=== PATIENT | female | born 1940 | race Caucasian/White ===

== ENCOUNTER 2016-08-30 15:27 | Inpatient (IN) | payer OTHER, MEDICARE ==
[~2016-08-30] VITALS: Ht 167.6 cm; Wt 101.2 kg
[~2016-08-30 15:27] MED LIST: ASPIR 8181 MG PO; ATROVENT HFA12.9 GM INH; CARTIA XT180 MG PO; CARTIA XT240 MG PO; FISH OIL500 MG PO; HYDRALAZINE HCL25 M1 PO; HYDRODIURIL 2525 MG PO; IBUPROFEN200 M3 PO; LASIX40 MG PO; METFORMIN HCL500 M4 PO; METFORMIN HCL500 MG PO; MULTIVITAMIN1 TA1 PO; NOVOLOG100 U/ML SC; OMEGA 31000 MG PO; POTASSIUM CHLO10 ME4 PO; PREDNISONE10 M2 PO; PRILOSEC 20MG C20 MG PO; PROAIR HFA8.5 GM INH; QUINAPRIL HYDRO40 MG PO; ROCEPHIN1 GM IV; SERTRALINE HCL100 MG PO; SIMVASTATIN10 MG PO; SOLU-MEDROL40 MG IV; VESICARE10 MG PO; VITAMIN D50000 I1 PO
--- NOTE | 2016-08-30 15:50 | ED DYSPNEA/ASTHMA COMPLAINT ---
History of Present Illness General Chief Complaint: Dyspnea (COPD, CHF, Other) Stated Complaint: ?BRONCHITIS OR PNA, SOB Source: patient, family, old records Exam Limitations: no limitations Vital Signs & Intake/Output Vital Signs & Intake/Output Vital Signs Date Time Temp Pulse Resp B/P Pulse O2 O2 Flow FiO2 Ox Delivery Rate 09/01 0703 99.0 77 22 130/72 91 Nasal 3.0L Cannula 08/31 0100 148/88 08/31 0016 113 91 08/307 99.2 107 20 152/102 89 Nasal 3.5L Cannula 08/30 2315 103 91 08/30 2215 BIPAP 3.5L 08/30 2159 98.0 106 24 138/89 89 Nasal 3.5L Cannula 08/30 2102 98.3 105 24 142/81 91 Room Air 4.0L 08/30 1912 91 Nasal 4.0L Cannula 08/30 1905 99.4 103 22 139/80 90 Nasal 3.0L Cannula 08/30 1610 91 Nasal 2.0L Cannula 08/30 1605 88 Room Air Room Air 08/30 1538 98.7 96 20 128/65 88 Room Air ED Intake and Output 08/31 0000 08/30 1200 Intake Total 50 Output Total Balance 50 Intake, IV 50 Patient 232 lb Weight Allergies Coded Allergies: codeine (Mild, SENSITIVITY - HEADACHE AND NAUSEA AND MISERABLE 03/01/16) Antihistamines - Alkylamine (DIZZY, HEADACHES, FEELS SICK 03/01/16) Antihistamines - Ethanolamine (DIZZINESS, HEADACHE, FEELS SICK 03/01/16) Antihistamines - Ethylenediamine (DIZZINESS, HEADACHE, FEELS SICK 03/01/16) Antihistamines - Piperazine (DIZZINESS, HEADACHE, FEELS SICK 03/01/16) Antihistamines - Piperidine (DIZZINESS HEADACHE FEELS SICK 03/01/16) Opioids - Morphine Analogues (N/V HEADACHE FEELS MISERABLE 03/01/16) Opioids-Meperidine and Related (N/V HEADACHE, FEELS MISERABLE 03/01/16) Opioids-Methadone and Related (HEADACHE, N/V, FEELS MISERABLE 03/01/16) Reconcile Medications Albuterol Sulfate 0.63 MG/3 ML VIAL.NEB (Unknown Dose) INH Q4 HRS NEEDED PRN BREATHING (Reported) Albuterol Sulfate (Proair Hfa) 90 MCG HFA.AER.AD 2 PUF INH Q4-6 PRN PRN shortness of breath Aspirin (Ecotrin) 81 MG TABLET.DR 1 TAB PO DAILY heart (Reported) DILTIAZEM HCL (Cartia Xt) 180 MG CAP.ER.24H 1 TAB PO DAILY heart (Reported) Fish Oil ([place] 3) 1,000 MG SGL 1 SGL PO DAILY supplement (Reported) Furosemide (Lasix) 40 MG TAB 40 MG PO DAILY HEART HEALTH Hydralazine HCl 25 MG TABLET 25 MG PO TID HTN Ibuprofen 200 MG CAPSULE 4 CAP PO PRN PAIN (Reported) Ipratropium [place] (Atrovent Hfa) 17 MCG/ACTUATION HFA.AER.AD 2 PUF INH DAILY COPD Metformin HCl (Metformin HCl ER) 500 MG TAB.ER.24H 1 TAB PO D DIABETES ( Reported) Multivitamin2 (Multivitamin) 1 EACH TAB 1 TAB PO DAILY supplement (Reported) Potassium Chloride 10 MEQ TABLET.ER 1 TAB PO DAILY SUPPLEMENT (Reported) Quinapril HCl 40 MG TABLET 1 TAB PO DAILY HTN (Reported) Sertraline HCl 100 MG TABLET 0.5 TAB PO DAILY MENTAL HEALTH (Reported) Simvastatin (Zocor) 10 MG TABLET 1 TAB PO DAILY HLD (Reported) Triage Note: PT STATES SHE STARTED WITH A COLD FOR ABOUT 1 WEEK. PT STATES SHE IS NOT HAVING CHEST DISCOMFORT WITH WET COUGH BUT STATES SHE IS UNABLE TO BRING ANYTHING UP. PT FEELING SOB. PT WITH BILAT LOWER EXT. EDEMA WAS TOLD BY PCP TO COME TO ED. FOR EVAL. PT GOES TO WOUND CARE FOR BILAT LOWER EX.T Triage Nurses Notes Reviewed? yes HPI: Patient is a 76-year-old female presents complaining of cough and dyspnea. Patient began with postnasal drip one week ago, "loose cough" onset yesterday. Patient is not able to produce sputum. Patient checks her oxygen saturation twice a day at home, today patient reports that her oxygen saturation was 88%. Pain on the left lateral chest with deep breath and coughing. Positive subjective fevers at home. Chronic bilateral lower extremity edema, mild increased from her baseline. Positive orthopnea. Patient denies dyspnea with exertion. (NIKUNJ MCDERMOTT,KENDAL) Past History Travel History Traveled to [place] past 21 day No Medical History Any Pertinent Medical History? 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 No (KENDAL BROWN) Review of Systems Review of Systems Constitutional: Reports: fever, malaise. EENTM: Reports: nasal congestion (positive postnasal drip). Respiratory: Reports: see HPI. Cardiovascular: Reports: chest pain (left lateral with cough), peripheral edema. GI: Denies: abdominal pain, nausea, vomiting. Genitourinary: Reports: no symptoms. Musculoskeletal: Reports: no symptoms. Skin: Reports: lesions (wound right lower extremity). Neurological/Psychological: Reports: no symptoms. Hematologic/Endocrine: Reports: no symptoms. Immunologic/Allergic: Reports: no symptoms. (KENDAL BROWN) Physical Exam Physical Exam General Appearance: well developed/nourished, alert, awake, obese Head: atraumatic, normal appearance Eyes: Bilateral: normal appearance, PERRL, EOMI. Ears, Nose, Throat: hearing grossly normal Neck: normal inspection, supple, full range of motion Respiratory: chest non-tender, mild diffuse expiratory wheezing. Scattered rhonchi. No appreciable rales. Cardiovascular: irregular rhythm. Positive systolic murmur 4 out of 6. Gastrointestinal: soft, non-tender Extremities: 3+ bilateral lower extremity edema. Wound wraps to bilateral lower extremities. Neurologic/Psych: awake, alert, oriented x 3 Skin: warm/dry Lymphatic: no anterior cervical maira Core Measures ACS in differential dx? Yes ASA ordered for poss ACS? No-ACS ruled out Severe Sepsis Present: No Septic Shock Present: No (KENDAL BROWN) Progress Differential Diagnosis: asthma, AMI, bronchitis, CHF, COPD, pulmonary embolism, pneumonia, unstable angina Plan of Care: Orders Procedure Date/time Status Consistent Carbohydrate 08/31 D Active Consistent Carbohydrate 08/31 B Active Pathway - chart 08/31 0912 Active URINALYSIS 08/31 09 Active TROPONIN LEVEL 08/31 0906 Active CBC WITHOUT DIFFERENTIAL 08/31 905 Active BASIC ELECTROLYTES PLUS BUN&CR 08/31 09 Active Skin/Pressure Ulcer Assess (Sk 08/31 0626 Active LOWER RESPIRATORY CULTURE 08/31 0554 Active Weight 08/31 UNK Active PHYSICIAN CONSULT 08/31 UNK Active ECHOCARDIOGRAM 08/31 UNK Active Teach/Educate 08/30 233 Active Pain Treatment and Response 08/30 2334 Active Nutritional Intake, Monitor 08/30 2334 Active Isolation 08/30 2334 Active Patient Care Conference 08/30 2334 Active Activity/Ambulation 08/30 2334 Active BIPAP 08/30 2254 Complete TROPONIN LEVEL 08/30 223 Complete EKG 08/30 223 Active OXYGEN SETUP (GEN) 08/30 2199 Complete Code Status 08/30 2020 Active Saline Lock 08/30 1957 Active Misc Message 08/30 1957 Active ED Holding Orders 08/30 1957 Active Code Status 08/30 1957 Complete TRC EVALUATION (GEN) 08/31 1947 Active OXYGEN SETUP (GEN) 08/30 194 Active Pathway - chart 08/30 194 Active House Staff 08/30 194 Active Patient Data 08/30 194 Active Patient Data 08/30 1917 Active Admit to inpatient 08/30 1840 Active Telemetry/Financial Specialist 08/30 1622 Active BLOOD CULTURE 08/30 1559 Active TROPONIN LEVEL 08/30 1559 Complete COMPREHENSIVE METABOLIC PANEL 08/30 1559 Complete CBC WITHOUT DIFFERENTIAL 08/30 1559 Complete B-TYPE NATRIURETIC PEP (BNP) 08/30 1559 Complete EKG 08/30 1528 Active OXYGEN 08/30 UNK Complete OXYGEN TRANSPORT 08/30 UNK Complete OXYGEN DAILY CHARGE 08/30 UNK Complete BIPAP 08/30 UNK Complete ARTERIAL BLOOD GAS (GEN) 08/30 UNK Complete VTE Mechanical Prophylaxis 08/30 UNK Active Vital Signs 08/30 UNK Active MISTAKE 08/30 UNK Active Intake & Output 08/30 UNK Active FingerStick- Glucose 08/30 UNK Active Current Medications Sig/Kacie Start time Last Medication Dose Stop Time Status Admin Atorvastatin Calcium 5 MG 1700 08/31 1700 AC (Lipitor) Azithromycin 500 MG 1700 08/31 1700 AC (Zithromax) 04/14 1759 Sodium Chloride 250 ML (Normal Saline 0.9%) Diltiazem HCl 180 MG DAILY 08/31 1000 AC (Cardizem CD) Enoxaparin Sodium 40 MG DAILY 08/31 999 AC (Lovenox) Furosemide 40 MG DAILY 08/31 1000 AC (Lasix) Guaifenesin 600 MG Q12 08/31 1000 AC (Mucinex) Lisinopril 40 MG DAILY 08/31 999 AC (Prinivil) Potassium Chloride 10 MEQ DAILY 08/31 999 AC (K-Dur) Acetaminophen 325 MG Q6P PRN 08/31 914 AC (Tylenol) Acetaminophen 1,000 MG Q6P PRN 08/31 914 AC (Ofirmev) Ibuprofen 400 MG Q6P PRN 08/31 914 AC (Motrin) Laboratory Tests 08/30/16 2300: Troponin I 0.02 08/30/160: pH 7.38, pCO2 49 H, pO2 62 L, HCO3 28, ABG O2 Sat (Measured) 89.0 L, P-50 ( Temp Corrected) N, Carboxyhemoglobin 1.0 L, O2 Concentration % 3.5L, Temperature 98.3, O2 Delivery Method NC, Phlebotomy Draw Site LEFT RADIAL 08/30/16 1637: Anion Gap 12, Estimated GFR > 60, BUN/Creatinine Ratio 28.8 H, Glucose 85, Calcium 9.0, Total Bilirubin 0.7, AST 15, ALT 37, Alkaline Phosphatase 67, Troponin I 0.02, Nav-Q-Nbknleoqpyc Pept 2310 H, Total Protein 7.4, Albumin 4.0, Globulin 3.4, Albumin/Globulin Ratio 1.2, CBC w Diff NO MAN DIFF REQ, RBC 4.70, MCV 88.2, MCH 28.0, RDW 14.6 H, MPV 8.1, Gran % 87.9 H, Lymphocytes % 5.3 L, Monocytes % 6.4, Eosinophils % 0.3, Basophils % 0.1, Absolute Granulocytes 13.9 H, Absolute Lymphocytes 0.8 L, Absolute Monocytes 1.0 H, Absolute Eosinophils 0, Absolute Basophils 0, PUBS MCHC 31.8 L Microbiology 08/31 553 LOWER RESP: Respiratory Culture - ORD 08/31 553 LOWER RESP: Gram Stain - ORD 08/30 181 BLOOD: Blood Culture - RECD 08/30 1638 BLOOD: Blood Culture - RECD 08/30/2016 6:11:02 PM: Patient re-evaluated multiple times. Reports mild to moderate improvement after duoneb treatment. Continues with oxygen saturations in the mid 80's. Discussed results of chest x-ray and evaluation with patient. Discussed with Dr. Sadler. Plan for admission. (NIKUNJ MCDERMOTT,KENDAL) Diagnostic Imaging: Viewed by Me: Radiology Read. Discussed w/RAD: Radiology Read. CXR Impression: PATIENT: KATLYN LUGO PRESENT AGE: 76 PATIENT ACCOUNT NO: [id number] : 40 LOCATION: [facility] ORDERING PHYSICIAN: KENDAL MCDERMOTT SERVICE DATE: 08/30/16 EXAM TYPE: RAD - XRY- PORTABLE CHEST XRAY EXAMINATION: XR PORTABLE CHEST CLINICAL INFORMATION: Cough, dyspnea, lower extremity edema. COMPARISON: Multiple prior chest x-rays dating back to 10/26/2013. CT chest without contrast 12/23/2012. TECHNIQUE: Portable AP view of the chest was obtained. FINDINGS: Single AP view of the chest demonstrates pulmonary hypoinflation and bronchovascular crowding. Cardiomediastinal contours are stable and there is stable prominence of the cardiac silhouette. There are mildly prominent interstitial lung markings, which may reflect interstitial pulmonary edema. Redemonstrated is prominence within the right hilar and right suprahilar regions, grossly unchanged relative to multiple prior chest x-rays dating back to 2013. However, superimposed infection cannot be definitively excluded. IMPRESSION: Pulmonary hypoinflation. Persistent prominence within the bilateral hilar regions, right greater than left, grossly unchanged relative to prior chest x-rays dating back to 2013 and suggestive of underlying pulmonary arterial hypertension. If radiological findings do not correlate to the patient's clinical symptoms or physical exam, consider correlation with contrast-enhanced chest CT to evaluate for underlying mediastinal adenopathy or mass. DICTATED BY: PAPITO MUNGUIA MD DATE/TIME DICTATED:08/30/161633 CIVIL DEFENSE DIRECTOR:MISHA DATE/TIME TRANSCRIBED:1633 CONFIDENTIAL, DO NOT COPY WITHOUT APPROPRIATE AUTHORIZATION. < Electronically signed in Other Vendor System> SIGNED BY: PAPITO MUNGUIA MD 08/30/16 1640 Initial ED EKG: normal sinus rhythm with frequent PACs, normal axis, normal intervals, no acute ischemic EKG changes Prior EKG: unchanged (KENDAL BROWN) Departure Departure Disposition: STILL A PATIENT Condition: Stable Clinical Impression Primary Impression: COPD exacerbation Referrals: Justin SHIN MD (PCP/Family) Departure Forms: Customer Survey General Discharge Information Admission Note Spoke With: SHENA SHORT,RADHA Documentation of Exam: Documentation of any treatments & extenuating circumstances including Concerns Regarding Discharge (functional status, medication knowledge or non-compliance, living conditions, etc.) that warrant an admission rather than observation: Supplemental oxygen, total respiratory care, IV steroids, pulmonary consultation , consider cardiology consultation. (KENDAL BROWN) PA/COMMUNITY ORGANIZATION DIRECTOR Co-Sign Statement Statement: ED Attending supervision documentation- [x] I saw and evaluated the patient. I have also reviewed all the pertinent lab results and diagnostic results. I agree with the findings and the plan of care as documented in the PA's/COMMUNITY ORGANIZATION DIRECTOR's documentation. [x] I have reviewed the ED Record and agree with the PA's/COMMUNITY ORGANIZATION DIRECTOR's documentation. [] Additions or exceptions (if any) to the PAs/COMMUNITY ORGANIZATION DIRECTOR's note and plan are summarized below: [] (ROSMERY SHORT,HIEU) Critical Care Note Critical Care Note Critical Care Time: non-applicable (KENDAL BROWN)
--- NOTE | 2016-08-30 15:55 | NUR ---
PT TO [facility] RM 20 VIA W/C C/C NOTED IN TRIAGE NOTE AWAITING PROVIDER ASTRID
[2016-08-30] MEDS ORDERED: ALBUTEROL0.63 MG/1 INH (16:02)
--- NOTE | 2016-08-30 16:11 | NUR ---
PT EVALUATED BY BALDEMAR CALVIN R/Acosta SATMarielena IN 80'S, PLACED ON NASAL O2@ 2L WITH SATS IMPROVED TO 95% TORI FROM RESPIRATORY THERAPY AT BEDSIDE FOR NEB TREATMENT.
--- NOTE | 2016-08-30 16:40 | RADIOLOGY REPORT ---
EXAMINATION: XR PORTABLE CHEST CLINICAL INFORMATION: Cough, dyspnea, lower extremity edema. COMPARISON: Multiple prior chest x-rays dating back to 10/26/2013. CT chest without contrast 12/23/2012. TECHNIQUE: Portable AP view of the chest was obtained. FINDINGS: Single AP view of the chest demonstrates pulmonary hypoinflation and bronchovascular crowding. Cardiomediastinal contours are stable and there is stable prominence of the cardiac silhouette. There are mildly prominent interstitial lung markings, which may reflect interstitial pulmonary edema. Redemonstrated is prominence within the right hilar and right suprahilar regions, grossly unchanged relative to multiple prior chest x-rays dating back to 2013. However, superimposed infection cannot be definitively excluded. IMPRESSION: Pulmonary hypoinflation. Persistent prominence within the bilateral hilar regions, right greater than left, grossly unchanged relative to prior chest x-rays dating back to 2013 and suggestive of underlying pulmonary arterial hypertension. If radiological findings do not correlate to the patient's clinical symptoms or physical exam, consider correlation with contrast-enhanced chest CT to evaluate for underlying mediastinal adenopathy or mass.
[2016-08-30 16:53] LABS: ABSOLUTE BASOPHIL COUNT 0 /CUMM (0.0-0.2); ABSOLUTE EOSINOPHIL COUNT 0 /CUMM (0.0-0.7); ABSOLUTE GRANULOCYTE CT 13.9 /CUMM (1.4-6.5); ABSOLUTE LYMPH COUNT 0.8 /CUMM (1.2-3.4); BASOPHIL % 0.1 % (0.0-2.0); EOSINOPHIL % 0.3 % (0-5); GRANULOCYTE % 87.9 % (42.2-75.2); HEMATOCRIT 41.4 % (37-47); MEAN CORPUSCULAR HGB CONC 31.8 G/DL (33.0-37.0); MEAN CORPUSCULAR VOLUME 88.2 FL (81.0-99.0); MEAN PLATELET VOLUME 8.1 FL (7.4-10.4); PLATELET COUNT 254 /CUMM (130-400); RBC DISTRIBUTION WIDTH 14.6 % (11.5-14.5)
[2016-08-30 17:16] LABS: WHITE BLOOD CELL COUNT 15.8 /CUMM (4.8-10.8)
--- NOTE | 2016-08-30 18:15 | NUR ---
IV ACCESS ESTABLISHED, #22 RH 2ND SET BLOOD CULTURES DRAWN/SENT
--- NOTE | 2016-08-30 18:30 | NUR ---
PT MEDICATED WITH IV SOLUMEDROL PER ORDERS
--- NOTE | 2016-08-30 18:37 | NUR ---
DR BOTELLO AT BEDSIDE
--- NOTE | 2016-08-30 19:05 | NUR ---
PT MEDICATED WITH IV ZITHROMAX PER ORDERS
--- NOTE | 2016-08-30 19:15 | NUR ---
REPORT TO MARIBELL BANKS
--- NOTE | 2016-08-30 19:47 | History & Physical ---
LEONEL PALMER 08/30/161945: General Information and HPI MD Statement: I have seen and personally examined KATLYN LUGO and documented this H&P. The patient is a 76 year old F who presented with a patient stated chief complaint of cough, left-sided chest pain, worsening lower extremity edema. Source of Information: patient, old records Exam Limitations: no limitations History of Present Illness: This is 76-year-old female with history of morbidly obesity, COPD not on home oxygen, hypertension, heart failure with reduced ejection fraction, BRENNON not compliant with CPAP, chronic hypercapnic respiratory failure, obesity hypoventilation, hyperlipidemia, diabetes mellitus, history of MRSA infection, depression, osteoarthritis, back pain, chronic lower extremity edema with dyspnea on exertion presented to the hospital with cough, dyspnea on exertion, left-sided pleuritic chest pain, worsening lower extremity edema for 2 days. According to the patient, she reported having cold symptoms for one week associated with postnasal drip. She has sick contacts around her. Also reported subjective fevers and chills. However for past 2 days she has been having severe cough associated with left-sided chest pain. Chest pain on and off associated with the deep breaths, 5/10, increased with cough. Denies any nausea, vomiting, diaphoresis, chest pain radiating to neck or shoulder. Patient also reported her oxygen saturations went down to 88 this morning. Usually they vary in between 90-93%. She denies any sputum production. Denies any difficulty breathing at rest. Shortness of breath associated with persistent cough and exertion. She reported subjective fevers and chills. She has difficulty lying flat. She has orthopnea and paroxysmal nocturnal dyspnea. Also patient reported worsening lower extremity edema for 3 days. Increased swelling on left leg compared to right side. Not compeliant with her diet. She missed one of her Lasix 2 days ago. Denies any racing of heart, headache, weakness, sensory tests, notably markedly in sensation, nausea, vomiting, abdominal pain, change in bladder or bowel habits. Denies any travel history. Denies smoking, alcohol intake, illicit drugs. She has been following Dr. Nielsen at wound care center. She was at wound care center last week for right lower extremity blister. Last echo done in 2016 showed ejection fraction 55%, heart failure with reduced ejection fraction and stage II diastolic dysfunction. Allergies/Medications Allergies: Coded Allergies: codeine (Mild, SENSITIVITY - HEADACHE AND NAUSEA AND MISERABLE 03/01/16) Antihistamines - Alkylamine (DIZZY, HEADACHES, FEELS SICK 03/01/16) Antihistamines - Ethanolamine (DIZZINESS, HEADACHE, FEELS SICK 03/01/16) Antihistamines - Ethylenediamine (DIZZINESS, HEADACHE, FEELS SICK 03/01/16) Antihistamines - Piperazine (DIZZINESS, HEADACHE, FEELS SICK 03/01/16) Antihistamines - Piperidine (DIZZINESS HEADACHE FEELS SICK 03/01/16) Opioids - Morphine Analogues (N/V HEADACHE FEELS MISERABLE 03/01/16) Opioids-Meperidine and Related (N/V HEADACHE, FEELS MISERABLE 03/01/16) Opioids-Methadone and Related (HEADACHE, N/V, FEELS MISERABLE 03/01/16) Home Med list Albuterol Sulfate 0.63 MG/3 ML VIAL.NEB (Unknown Dose) INH Q4 HRS NEEDED PRN BREATHING (Reported) Albuterol Sulfate (Proair Hfa) 90 MCG HFA.AER.AD 2 PUF INH Q4-6 PRN PRN shortness of breath Aspirin (Ecotrin) 81 MG TABLET.DR 1 TAB PO DAILY heart (Reported) DILTIAZEM HCL (Cartia Xt) 180 MG CAP.ER.24H 1 TAB PO DAILY heart (Reported) Fish Oil ([place] 3) 1,000 MG SGL 1 SGL PO DAILY supplement (Reported) Furosemide (Lasix) 40 MG TAB 40 MG PO DAILY HEART HEALTH Hydralazine HCl 25 MG TABLET 25 MG PO TID HTN Ibuprofen 200 MG CAPSULE 4 CAP PO PRN PAIN (Reported) Ipratropium [place] (Atrovent Hfa) 17 MCG/ACTUATION HFA.AER.AD 2 PUF INH DAILY COPD Metformin HCl (Metformin HCl ER) 500 MG TAB.ER.24H 1 TAB PO D DIABETES ( Reported) Multivitamin2 (Multivitamin) 1 EACH TAB 1 TAB PO DAILY supplement (Reported) Potassium Chloride 10 MEQ TABLET.ER 1 TAB PO DAILY SUPPLEMENT (Reported) Quinapril HCl 40 MG TABLET 1 TAB PO DAILY HTN (Reported) Sertraline HCl 100 MG TABLET 0.5 TAB PO DAILY MENTAL HEALTH (Reported) Simvastatin (Zocor) 10 MG TABLET 1 TAB PO DAILY HLD (Reported) Compliance With Home Meds: GOOD Past History Travel History Traveled to [place] past 21 day No Medical History Neurological: NONE EENT: NONE Cardiovascular: hypertension Respiratory: bronchitis, COPD, pneumonia Gastrointestinal: NONE Hepatic: NONE Renal: NONE Musculoskeletal: NONE Psychiatric: NONE Endocrine: diabetes Blood Disorders: NONE Cancer(s): NONE SENIOR BUSINESS CONSULTANT/Reproductive: NONE History of MRSA: Yes History of VRE: No History of CDIFF: No Pneumonia Vaccine: 02/21/10 Influenza Vaccine: 02/21/11 Surgical History Surgical History: non-contributory Past Family/Social History Psychosocial History Who Do You Live With? spouse Services at Home: None Primary Language: Faroese Smoking Status: Never Smoked ETOH Use: occasional use Illicit Drug Use: denies illicit drug use Functional Ability ADLs Independent: dressing, eating, toileting, bathing. Ambulation: independent IADLs Independent: shopping, housework, finances, food prep, telephone, transportation , medication admin. Review of Systems Review of Systems Constitutional: Reports: chills, fever. Denies: diaphoresis, malaise, weakness, unexplained weight loss. EENTM: Denies: visual changes, hearing changes. Cardiovascular: Reports: chest pain, edema, orthopena, peripheral edema. Denies: palpitations, syncope. Respiratory: Reports: cough, orthopnea, short of breath, wheezing. Denies: hemoptysis, sputum production, stridor. GI: Denies: abdominal pain, bloating, constipation, diarrhea. Genitourinary: Denies: frequency, nocturia, urgency. Musculoskeletal: Reports: back pain, joint pain. Skin: Reports: erythema, lesions. Neurological/Psychological: Denies: anxiety, ataxia, depressed, dementia, emotional problems, headache, numbness, tingling, tremors. Exam & Diagnostic Data Last 24 Hrs of Vital Signs/I&O Vital Signs Date Time Temp Pulse Resp B/P Pulse O2 O2 Flow FiO2 Ox Delivery Rate 08/30 2102 98.3 105 24 142/81 91 Room Air 4.0L 08/30 1912 91 Nasal 4.0L Cannula 08/30 1905 99.4 103 22 139/80 90 Nasal 3.0L Cannula 08/30 1610 91 Nasal 2.0L Cannula 08/30 1605 88 Room Air Room Air 08/30 1538 98.7 96 20 128/65 88 Room Air Intake & Output 08/30 1600 08/30 0800 08/30 0000 Intake Total Output Total Balance Patient 105.233 kg Weight Physical Exam General Appearance Alert, Oriented X3, Cooperative, No Acute Distress Skin No Rashes, No Breakdown HEENT Atraumatic, PERRLA, EOMI, Mucous Membr. moist/pink Neck Supple, No JVD Lymphatic Axillary nl, Cervical nl Cardiovascular Regular Rate, Normal S1, Normal S2, No Murmurs Lungs expiratory wheezes and crackles Abdomen Normal Bowel Sounds, Soft, No Tenderness Neurological Strength at 5/5 X4 Ext, Normal Tone, Sensation Intact, Cranial Nerves 3-12 NL, Reflexes 2+ Extremities No Clubbing, No Cyanosis (+4 pitting edema b/l), +4 bilateral pitting edema and blister on RLE. Vascular Normal Pulses Last 24 Hrs of Labs/Bernard: Laboratory Tests 08/30/162049: pH 7.38, pCO2 49 H, pO2 62 L, HCO3 28, ABG O2 Sat (Measured) 89.0 L, P-50 ( Temp Corrected) N, Carboxyhemoglobin 1.0 L, O2 Concentration % 3.5L, Temperature 98.3, O2 Delivery Method NC, Phlebotomy Draw Site LEFT RADIAL 08/30/16 1637: Anion Gap 12, Estimated GFR > 60, BUN/Creatinine Ratio 28.8 H, Glucose 85, Calcium 9.0, Total Bilirubin 0.7, AST 15, ALT 37, Alkaline Phosphatase 67, Troponin I 0.02, Yyi-G-Pmkcepnrwac Pept 2310 H, Total Protein 7.4, Albumin 4.0, Globulin 3.4, Albumin/Globulin Ratio 1.2, CBC w Diff NO MAN DIFF REQ, RBC 4.70, MCV 88.2, MCH 28.0, RDW 14.6 H, MPV 8.1, Gran % 87.9 H, Lymphocytes % 5.3 L, Monocytes % 6.4, Eosinophils % 0.3, Basophils % 0.1, Absolute Granulocytes 13.9 H, Absolute Lymphocytes 0.8 L, Absolute Monocytes 1.0 H, Absolute Eosinophils 0, Absolute Basophils 0, PUBS MCHC 31.8 L Microbiology 08/30 181 BLOOD: Blood Culture - RECD 08/30 1638 BLOOD: Blood Culture - RECD Diagnostic Data EKG Results Sinus tachycardia, rate 102, multiple PACs, no ST-T wave abnormalities. QTC 485. CXR Results Chest x-ray on admission:Pulmonary hypoinflation. Persistent prominence within the bilateral hilar regions, right greater than left, grossly unchanged relative to prior chest x- rays dating back to 2013 and suggestive of underlying pulmonary arterial hypertension. If radiological findings do not correlate to the patient's clinical symptoms or physical exam, consider correlation with contrast-enhanced chest CT to evaluate for underlying mediastinal adenopathy or mass. Assessment/Plan Assessment: This is 76-year-old female with history of morbidly obesity, COPD not on home oxygen, hypertension, heart failure with reduced ejection fraction, BRENNON not compliant with CPAP, chronic hypercapnic respiratory failure, obesity hypoventilation, hyperlipidemia, diabetes mellitus, history of MRSA infection, depression, osteoarthritis, back pain, chronic lower extremity edema with dyspnea on exertion presented to the hospital with cough, dyspnea on exertion, left-sided pleuritic chest pain, worsening lower extremity edema for 2 days. Vital signs on admission: Temperature 99.4, pulse rate 103, respiratory rate 22, blood pressure 139/80, oxygen saturation 90% on 3 L nasal cannula oxygen. Pertinent lab data: Leukocytosis to 15.8, hemoglobin 13.2, hematocrit 41.4, platelet 254. Sodium 147, potassium 3.5, creatinine 0.8, glucose 85, calcium 9, proBNP 2310, troponin 0.02. Chest x-ray on admission:Pulmonary hypoinflation. Persistent prominence within the bilateral hilar regions, right greater than left, grossly unchanged relative to prior chest x-rays dating back to 2013 and suggestive of underlying pulmonary arterial hypertension. consider correlation with contrast-enhanced chest CT to evaluate for underlying mediastinal adenopathy or mass. EKG on admission: Sinus tachycardia, rate 102, multiple PACs, no ST-T wave abnormalities. QTC 485. Echocardiogram: February 2016, Technically difficult study. Left ventricular cavity size normal. Left ventricular wall thickness mildly increased. No obvious regional wall motion abnormalities. Left ventricular ejection fraction is estimated at > 55 %. Probable "pseudonormal" filling pattern of the left ventricle (stage 2 diastolic dysfunction). Normal right ventricular size and function. Mild right atrial dilatation. Mild to moderate left atrial dilatation. Ptcb-mi-mgcpksol tricuspid regurgitation. Right ventricular systolic pressure estimated to be elevated at > 60 mmHg. Problem list 1. Acute on chronic CHF 2. Acute COPD exacerbation 3. Acute hypoxic respiratory failure 4. Chronic hypercarbic respiratory failure 5. Depression 6. Osteoarthritis 7. Worsening lower extremity edema 8. Hypertension 9. Hyperlipidemia 10. Diabetes mellitus 11. BRENNON Acute on chronic CHF Patient presented with worsening bilateral lower extremity edema, increased weight, difficulty breathing on exertion. Positive for Left-sided pleuritic chest pain. Positive for orthopnea and paroxysmal nocturnal dyspnea. ProBNP elevated on admission * Admitted to telemetry floor for further management of acute CHF exacerbation * Monitor vitals closely * Monitor daily weights * Ins and outs * Patient takes Lasix 40 mg daily at home * IV Lasix for now * Echocardiogram * Cardiology consult * First set of troponin and EKG was negative * Serial troponins and EKGs acute COPD exacerbation Patient presented with cough not associated with sputum production. Reported subjective fevers and chills. Left-sided chest pain and difficulty placing on exertion. Patient has COPD at baseline not on home oxygen. However her oxygen saturations drop her down to 88 this morning. * Monitor vitals closely * Maintain oxygen saturation Over 90% * Total respiratory care * Albuterol * Ipratropium * IV methylprednisolone 40 mg every 8 hours * If symptoms not improved by tomorrow, consider CTA to rule out PE. Acute hypoxic respiratory failure Patient has chronic hypercarbic respiratory failure. No presented with respiratory rate 22, hypoxia requiring 2 L oxygen. * Patient was prescribed BiPAP and nocturnal oxygen after previous discharge in February 2016. * She is not compliant with BiPAP because her mask is not fitting well. * Will maintain the patient on oxygen supplement to maintain oxygen saturation above 92%. Diabetes: Stable, Accu-Cheks. Would hold oral diabetic medications. Will maintain the patient on insulin sliding scale. Hypertension Continue quinapril and hydralazine Hyperlipidemia Continue statins Obstructive sleep apnea Not using her CPAP. Depression Continue sertraline 50 mg daily Osteoarthritis She takes Ibuprofen as needed Chronic lower extremity edema Also patient reported worsening lower extremity edema for 3 days. Increased swelling on left leg compared to right side. Not compeliant with her diet. She missed one of her Lasix 2 days ago. * She has been following Dr. Nielsen at wound care center. * She was at wound care center last week for right lower extremity blister. * IV Lasix for now * Wound care consult Continue aspirin Continue Cardizem DVT prophylaxis subcutaneous heparin Patient is full code Heart healthy diet/sodium restriction Pain pathway As Ranked By This Provider Problem List: 1. Diabetes mellitus 2. Hypoxic respiratory failure 3. Obesity 4. DVT prophylaxis 5. Full code status 6. Diastolic CHF 7. Hypertension 8. Hyperlipidemia 9. CHF (congestive heart failure) 10. COPD (chronic obstructive pulmonary disease) 11. Osteoarthritis Core Measures/Miscellaneous Acute Coronary Syndrome ACS Diagnosis: No Cerebrovascular Accident CVA/TIA Diagnosis: No Congestive Heart Failure CHF Diagnosis: Yes Date of most recent Echo: 03/04/16 Last Known EF %: 55 JELANI/ARB for EF <40%: Yes No JELANI/ARB d/t: Medical Contraindication Venous Thromboembolism VTE Risk Factors: Age > 40, Obesity No [facility] VTE prophylaxis d/t: No contraindications No VTE Pharm Prophylaxis d/t: No contraindications VTE Diagnosis: No VTE Type: NONE VTE Confirmed by (Test): NONE Severe Sepsis Severe Sepsis Present: No Septic Shock Septic Shock Present: No Miscellaneous Documentation Attending Case Discussed With: LENNIE CHATTERJEE MDBernard Primary Care Physician: Justin SHIN MD Patient sees these Specialists Cardiology Pulmonology Wound care Level of Patient Care: Telemetry YARI CHUN 08/30/161958: Resident Review Statement Resident Statement: examined this patient, discussed with international freight forwarder, agreed with international freight forwarder, reviewed images Other Findings: This is a 76-year-old lady with past medical history significant for COPD, hypertension, HfpEF, BRENNON not compliant with nocturnal CPAP, chronic hypercapnic respiratory failure/obesity hypoventilation, diabetes, chronic lower extremity edema, who presents to the hospital with dyspnea, cough and left-sided chest wall pain for 1 day. She reports a history of sick contact (grandson). Please see above for more details. Vital signs on admission: Temperature 99.4, pulse rate 103, respiratory rate 22, blood pressure 139/80, oxygen saturation 90% on 3 L nasal cannula oxygen. Physical exam at the time of admission: AAO 3, obese, mild distress. HEENT: H NCAT, PERRLA, EOMI, normal pharynx, moist mucous membrane. Neck: JVD present, no lymphadenopathy, no carotid bruit. Cardiovascular: Tachycardic, no murmur. No chest wall tenderness upon palpation. Lungs: Expiratory wheezes with by basilar crackles noted. Abdomen: Normal bowel sounds, soft, NT, ND. Extremities: Bilateral lower extremity edema noted more prominent on the left side. There is a 4 cm x 11 cm ruptured blister present on Right lower extremity. Pulses symmetrical. Neurologic: Cranial nerve II-12 intact. Sensation intact. Normal reflexes. Pertinent lab data: Leukocytosis to 15.8, hemoglobin 13.2, hematocrit 41.4, platelet 254. Sodium 147, potassium 3.5, creatinine 0.8, glucose 85, calcium 9, proBNP 2310, troponin 0.02. Chest x-ray on admission:Pulmonary hypoinflation. Persistent prominence within the bilateral hilar regions, right greater than left, grossly unchanged relative to prior chest x- rays dating back to 2013 and suggestive of underlying pulmonary arterial hypertension. If radiological findings do not correlate to the patient's clinical symptoms or physical exam, consider correlation with contrast-enhanced chest CT to evaluate for underlying mediastinal adenopathy or mass. EKG on admission: Sinus tachycardia, rate 102, multiple PACs, no ST-T wave abnormalities. QTC 485. Echocardiogram: February 2016, Technically difficult study. Left ventricular cavity size normal. Left ventricular wall thickness mildly increased. No obvious regional wall motion abnormalities. Left ventricular ejection fraction is estimated at > 55 %. Probable "pseudonormal" filling pattern of the left ventricle (stage 2 diastolic dysfunction). Normal right ventricular size and function. Mild right atrial dilatation. Mild to moderate left atrial dilatation. Mild- to-moderate tricuspid regurgitation. Right ventricular systolic pressure estimated to be elevated at > 60 mmHg. Problem list/plan: #Worsening dyspnea: CHF exacerbation versus COPD exacerbation versus PE. Patient was prescribed BiPAP and nocturnal oxygen after previous discharge in February 2016. She is not compliant with BiPAP because her mask is not fitting well. Will maintain the patient on oxygen supplement to maintain oxygen saturation above 92%. Will maintain the patient on teletypesetter monitor. Furosemide 40 IV 1. Please reassess tomorrow and decide about the diuretic regimen based on patient's symptoms. Will rule out ACS with serial troponin and EKG. Will order an echocardiogram. We ordered an ABG. Mucinex for cough. TRC /nebs as needed. IV methylprednisolone 40 every 8. IV azithromycin for 5 days. If symptoms not improved by tomorrow, consider CTA to rule out PE. #Diabetes: Stable, Accu-Cheks. Would hold oral diabetic medications. Will maintain the patient on insulin sliding scale. #DVT prophylaxis: Subcutaneous Lovenox. #Patient is full code. SHENA SHORT, [facility] 08/30/16 2331: Attending MD Review Statement Attending Statement Attending MD Statement: examined this patient, discuss w/resident/PA/HAT BODY SORTER, agreed w/resident/PA/HAT BODY SORTER Attending Assessment/Plan: 76 yo morbidly obese F with h/o COPD, HTN, HFrEF, BRENNON non compliant with CPAP, chronic hypercapneic respiratory failure/obesity hypoventilation, T2DM, chronic LE edema, p/w 1-day h/o worsening DIOR, cough, left sided pleuritic chest pain, worsening LE edema with weight gain. O2 sats at home were in low 80's. Orthopnea +. She reports complaince to lasix, may have missed 1 or 2 doses. Patient has not used her nocturnal CPAP for over 2 weeks as her mask is broken. Sick contact +. Last admitted Feb 2016 for CHF/COPDE, sent raul bing 4L O2 that was tapered off by Dr. Roland. She did not undergo outpatient sleep study yet. In the ER, sats 88% RA --> 91% on 4L, tachycardic, afebrile, BP stable. Exam: patient in mild respiratory distress, JVD+, Chest bibasilar crackles+, expiratory wheeze+, B/l 3+ pitting edema, RLE large ruptured erythematous blister area. Labs: WBC 15.8, Na 147, BUN 23, bicarb 33, trop neg, proBNP 2310. AB.38/49/62/28. CXR: pulmonary hypoinflation, prominent interstitial markings likely interstitial pulmonary edema, pulmonary arterial hypertension. EKG: Sinus tachycardia, PAC's. Echo (2015): EF >55%, stage 2 diastolic dysfunction, pulmonary hypertension. 1. Acute on chronic hypercarbic and hypoxemic respiratory failure 2/2 acute on chronic HfrEF and COPDE due to bronchitis. No pneumonia. Tele admit for contionuous pulse ox monitoring and Bipap therapy, TRC nebs, sputum cultures, IV lasix 40 mg then resume home dose 40 daily. Strict I/O's, daily weights. Echo, Cardio consult. Rule out ACS. IV steroids, IV azithro for 5 days, mucinex for cough. Pulm consult (Dr. Roland). If symptoms do not improve, would consider CTA to rule out PE. 2. Wound consult - she was seen at the Wound Care center on Wednesday by Dr. Roland for right lower extremity blister draining serous liquid. 3. Social issues: please ensure she has a proper fitting face mask for the Bipap on discharge. DVT ppx Lovenox. Full code.
[2016-08-30] MEDS ORDERED: QUINAPRIL HCL40 M1 PO (20:16)
--- NOTE | 2016-08-30 20:20 | NUR ---
HOUSE STAFF AT BEDSIDE
--- NOTE | 2016-08-30 20:29 | NUR ---
PT HAS A BED 235-2
--- NOTE | 2016-08-30 20:50 | NUR ---
PT WAS CHANGE FROM GM TO TELE
--- NOTE | 2016-08-30 20:52 | NUR ---
PT O2 SAT 89% 4 L. AUDITORY CRACKLES THROUGH OUT LUNG FIELD. RESP AT BEDSIDE GETTING ABG. PT MEDICATED WITH LASIX PER ORDER.
--- NOTE | 2016-08-30 21:03 | NUR ---
PT HAS A BED 174-30
--- NOTE | 2016-08-30 21:24 | Admission Certification ---
Admission Certification Certification Statement - As attending physician, I certify that at the time of - admission, based on clinical presentation, severity of - symptoms, need for further diagnostic testing and - therapeutic interventions, and risk of adverse outcomes - without in-hospital treatment, in my clinical assessment, - this patient requires an acute hospital stay for a minimum - of two nights or longer. I have also considered psychsocial - factors such as support system, advanced age, financial - issues, cognitive issues, and failed out-patient treatments, - past re-admission history, safety of patient, and lack of - compliance as applicable. Specific rationale supporting this admission is: Acute hypoxemic respiratory failure, chronic hypercarbic respiratory failure, acute on chronic diastolic heart failure with COPD exacerbation.
--- NOTE | 2016-08-30 21:58 | NUR ---
PT A/O X4. RESP UNLABORED. NO APPARENT DISTRESS
[2016-08-30 23:17] VITALS: BP 152/102
[2016-08-31 01:00] VITALS: BP 148/88
--- NOTE | 2016-08-31 07:50 | PN- Housestaff ---
See Addendum JAYLEN SHORT,LUIS 08/31/16 0741: Subjective Follow-up For: Acute on chronic respiratory failure HFrEF COPD exacerbation Complaints: no complaints Subjective: Patient was seen and examined at bedside. She's sitting on a chair, breathing comfortably on 3.5L nasal oxygen. She feels much better with IV lasix and BiPAP use overnight. She was seen by [facility] at [facility], and her Rt. ant coreas bullae was ruptured last Wednesday. Her Lt. sided pleuritic chest pain is gone. No fever/chills. She has some cough with sputum. Review of Systems Constitutional: Denies: chills, fever, malaise. EENTM: Reports: no symptoms. Cardiovascular: Reports: orthopena, peripheral edema. Denies: chest pain, palpitations. Respiratory: Reports: cough, orthopnea, sputum production, wheezing. Denies: short of breath. Gastrointestinal: Denies: abdominal pain, nausea, vomiting. Genitourinary: Reports: no symptoms. Musculoskeletal: Reports: no symptoms. Skin: Reports: see HPI, change in skin color, lesions. Neurological/Psychological: Reports: no symptoms. Hematologic/Endocrine: Reports: no symptoms. Immunologic/Allergic: Reports: no symptoms. Objective Last 24 Hrs of Vital Signs/I&O Vital Signs Date Time Temp Pulse Resp B/P Pulse O2 O2 Flow FiO2 Ox Delivery Rate 08/31 0100 148/88 08/31 0016 113 91 08/30 2317 99.2 107 20 152/102 89 Nasal 3.5L Cannula 08/30 2315 103 91 08/30 2215 BIPAP 3.5L 08/30 2159 98.0 106 24 138/89 89 Nasal 3.5L Cannula 08/30 2102 98.3 105 24 142/81 91 Room Air 4.0L 08/30 1912 91 Nasal 4.0L Cannula 08/30 1905 99.4 103 22 139/80 90 Nasal 3.0L Cannula 08/30 1610 91 Nasal 2.0L Cannula 08/30 1605 88 Room Air Room Air 08/30 1538 98.7 96 20 128/65 88 Room Air Intake & Output 08/31 0800 08/31 0000 08/30 1600 Intake Total 300 50 Output Total 550 Balance -250 50 Intake, IV 0 50 Intake, Oral 300 Number 0 Bowel Movements Output, Urine 550 Patient 240 lb 232 lb 232 lb Weight Physical Exam General Appearance: Alert, Oriented X3, Cooperative, No Acute Distress Skin: bilateral LE edema on dressing, Rt. ant. coreas blister+ HEENT: Atraumatic, PERRLA, EOMI, Mucous Membr. moist/pink Neck: Supple, No LAD, JVD + Lymphatic: Cervical nl Cardiovascular: Regular Rate, Normal S1, Normal S2, No Murmurs Lungs: Mild wheezing on bibasilar area Abdomen: Normal Bowel Sounds, Soft, No Tenderness Neurological: Normal Speech, Strength at 5/5 X4 Ext, Sensation Intact Extremities: Bilateral LE edema 2+ up to knee Vascular: Normal Pulses, Pulses Symmetrical Current Medications: Current Medications Sig/Kacie Start time Last Medication Dose Route Stop Time Status Admin Albuterol Sulfate 3 ML ONCE ONE 08/30 1914 DC 08/30 INH 08/30 Albuterol Sulfate 3 ML ONCE ONE 08/30 1600 DC 08/30 INH 08/30 1601 1606 Aspirin 0 .STK-MED ONE 08/30 2112 DC PO Aspirin Buffered 81 MG DAILY 08/31 2051 AC 08/30 PO 211 Atorvastatin Calcium 5 MG 1700 08/31 1700 AC PO Azithromycin 500 MG 1700 08/31 1700 AC Sodium Chloride 250 ML IV 09/04 175 Azithromycin 500 MG ONCE ONE 08/30 1730 DC 08/30 Sodium Chloride 250 ML IV 08/30 1828 190 Diltiazem HCl 180 MG DAILY 08/31 1000 AC PO Enoxaparin Sodium 40 MG DAILY 08/31 1000 AC SC Furosemide 40 MG DAILY 08/31 1000 AC PO Furosemide 0 .STK-MED ONE 08/30 2053 DC IV Furosemide 40 MG ONCE ONE 08/30 2044 DC 08/30 IV 08/30 Guaifenesin 600 MG Q12 08/31 1000 AC PO Hydralazine HCl 25 MG TID 08/300 AC 08/30 PO 2120 Insulin Aspart 0 TIDAC 08/31 0800 AC SC Ipratropium [place] 2.5 ML ONCE ONE 08/30 1600 DC 08/30 INH 08/30 1601 1606 Lisinopril 40 MG DAILY 08/31 1000 AC PO Methylprednisolone 40 MG Q8 08/30 2199 AC 08/31 IV 0529 Methylprednisolone 0 .STK-MED ONE 08/30 1825 DC .ROUTE Methylprednisolone 125 MG ONCE ONE 08/30 1729 DC 08/30 IV 08/30 1730 1827 Patient Medication 1 UNIT ONE NR 08/30 2114 [facility] ED 08/30 2129 Patient Medication 1 UNIT ONE NR 08/30 2114 [facility] ED 08/30 2129 Patient Medication 1 UNIT ONE NR 08/30 2114 [facility] ED 08/30 2129 Patient Medication 1 UNIT ONE NR 08/30 2114 [facility] ED 08/30 2129 Potassium Chloride 10 MEQ DAILY 08/31 1000 AC PO Last 24 Hrs of Lab/Bernard Results Last 24 Hrs of Labs/Mics: Laboratory Tests 08/30/160: Troponin I 0.02 08/30/162049: pH 7.38, pCO2 49 H, pO2 62 L, HCO3 28, ABG O2 Sat (Measured) 89.0 L, P-50 ( Temp Corrected) N, Carboxyhemoglobin 1.0 L, O2 Concentration % 3.5L, Temperature 98.3, O2 Delivery Method NC, Phlebotomy Draw Site LEFT RADIAL 08/30/16 163: Anion Gap 12, Estimated GFR > 60, BUN/Creatinine Ratio 28.8 H, Glucose 85, Calcium 9.0, Total Bilirubin 0.7, AST 15, ALT 37, Alkaline Phosphatase 67, Troponin I 0.02, Ejf-E-Smxrlyucxja Pept 2310 H, Total Protein 7.4, Albumin 4.0, Globulin 3.4, Albumin/Globulin Ratio 1.2, CBC w Diff NO MAN DIFF REQ, RBC 4.70, MCV 88.2, MCH 28.0, RDW 14.6 H, MPV 8.1, Gran % 87.9 H, Lymphocytes % 5.3 L, Monocytes % 6.4, Eosinophils % 0.3, Basophils % 0.1, Absolute Granulocytes 13.9 H, Absolute Lymphocytes 0.8 L, Absolute Monocytes 1.0 H, Absolute Eosinophils 0, Absolute Basophils 0, PUBS MCHC 31.8 L Microbiology 08/31 05 LOWER RESP: Respiratory Culture - ORD 08/31 553 LOWER RESP: Gram Stain - ORD 08/30 181 BLOOD: Blood Culture - RECD 08/30 1638 BLOOD: Blood Culture - RECD Lines/Diet/Fluids Lines: peripheral lines Assessment/Plan Assessment: 76 yo female with obesity, COPD not on home oxygen, HTN, HFrEF (EF>55%), BRENNON non compliant with CPAP, chronic hypercapneic respiratory failure/obesity hypoventilation, T2DM, chronic LE edema, presentd with 1-day h/o worsening DIOR, cough, left sided pleuritic chest pain, worsening LE edema with weight gain. 1. Acute on chronic hypercarbic and hypoxemic respiratory failure: AB.38/49/ 62/28. Pt is not on home oxygen, only using 2L oxygen with nocturnal CPAP. She's breathing comfortably, Sat 91% on 3L of oxygen. Taper oxygen with Sat > 92%. continue nocturnal BiPAP. continue treatment for COPD exacerbation and CHF exacerbation. 2. Acute on chronic HfrEF: I/Os -200 in 24 hrs. IV lasix 40 mg was given once. Resume home dose 40 daily. Strict I/O's, daily weights. Last echo on 03/08 showed EF>60% stage 2 diastolic dysfunction. will get an Echocardiogram and follow Cardio consult. 2 sets of troponin negative. 3. COPDE due to bronchitis: She is doing much better. No pneumonia. continue TRC nebs, sputum cultures, IV solumedrol 40mg q8, IV azithro for 5 days, mucinex for cough. Will follow Pulm consult (Dr. Roland). 4. Wound consult: follow Wound Care consult/Dr. Roland for right lower extremity blister draining serous liquid. Cotninue dressing. 5. BRENNON non compliant to CPAP: Her home mask is broken. she needs a proper fitting face mask for the Bipap on discharge. Conitnue biPAP in the hospital. DVT ppx Lovenox. Full code. Problem List: 1. Hypoxic respiratory failure 2. Diastolic CHF 3. COPD exacerbation 4. Diabetes mellitus 5. Hypertension 6. Hyperlipidemia Pain Ratin Pain Location: Lt. pleuric chest pain Pain Goal: Pain 4 or less Pain Plan: po tyrenol, ibuprofen, IV tyrenol Tomorrow's Labs & Rationales: CBC -elevated WBC BEP - on lasix DVT/Prophylaxis: pharmacological Discharge Plan Stable for Discharge? No KIRILL VO MD 08/31/16 1341: Attending MD Review Statement Attending Statement Attending MD Statement: examined this patient, discuss w/resident/PA/GRADES 1 THROUGH 6 TEACHER, agreed w/resident/PA/GRADES 1 THROUGH 6 TEACHER, reviewed EMR data (avail) Attending Assessment/Plan: Breathing improved today. Will continue Solumedrol taper, give IV Lasix today and likely PO tomorrow, follow wound and cardiology recommendations, continue home medications.
[2016-08-31 08:03] VITALS: BP 130/72
--- NOTE | 2016-08-31 08:10 | Cons- Wound Care ---
General Information and HPI Consulting Request Date of Consult: 08/31/16 Requested By: SHENA SHORT,MILLIEALAKSHMI Reason for Consult: Right lower extremity venous stasis ulcer present on admission History of Present Illness: Vision 76-year-old woman with multiple medical problems inclusive of sleep apnea COPD heart failure edema was seen in the wound care center several weeks ago for increasing edema and a right lower extremity fluid-filled blister. This was evacuated and treated with nonadherent dressing and multilayer compression dressing. She was instructed to contact her primary care physician regarding increasing her Lasix dosage. She was encouraged to pursue bedrest leg elevation and adherence with nasal CPAP. She was admitted with URI symptoms cough and chest pain. She had leukocytosis and a low-grade fever. Allergies/Medications Allergies: Coded Allergies: codeine (Mild, SENSITIVITY - HEADACHE AND NAUSEA AND MISERABLE 03/01/16) Antihistamines - Alkylamine (DIZZY, HEADACHES, FEELS SICK 03/01/16) Antihistamines - Ethanolamine (DIZZINESS, HEADACHE, FEELS SICK 03/01/16) Antihistamines - Ethylenediamine (DIZZINESS, HEADACHE, FEELS SICK 03/01/16) Antihistamines - Piperazine (DIZZINESS, HEADACHE, FEELS SICK 03/01/16) Antihistamines - Piperidine (DIZZINESS HEADACHE FEELS SICK 03/01/16) Opioids - Morphine Analogues (N/V HEADACHE FEELS MISERABLE 03/01/16) Opioids-Meperidine and Related (N/V HEADACHE, FEELS MISERABLE 03/01/16) Opioids-Methadone and Related (HEADACHE, N/V, FEELS MISERABLE 03/01/16) Home Med List: Albuterol Sulfate 0.63 MG/3 ML VIAL.NEB (Unknown Dose) INH Q4 HRS NEEDED PRN BREATHING (Reported) Albuterol Sulfate (Proair Hfa) 90 MCG HFA.AER.AD 2 PUF INH Q4-6 PRN PRN shortness of breath Aspirin (Ecotrin) 81 MG TABLET.DR 1 TAB PO DAILY heart (Reported) DILTIAZEM HCL (Cartia Xt) 180 MG CAP.ER.24H 1 TAB PO DAILY heart (Reported) Fish Oil ([place] 3) 1,000 MG SGL 1 SGL PO DAILY supplement (Reported) Furosemide (Lasix) 40 MG TAB 40 MG PO DAILY HEART HEALTH Hydralazine HCl 25 MG TABLET 25 MG PO TID HTN Ibuprofen 200 MG CAPSULE 4 CAP PO PRN PAIN (Reported) Ipratropium [place] (Atrovent Hfa) 17 MCG/ACTUATION HFA.AER.AD 2 PUF INH DAILY COPD Metformin HCl (Metformin HCl ER) 500 MG TAB.ER.24H 1 TAB PO D DIABETES ( Reported) Multivitamin2 (Multivitamin) 1 EACH TAB 1 TAB PO DAILY supplement (Reported) Potassium Chloride 10 MEQ TABLET.ER 1 TAB PO DAILY SUPPLEMENT (Reported) Quinapril HCl 40 MG TABLET 1 TAB PO DAILY HTN (Reported) Sertraline HCl 100 MG TABLET 0.5 TAB PO DAILY MENTAL HEALTH (Reported) Simvastatin (Zocor) 10 MG TABLET 1 TAB PO DAILY HLD (Reported) Review of Systems Review of Systems: She denies fevers or chills at home Past History Travel History Traveled to [place] past 21 day No Medical History Blood Transfusion Hx: No Neurological: NONE EENT: NONE Cardiovascular: hypertension Respiratory: bronchitis, COPD, pneumonia Gastrointestinal: NONE Hepatic: NONE Renal: NONE Musculoskeletal: NONE Psychiatric: NONE Endocrine: diabetes Blood Disorders: NONE Cancer(s): NONE 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 Home Who Do You Live With? spouse Services at Home: None Primary Language: Mongolian Smoking Status: Never Smoked ETOH Use: occasional use Illicit Drug Use: denies illicit drug use Functional Ability ADLs Independent: dressing, eating, toileting, bathing. Ambulation: independent IADLs Independent: shopping, housework, finances, food prep, telephone, transportation , medication admin. Exam & Diagnostic Data Vital Signs and I&O Vital Signs Result Date Time Pulse Ox 91 08/31 802 B/P 130/72 08/31 802 O2 Delivery Nasal Cannula 08/31 802 O2 Flow Rate 3.0L 08/31 802 Temp 99.0 08/31 802 Pulse 77 08/31 802 Resp 22 08/31 802 Intake & Output 08/31 0000 08/30 1600 08/30 0800 Intake Total 50 Output Total Balance 50 Intake, IV 50 Patient 232 lb 232 lb Weight Exam her right lower extremity shows there approximately to be a 8 x 5 cm blister which is partially epithelialized. There is trace taylor-ulcer erythema but no significant warmth. There is no undermining sinus tracking there is yellow serous drainage. Assessment/Plan Impression/Plan: 76-year-old woman with multiple medical problems sleep apnea pulmonary hypertension congestive heart failure and venous insufficiency admitted with shortness of breath. Her right lower extremity ulcer appears to be partially epithelialized. Whether there is evidence of soft tissue skin infection accounting for her leukocytosis is difficult to ascertain. If no other source of her leukocytosis can be found would adjust antibiotics for soft tissue skin infection. Recommend bedrest and leg elevation. Continue nonadherent dressing wound cleansing and multilayer compression dressing will be replaced prior to discharge Consult Acknowledgment - Thank you for your consult request.
--- NOTE | 2016-08-31 12:43 | Cons- Cardiology ---
General Information and HPI Consulting Request Date of Consult: 08/31/16 Requested By: SHENA SHORT,RADHA Reason for Consult: chf/copd Source of Information: patient, old records History of Present Illness: This is a 76-year-old female with a past medical history of COPD, chronic diastolic congestive heart failure, sleep apnea, diabetes, hypertension, hyperlipidemia, venous insufficiency, pulmonary HTN, and urinary incontinence. She presented to [facility] with a chief complaint of non-productive cough without fevers, notes having a postnasl drip recently. After the cough developed she had some left sided sharp chest pain with inspiration, no radiation or diaphoresis and has since resolved. Has chronic LE edema and orthopnea grossly unchanged, seen in wound care center and previously followed in CHF clinic although not recently as she has VNS. Was last hospitalized in February 2016. She denies increasing dyspnea but did say that her home O2 sats wer running in the high 80s , usually she runs in the low 90s. Has declined increasing her Lasix in the past and she struggles with urinary incontinence which is a continued problem for her. Allergies/Medications Allergies: Coded Allergies: codeine (Mild, SENSITIVITY - HEADACHE AND NAUSEA AND MISERABLE 03/01/16) Antihistamines - Alkylamine (DIZZY, HEADACHES, FEELS SICK 03/01/16) Antihistamines - Ethanolamine (DIZZINESS, HEADACHE, FEELS SICK 03/01/16) Antihistamines - Ethylenediamine (DIZZINESS, HEADACHE, FEELS SICK 03/01/16) Antihistamines - Piperazine (DIZZINESS, HEADACHE, FEELS SICK 03/01/16) Antihistamines - Piperidine (DIZZINESS HEADACHE FEELS SICK 03/01/16) Opioids - Morphine Analogues (N/V HEADACHE FEELS MISERABLE 03/01/16) Opioids-Meperidine and Related (N/V HEADACHE, FEELS MISERABLE 03/01/16) Opioids-Methadone and Related (HEADACHE, N/V, FEELS MISERABLE 03/01/16) Home Med List: Albuterol Sulfate 0.63 MG/3 ML VIAL.NEB (Unknown Dose) INH Q4 HRS NEEDED PRN BREATHING (Reported) Albuterol Sulfate (Proair Hfa) 90 MCG HFA.AER.AD 2 PUF INH Q4-6 PRN PRN shortness of breath Aspirin (Ecotrin) 81 MG TABLET.DR 1 TAB PO DAILY heart (Reported) DILTIAZEM HCL (Cartia Xt) 180 MG CAP.ER.24H 1 TAB PO DAILY heart (Reported) Fish Oil ([place] 3) 1,000 MG SGL 1 SGL PO DAILY supplement (Reported) Furosemide (Lasix) 40 MG TAB 40 MG PO DAILY HEART HEALTH Hydralazine HCl 25 MG TABLET 25 MG PO TID HTN Ibuprofen 200 MG CAPSULE 4 CAP PO PRN PAIN (Reported) Ipratropium [place] (Atrovent Hfa) 17 MCG/ACTUATION HFA.AER.AD 2 PUF INH DAILY COPD Metformin HCl (Metformin HCl ER) 500 MG TAB.ER.24H 1 TAB PO D DIABETES ( Reported) Multivitamin2 (Multivitamin) 1 EACH TAB 1 TAB PO DAILY supplement (Reported) Potassium Chloride 10 MEQ TABLET.ER 1 TAB PO DAILY SUPPLEMENT (Reported) Quinapril HCl 40 MG TABLET 1 TAB PO DAILY HTN (Reported) Sertraline HCl 100 MG TABLET 0.5 TAB PO DAILY MENTAL HEALTH (Reported) Simvastatin (Zocor) 10 MG TABLET 1 TAB PO DAILY HLD (Reported) Current Medications: Current Medications Sig/Kacie Start time Last Medication Dose Route Stop Time Status Admin Acetaminophen 325 MG Q6P PRN 08/31 914 AC PO Acetaminophen 1,000 MG Q6P PRN 08/31 0815 AC IV Albuterol Sulfate 3 ML ONCE ONE 08/30 1914 DC 08/30 INH 08/30 191 1910 Albuterol Sulfate 3 ML ONCE ONE 08/30 1600 DC 08/30 INH 08/30 1601 1606 Aspirin 0 .STK-MED ONE 08/30 2112 DC PO Aspirin Buffered 81 MG DAILY 08/31 2051 AC 08/31 PO 1019 Atorvastatin Calcium 5 MG 08/31 1700 AC PO Azithromycin 500 MG 1700 08/31 1700 AC Sodium Chloride 250 ML IV 09/04 175 Azithromycin 500 MG ONCE ONE 08/30 1730 DC 08/30 Sodium Chloride 250 ML IV 08/30 1829 1905 Diltiazem HCl 180 MG DAILY 08/31 1000 AC 08/31 PO 1019 Enoxaparin Sodium 40 MG DAILY 08/31 1000 AC 08/31 SC 1021 Furosemide 40 MG DAILY 08/31 1000 AC 08/31 PO 1020 Furosemide 0 .STK-MED ONE 08/30 2053 DC IV Furosemide 40 MG ONCE ONE 08/30 2044 DC 08/30 IV 08/30 Guaifenesin 600 MG Q12 08/31 1000 AC 08/31 PO 1019 Hydralazine HCl 25 MG TID 08/30 2200 AC 08/31 PO 1020 Ibuprofen 400 MG Q6P PRN 08/31 0915 AC PO Insulin Aspart 0 TIDAC 08/31 0800 AC 08/31 SC 1202 Ipratropium [place] 2.5 ML ONCE ONE 08/30 1600 DC 08/30 INH 08/30 1601 1606 Lisinopril 40 MG DAILY 08/31 1000 AC 08/31 PO 1019 Methylprednisolone 40 MG Q8 08/30 2200 AC 08/31 IV 0529 Methylprednisolone 0 .STK-MED ONE 08/30 1826 DC .ROUTE Methylprednisolone 125 MG ONCE ONE 08/30 1730 DC 08/30 IV 08/30 1731 1827 Patient Medication 1 UNIT ONE NR 08/30 2114 [facility] ED 08/30 2129 Patient Medication 1 UNIT ONE NR 08/30 2114 [facility] ED 08/30 213 Patient Medication 1 UNIT ONE NR 08/30 2114 [facility] ED 08/30 213 Patient Medication 1 UNIT ONE NR 08/30 2114 [facility] ED 08/30 213 Potassium Chloride 10 MEQ DAILY 08/31 1000 AC 08/31 PO 1019 Review of Systems Review of Systems: Review of systems as per HPI. The remainder of a 10 point review of systems was reviewed and was otherwise negative. 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 Home Who Do You Live With? spouse Services at Home: None Primary Language: Azeri Smoking Status: Never Smoked ETOH Use: occasional use Illicit Drug Use: denies illicit drug use Functional Ability ADLs Independent: dressing, eating, toileting, bathing. Ambulation: independent IADLs Independent: shopping, housework, finances, food prep, telephone, transportation , medication admin. Exam & Diagnostic Data Vital Signs and I&O Vital Signs Date Time Temp Pulse Resp B/P Pulse O2 O2 Flow FiO2 Ox Delivery Rate 08/31 1020 99.0 77 22 130/60 08/31 1019 77 130/60 08/31 0803 99.0 77 22 130/72 91 Nasal 3.0L Cannula 08/31 0800 91 Nasal 3.5L Cannula 08/31 0100 148/88 08/31 0016 113 91 08/307 99.2 107 20 152/102 89 Nasal 3.5L Cannula 08/30 2315 103 91 08/30 2215 BIPAP 3.5L 08/30 2159 98.0 106 24 138/89 89 Nasal 3.5L Cannula 08/30 2102 98.3 105 24 142/81 91 Room Air 4.0L 08/30 1912 91 Nasal 4.0L Cannula 08/30 1905 99.4 103 22 139/80 90 Nasal 3.0L Cannula 08/30 1610 91 Nasal 2.0L Cannula 08/30 1605 88 Room Air Room Air 08/30 1538 98.7 96 20 128/65 88 Room Air Intake & Output 08/31 1600 08/31 0808/31 0000 08/30 1600 08/30 0808/30 0000 Intake Total 300 50 Output Total 550 Balance -250 50 Intake, IV 0 50 Intake, Oral 300 Number 0 Bowel Movements Output, Urine 550 Patient 240 lb 232 lb 232 lb Weight Physical Exam: General: no apparent distress. Alert. On nasal cannula oxygen. Eyes: No obvious scleral icterus. HEENT: No jugular venous distention or abnormal jugular venous pulsations. Cardiovascular: Normal intensity S1/S2. Regular. Respiratory: Decreased air entry without rales or rhonchi Abdomen: no guarding or rebound tenderness. Musculoskeletal: No clubbing or cyanosis noted, lower extremity wound noted with edema Skin: Warm Neurologic: No gross focal deficits noted. Labs/Bernard Results: Laboratory Tests 08/30 08/30 08/30 2300 2050 1637 Blood Gas pH (7.35 - 7.45 PH) 7.38 pCO2 (35 - 45 TORR) 49 H pO2 (80 - 100 TORR) 62 L HCO3 (21 - 28 MEQ/L) 28 ABG O2 Sat (Measured) (>96.0 %) 89.0 L P-50 (Temp Corrected) N Carboxyhemoglobin (1.5 - 5.0 %) 1.0 L O2 Concentration % 3.5L Temperature (97.0 - 100.0 FARH) 98.3 O2 Delivery Method NC Chemistry Sodium (137 - 145 mmol/L) 147 H Potassium (3.5 - 5.1 mmol/L) 3.5 Chloride (98 - 107 mmol/L) 101 Carbon Dioxide (22 - 30 mmol/L) 33 H Anion Gap (5 - 16) 12 BUN (7 - 17 mg/dL) 23 H Creatinine (0.5 - 1.0 mg/dL) 0.8 Estimated GFR (>60 ml/min) > 60 BUN/Creatinine Ratio (7 - 25 %) 28.8 H Glucose (65 - 99 mg/dL) 85 Calcium (8.4 - 10.2 mg/dL) 9.0 Total Bilirubin (0.2 - 1.3 mg/dL) 0.7 AST (14 - 36 U/L) 15 ALT (9 - 52 U/L) 37 Alkaline Phosphatase (<127 U/L) 67 Troponin I (< 0.11 ng/ml) 0.02 0.02 Dgo-W-Aqqdrelbrci Pept (<125 pg/mL) 2310 H Total Protein (6.3 - 8.2 g/dL) 7.4 Albumin (3.5 - 5.0 g/dL) 4.0 Globulin (1.9 - 4.2 gm/dL) 3.4 Albumin/Globulin Ratio (1.1 - 2.2 %) 1.2 Hematology CBC w Diff NO MAN DIFF REQ WBC (4.8 - 10.8 /CUMM) 15.8 H RBC (4.20 - 5.40 /CUMM) 4.70 Hgb (12.0 - 16.0 G/DL) 13.2 Hct (37 - 47 %) 41.4 MCV (81.0 - 99.0 FL) 88.2 MCH (27.0 - 31.0 PG) 28.0 RDW (11.5 - 14.5 %) 14.6 H Plt Count (130 - 400 /CUMM) 254 MPV (7.4 - 10.4 FL) 8.1 Gran % (42.2 - 75.2 %) 87.9 H Lymphocytes % (20.5 - 51.1 %) 5.3 L Monocytes % (1.7 - 9.3 %) 6.4 Eosinophils % (0 - 5 %) 0.3 Basophils % (0.0 - 2.0 %) 0.1 Absolute Granulocytes (1.4 - 6.5 /CUMM) 13.9 H Absolute Lymphocytes (1.2 - 3.4 /CUMM) 0.8 L Absolute Monocytes (0.10 - 0.60 /CUMM) 1.0 H Absolute Eosinophils (0.0 - 0.7 /CUMM) 0 Absolute Basophils (0.0 - 0.2 /CUMM) 0 PUBS MCHC (33.0 - 37.0 G/DL) 31.8 L Miscellaneous Phlebotomy Draw Site LEFT RADIAL Diagnostic Data EKG Results tracing personally reviewed, shows ST with PACS, no st elevations CXR Results IMPRESSION: Pulmonary hypoinflation. Persistent prominence within the bilateral hilar regions, right greater than left, grossly unchanged relative to prior chest x-rays dating back to 2013 and suggestive of underlying pulmonary arterial hypertension. If radiological findings do not correlate to the patient's clinical symptoms or physical exam, consider correlation with contrast-enhanced chest CT to evaluate for underlying mediastinal adenopathy or mass. Other Results Telemetry tracings personally reviewed, shows SR Echo 02/2016 Technically difficult study. Left ventricular cavity size normal. Left ventricular wall thickness mildly increased. No obvious regional wall motion abnormalities. Left ventricular ejection fraction is estimated at > 55 %. Probable "pseudonormal" filling pattern of the left ventricle (stage 2 diastolic dysfunction). Normal right ventricular size and function. Mild right atrial dilatation. Mild to moderate left atrial dilatation. Ealg-xc-zjcpgeye tricuspid regurgitation. Right ventricular systolic pressure estimated to be elevated at > 60 mmHg. Alessio Huffman M.D. (Electronically Signed) Final Date: 04 March 2016 20:59 Assessment/Plan Assessment/Plan 1. COPD with respiratory insufficiency/hypoxia and possible bronchitis 2. Chronic diastolic congestive heart failure 3. Sleep apnea, not recently using CPAP 4. Hypertension/hyperlipidemia/diabetes mellitus 5. Chronic venous insufficiency/edema 6. History of urinary incontinence 7. Pulmonary HTN by prior Echo with normal EF Patient's volume status appears close to baseline. Does not appear to need IV Lasix at this time, would resume her oral Lasix. I have discussed increasing her baseline oral Lasix but she has declined due to continued urinary incontinence. BP well controlled. No sustained events on telemetry. Echo is pending. Abx/ steroid regimen per Medical team/Pulmonary. Is in no respiratory distress. Kalen Huffman MD FACC Consult Acknowledgment - Thank you for your consult request.
[2016-08-31 14:01] LABS: ABSOLUTE BASOPHIL COUNT 0 /CUMM (0.0-0.2); ABSOLUTE EOSINOPHIL COUNT 0 /CUMM (0.0-0.7); ABSOLUTE LYMPH COUNT 0.4 /CUMM (1.2-3.4); ABSOLUTE MONOCYTE COUNT 0.2 /CUMM (0.10-0.60); BASOPHIL % 0 % (0.0-2.0); EOSINOPHIL % 0 % (0-5); MEAN CORPUSCULAR HGB 27.9 PG (27.0-31.0); MEAN CORPUSCULAR HGB CONC 31.8 G/DL (33.0-37.0); MEAN CORPUSCULAR VOLUME 87.9 FL (81.0-99.0); MEAN PLATELET VOLUME 8.4 FL (7.4-10.4); PLATELET COUNT 266 /CUMM (130-400); RBC DISTRIBUTION WIDTH 14.7 % (11.5-14.5); RED BLOOD CELL CT 4.54 /CUMM (4.20-5.40); WHITE BLOOD CELL COUNT 13.6 /CUMM (4.8-10.8)
[2016-08-31 14:14] LABS: GRANULOCYTE % 95.6 % (42.2-75.2)
[2016-08-31 16:10] VITALS: BP 128/70
[2016-09-01 00:41] VITALS: BP 124/76
--- NOTE | 2016-09-01 08:05 | PN- Wound Care ---
Subjective Subjective: Edema is improved. Right lower extremity venous stasis ulcer continues to epithelialize. She continues to require supplemental oxygen and has a nonproductive cough. Objective Vital Signs and I&Os Vital Signs Result Date Time Pulse Ox 91 09/01 801 O2 Delivery Nasal Cannula 09/01 801 O2 Flow Rate 3.0L 09/01 801 Pulse 69 09/01 0318 B/P 124/76 09/01 40 Temp 98.1 09/01 40 Resp 22 09/01 40 Intake & Output 09/01 0000 08/31 1600 08/31 0800 Intake Total 400 500 300 Output Total 550 Balance 400 500 -250 Intake, IV 0 Intake, Oral 400 500 300 Number 1 0 Bowel Movements Output, Urine 550 Patient 240 lb Weight Oxygen saturation 3 L 91 and 92% exam for chest shows fine expiratory wheezing exam of her lower extremities shows edema markedly improved there is no significant drainage erythema is diminished in the wound is epithelializing Impression/Plan Impression/Plan Impression/Plan: 76-year-old woman with multiple medical problems sleep apnea pulmonary hypertension congestive heart failure and venous insufficiency admitted with shortness of breath. Her right lower extremity ulcer appears to be partially epithelialized. Continue leg elevation daily cleansing and nonadherent dressing with Adaptic or Xeroform. Obtain sputum C&S. Convert IV steroids to by mouth prednisone. Consider adding Spiriva to her regimen
[2016-09-01 08:06] VITALS: BP 140/78
--- NOTE | 2016-09-01 08:39 | PN- Housestaff ---
JAYLEN SHORT,LUIS 09/01/16 0839: Subjective Follow-up For: Acute on chronic respiratory failure COPD exacerbation Chronic heart failure Complaints: Chest tightness Tele-Events Since Last Visit: NSR with 1st degree AV block 66-90 Subjective: Patient was seen and examined at bedside. She is sitting on a chair comfortably. She's feeling much better today. She used a BiPAP with 3L oxygen at night and now on 3.5L nasal oxygen. She c/o chest tightness, but Lt. sided pleuritic chest pain is gone. No wheezing overnight. Her legs are less swollen compared to yesterday. She feels that she's urinating a lot. She mentioned that her grandchildren had strep throat. She denies fever, but she has some scratchy throat feeling, intermittent nonproductive cough. Review of Systems Constitutional: Denies: chills, fever. EENTM: Reports: no symptoms. Cardiovascular: Reports: orthopena, peripheral edema. Denies: chest pain, palpitations. Respiratory: Reports: cough. Denies: short of breath, sputum production, wheezing. Gastrointestinal: Reports: no symptoms. Genitourinary: Reports: no symptoms. Musculoskeletal: Reports: back pain. Skin: Reports: see HPI, erythema, lesions. Neurological/Psychological: Reports: no symptoms. Hematologic/Endocrine: Reports: no symptoms. Immunologic/Allergic: Reports: no symptoms. Objective Last 24 Hrs of Vital Signs/I&O Vital Signs Date Time Temp Pulse Resp B/P Pulse O2 O2 Flow FiO2 Ox Delivery Rate 09/01 0828 94 Nasal 3.5L Cannula 09/01 0806 98.7 72 22 140/78 91 Nasal 4.0L Cannula 09/01 0802 91 Nasal 3.0L Cannula 09/01 0802 91 09/01 0318 69 92 09/01 0041 98.1 71 22 124/76 93 09/01 0032 67 86 09/01 0000 BIPAP 3.0L 08/31 2307 68 93 08/31 2238 134/70 08/31 1940 92 Nasal 3.5L Cannula 08/31 1615 90 128/70 08/31 1610 99.0 76 22 128/70 92 Nasal Cannula 08/31 1600 94 Nasal 3.0L Cannula 08/31 1410 Nasal 3.5L Cannula 08/31 1020 99.0 77 22 130/60 08/31 1019 77 130/60 Intake & Output 09/01 1600 09/01 0800 09/01 0000 Intake Total 400 Output Total 350 Balance -350 400 Intake, Oral 400 Number 1 Bowel Movements Output, Urine 350 Patient 240 lb Weight Physical Exam General Appearance: Alert, Oriented X3, Cooperative, No Acute Distress Skin: Rt. lower leg under dressing for ulcer HEENT: Atraumatic, PERRLA, EOMI, Mucous Membr. moist/pink, No injection/erythema Neck: Supple, No JVD, No LAD Lymphatic: Cervical nl Cardiovascular: Regular Rate, Normal S1, Normal S2, No Murmurs Lungs: bibasilar minimal wheezing Abdomen: Normal Bowel Sounds, Soft, No Tenderness Neurological: Normal Speech, Strength at 5/5 X4 Ext, Sensation Intact, Cranial Nerves 3-12 NL Extremities: Normal Pulses, bilateral LE edema Vascular: Normal Pulses, Pulses Symmetrical Current Medications: Current Medications Sig/Kacie Start time Last Medication Dose Route Stop Time Status Admin Acetaminophen 325 MG Q6P PRN 08/31 0815 AC PO Acetaminophen 1,000 MG Q6P PRN 08/31 0815 AC IV Albuterol Sulfate 3 ML Q4P PRN 08/31 1415 AC 08/31 INH 1940 Aspirin Buffered 81 MG DAILY 08/30 2052 AC 08/31 PO 1019 Atorvastatin Calcium 5 MG [address]008/31 1700 AC 08/31 PO 1615 Azithromycin 250 MG DAILY 09/01 1000 UNVr PO Azithromycin 500 MG 1700 08/31 1700 DC 08/31 Sodium Chloride 250 ML IV 09/04 1759 1615 Diltiazem HCl 180 MG DAILY 08/31 1000 AC 08/31 PO 1019 Enoxaparin Sodium 40 MG DAILY 08/31 1000 AC 08/31 SC 1021 Furosemide 40 MG 2200 08/31 2200 CAN IV PUSH 08/31 2201 Furosemide 40 MG DAILY 08/31 1000 AC 08/31 PO 1020 Guaifenesin 600 MG Q12 08/31 1000 AC 08/31 PO 2226 Hydralazine HCl 25 MG TID 08/30 2200 AC 08/31 PO 2238 Ibuprofen 400 MG Q6P PRN 08/31 0915 AC PO Insulin Aspart 0 TIDAC 08/31 0800 AC 08/31 SC 1620 Lisinopril 40 MG DAILY 08/31 1000 AC 08/31 PO 1019 Methylprednisolone 40 MG Q8 08/30 2200 DC 09/01 IV 0543 Potassium Chloride 20 MEQ DAILY 09/01 1000 UNVr PO Potassium Chloride 10 MEQ DAILY 08/31 1000 DC 08/31 PO 1019 Prednisone 60 MG DAILY 09/01 1000 UNVr PO Tiotropium [facility] 1 PUF DAILY 09/01 1000 UNVr INH Last 24 Hrs of Lab/Bernard Results Last 24 Hrs of Labs/Mics: Laboratory Tests 08/31/16 1305: Anion Gap 12, Estimated GFR > 60, BUN/Creatinine Ratio 36.3 H, Troponin I 0.02, CBC w Diff NO MAN DIFF REQ, RBC 4.54, MCV 87.9, MCH 27.9, RDW 14.7 H, MPV 8.4, Gran % 95.6 H, Lymphocytes % 2.7 L, Monocytes % 1.7, Eosinophils % 0, Basophils % 0 L, Absolute Granulocytes 13.0 H, Absolute Lymphocytes 0.4 L, Absolute Monocytes 0.2, Absolute Eosinophils 0, Absolute Basophils 0, PUBS MCHC 31.8 L Lines/Diet/Fluids Lines: peripheral lines Assessment/Plan Assessment: 76 yo female with obesity, COPD not on home oxygen, HTN, HFrEF (EF>55%), BRENNON non compliant with CPAP, chronic hypercapneic respiratory failure/obesity hypoventilation, T2DM, chronic LE edema, presentd with 1-day h/o worsening DIOR, cough, left sided pleuritic chest pain, worsening LE edema with weight gain. 1. Acute on chronic hypercarbic and hypoxemic respiratory failure: Likely related with COPD exacerbation and BRENNON not on CPAP. Pt got better with nocturnal BiPAP in the hospital. Oxygen requirement at rest 3.5L-4L to keep sat > 90%. Will ambulate pt and determine whether she needs home oxygen. She has oxygen supply at home. 2. chronic HFpEF: EF > 55% with stage 2 diastolic dysfunction. Cardiology consult is appreciated. Pt is not in acute exacerbation/fluid overloaded. I/Os + 300 in 24 hrs. IV lasix 40 mg was given only once, and she is on po lasix 40 daily. Continue strict I/O's, daily weights. c/w lisinopril 40mg daily. 3. COPDE due to bronchitis: IV solumedrol 40mg q8 will be changed to po prednisone 60mg daily . She got 1 dose of IV solumdrol 40mg today morning. Continue po azithro for total 5 days. Continue TRC nebs, mucinex. INH spiriva was added. Follow sputum cultures. 4. Wound consult: Wound Care consult is appreciated. Continue Right lower extremity non adherent dressing with xeroform. Continue leg elevation. 5. BRENNON non compliant to CPAP/obesity hypoventilation: Her home mask is broken. She needs a proper fitting face mask for the Bipap on discharge. Conitnue biPAP in the hospital. DVT ppx Lovenox. Full code. Problem List: 1. Hypoxic respiratory failure 2. COPD exacerbation 3. Diastolic CHF 4. Obesity Pain Ratin Pain Location: Back pain Pain Goal: Pain 4 or less Pain Plan: po tyrenol, motrin, IV tyrenol Tomorrow's Labs & Rationales: CBC: leukocytosis BEP: on lasix DVT/Prophylaxis: pharmacological Discharge Plan Discharge Disposition: home Stable for Discharge? Yes Anticipated Discharge (Day): tomorrow If Discharged Today/In 24 Hrs: enter antc discharge ord, CMR done KIRILL VO MD 09/01/16 1331: Attending MD Review Statement Attending Statement Attending MD Statement: examined this patient, discuss w/resident/PA[employer], agreed w/resident/PA/[employer], reviewed EMR data (avail) Attending Assessment/Plan: Breathing improved today. Will continue Solumedrol taper, give PO Lasix today and , follow wound and cardiology recommendations, continue home medications. Anticipated discharge tomorrow morning, please send CMR for review.
--- NOTE | 2016-09-01 11:26 | PN- Cardiology ---
Subjective Subjective: Patient feels better she still has wheezing Review of Systems: Eyes no blurred or double vision Ears no deafness or ringing Nose and throat no recurrent sinusitis Lungs per history of present illness Heart per history of present illness Abdomen no nausea vomiting Musculoskeletal occasional muscle and joint pains Psych no anxiety or depression Neuro without recurrent headache or seizures Endocrine no heat or cold intolerance Objective Vital Signs and I&Os Vital Signs Date Time Temp Pulse Resp B/P Pulse O2 O2 Flow FiO2 Ox Delivery Rate 09/01 0932 140/72 09/01 0932 140/72 09/01 0828 94 Nasal 3.5L Cannula 09/01 08 98.7 72 22 140/78 91 Nasal 4.0L Cannula 09/01 0802 91 Nasal 3.0L Cannula 09/01 0802 91 09/01 0318 69 92 09/01 0041 98.1 71 22 124/76 93 09/01 0032 67 86 09/01 0000 BIPAP 3.0L 08/31 2307 68 93 08/31 2238 134/70 08/31 1940 92 Nasal 3.5L Cannula 08/31 1615 90 128/70 08/31 1610 99.0 76 22 128/70 92 Nasal Cannula 08/31 1600 94 Nasal 3.0L Cannula 08/31 1410 Nasal 3.5L Cannula Intake & Output 09/01 1600 09/01 0800 09/01 0000 08/31 1600 08/31 0800 08/31 0000 Intake Total 400 500 300 50 Output Total 350 550 Balance -350 400 500 -250 50 Intake, IV 0 50 Intake, Oral 400 500 300 Number 1 0 Bowel Movements Output, Urine 350 550 Patient 240 lb 240 lb 232 lb Weight Physical Exam: Patient is a well-developed well-nourished female appearing in no acute distress HEENT is unremarkable Neck is supple there is no JVD Lungs Decreased breath sounds bilaterally with few inspiratory wheezes. Heart regular rhythm S1 and S2 are normal no murmurs gallops or rubs Abdomen bowel sounds positive Extremities without edema Current Medications: Current Medications Sig/Kacie Start time Last Medication Dose Route Stop Time Status Admin Acetaminophen 325 MG Q6P PRN 08/31 914 AC PO Acetaminophen 1,000 MG Q6P PRN 08/31 914 AC IV Albuterol Sulfate 3 ML Q4P PRN 08/31 1415 AC 08/31 INH 1940 Aspirin Buffered 81 MG DAILY 08/31 2051 AC 09/01 PO 0932 Atorvastatin Calcium 5 MG 1700 08/31 1700 AC 08/31 PO 1615 Azithromycin 250 MG DAILY 09/01 1000 AC 09/01 PO 1040 Azithromycin 500 MG 1700 08/31 1700 DC 08/31 Sodium Chloride 250 ML IV 09/04 1759 1615 Diltiazem HCl 180 MG DAILY 08/31 1000 AC 09/01 PO 0932 Enoxaparin Sodium 40 MG DAILY 08/31 1000 AC 09/01 SC 0931 Furosemide 40 MG 2200 08/31 2200 CAN IV PUSH 08/31 220 Furosemide 40 MG DAILY 08/31 1000 AC 09/01 PO 0932 Guaifenesin 600 MG Q12 08/31 1000 AC 09/01 PO 0933 Hydralazine HCl 25 MG TID 08/30 2200 AC 09/01 PO 0932 Ibuprofen 400 MG Q6P PRN 08/31 0915 AC PO Insulin Aspart 0 TIDAC 08/31 0800 AC 08/31 SC 1620 Lisinopril 40 MG DAILY 08/31 1000 AC 09/01 PO 0932 Methylprednisolone 40 MG Q8 08/30 2200 DC 09/01 IV 0543 Potassium Chloride 20 MEQ DAILY 09/01 1000 AC 09/01 PO 1040 Potassium Chloride 10 MEQ DAILY 08/31 1000 DC 08/31 PO 1019 Prednisone 60 MG DAILY 09/01 1000 AC 09/01 PO 1040 Tiotropium [place] 1 PUF DAILY 09/01 1000 AC 09/01 INH 1040 Results Last 48 Hrs of Labs/Mics: Laboratory Tests 09/01/16 0950: Urinalysis LIGHT H, Urine Color YEL, Urine Clarity CLEAR, Urine pH 6.0, Ur Specific Gordon 1.025, Urine Protein 30 H, Urine Ketones NEG, Urine Nitrite NEG, Urine Bilirubin NEG, Urine Urobilinogen 0.2, Ur Leukocyte Esterase NEG, Ur Microscopic SEDIMENT EXAMINED, Urine RBC 3-5, Urine WBC 5-10 H, Ur Epithelial Cells MOD H, Urine Bacteria MOD H, Urine Mucus FEW, Urine Hemoglobin NEG, Urine Glucose NEG 08/31/16 1305: Anion Gap 12, Estimated GFR > 60, BUN/Creatinine Ratio 36.3 H, Troponin I 0.02, CBC w Diff NO MAN DIFF REQ, RBC 4.54, MCV 87.9, MCH 27.9, RDW 14.7 H, MPV 8.4, Gran % 95.6 H, Lymphocytes % 2.7 L, Monocytes % 1.7, Eosinophils % 0, Basophils % 0 L, Absolute Granulocytes 13.0 H, Absolute Lymphocytes 0.4 L, Absolute Monocytes 0.2, Absolute Eosinophils 0, Absolute Basophils 0, PUBS MCHC 31.8 L 08/30/16 2300: Troponin I 0.02 08/30/160: pH 7.38, pCO2 49 H, pO2 62 L, HCO3 28, ABG O2 Sat (Measured) 89.0 L, P-50 ( Temp Corrected) N, Carboxyhemoglobin 1.0 L, O2 Concentration % 3.5L, Temperature 98.3, O2 Delivery Method NC, Phlebotomy Draw Site LEFT RADIAL 08/30/16 1637: Anion Gap 12, Estimated GFR > 60, BUN/Creatinine Ratio 28.8 H, Glucose 85, Calcium 9.0, Total Bilirubin 0.7, AST 15, ALT 37, Alkaline Phosphatase 67, Troponin I 0.02, [facility] Pept 2310 H, Total Protein 7.4, Albumin 4.0, Globulin 3.4, Albumin/Globulin Ratio 1.2, CBC w Diff NO MAN DIFF REQ, RBC 4.70, MCV 88.2, MCH 28.0, RDW 14.6 H, MPV 8.1, Gran % 87.9 H, Lymphocytes % 5.3 L, Monocytes % 6.4, Eosinophils % 0.3, Basophils % 0.1, Absolute Granulocytes 13.9 H, Absolute Lymphocytes 0.8 L, Absolute Monocytes 1.0 H, Absolute Eosinophils 0, Absolute Basophils 0, PUBS MCHC 31.8 L Assessment/Plan Assessment/Plan 1. COPD with respiratory insufficiency/hypoxia and possible bronchitis 2. Chronic diastolic congestive heart failure 3. Sleep apnea, not recently using CPAP 4. Hypertension/hyperlipidemia/diabetes mellitus 5. Chronic venous insufficiency/edema 6. History of urinary incontinence 7. Pulmonary HTN by prior Echo with normal EF Recommendations 1. Continue current medications. Patient refuses increase in lasix dose 2. Continue aggressive pulmonary management. 3. Echocardiogram is pending Continue telemetry? Yes
[2016-09-01] MEDS ORDERED: AZITHROMYCIN250 M1 PO (12:05)
[2016-09-01] MEDS ORDERED: PREDNISONE20 M1 PO (12:05)
[2016-09-01] MEDS ORDERED: SPIRIVA18 MCG INH (12:05)
[2016-09-01] MEDS ORDERED: GUAIFENESIN ER600 MG PO (12:05)
--- NOTE | 2016-09-01 14:14 | Patient Discharge Instructions ---
Discharge Instructions General Discharge Information You were seen/treated for: Acute on chronic respiratory failure COPD exacerbation Chronic diastolic heart failure Chronic venous stasis with Rt. leg ulcer Pulmonary HTN You had these procedures: Nocturnal BiPAP Special Instructions: Please follow up with a primary doctor within 1 week after discharge Please follow up with Dr. Garcia for COPD/BRENNON management and wound care Please follow up with Dr. Huffman for diastolic heart failure on 09/14 @ 1pm Diet Continue normal diet: Yes Recommended Diet: Heart Healthy Activity Full Activity/No Limits: Yes Activity Self Limited: No Additional ACTIVITY Info: Please elevate legs for chronic venous stasis Acute Coronary Syndrome Inclusion Criteria At DC or during hospital stay patient has or had the following: ACS DIAGNOSIS No Discharge Core Measures Meds if any: Prescribed or Continued at Discharge Meds if any: NOT Prescribed or Continued at Discharge Congestive Heart Failure Inclusion Criteria At DC or during hospital stay patient has or had the following: CHF DIAGNOSIS Yes Discharge Core Measures Meds if any: Prescribed or Continued at Discharge JELANI/ARB for EF <40% Yes Meds if any: NOT Prescribed or Continued at Discharge Cerebrovascular accident Inclusion Criteria At DC or during hospital stay patient has or had the following: CVA/TIA Diagnosis No Discharge Core Measures Meds if any: Prescribed or Continued at Discharge Meds if any: NOT Prescribed or Continued at Discharge Venous thromboembolism Inclusion Criteria VTE Diagnosis No VTE Type NONE VTE Confirmed by (Test) NONE Discharge Core Measures - Per Current guidelines, there needs to be overlap - treatment for the first 5 days of Warfarin therapy. - If discharged on Warfarin prior to 5 days of - overlap therapy, the patient will need to be - assessed for post discharge needs including - *Post discharge parental anticoagulation - *Warfarin and/or parental anticoagulation education - *Follow up date to check INR post discharge At least 5 days overlap therapy as Inpatient No Meds if any: Prescribed or Continued at Discharge Note: Overlap Therapy is Warfarin and Anticoagulant Meds if any: NOT Prescribed or Continued at Discharge
--- NOTE | 2016-09-01 15:17 | Discharge Summary ---
Visit Information Visit Dates Admission Date: 08/30/16 Hospital Course Allergies: Coded Allergies: codeine (Mild, SENSITIVITY - HEADACHE AND NAUSEA AND MISERABLE 03/01/16) Antihistamines - Alkylamine (DIZZY, HEADACHES, FEELS SICK 03/01/16) Antihistamines - Ethanolamine (DIZZINESS, HEADACHE, FEELS SICK 03/01/16) Antihistamines - Ethylenediamine (DIZZINESS, HEADACHE, FEELS SICK 03/01/16) Antihistamines - Piperazine (DIZZINESS, HEADACHE, FEELS SICK 03/01/16) Antihistamines - Piperidine (DIZZINESS HEADACHE FEELS SICK 03/01/16) Opioids - Morphine Analogues (N/V HEADACHE FEELS MISERABLE 03/01/16) Opioids-Meperidine and Related (N/V HEADACHE, FEELS MISERABLE 03/01/16) Opioids-Methadone and Related (HEADACHE, N/V, FEELS MISERABLE 03/01/16) Discharge Instructions Medications at Discharge Discharge Medications: Continue taking these medications: Aspirin (Ecotrin) 81 MG TABLET.DR 1 Tablet ORAL DAILY Comments: Last Taken 10/31/13 AT 1000 Simvastatin (Zocor) 10 MG TABLET 1 Tablet ORAL DAILY Comments: Last Taken 10/30/13 AT 1800 Multivitamin2 (Multivitamin) 1 EACH TAB 1 Tablet ORAL DAILY Comments: Last Taken 10/31/13 AT 1000 Fish Oil ([place] 3) 1,000 MG SGL 1 SGL ORAL DAILY Comments: Last Taken 10/31/13 AT 1000 DILTIAZEM HCL (Cartia Xt) 180 MG CAP.ER.24H 1 Tablet ORAL DAILY Comments: Last Taken 10/31/13 AT 1000 Furosemide (Lasix) 40 MG TAB 40 Milligram ORAL DAILY Qty = 30 Metformin HCl (Metformin HCl ER) 500 MG TAB.ER.24H 1 Tablet ORAL Every Day Qty = 180 Comments: INSULIN GIVEN IN HOSPITAL Potassium Chloride (Potassium Chloride) 10 MEQ TABLET.ER 1 Tablet ORAL DAILY Qty = 90 Comments: NOT GIVEN IN HOSPITAL Sertraline HCl (Sertraline HCl) 100 MG TABLET 0.5 Tablet ORAL DAILY Qty = 90 Comments: Last Taken: 03/10/16 Time: 9:30 AM Ibuprofen (Ibuprofen) 200 MG CAPSULE 4 Capsule ORAL as needed for PAIN Comments: NOT GIVEN IN HOSPITAL Hydralazine HCl (Hydralazine HCl) 25 MG TABLET 25 Milligram ORAL THREE TIMES DAILY Days = 28 Comments: Last Taken: 03/10/16 Time: 9 AM Ipratropium [place] (Atrovent Hfa) 17 MCG/ACTUATION HFA.AER.AD 2 Puff Inhale through mouth DAILY Days = 28 Albuterol Sulfate (Proair Hfa) 90 MCG HFA.AER.AD 2 Puff Inhale through mouth EVERY 4-6 HOURS NEEDED as needed for shortness of breath Qty = 1 Comments: Last Taken: 03/10/16 Time: 9 AM Albuterol Sulfate (Albuterol Sulfate) 0.63 MG/3 ML VIAL.NEB 1 PUFF Inhale through mouth EVERY 4 HOURS NEEDED as needed for BREATHING Quinapril HCl (Quinapril HCl) 40 MG TABLET 1 Tablet ORAL DAILY Qty = 90 Start taking the following new medications: Azithromycin (Azithromycin) 250 MG TABLET 250 Milligram ORAL DAILY Qty = 3 No Refills Tiotropium [place] (Spiriva) 18 MCG CAP.W.DEV 1 Puff Inhale through mouth DAILY Days = 30 No Refills Guaifenesin (Guaifenesin ER) 600 MG TAB.ER.12H 600 Milligram ORAL EVERY 12 HOURS as needed for COUGH Days = 7 No Refills Prednisone (Prednisone) 20 MG TABLET 2 Tablet ORAL DAILY Qty = 10 No Refills
[2016-09-01 16:42] VITALS: BP 137/70
[2016-09-01 22:29] VITALS: BP 148/78
[2016-09-02 07:00] VITALS: BP 140/68
--- NOTE | 2016-09-02 08:03 | PN- Housestaff ---
See Addendum Subjective Follow-up For: COPD exacerbation Complaints: throat pain without difficulty swallowing Tele-Events Since Last Visit: No tele Subjective: Patient seen and examined setting in the chair comfortable with no acute distresss, nasal cannula in place, she have been using BiPap at night, she still feels congested with dry cough, she couldn't brought up any phlegm. Leg swelling is improving. She feels pinch sensation in her throat, she denies difficulty swallowing, no fever or chills, she report that her grandson, was complaining of sore throat last week and he is positive for Strept. She denies chest pain, N/V, and there is no change in urinary or bowel habit. 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 Review of Systems Constitutional: Reports: no symptoms. EENTM: Reports: throat pain. Cardiovascular: Reports: no symptoms. Respiratory: Reports: cough, short of breath, wheezing. Gastrointestinal: Reports: no symptoms. Genitourinary: Reports: no symptoms. Musculoskeletal: Reports: no symptoms. Skin: Reports: no symptoms. Neurological/Psychological: Reports: no symptoms. Hematologic/Endocrine: Reports: no symptoms. Objective Last 24 Hrs of Vital Signs/I&O Vital Signs Date Time Temp Pulse Resp B/P Pulse O2 O2 Flow FiO2 Ox Delivery Rate 09/02 0816 71 140/68 09/02 0815 71 140/68 09/02 0800 Nasal 3.5L Cannula 09/02 0700 98.4 71 20 140/68 90 Nasal 3.5L Cannula 09/02 0622 90 Nasal 3.5L Cannula 09/02 0000 96 BIPAP 5.0L 09/01 2312 68 93 09/01 2229 98.9 74 20 148/78 92 Nasal 3.0L Cannula 09/01 2007 Nasal 3.0L Cannula 09/01 1723 137/70 09/01 1642 98.8 69 22 137/70 94 Nasal 3.0L Cannula 09/01 1626 97 Nasal 3.5L Cannula Intake & Output 09/02 1600 09/02 0800 09/02 0000 Intake Total 360 600 Output Total 450 525 Balance -90 75 Intake, Oral 360 600 Output, Urine 450 525 Patient 240 lb Weight Physical Exam General Appearance: Alert, Oriented X3, Cooperative, Mild Distress Skin: skin blister, covered with clean dressing HEENT: Atraumatic, PERRLA, EOMI, Mucous Membr. moist/pink Neck: Supple, No JVD Lymphatic: Axillary nl, Cervical nl Cardiovascular: Regular Rate, Normal S1, Normal S2, No Murmurs Lungs: bibazilar crackles, scattered wheezing Abdomen: Normal Bowel Sounds, Soft, No Tenderness Extremities: scattered edema Vascular: Normal Pulses, Pulses Symmetrical Current Medications: Current Medications Sig/Kacie Start time Last Medication Dose Route Stop Time Status Admin Acetaminophen 325 MG Q6P PRN 08/31 0915 AC PO Acetaminophen 1,000 MG Q6P PRN 08/31 0915 AC IV Albuterol Sulfate 3 ML Q4P PRN 08/31 1415 AC 09/02 INH 0609 Aspirin Buffered 81 MG DAILY 08/30 2052 AC 09/02 PO 0815 Atorvastatin Calcium 5 MG 1700 08/31 1700 AC 09/01 PO 1723 Azithromycin 250 MG DAILY 09/01 1000 AC 09/02 PO 0816 Diltiazem HCl 180 MG DAILY 08/31 1000 AC 09/02 PO 0815 Enoxaparin Sodium 40 MG DAILY 08/31 1000 AC 09/02 SC 0812 Furosemide 40 MG DAILY 08/31 1000 AC 09/02 PO 0815 Guaifenesin 600 MG Q12 08/31 1000 AC 09/02 PO 0815 Hydralazine HCl 25 MG TID 08/30 2200 AC 09/02 PO 0815 Ibuprofen 400 MG Q6P PRN 08/31 0915 AC PO Insulin Aspart 0 TIDAC 08/31 0800 AC 09/01 SC 1725 Lisinopril 40 MG DAILY 08/31 1000 AC 09/02 PO 0816 Potassium Chloride 20 MEQ DAILY 09/01 1000 AC 09/02 PO 0815 Prednisone 60 MG DAILY 09/01 1000 AC 09/02 PO 0815 Tiotropium [place] 1 PUF DAILY 09/01 1000 AC 09/02 INH 0816 Assessment/Plan Assessment: 76 yo female with obesity, COPD not on home oxygen, HTN, HFrEF (EF>55%), BRENNON non compliant with CPAP, chronic hypercapneic respiratory failure/obesity hypoventilation, T2DM, chronic LE edema, presentd with 1-day h/o worsening DIOR, cough, left sided pleuritic chest pain, worsening LE edema with weight gain. 1. Acute on chronic hypercarbic and hypoxemic respiratory failure: Likely related with COPD exacerbation and BRENNON not on CPAP. Pt got better with nocturnal BiPAP in the hospital. Oxygen requirement at rest 3.5L-4L to keep sat > 90%. Patient get desaturated on ambulation, she needs O2 on discharge. 2. chronic HFpEF: EF > 55% with stage 2 diastolic dysfunction. Cardiology consult is appreciated. Pt is not in acute exacerbation/fluid overloaded. I/Os + 300 in 24 hrs. IV lasix 40 mg was given only once, and she is on po lasix 40 daily. Continue strict I/O's, daily weights. c/w lisinopril 40mg daily. 3. COPDE due to bronchitis: On po prednisone 60mg daily . Continue po azithro for total 5 days. Continue TRC nebs, mucinex. INH spiriva was added. Follow sputum cultures. 4. Wound consult: Wound Care consult is appreciated. Continue Right lower extremity non adherent dressing with xeroform. Continue leg elevation. 5. BRENNON non compliant to CPAP/obesity hypoventilation: Her home mask is broken. She needs a proper fitting face mask for the Bipap on discharge. Conitnue biPAP in the hospital. 6.Throat pain: Will obtain throat swap to r/o strept DVT ppx Lovenox. Full code. Problem List: 1. COPD exacerbation Pain Ratin Pain Location: Throat Pain Goal: Remain pain free Pain Plan: - Tomorrow's Labs & Rationales: - DVT/Prophylaxis: pharmacological
--- NOTE | 2016-09-02 08:25 | PN- Wound Care ---
Subjective Subjective: Patient's respiratory status appears improved though she has a residual cough. Her extremity edema is improving and right lower extremity venous stasis ulcer is healing. Objective Vital Signs and I&Os Vital Signs Result Date Time B/P 140/68 09/03 815 Pulse 71 09/03 0716 Pulse Ox 90 09/02 699 O2 Delivery Nasal Cannula 09/02 699 O2 Flow Rate 3.5L 09/02 699 Temp 98.4 09/02 07 Resp 20 09/02 699 Intake & Output 09/02 0000 09/01 1600 09/01 08 Intake Total 600 400 Output Total 525 800 350 Balance 75 -400 -350 Intake, Oral 600 400 Output, Urine 525 800 350 Patient 240 lb Weight Patient continues to require low-flow oxygen exam for chest shows decreased expiratory wheezing cardiac exam shows a regular S1 and S2 without murmurs right lower extremity ulcer is predominantly clean with areas of epithelialization there is scant drainage Impression/Plan Impression/Plan Impression/Plan: 76-year-old woman with multiple medical problems sleep apnea pulmonary hypertension congestive heart failure and venous insufficiency admitted with shortness of breath. Her right lower extremity ulcer appears to be partially epithelialized. Continue leg elevation daily cleansing and nonadherent dressing with Adaptic or Xeroform. Obtain sputum C&S. Convert IV steroids to by mouth prednisone. Consider adding Spiriva to her regimen. Patient will be placed in multilayer compression dressing prior to discharge with follow-up in the wound care center. Continue prednisone taper. She will likely need oxygen at the time of discharge. Repeat chest x-ray with persistent oxygen requirements
--- NOTE | 2016-09-02 10:14 | NUR ---
PT IS REFUSING TO ELEVATE HER LOWER EXTREMITIES. SHE STATED "I CANNOT BREATH WITH MY LEGS UP." MD GONZALES IS AWARE. WILL CONTINUE TO MONITOR.
--- NOTE | 2016-09-02 10:23 | ECHOCARDIOGRAM REPORT ---
KATLYN LUGO Age: 76 : 1940 Gender: F Exam Date: 09/01/2016 18:47 Exam Location: [facility] Ht (in): 66 Wt (lb): 240 BSA: 2.30 BP: 140 / 72 Ordering Physician: ROMAN CHUN, Referring Physician: Alessio Huffman M.D. Technologist: Heather Fenton RDCS Room Number: 189 Indications: HEART FAILURE Rhythm: Technical Quality: Technically difficult study FINDINGS Left Ventricle Left ventricular cavity size normal. Left ventricular wall thickness mildly increased. No obvious regional wall motion abnormalities. Left ventricular ejection fraction is estimated at 55 %. Right Ventricle Mild right ventricular dilatation. Normal right ventricular global systolic function. Right Atrium Mild right atrial dilatation. Left Atrium Mild left atrial dilatation. Mitral Valve Moderate mitral annular calcification. No mitral stenosis. Mild mitral regurgitation. Aortic Valve Trileaflet aortic valve. Aortic sclerosis. Trace aortic regurgitation. Mild aortic stenosis. Tricuspid Valve Structurally normal tricuspid valve. Mild tricuspid regurgitation. Right ventricular systolic pressure estimated to be elevated at > 50 mmHg. Pulmonic Valve Pulmonic valve not well visualized, grossly normal. Pericardium No pericardial effusion. Great Vessels Normal size aortic root. CONCLUSIONS Technically difficult study. Left ventricular cavity size normal. Left ventricular wall thickness mildly increased. No obvious regional wall motion abnormalities. Left ventricular ejection fraction is estimated at 55 %. Mild right ventricular dilatation. Normal right ventricular global systolic function. Mild right atrial dilatation. Mild left atrial dilatation. Mild aortic stenosis. Right ventricular systolic pressure estimated to be elevated at > 50 mmHg. Alessio Huffman M.D. (Electronically Signed) Final Date: 02 September 2016 10:22 MEASUREMENTS (Male / Female) Normal Values 2D ECHO LV Diastolic Diameter PLAX 4.5 cm 4.2 - 5.9 / 3.9 - 5.3 cm LV Systolic Diameter PLAX 3.3 cm 2.1 - 4.0 cm LV Fractional Shortening PLAX 26.7 % 25 - 46 % LV Ejection Fraction 2D Teich 52.3 % IVS Diastolic Thickness 1.4 cm LVPW Diastolic Thickness 1.4 cm LV Relative Wall Thickness 0.6 RV Internal Dim ED PLAX 4.0 cm 1.9 - 3.8 cm LVOT Diameter 2.1 cm Aortic Root Diameter 3.1 cm LA Systolic Diameter LX 5.1 cm 3.0 - 4.0 / 2.7 - 3.8 cm LA Volume 75.0 cm 18 - 58 / 22 - 52 cm Ascending Aorta Diameter 3.6 cm DOPPLER AV Peak Velocity 262.0 cm/s AV Peak Gradient 27.5 mmHg AV Mean Velocity 178.0 cm/s AV Mean Gradient 15.0 mmHg AV Velocity Time Integral 57.6 cm LVOT Peak Velocity 124.0 cm/s LVOT Peak Gradient 6.2 mmHg LVOT Mean Velocity 92.0 cm/s LVOT Mean Gradient 4.0 mmHg LVOT Velocity Time Integral 27.5 cm LVOT Stroke Volume 95.2 cm AV Area Cont Eq vti 1.7 cm AV Area Cont Eq pk 1.6 cm MV Peak Velocity 136.0 cm/s MV Peak Gradient 7.4 mmHg MV Mean Velocity 84.1 cm/s MV Mean Gradient 3.0 mmHg Mitral E Point Velocity 116.0 cm/s Mitral A Point Velocity 123.0 cm/s Mitral E to A Ratio 0.9 MV PHT Velocity 145.0 cm/s MV Deceleration Love 730.0 cm/s MV Pressure Half Time 59.6 ms MV Area PHT 3.7 cm MV Deceleration Time 190.0 ms TR Peak Velocity 322.0 cm/s TR Peak Gradient 41.5 mmHg Right Atrial Pressure 10.0 mmHg Pulmonary Artery Systolic Pressu 51.5 mmHg Right Ventricular Systolic Press 51.5 mmHg PV Peak Velocity 136.0 cm/s PV Peak Gradient 7.4 mmHg PV Mean Velocity 87.8 cm/s PV Mean Gradient 4.0 mmHg PV Velocity Time Integral 23.0 cm LV E' Lateral Velocity 9.7 cm/s Mitral E to LV E' Lateral Ratio 12.0 LV E' Septal Velocity 7.7 cm/s Mitral E to LV E' Septal Ratio 15.1
--- NOTE | 2016-09-02 12:40 | PN- Cardiology ---
Subjective Subjective: Denies significant dyspnea but did have trouble sleeping due to persistent cough. Objective Vital Signs and I&Os Vital Signs Date Time Temp Pulse Resp B/P Pulse O2 O2 Flow FiO2 Ox Delivery Rate 09/02 0816 71 140/68 09/02 0815 71 140/68 09/02 0800 Nasal 3.5L Cannula 09/02 0700 98.4 71 20 140/68 90 Nasal 3.5L Cannula 09/02 0622 90 Nasal 3.5L Cannula 09/02 0000 96 BIPAP 5.0L 09/01 2312 68 93 09/01 2229 98.9 74 20 148/78 92 Nasal 3.0L Cannula 09/01 2006 Nasal 3.0L Cannula 09/01 1723 137/70 09/01 1642 98.8 69 22 137/70 94 Nasal 3.0L Cannula 09/01 1626 97 Nasal 3.5L Cannula Intake & Output 09/02 1600 09/02 0800 09/02 0000 09/01 1600 09/01 0800 09/01 0000 Intake Total 360 600 400 400 Output Total 450 525 800 350 Balance -90 75 -400 -350 400 Intake, Oral 360 600 400 400 Number 1 Bowel Movements Output, Urine 450 525 800 350 Patient 240 lb 240 lb Weight Physical Exam: General: no apparent distress. Alert. Eyes: No obvious scleral icterus. HEENT: No jugular venous distention or abnormal jugular venous pulsations. Cardiovascular: Normal intensity S1/S2. Regular. Respiratory: Decreased air entry without rales or rhonchi Abdomen: no guarding or rebound tenderness. Musculoskeletal: No clubbing or cyanosis noted, lower extremity wound noted with edema Skin: Warm Neurologic: No gross focal deficits noted. Current Medications: Current Medications Sig/Kacie Start time Last Medication Dose Route Stop Time Status Admin Acetaminophen 325 MG Q6P PRN 08/31 914 AC PO Acetaminophen 1,000 MG Q6P PRN 08/31 914 AC IV Albuterol Sulfate 3 ML Q4P PRN 08/31 1415 AC 09/02 INH 0609 Aspirin Buffered 81 MG DAILY 08/30 2052 AC 09/02 PO 0815 Atorvastatin Calcium 5 MG 1700 08/31 1700 AC 09/01 PO 1723 Azithromycin 250 MG DAILY 09/01 1000 AC 09/02 PO 0816 Diltiazem HCl 180 MG DAILY 08/31 1000 AC 09/02 PO 0815 Enoxaparin Sodium 40 MG DAILY 08/31 1000 AC 09/02 SC 0812 Furosemide 40 MG DAILY 08/31 1000 AC 09/02 PO 0815 Guaifenesin 600 MG Q12 08/31 1000 AC 09/02 PO 0815 Hydralazine HCl 25 MG TID 08/30 2200 AC 09/02 PO 0815 Ibuprofen 400 MG Q6P PRN 08/31 0915 AC PO Insulin Aspart 0 TIDAC 08/31 0800 AC 09/02 SC 1225 Lisinopril 40 MG DAILY 08/31 1000 AC 09/02 PO 0816 Potassium Chloride 20 MEQ DAILY 09/01 1000 AC 09/02 PO 0815 Prednisone 60 MG DAILY 09/01 1000 AC 09/02 PO 0815 Tiotropium [place] 1 PUF DAILY 09/01 1000 AC 09/02 INH 0816 Results Last 48 Hrs of Labs/Mics: Laboratory Tests 09/01/16 0950: Urinalysis LIGHT H, Urine Color YEL, Urine Clarity CLEAR, Urine pH 6.0, Ur Specific [place] 1.025, Urine Protein 30 H, Urine Ketones NEG, Urine Nitrite NEG, Urine Bilirubin NEG, Urine Urobilinogen 0.2, Ur Leukocyte Esterase NEG, Ur Microscopic SEDIMENT EXAMINED, Urine RBC 3-5, Urine WBC 5-10 H, Ur Epithelial Cells MOD H, Urine Bacteria MOD H, Urine Mucus FEW, Urine Hemoglobin NEG, Urine Glucose NEG 08/31/16 1305: Anion Gap 12, Estimated GFR > 60, BUN/Creatinine Ratio 36.3 H, Troponin I 0.02, CBC w Diff NO MAN DIFF REQ, RBC 4.54, MCV 87.9, MCH 27.9, RDW 14.7 H, MPV 8.4, Gran % 95.6 H, Lymphocytes % 2.7 L, Monocytes % 1.7, Eosinophils % 0, Basophils % 0 L, Absolute Granulocytes 13.0 H, Absolute Lymphocytes 0.4 L, Absolute Monocytes 0.2, Absolute Eosinophils 0, Absolute Basophils 0, PUBS MCHC 31.8 L Recent Imaging Studies: Echocardiogram Technically difficult study. Left ventricular cavity size normal. Left ventricular wall thickness mildly increased. No obvious regional wall motion abnormalities. Left ventricular ejection fraction is estimated at 55 %. Mild right ventricular dilatation. Normal right ventricular global systolic function. Mild right atrial dilatation. Mild left atrial dilatation. Mild aortic stenosis. Right ventricular systolic pressure estimated to be elevated at > 50 mmHg. Alessio Huffman M.D. (Electronically Signed) Final Date: 02 September 2016 10:22 Assessment/Plan Assessment/Plan 1. COPD with respiratory insufficiency/hypoxia and possible bronchitis 2. Chronic diastolic congestive heart failure 3. Sleep apnea, not recently using CPAP 4. Hypertension/hyperlipidemia/diabetes mellitus 5. Chronic venous insufficiency/edema 6. History of urinary incontinence 7. Pulmonary HTN by Echo with normal EF 8. Mild aortic stenosis Still with cough but otherwise feeling well. Declines increasing her baseline Lasix dose due to continued difficulties with chronic urinary incontinence. Echocardiogram showed no decrease in ejection fraction. Now on oral antibiotics and prednisone. Kalen Huffman MD [facility] Continue telemetry? Not applicable
--- NOTE | 2016-09-02 16:27 | RADIOLOGY REPORT ---
EXAMINATION: XR PORTABLE CHEST CLINICAL INFORMATION: Cough. Shortness of breath. Chest x-ray to assess resolution. COMPARISON: Several prior chest x-rays, most recent of which is dated 08/30/2016. TECHNIQUE: Portable AP semierect view of the chest was obtained. FINDINGS: The cardiomediastinal silhouette is enlarged, unchanged. Extensive lobulated masslike appearance of the pulmonary klarissa bilaterally and abnormal prominence of the right paratracheal stripe is again seen, unchanged from several prior exams. Findings are thought to be due to vascular ectasia and pulmonary arterial hypertension as seen on CT scan from 12/23/2012. Given differences in modality and portable nature of the current examination, comparison for size stability is difficult and superimposed hilar adenopathy cannot be excluded. There is patchy opacity seen overlying the left mid lung, evolving when compared to the prior studies, suggestive of a focal pneumonia. Remainder of the lungs show mild diffuse reticular prominence without focal consolidation, effusion or pneumothorax. Bony structures grossly unremarkable. IMPRESSION: 1. Increasing density over the left midlung, raising the suspicion of evolving pneumonia. Less likely, findings may be related to overlap of soft tissues. Close clinical correlation and follow-up chest x-ray is recommended for reevaluation. 2. Markedly enlarged masslike appearance of the pulmonary klarissa and right paratracheal stripe, not significantly changed from recent prior chest x-rays. Findings may be related to pulmonary arterial hypertension as demonstrated on the CT scan from 2012, though superimposed/associated adenopathy would be difficult to exclude. Close clinical correlation is requested with consideration of further assessment with CT scan of the chest. 3. Diffuse increased reticular opacities in the lungs, likely representing pulmonary venous hypertension. 3. Enlarged cardiac silhouette, unchanged.
[2016-09-02 17:05] VITALS: BP 134/70
[2016-09-02 23:26] VITALS: BP 148/80
--- NOTE | 2016-09-03 07:36 | PN- Housestaff ---
[facility] 09[facility] 0736: Subjective Follow-up For: COPD exacerbation Complaints: SOB, tiredness Subjective: Patient seen and examined, she is sitting in the chair with face mask treatment, she is in moderate distress, reporting worsening of her symptoms. She feels and looks tired, she have productive cough of green phlegm with no blood, she denies fever, chills, no chest pain, palpitation, N/V and no change in urinary or bowel habits. her vitals are stable except for BP:160/78 Review of Systems Constitutional: Reports: no symptoms. Cardiovascular: Reports: no symptoms. Respiratory: Reports: cough, short of breath, sputum production. Gastrointestinal: Reports: no symptoms. Genitourinary: Reports: no symptoms. Musculoskeletal: Reports: no symptoms. Objective Last 24 Hrs of Vital Signs/I&O Vital Signs Date Time Temp Pulse Resp B/P Pulse O2 O2 Flow FiO2 Ox Delivery Rate 09/03 0806 98.2 96 28 160/78 90 Nasal Cannula 09/03 0751 90 Nasal 3.5L Cannula 09/03 0056 76 90 09/03 0000 Nasal 3.5L Cannula 09/02 2326 97.9 79 20 148/80 91 Nasal Cannula 09/02 2304 74 92 09/02 2137 72 136/70 09/02 2015 90 Nasal 3.0L Cannula 09/02 1705 97.7 77 20 134/70 90 Nasal 3.0L Cannula 09/02 1644 71 140/68 09/02 1600 94 Nasal 3.5L Cannula 09/02 1428 90 Nasal 3.5L Cannula Intake & Output 09/03 1600 09/03 0800 09/03 0000 Intake Total 240 600 Output Total Balance 240 600 Intake, Oral 240 600 Patient 234 lb Weight Physical Exam General Appearance: Alert, Oriented X3, Moderate Distress Skin: lower extrimity skin changes, blister in the rt. LE, covered with clean gauze. HEENT: PERRLA, Mucous Membr. moist/pink Neck: No JVD Cardiovascular: Normal S1, Normal S2 Lungs: decrease air entry B/L, wheezing B/L Abdomen: Normal Bowel Sounds, Soft, No Tenderness Extremities: Normal Pulses Current Medications: Current Medications Sig/Kacie Start time Last Medication Dose Route Stop Time Status Admin Acetaminophen 325 MG Q6P PRN 08/31 914 AC PO Acetaminophen 1,000 MG Q6P PRN 08/31 0915 AC IV Albuterol Sulfate 3 ML Q4P PRN 08/31 1415 AC 09/03 INH 0745 Aspirin Buffered 81 MG DAILY 08/30 2052 AC 09/02 PO 0815 Atorvastatin Calcium 5 MG 1700 08/31 1700 AC 09/02 PO 1644 Azithromycin 250 MG DAILY 09/01 1000 AC 09/02 PO 0816 Diltiazem HCl 180 MG DAILY 08/31 1000 AC 09/02 PO 0815 Enoxaparin Sodium 40 MG DAILY 08/31 1000 AC 09/02 SC 0812 Furosemide 40 MG DAILY 08/31 1000 AC 09/02 PO 0815 Guaifenesin 600 MG Q12 08/31 1000 AC 09/02 PO 2131 Hydralazine HCl 25 MG TID 08/30 2200 AC 09/02 PO 2137 Ibuprofen 400 MG Q6P PRN 08/31 0915 AC PO Insulin Aspart 0 TIDAC 08/31 0800 AC 09/02 SC 1643 Lisinopril 40 MG DAILY 08/31 1000 AC 09/02 PO 0816 Potassium Chloride 20 MEQ DAILY 09/01 1000 AC 09/02 PO 0815 Prednisone 60 MG DAILY 09/01 1000 AC 09/02 PO 0815 Tiotropium [place] 1 PUF DAILY 09/01 1000 AC 09/02 INH 0816 Assessment/Plan Assessment: 76 yo female with obesity, COPD not on home oxygen, HTN, HFrEF (EF>55%), BRENNON non compliant with CPAP, chronic hypercapneic respiratory failure/obesity hypoventilation, T2DM, chronic LE edema, presentd with 1-day h/o worsening DIOR, cough, left sided pleuritic chest pain, worsening LE edema with weight gain. #. Acute on chronic hypercarbic and hypoxemic respiratory failure: Likely related with COPD exacerbation and BRENNON not complaint with CPAP. Today patient is morelethargic, she has worsening respiratory status with productive cough of green sputum, She back on Bipap for hypercarbic, hypoxemic respiratory failure, [place] shows [place] chest infiltrate, Will start her on Ceftazedim and vancomycin, will monitor her respiratory status closely, if no improvement there is a potential to transfer to ICU. 2. chronic HFpEF: EF > 55% with stage 2 diastolic dysfunction. she is on po lasix 40 daily. Continue strict I/O's, daily weights. c/w lisinopril 40mg daily. 3. COPDE due to bronchitis: Today switched back to IV solu-medrol . Continue TRC nebs, mucinex. INH spiriva was added. Follow sputum cultures and blood cx. 4. Wound consult: Wound Care consult is appreciated. Continue Right lower extremity non adherent dressing with xeroform. Continue leg elevation. 5. BRENNON non compliant to CPAP/obesity hypoventilation: Her home mask is broken. She needs a proper fitting face mask for the Bipap on discharge. Conitnue biPAP in the hospital. 6.Throat pain: Will obtain throat swap to r/o strept DVT ppx Lovenox. Full code. Problem List: 1. COPD exacerbation Pain Ratin Pain Location: - Pain Goal: Remain pain free Pain Plan: - Tomorrow's Labs & Rationales: - DVT/Prophylaxis: pharmacological KIRILL VO MD 09/03/16 1055: Attending MD Review Statement Attending Statement Attending MD Statement: examined this patient, discuss w/resident/PA/HUMAN [employer]OURCES HR REPRESENTATIVE, agreed w/resident/PA/HUM[employer]OURCES HR REPRESENTATIVE, reviewed EMR data (avail) Attending Assessment/Plan: Patient still dyspneic and requiring increased oxygen. She appears ill and is still wheezing. Required BiPAP this morning. Patient is more somnolent. CXR yesterday shows worsening LLL opacity. Plan - Continue Solumedrol 40mg q8h - Start vancomycin and ceftazidime - Follow sputum and blood cultures - BiPAP PRN - Titrate down oxygen as tolerated - Follow pulmonary consult - Continue home medications - Continue nebulizer treatments - If continues to worsen will transfer to ICU for further management - DVT PPx - DVT PPx
[2016-09-03 08:06] VITALS: BP 160/78
--- NOTE | 2016-09-03 08:41 | PN- Wound Care ---
Subjective Subjective: Patient appears more lethargic this morning. Chest x-ray suggests possibility of a new left mid lung field infiltrate. Objective Vital Signs and I&Os Vital Signs Result Date Time Pulse Ox 90 09/03 805 B/P 160/78 09/03 805 O2 Delivery Nasal Cannula 09/03 805 Temp 98.2 09/03 805 Pulse 96 09/03 08 Resp 28 09/03 08 O2 Flow Rate 3.5L 09/03 0751 Intake & Output 09/03 0000 09/02 1600 09/02 0800 Intake Total 600 490 360 Output Total 450 Balance 600 490 -90 Intake, IV 10 Intake, Oral 600 480 360 Output, Urine 450 Patient 240 lb Weight Patient continues to require 3.5 L exam for chest shows diminished breath sounds there are occasional wheezes cardiac exam shows regular S1 and S2 her edema has resolved. Right lower extremity venous stasis ulcer continues to improve Impression/Plan Impression/Plan Impression/Plan: 76-year-old woman with multiple medical problems sleep apnea pulmonary hypertension congestive heart failure and venous insufficiency admitted with shortness of breath. Increased lethargy is worrisome for acute on chronic hypercapnic history failure and arterial blood gas should be obtained. Repeat CBCs and if white count is further elevated will likely need to treat for possible hospital-acquired pneumonia. Ideally if possible PA and lateral chest x-ray might better demonstrate whether this is in fact pneumonia versus soft tissue density
[2016-09-03 10:08] LABS: ABSOLUTE BASOPHIL COUNT 0 /CUMM (0.0-0.2); ABSOLUTE EOSINOPHIL COUNT 0 /CUMM (0.0-0.7); ABSOLUTE GRANULOCYTE CT 15.7 /CUMM (1.4-6.5); ABSOLUTE LYMPH COUNT 0.4 /CUMM (1.2-3.4); ABSOLUTE MONOCYTE COUNT 0.9 /CUMM (0.10-0.60); BASOPHIL % 0 % (0.0-2.0); EOSINOPHIL % 0.1 % (0-5); GRANULOCYTE % 92.1 % (42.2-75.2); HEMATOCRIT 41.3 % (37-47); MEAN CORPUSCULAR HGB 28.2 PG (27.0-31.0); MEAN CORPUSCULAR HGB CONC 31.8 G/DL (33.0-37.0); MEAN CORPUSCULAR VOLUME 88.6 FL (81.0-99.0); MEAN PLATELET VOLUME 7.9 FL (7.4-10.4); PLATELET COUNT 265 /CUMM (130-400); RBC DISTRIBUTION WIDTH 13.9 % (11.5-14.5); RED BLOOD CELL CT 4.66 /CUMM (4.20-5.40); WHITE BLOOD CELL COUNT 17.1 /CUMM (4.8-10.8)
--- NOTE | 2016-09-03 13:33 | Event Note ---
Event Note Event Note: Rapid response was called at 1:15 because she was having shallow breathing, unresposive, and her face was red. On arrival her vitals was: BP:150/76, HR:80, RR:24, O2: 95% on 45% Bipap. She was able to answer question but she is in distress. On Exam: CVS: S1, S2, no murmur Lung: B/L diffuse crackle and expiratory wheezing Her ABG was obtained at 8:30 am showed hypercarpic, hypoxemic respiratory failure, she was started on Bipap. ABG was reapeated 2 hours after Bipap, which showed improvement but still Paco2: 65% CXR: obtained yesterday showed increasing density over the left midlung, raising the suspicion of evolving pneumonia. Diffuse increased reticular opacities in the lungs, likely representing pulmonary venous hypertension. We started the patient on IV Ceftazidime, IV vancomycin, and switched her back to IV Solumedrol. Patient signed out to ICU team, needs to F/U: -Sputum Cx. -Blood Cx -BEP, Mg, Po4 -D-dimer -EKG, Troponin -Lactic acid -? Consider CT-chest to better assess lungs Family (Her daughter) was updated about the patient situation and transfer to ICU.
--- NOTE | 2016-09-03 13:54 | NUR ---
AT 1340: patient transfered from [facility] to [facility] 104. patient 02 sats via nasal cannula 88%, difficulty breathing at rest. respiratory at bedside. patient placed on bipap. call thurston within reach.
--- NOTE | 2016-09-03 14:18 | RADIOLOGY REPORT ---
EXAMINATION: XR PORTABLE CHEST CLINICAL INFORMATION: Shortness of breath and desaturation. COMPARISON: Multiple prior chest x-rays dating back to 10/26/2013. CT chest without contrast 12/23/2012. The most recent chest x-ray was performed on 09/02/2016. TECHNIQUE: Portable AP view of the chest was obtained. FINDINGS: Allowing for differences in technique, patient positioning and aeration of the lungs, single AP view of the chest demonstrates no significant interval changes in the appearance of the chest. The lungs are again noted to be hypoinflated. Redemonstrated are patchy airspace opacities within the left mid lung and prominence of the right paratracheal region. The cardiac silhouette is again noted to be prominent. There are no visible large pleural effusions or pneumothoraces. Soft tissues appear unremarkable. No acute osseous abnormality is identified. IMPRESSION: 1. Persistent density within the left midlung which may reflect infection or atelectasis given pulmonary hypoinflation. 2. Persistent masslike prominence of the right hilar region, grossly unchanged relative to multiple prior chest x-rays dating back to 2012 and corresponding to previously noted prominence of the pulmonary arterial vasculature in the setting of pulmonary arterial hypertension. However, please note that superimposed adenopathy versus a hilar mass cannot be entirely excluded. Contrast-enhanced chest CT would be helpful in further evaluation. 3. Stable cardiomegaly.
--- NOTE | 2016-09-03 15:02 | Cons- CRCU ---
General Information and HPI Consulting Request Date of Consult: 09/03/16 Requested By: Dr Strong Exam Limitations: clinical condition History of Present Illness: Ms Riggs is a 76-year-old female with history of morbidly obesity, COPD not on home oxygen, hypertension, heart failure with reduced ejection fraction, BRENNON not compliant with CPAP, chronic hypercapnic respiratory failure, obesity hypoventilation syndorme, hyperlipidemia, diabetes mellitus, history of MRSA infection, depression, osteoarthritis, back pain, chronic lower extremity edema with dyspnea on exertion who presented to the emergency department at [facility] on 08/30/2016 complaining of dyspnea, cough, dyspnea on exertion and worsening LE edema. Prior to admission the patient stated that although she may have been exposed to her ill grandkids and has since been feeling lethargic and a decreased sense of energy over the last 7 days prior to admission. Review of systems was negative for nausea, vomiting, fevers, chills. The patient did endorse chest pain. Chest pain was rated a 5 out of 10 severity worse with deep inspiration. Chest pain was described as sharp. The patient was subsequently admitted to the telemetry floor for further workup and management. She was continued on the Solu-Medrol taper and administered IV Lasix, This afternoon and 09/02/2016 at approximately 1315 a rapid response was called after the patient had a decreased level of responsiveness. Vitals . BP:150/76, HR:80, RR:24, O2: 95% on 45% Bipap. She was subsequently transferred to the ICU for further closer management. Allergies/Medications Allergies: Coded Allergies: codeine (Mild, SENSITIVITY - HEADACHE AND NAUSEA AND MISERABLE 03/01/16) Antihistamines - Alkylamine (DIZZY, HEADACHES, FEELS SICK 03/01/16) Antihistamines - Ethanolamine (DIZZINESS, HEADACHE, FEELS SICK 03/01/16) Antihistamines - Ethylenediamine (DIZZINESS, HEADACHE, FEELS SICK 03/01/16) Antihistamines - Piperazine (DIZZINESS, HEADACHE, FEELS SICK 03/01/16) Antihistamines - Piperidine (DIZZINESS HEADACHE FEELS SICK 03/01/16) Opioids - Morphine Analogues (N/V HEADACHE FEELS MISERABLE 03/01/16) Opioids-Meperidine and Related (N/V HEADACHE, FEELS MISERABLE 03/01/16) Opioids-Methadone and Related (HEADACHE, N/V, FEELS MISERABLE 03/01/16) Home Med List: Albuterol Sulfate 0.63 MG/3 ML VIAL.NEB 1 PUFF INH Q4 HRS NEEDED PRN BREATHING (Reported) Albuterol Sulfate (Proair Hfa) 90 MCG HFA.AER.AD 2 PUF INH Q4-6 PRN PRN shortness of breath Aspirin (Ecotrin) 81 MG TABLET.DR 1 TAB PO DAILY heart (Reported) Azithromycin 250 MG TABLET 250 MG PO DAILY COPD EXACERBATION DILTIAZEM HCL (Cartia Xt) 180 MG CAP.ER.24H 1 TAB PO DAILY heart (Reported) Fish Oil ([place] 3) 1,000 MG SGL 1 SGL PO DAILY supplement (Reported) Furosemide (Lasix) 40 MG TAB 40 MG PO DAILY HEART HEALTH Guaifenesin (Guaifenesin ER) 600 MG TAB.ER.12H 600 MG PO Q12 PRN COUGH Hydralazine HCl 25 MG TABLET 25 MG PO TID HTN Ibuprofen 200 MG CAPSULE 4 CAP PO PRN PAIN (Reported) Ipratropium [place] (Atrovent Hfa) 17 MCG/ACTUATION HFA.AER.AD 2 PUF INH DAILY COPD Metformin HCl (Metformin HCl ER) 500 MG TAB.ER.24H 1 TAB PO D DIABETES ( Reported) Multivitamin2 (Multivitamin) 1 EACH TAB 1 TAB PO DAILY supplement (Reported) Potassium Chloride 10 MEQ TABLET.ER 1 TAB PO DAILY SUPPLEMENT (Reported) Prednisone 20 MG TABLET 2 TAB PO DAILY COPD EXACERBATION Quinapril HCl 40 MG TABLET 1 TAB PO DAILY HTN (Reported) Sertraline HCl 100 MG TABLET 0.5 TAB PO DAILY MENTAL HEALTH (Reported) Simvastatin (Zocor) 10 MG TABLET 1 TAB PO DAILY HLD (Reported) Tiotropium [place] (Spiriva) 18 MCG CAP.W.DEV 1 PUF INH DAILY COPD Review of Systems Review of Systems Constitutional: Reports: see HPI. Denies: chills, diaphoresis, fever, malaise. Cardiovascular: Denies: chest pain, edema, orthopena, palpitations, peripheral edema. Respiratory: Reports: short of breath. Denies: cough, hemoptysis, orthopnea, sputum production. GI: Denies: abdominal pain, bloating, constipation, diarrhea, distention. Genitourinary: Denies: discharge, dysuria, frequency, hematuria. Musculoskeletal: Denies: back pain, gout, joint pain, joint swelling. Past History Travel History Traveled to [place] past 21 day No Medical History Blood Transfusion Hx: No Neurological: NONE EENT: NONE Cardiovascular: hypertension Respiratory: bronchitis, COPD, pneumonia Gastrointestinal: NONE Hepatic: NONE Renal: NONE Musculoskeletal: NONE Psychiatric: NONE Endocrine: diabetes Blood Disorders: NONE Cancer(s): NONE CYTOPATHOLOGY TECHNOLOGIST/Reproductive: NONE Surgical History Surgical History: non-contributory Psychosocial History Where Do You Live? Home Who Do You Live With? spouse Services at Home: None Primary Language: Syriac Smoking Status: Never Smoked ETOH Use: occasional use Illicit Drug Use: denies illicit drug use Functional Ability ADLs Independent: dressing, eating, toileting, bathing. Ambulation: independent IADLs Independent: shopping, housework, finances, food prep, telephone, transportation , medication admin. Exam & Diagnostic Data Last 24 Hrs of Vital Signs/I&O Vital Signs Date Time Temp Pulse Resp B/P Pulse O2 O2 Flow FiO2 Ox Delivery Rate 09/03 1900 74 90 09/03 1604 78 166/77 09/03 1603 78 166/77 09/03 1600 90 BIPAP 45% 09/03 1600 98.4 70 30 168/80 90 BIPAP 45% 09/03 1600 90 BIPAP 45% 09/03 1600 75 90 09/03 1400 BIPAP 09/03 1347 86 92 09/03 1330 150/76 09/03 0917 91 09/03 0806 98.2 96 28 160/78 90 Nasal Cannula 09/03 0800 Nasal 3.5L Cannula 09/03 0751 90 Nasal 3.5L Cannula 09/03 0056 76 90 09/03 0000 Nasal 3.5L Cannula 09/02 2326 97.9 79 20 148/80 91 Nasal Cannula 09/02 2304 74 92 09/02 2137 72 136/70 Intake & Output 09/03 1600 09/03 0800 09/03 0000 Intake Total 340 240 600 Output Total 0 Balance 340 240 600 Intake, IV 280 Intake, Oral 60 240 600 Number 0 Bowel Movements Output, Stool 0 Patient 106.141 kg Weight Physical Exam General Appearance: alert, anxious, sedated, lethargic, mild distress Head: atraumatic, Bilaterral Eye Crusting Eyes: Left: lid inflammation. Respiratory: chest non-tender, crackles, rhonchi Cardiovascular: regular rate/rhythm, systolic murmur Gastrointestinal: normal bowel sounds, soft, non-tender, no organomegaly Back: normal inspection, normal range of motion Extremities: normal inspection, pedal edema (1+), swelling Neurologic/Psych: no motor/sensory deficits Last 48 Hrs of Labs/Bernard: Laboratory Tests 09/03/16 1810: pH 7.37, pCO2 58 H, pO2 65 L, HCO3 33 H, ABG O2 Sat (Measured) 91.0 L, P-50 (Temp Corrected) N, Carboxyhemoglobin 1.0 L, O2 Concentration % 50%, Temperature 99.0, Respiration Rate 28, O2 Delivery Method FFM, Vent Mode ST, Expiratory Pressure 6, Inspiratory Pressure 22, Phlebotomy Draw Site LEFT RADIAL 09/03/16 1700: Urine Color YEL, Urine Clarity CLEAR, Urine pH 6.0, Ur Specific [place] 1.015, Urine Protein TRACE H, Urine Ketones NEG, Urine Nitrite NEG, Urine Bilirubin NEG, Urine Urobilinogen 0.2, Ur Leukocyte Esterase NEG, Ur Microscopic SEDIMENT EXAMINED, Urine RBC 1-3, Ur Epithelial Cells FEW, Urine Hemoglobin NEG, Urine Glucose NEG 09/03/16 1630: Lactic Acid 0.8, Phosphorus 2.6, Magnesium 1.9 09/03/16 1425: Anion Gap 7, Estimated GFR > 60, BUN/Creatinine Ratio 40.0 H, Troponin I < 0.01 , D-Dimer 766 H 09/03/16 1055: pH 7.36, pCO2 65 *H, pO2 72 L, HCO3 35 H, ABG O2 Sat (Measured) 93.0 L, Carboxyhemoglobin 0.9 L, O2 Concentration % 45%, Respiration Rate 28, O2 Delivery Method BIPAP, Vent Mode ST, Expiratory Pressure 6, Inspiratory Pressure 18, Phlebotomy Draw Site RIGHT RADIAL 09/03/16 0950: CBC w Diff MAN DIFF ORDERED, RBC 4.66, MCV 88.6, MCH 28.2, RDW 13.9, MPV 7.9, Gran % 92.1 H, Lymphocytes % 2.3 L, Monocytes % 5.5, Eosinophils % 0.1, Basophils % 0 L, Absolute Granulocytes 15.7 H, Segmented Neutrophils 76 H, Band Neutrophils 7 H, Absolute Lymphocytes 0.4 L, Lymphocytes 4 L, Monocytes 11 H, Absolute Monocytes 0.9 H, Absolute Eosinophils 0, Absolute Basophils 0, Metamyelocytes 2 H, Platelet Estimate ADEQUATE, Normocytic RBCs VERIFIED, Normochromic RBCs VERIFIED, PUBS MCHC 31.8 L 09/03/16 0855: pH 7.35, pCO2 64 *H, pO2 45 *L, HCO3 34 H, ABG O2 Sat (Measured) 79.0 L, P-50 (Temp Corrected) NO, Carboxyhemoglobin 0.9 L, O2 Concentration % 3.5L, Temperature 98.2, O2 Delivery Method NC, Phlebotomy Draw Site LEFT RADIAL Diagnostic Data CXR Results SERVICE DATE: 09/03/16 EXAM TYPE: RAD - XRY-PORTABLE CHEST XRAY IMPRESSION: 1. Persistent density within the left midlung which may reflect infection or atelectasis given pulmonary hypoinflation. 2. Persistent masslike prominence of the right hilar region, grossly unchanged relative to multiple prior chest x-rays dating back to 2012 and corresponding to previously noted prominence of the pulmonary arterial vasculature in the setting of pulmonary arterial hypertension. However, please note that superimposed adenopathy versus a hilar mass cannot be entirely excluded. Contrast-enhanced chest CT would be helpful in further evaluation. 3. Stable cardiomegaly. DICTATED BY: PAPITO MUNGUIA MD Assessment/Plan Impression/Plan: Ms Riggs is a 76-year-old female with history of morbidly obesity, COPD not on home oxygen, hypertension, heart failure with reduced ejection fraction, BRENNON not compliant with CPAP, chronic hypercapnic respiratory failure, obesity hypoventilation syndorme, hyperlipidemia, diabetes mellitus, history of MRSA infection, depression, osteoarthritis, back pain, chronic lower extremity edema with dyspnea on exertion who presented to the emergency department at [facility] on 08/30/2016 complaining of dyspnea, cough, dyspnea on exertion and worsening LE edema. Problem List: COPD exacerbation with possible HCAP CHF Diabetes History of hypertension History of hyperlipidemia Sleep apnea Respiratory Continue monitoring in intensive care unit. ABG at the time of rapid response showed: PH of 7.36, PCO2 of 65, PO2 of 65 and bicarbonate 35. Repeat ABG: PH of 7.37, PCO2 of 58, PO2 of 65, bicarbonate of 33. Please note should the patient's clinical condition deteriorated over the next 12 hours consider intubation. Owing to an elevation in the d-dimer at 7700 a bilateral lower extremity DVT has been ordered. Patient who does have sleep apnea has been noncompliant as CPAP consider polysomnography test for outpatient. ID Patient's white cell count was elevated She has been started on IV ceftazidime in and vancomycin. Cardiovascular Initial set of troponins this afternoon were within normal limits. EKG revealed no changes or ST elevations. Cardiology is currently on board. Patient was scheduled to receive IV Lasix however was not administered this medication prior to transfer to the ICU. Echocardiogram done on 09/02/2016: Left ventricular cavity size normal. Left ventricular wall thickness mildly increased. No obvious regional wall motion abnormalities. Left ventricular ejection fraction is estimated at 55 %. Continue IV Lasix 40 mg by mouth. Continue JELANI inhibitor 40 mg by mouth Continue daily statin. Heme Patient did have an elevated white count morning of 09/03/2016. She has been started on broad-spectrum antibiotics. Repeat CBC on 09/04/2016. White cell count did have Bandemia. Metabolic Lactic acid ordered at 1630 to rule out any hypoperfusion and was within normal limits 0.8. Phosphorus and magnesium 2.6 and 1.9 respectively. D-dimer ordered for this afternoon was elevated at 766. Bilateral DVT Dopplers were ordered to rule out any DVT or source of PE. We'll continue to monitor and was the patient is more stable can consider CT head Alimentary Patient has a history of diabetes mellitus. Blood sugars have been trending as follows 120, 122, 185. We'll maintain her on a consistent carbohydrate diet from the a.m. Neurology Avoid sedating medications. Other Continue to monitor right lower extremity ulcer. Wound care on board. Diet: Although the patient does have a diet given her mentation she is probably unable to tolerate by mouth intake. Continue to monitor. Assess in a.m. for adequate response to tolerate diet. DVT ppx ALPS + Enoxaparin Code Full Problem List: 1. COPD exacerbation 2. COPD (chronic obstructive pulmonary disease) 3. Hypoxic respiratory failure 4. Obesity 5. Pneumonia 6. Altered mental status Consult Acknowledgment - Thank you for your consult request.
--- NOTE | 2016-09-03 15:29 | Cons- CRCU ---
General Information and HPI Consulting Request Date of Consult: 09/03/16 Requested By: Dr. Strong Reason for Consult: Respiratory failure Source of Information: old records Exam Limitations: unable to give history, clinical condition History of Present Illness: The patient is awake and alert. She reports feeling improved overall. She offers no specific complaints. Allergies/Medications Allergies: Coded Allergies: codeine (Mild, SENSITIVITY - HEADACHE AND NAUSEA AND MISERABLE 03/01/16) Antihistamines - Alkylamine (DIZZY, HEADACHES, FEELS SICK 03/01/16) Antihistamines - Ethanolamine (DIZZINESS, HEADACHE, FEELS SICK 03/01/16) Antihistamines - Ethylenediamine (DIZZINESS, HEADACHE, FEELS SICK 03/01/16) Antihistamines - Piperazine (DIZZINESS, HEADACHE, FEELS SICK 03/01/16) Antihistamines - Piperidine (DIZZINESS HEADACHE FEELS SICK 03/01/16) Opioids - Morphine Analogues (N/V HEADACHE FEELS MISERABLE 03/01/16) Opioids-Meperidine and Related (N/V HEADACHE, FEELS MISERABLE 03/01/16) Opioids-Methadone and Related (HEADACHE, N/V, FEELS MISERABLE 03/01/16) Home Med List: Albuterol Sulfate 0.63 MG/3 ML VIAL.NEB 1 PUFF INH Q4 HRS NEEDED PRN BREATHING (Reported) Albuterol Sulfate (Proair Hfa) 90 MCG HFA.AER.AD 2 PUF INH Q4-6 PRN PRN shortness of breath Aspirin (Ecotrin) 81 MG TABLET.DR 1 TAB PO DAILY heart (Reported) DILTIAZEM HCL (Cartia Xt) 180 MG CAP.ER.24H 1 TAB PO DAILY heart (Reported) Fish Oil ([place] 3) 1,000 MG SGL 1 SGL PO DAILY supplement (Reported) Furosemide (Lasix) 40 MG TAB 40 MG PO DAILY HEART HEALTH Guaifenesin (Guaifenesin ER) 600 MG TAB.ER.12H 600 MG PO Q12 PRN COUGH Hydralazine HCl 25 MG TABLET 25 MG PO TID HTN Ibuprofen 200 MG CAPSULE 4 CAP PO PRN PAIN (Reported) Ipratropium [place] (Atrovent Hfa) 17 MCG/ACTUATION HFA.AER.AD 2 PUF INH DAILY COPD Metformin HCl (Metformin HCl ER) 500 MG TAB.ER.24H 1 TAB PO D DIABETES ( Reported) Multivitamin2 (Multivitamin) 1 EACH TAB 1 TAB PO DAILY supplement (Reported) Potassium Chloride 10 MEQ TABLET.ER 1 TAB PO DAILY SUPPLEMENT (Reported) Prednisone 10 MG TABLET 1 TAB PO SEE ADMIN CRITERIA COPD Take 2 TABS FOR 2 DAYS THEN TAKE 1 TAB FOR 2 DAY AND THEN STOP Quinapril HCl 40 MG TABLET 1 TAB PO DAILY HTN (Reported) Sertraline HCl 100 MG TABLET 0.5 TAB PO DAILY MENTAL HEALTH (Reported) Simvastatin (Zocor) 10 MG TABLET 1 TAB PO DAILY HLD (Reported) Tiotropium [place] (Spiriva) 18 MCG CAP.W.DEV 1 PUF INH DAILY COPD Valacyclovir Hydrochloride (Valtrex) 500 MG TABLET 1,000 MG PO TID Shingles Current Medications: Current Medications Sig/Kacie Start time Last Medication Dose Route Stop Time Status Admin Acetaminophen 325 MG Q6P PRN 08/31 0915 AC PO Acetaminophen 1,000 MG Q6P PRN 08/31 0915 AC IV Albuterol Sulfate 3 ML EVERY 4 HRS/AWAKE 09/03 1600 AC INH Albuterol Sulfate 3 ML Q4P PRN 08/31 1415 DC 09/03 INH 0745 Aspirin Buffered 81 MG DAILY 08/30 2052 AC 09/02 PO 0815 Atorvastatin Calcium 5 MG 1700 08/31 1700 AC 09/02 PO 1644 Azithromycin 250 MG DAILY 09/01 1000 DC 09/02 PO 0816 Ceftazidime 2,000 MG IQ8 09/03 1600 CAN Dextrose/Water 50 ML IV Ceftazidime 1,000 MG Q12H 09/03 1100 AC 09/03 IV 1330 Diltiazem HCl 180 MG DAILY 08/31 1000 AC 09/02 PO 0815 Enoxaparin Sodium 40 MG DAILY 08/31 1000 AC 09/03 SC 1208 Furosemide 40 MG DAILY 08/31 1000 AC 09/02 PO 0815 Guaifenesin 600 MG Q12 08/31 1000 AC 09/02 PO 2131 Hydralazine HCl 25 MG TID 08/30 2200 AC 09/02 PO 2137 Ibuprofen 400 MG Q6P PRN 08/31 0915 AC PO Insulin Aspart 0 TIDAC 08/31 0800 AC 09/02 SC 1643 Ipratropium [place] 2.5 ML EVERY 4 HRS/AWAKE 09/03 1600 AC INH Lisinopril 40 MG DAILY 08/31 1000 AC 09/02 PO 0816 Methylprednisolone 40 MG Q8 09/03 1400 AC 09/03 IV 1330 Potassium Chloride 20 MEQ DAILY 09/01 1000 AC 09/02 PO 0815 Prednisone 60 MG DAILY 09/01 1000 DC 09/02 PO 0815 Tiotropium [place] 1 PUF DAILY 09/01 1000 AC 09/02 INH 0816 Vancomycin HCl 1,500 MG Q24H 09/03 1100 AC 09/03 Sodium Chloride 250 ML IV 1207 Vancomycin HCl 1,000 MG DAILY 09/03 1000 CAN Sodium Chloride 250 ML IV Past History Travel History Traveled to [place] past 21 day No Medical History Blood Transfusion Hx: No Neurological: NONE EENT: NONE Cardiovascular: hypertension Respiratory: bronchitis, COPD, pneumonia Gastrointestinal: NONE Hepatic: NONE Renal: NONE Musculoskeletal: NONE Psychiatric: NONE Endocrine: diabetes Blood Disorders: NONE Cancer(s): NONE LEAD TELLER/Reproductive: NONE Surgical History Surgical History: non-contributory Psychosocial History Where Do You Live? Home Who Do You Live With? spouse Services at Home: None Primary Language: [place] Smoking Status: Never Smoked ETOH Use: occasional use Illicit Drug Use: denies illicit drug use Functional Ability ADLs Independent: dressing, eating, toileting, bathing. Ambulation: independent IADLs Independent: shopping, housework, finances, food prep, telephone, transportation , medication admin. Exam & Diagnostic Data Last 24 Hrs of Vital Signs/I&O Vital signs reviewed. Last 48 Hrs of Labs/Bernard: Vitals reviewed. Assessment/Plan Impression/Plan: 1. Acute on chronic hypoxemic respiratory failure, with new patchy airspace opacities in the left lung thought to represent developing pneumonia. Rule out hospital-acquired pneumonia. 2. Acute change in mental status, increased lethargy. The patient has not received any sedation. Her PCO2 is elevated but is well compensated. 3. Obesity hypoventilation syndrome/BRENNON, with intolerance to nasal CPAP. 4. Chronic diastolic congestive heart failure with chronic venous stasis. 5. Diabetes mellitus. 6. Chronic venous stasis. Recommendations: * Continue BiPAP overnight. * Continue Nebs/TRC. * Continue Spiriva. * Avoid any sedation. * Continue vancomycin and ceftazidime. * Follow up blood and sputum cultures. * Monitor strict I's and O's, negative fluid balance. * Continue Solumedrol. * Monitor Accu-Cheks and cover with sliding scale insulin. * Continue close monitoring in the critical care unit. * If the patient's respiratory status continues to deteriorate, the patient is full code and will require intubation and mechanical ventilation. Anesthesia should be called stat if she deteriorates. * Will continue all supportive care. Other Findings/Comments: I have personally seen and examined the patient. I have reviewed the resident's detailed report, and agree with the assessment and plan as above. The patient is a 76-year-old female with history of morbidly obesity, COPD not on home oxygen, hypertension, heart failure with reduced ejection fraction, BRENNON intolerant of nasal CPAP, chronic hypercapnic respiratory failure, obesity hypoventilation, hyperlipidemia, diabetes mellitus, history of MRSA infection, depression, osteoarthritis, back pain, chronic lower extremity edema and chronic dyspnea on exertion. The patient was admitted with increased cough, increased shortness of breath, left-sided pleuritic pain, and worsening lower extremity edema. The patient has been undergoing treatment for a COPD exacerbation, possible bronchitis, and chronic diastolic CHF. Today, a rapid response was called as the patient was experiencing shallow breathing and was minimally responsive. Her vital signs were stable noting she was 95% on 45% BiPAP. Her blood pressure was 150/76 at the time. She had a chest x-ray one day prior that showed possible evolving pneumonia. An ABG was obtained that showed chronic hypercarbic hypoxemic respiratory failure. The patient's white blood cell count was elevated at 17,000 with 7 bands this morning. The patient was transferred to the critical care unit for closer monitoring. She is currently on BiPAP and arousable but lethargic. She has been started on IV ceftazidime, IV vancomycin and switched back to IV Solu-Medrol. She was given additional Lasix. She currently denies any discomfort and when asked why she still lethargic she denies feeling this way. Chest x-ray showed persistent density within the left mid lung thought to reflect atelectasis. There is also a masslike prominence in the right hilar region unchanged since 2013 although adenopathy or mass could not be excluded. Impression: 1. Acute on chronic hypoxemic respiratory failure, with new patchy airspace opacities in the left lung thought to represent developing pneumonia. Rule out hospital-acquired pneumonia. 2. Acute change in mental status, increased lethargy. The patient has not received any sedation. Her PCO2 is elevated but is well compensated. 3. Obesity hypoventilation syndrome/BRENNON, with intolerance to nasal CPAP. 4. Chronic diastolic congestive heart failure with chronic venous stasis. 5. Diabetes mellitus. 6. Chronic venous stasis. Plan: * Check a repeat ABG at 6 PM. * Continue BiPAP overnight. * Continue Nebs/TRC. * Continue Spiriva. * Avoid any sedation. * Continue vancomycin and ceftazidime. * Follow up blood and sputum cultures. * Check a urinalysis and urine culture. * Monitor strict I's and O's, negative fluid balance. * Follow-up labs which were ordered including a chemistry panel, troponin and lactic acid. * We will do a CT scan of the chest when the patient is more stable. * Monitor Accu-Cheks and cover with sliding scale insulin. * Continue close monitoring in the critical care unit. * If the patient's respiratory status continues to deteriorate, the patient is full code and will require intubation and mechanical ventilation. Anesthesia should be called stat if she deteriorates. Consult Acknowledgment - Thank you for your consult request.
[2016-09-03 16:00] VITALS: BP 168/80
--- NOTE | 2016-09-03 16:30 | NUR ---
LATE ENTRY - PATIENT WAS VERY LETHARGIC THIS AM AFTER POORLY SLEEPING AT NIGHT. O2 SAT ON 3.5LO2NC WAS LESS THAN 90% WHEN TAKEN @ 0800 & PATIENT SOB AT REST. RT WAS PRESENT GIVING PATIENT A NEB TX. PT BECAME COMFORTABLE AFTER THE TX AND O2 SAT RECOVERED. DR. COLLINS ASSESSED PT @ 0845/0900 & REQUESTED FOR ABG'S TO BE DONE & RESIDENT TO BE CALLED TO ASSESS PATIENT. PCO2 WAS 64, PO2 WAS 45, & ARTERIAL O2 SAT WAS 79%. RT PLACED PT BACK ON BIPAP & PO2 SAT INCREASED TO 72%, & PT BECAME COMFORTABLE & FELL ASLEEP. DR. VO ASSESSED PATIENT @ 1300 & REQUESTED ANOTHER RN TO CALL A RAPID RESPONSE WHILE THIS RN WAS IN ANOTHER ROOM. THIS RN ARRIVED TO PATIENT'S ROOM & RAPID RESPONSE STAFF WAS PRESENT. DR. VO WANTED HER TRANSFERRED TO ICU BECAUSE HE STATED HER CONDITION WAS MUCH WORSE THAN 2 DAYS PRIOR. BP WAS 150/76. PATIENT WAS TRANSFERRED IN JAZZY CHAIR TO RM 104.
--- NOTE | 2016-09-03 20:15 | ULTRASOUND REPORT ---
EXAMINATION: US TRIPLEX LOWER EXTREMITY, BILATERAL CLINICAL INFORMATION: Edema. Skin changes. COMPARISON: Duplex Doppler bilateral lower extremities 03/24/2012 dictated report. Images not available for review. TECHNIQUE: Color-flow triplex imaging with spectral analysis and compression Doppler were performed on the bilateral lower extremities. FINDINGS: Exam limited by body habitus. Respiratory variation, normal compression and augmented flow are noted throughout the bilateral lower extremities. The visualized common femoral vein, superficial femoral vein, profunda femoral vein, popliteal vein and midcalf peroneal and posterior tibial venous segments show no evidence of deep venous thrombosis. There is no De La Rosa's cyst. IMPRESSION: Normal triplex scan without evidence of deep venous thrombosis involving the bilateral lower extremities.
--- NOTE | 2016-09-03 20:23 | NUR ---
RECEIVED PATIENT AT 1600 [facility] (DR. ARCHER AND DR. OWENS) AND RT, GABBY DELGADO TO PLACE PATIENT ON 6 L NASAL CANNULA TO GIVEN MEDS/ WATER. PATIENT DESATTING TO 88-89% ON THE 6 LITERS BUT DENIED SHORTNESS OF BREATH. TOLERATED TAKING PILLS WELL IN APPLESAUCE WITH SIPS OF WATER. PATIENT INCONTINENT OF URINE. HOYERED BACK TO BED W/ MAX ASSIST. PLACED BACK ON BIPAP. SHE DENIES COMPLAINTS/DENIES PAIN. SLEEPY AT TIMES BUT ORIENTED X3 WHEN AROUSED. EYES NOTED TO BE 'CRUSTY', REDDENED, W/ YELLOW DISCHARGE. REPORTED TO DR. ARCHER. STRAIGHT CATHED FOR 250 ML OF CLEAR, YELLOW, FOUL SMELLING URINE. PLACED IN CHAIR POSITIONING FOR BED, TOLERATED WELL. LARGE OPEN BLISTER AREA TO RIGHT OUTER SERNA. RE-DRESSED @ 1700 W/ XEROFORM/ABD PAD AND PAPER TAPE. +3 PVD-LIKE EDEMA TO LOWER EXT.
[2016-09-04] VITALS: BP 136/60
--- NOTE | 2016-09-04 00:30 | NUR ---
PT MORE AWAKE AND RESPONSIVE ABLE TO ASSIST WITH TURN FOR CARE. MEDS GIVEN WHOLE. PT STATES SHE IS COMFORTABLE AT THIS TIME.
--- NOTE | 2016-09-04 06:00 | NUR ---
PT C/O HEAD ACHE TO LEFT EYE AREA. MOTRIN GIVEN TO PATIENT PER HER REQUEST. WILL CONTINUE TO MONITOR. MD NOTIFIED OF PT C/O TONGUE PAIN
--- NOTE | 2016-09-04 06:47 | PN- Resident CRCU ---
Subjective HPI/CRCU Issues: Ms. Riggs was seen and examined this morning. She is resting comfortably in bed. She reports no issues overnight. She is alert and oriented 3 says she feels much better compared to our last interaction 24 hours ago. She did endorse a headache rated at a 7 out of 10 in severity. More prominent on the left. She attributes this to irritation from BIPAP and a mild tongue discomfort. Patient denies any shortness of breath. She denies any chest pain and/or chest discomfort. She denies any pain over lower extremity right foot. She would like to eat. She denies any fever, chills, nausea, vomiting. Objective Vital Signs & I&O Last 8 Hrs of Vitals and I&O: BP:147/77 MA 79 T:98.9 RR: 26 93 % on 50% NC Exam General Appearance: well developed/nourished, no apparent distress, alert, awake , comfortable Respiratory: no respiratory distress, crackles Cardiovascular: regular rate/rhythm Gastrointestinal: normal bowel sounds, soft, non-tender, distention Extremities: normal inspection, no edema (Generalized ) Cranial Nerves: normal hearing, normal speech Skin: intact, Right Lower Extremity Ulcer covered in Bandage. Current Medications: Current Medications Sig/Kacie Start time Last Medication Dose Route Stop Time Status Admin Acetaminophen 325 MG Q6P PRN 08/31 0915 AC PO Acetaminophen 1,000 MG Q6P PRN 08/31 0915 AC IV Albuterol Sulfate 3 ML EVERY 4 HRS/AWAKE 09/03 1600 AC 09/03 INH 2031 Albuterol Sulfate 3 ML Q4P PRN 08/31 1415 DC 09/03 INH 0745 Aspirin Buffered 81 MG DAILY 08/30 2052 AC 09/03 PO 1603 Atorvastatin Calcium 5 MG 1700 08/31 1700 AC 09/03 PO 1604 Azithromycin 250 MG DAILY 09/01 1000 DC 09/02 PO 0816 Ceftazidime 2,000 MG IQ8 09/03 1600 CAN Dextrose/Water 50 ML IV Ceftazidime 1,000 MG Q12H 09/03 1100 AC 09/04 IV 0010 Diltiazem HCl 180 MG DAILY 08/31 1000 AC 09/03 PO 1603 Enoxaparin Sodium 40 MG DAILY 08/31 1000 AC 09/03 SC 1208 Furosemide 40 MG DAILY 08/31 1000 AC 09/03 PO 1604 Guaifenesin 600 MG Q12 08/31 1000 AC 09/04 PO 0023 Hydralazine HCl 25 MG TID 08/30 2200 AC 09/04 PO 0023 Ibuprofen 400 MG Q6P PRN 08/31 0915 AC 09/04 PO 0658 Insulin Aspart 0 TIDAC 08/31 0800 AC 09/02 SC 1643 Ipratropium [place] 2.5 ML EVERY 4 HRS/AWAKE 09/03 1600 AC 09/03 INH 2031 Lisinopril 40 MG DAILY 08/31 1000 AC 09/03 PO 1604 Methylprednisolone 40 MG Q8 09/03 1400 AC 09/04 IV 0658 Potassium Chloride 20 MEQ ONCE ONE 09/04 0745 AC PO 09/04 0746 Potassium Chloride 20 MEQ DAILY 09/01 1000 AC 09/03 PO 1603 Prednisone 60 MG DAILY 09/01 1000 DC 09/02 PO 0815 Tiotropium [place] 1 PUF DAILY 09/01 1000 AC 09/02 INH 0816 Vancomycin HCl 1,500 MG Q24H 09/03 1100 AC 09/03 Sodium Chloride 250 ML IV 1207 Vancomycin HCl 1,000 MG DAILY 09/03 1000 CAN Sodium Chloride 250 ML IV Impression/Plan Impression/Problem List Impression: Ms Riggs is a 76-year-old female with history of morbidly obesity, COPD not on home oxygen, hypertension, heart failure with reduced ejection fraction, BRENNON not compliant with CPAP, chronic hypercapnic respiratory failure, obesity hypoventilation syndorme, hyperlipidemia, diabetes mellitus, history of MRSA infection, depression, osteoarthritis, back pain, chronic lower extremity edema with dyspnea on exertion who presented to the emergency department at [facility] on 08/30/2016 complaining of dyspnea, cough, dyspnea on exertion and worsening LE edema. Problem List: COPD exacerbation with possible HCAP CHF Diabetes History of hypertension History of hyperlipidemia Sleep apnea Headache Respiratory Continue monitoring in intensive care unit. ABG at the time of rapid response showed: PH of 7.36, PCO2 of 65, PO2 of 65 and bicarbonate 35. Repeat ABG: PH of 7.37, PCO2 of 58, PO2 of 65, bicarbonate of 33. Please note should the patient's clinical condition deteriorated over the next 12 hours consider intubation. Owing to an elevation in the d-dimer at 7700 a bilateral lower extremity DVT has been ordered. Patient who does have sleep apnea has been noncompliant on CPAP. ?Broken Machine. Continue IV Solumederol ID Patient's white cell count was elevated Continue IV ceftazidime in and vancomycin. WBC: 17.1-->15.1 Cardiovascular Initial set of troponins this afternoon were within normal limits. EKG revealed no changes or ST elevations. Cardiology is currently on board. Patient was scheduled to receive IV Lasix however was not administered this medication prior to transfer to the ICU. Echocardiogram done on 09/02/2016: Left ventricular cavity size normal. Left ventricular wall thickness mildly increased. No obvious regional wall motion abnormalities. Left ventricular ejection fraction is estimated at 55 %. Continue Lasix 40 mg by mouth. Continue JELANI inhibitor 40 mg by mouth Continue daily statin. Heme Patient did have an elevated white count morning of 09/03/2016. She has been started on broad-spectrum antibiotics. Repeat CBC on 09/04/2016. White cell count did have Bandemia. H/H Stable Metabolic Lactic acid ordered at 1630 to rule out any hypoperfusion and was within normal limits 0.8. Phosphorus and magnesium 2.6 and 1.9 respectively. D-dimer ordered for this afternoon was elevated at 766. Bilateral DVT Dopplers were negative for DVT. Alimentary Patient has a history of diabetes mellitus. Blood sugars have been trending as follows 157-->160-->202 We'll maintain her on a consistent carbohydrate diet from the a.m. Continue Novolog with SS ordered. If sugars continue to rise, consider Levemir 2 units BID. Neurology Headche, #resolved. Artificial Tears Administered for Symptomatic relief. Other Continue to monitor right lower extremity ulcer. Wound care on board. Diet: Although the patient does have a diet given her mentation she is probably unable to tolerate by mouth intake. Continue to Consistent Carb 2 Diet. DVT ppx ALPS + Enoxaparin Code Full Problem List: 1. CHF (congestive heart failure) 2. Pneumonia 3. Hypertension 4. Diastolic CHF 5. Hypoxic respiratory failure 6. Diabetes mellitus Pain Ratin Tomorrow's Labs & Rationales: CBC ICU Bundle Plan DVT/Prophylaxis: pharmacological
[2016-09-04 07:57] LABS: ABSOLUTE BASOPHIL COUNT 0 /CUMM (0.0-0.2); ABSOLUTE EOSINOPHIL COUNT 0 /CUMM (0.0-0.7); ABSOLUTE GRANULOCYTE CT 14.4 /CUMM (1.4-6.5); ABSOLUTE LYMPH COUNT 0.3 /CUMM (1.2-3.4); ABSOLUTE MONOCYTE COUNT 0.3 /CUMM (0.10-0.60); BASOPHIL % 0 % (0.0-2.0); EOSINOPHIL % 0 % (0-5); GRANULOCYTE % 95.4 % (42.2-75.2); MEAN CORPUSCULAR HGB 28.4 PG (27.0-31.0); MEAN CORPUSCULAR HGB CONC 32.5 G/DL (33.0-37.0); MEAN CORPUSCULAR VOLUME 87.4 FL (81.0-99.0); MEAN PLATELET VOLUME 8.5 FL (7.4-10.4); PLATELET COUNT 271 /CUMM (130-400); RBC DISTRIBUTION WIDTH 13.8 % (11.5-14.5); RED BLOOD CELL CT 4.34 /CUMM (4.20-5.40)
[2016-09-04 08:00] VITALS: BP 144/78
[2016-09-04 08:47] LABS: WHITE BLOOD CELL COUNT 15.1 /CUMM (4.8-10.8)
--- NOTE | 2016-09-04 09:55 | PN- CRCU ---
Subjective HPI/Critical Care Issues: The patient is awake and alert. She reports feeling improved. Objective Current Medications: Current Medications Sig/Kacie Start time Last Medication Dose Route Stop Time Status Admin Acetaminophen 325 MG Q6P PRN 08/31 0915 AC PO Acetaminophen 1,000 MG Q6P PRN 08/31 0915 AC IV Albuterol Sulfate 3 ML EVERY 4 HRS/AWAKE 09/03 1600 AC 09/04 INH 0826 Albuterol Sulfate 3 ML Q4P PRN 08/31 1415 DC 09/03 INH 0745 Artificial Tears 2 GTT 4 TIMES/DAY PRN 09/04 0800 AC OPH Aspirin Buffered 81 MG DAILY 08/30 2052 AC 09/03 PO 1603 Atorvastatin Calcium 5 MG 1700 08/31 1700 AC 09/03 PO 1604 Ceftazidime 1,000 MG Q12H 09/03 1100 AC 09/04 IV 0010 Diltiazem HCl 180 MG DAILY 08/31 1000 AC 09/03 PO 1603 Enoxaparin Sodium 40 MG DAILY 08/31 1000 AC 09/03 SC 1208 Furosemide 40 MG DAILY 08/31 1000 AC 09/03 PO 1604 Guaifenesin 600 MG Q12 08/31 1000 AC 09/04 PO 0023 Hydralazine HCl 25 MG TID 08/30 2200 AC 09/04 PO 0023 Ibuprofen 400 MG Q6P PRN 08/31 0915 AC 09/04 PO 0658 Insulin Aspart 0 TIDAC 08/31 0800 AC 09/02 SC [address] [place] 2.5 ML EVERY 4 HRS/AWAKE 09/03 1600 AC 09/04 INH 0826 Lisinopril 40 MG DAILY 08/31 1000 AC 09/03 PO 1604 Methylprednisolone 40 MG Q8 09/03 1400 AC 09/04 IV 0658 Potassium Chloride 20 MEQ ONCE ONE 09/04 0745 DC PO 09/04 0746 Potassium Chloride 20 MEQ DAILY 09/01 1000 AC 09/03 PO 1603 Prednisone 60 MG DAILY 09/01 1000 DC 09/02 PO [address] [place] 1 PUF DAILY 09/01 1000 AC 09/02 INH 0816 Vancomycin HCl 1,500 MG Q24H 09/03 1100 AC 09/03 Sodium Chloride 250 ML IV 1207 Vancomycin HCl 1,000 MG DAILY 09/03 1000 CAN Sodium Chloride 250 ML IV Vital Signs & I&O Last 24 Hrs of Vitals and I&O: Vital Signs Date Time Temp Pulse Resp B/P Pulse O2 O2 Flow FiO2 Ox Delivery Rate 09/04 0856 93 Nasal 60% Cannula 09/04 0856 84 93 09/04 08 94 BIPAP 50% 09/04 08 98.9 64 26 144/78 93 BIPAP 50% 09/04 0547 71 92 09/04 0400 92 BIPAP 50% 09/04 0311 63 92 09/04 0023 66 140/71 09/04 0018 73 93 09/04 0000 93 BIPAP 50% 09/04 0000 98.4 88 32 136/60 93 BIPAP 50% 09/03 2230 84 91 09/03 2000 92 BIPAP 50% 09/03 1900 74 90 09/03 1604 78 166/77 09/03 1603 78 166/77 09/03 1600 90 BIPAP 45% 09/03 1600 98.4 70 30 168/80 90 BIPAP 45% 09/03 1600 90 BIPAP 45% 09/03 1600 75 90 09/03 1400 BIPAP 09/03 1347 86 92 09/03 1330 150/76 Intake & Output 09/04 1600 09/04 0800 09/04 0000 Intake Total 720 320 Output Total 250 Balance 720 70 Intake, Oral 720 320 Output, Urine 250 Physical Exam General Appearance: alert, anxious, sedated, lethargic, mild distress Head: atraumatic, Bilaterral Eye Crusting Eyes: Left: lid inflammation. Respiratory: chest non-tender, crackles, rhonchi Cardiovascular: regular rate/rhythm, systolic murmur Gastrointestinal: normal bowel sounds, soft, non-tender, no organomegaly Back: normal inspection, normal range of motion Extremities: normal inspection, pedal edema (1+), swelling Impression/Plan Impression/Plan Impression/Plan: 1. Acute on chronic hypoxemic respiratory failure, with new patchy airspace opacities in the left lung thought to represent developing pneumonia. Rule out hospital-acquired pneumonia. 2. Acute change in mental status, increased lethargy. The patient has not received any sedation. Her PCO2 is elevated but is well compensated. 3. Obesity hypoventilation syndrome/BRENNON, with intolerance to nasal CPAP. 4. Chronic diastolic congestive heart failure with chronic venous stasis. 5. Diabetes mellitus. 6. Chronic venous stasis. Recommendations: * Continue BiPAP overnight. * Continue Nebs/TRC. * Continue Spiriva. * Avoid any sedation. * Continue vancomycin and ceftazidime. * Follow up blood and sputum cultures. * Monitor strict I's and O's, negative fluid balance. * Continue Solumedrol. * Monitor Accu-Cheks and cover with sliding scale insulin. * Continue close monitoring in the critical care unit. * If the patient's respiratory status continues to deteriorate, the patient is full code and will require intubation and mechanical ventilation. Anesthesia should be called stat if she deteriorates. * Will continue all supportive care.
--- NOTE | 2016-09-04 11:39 | PN- Cardiology ---
Subjective Subjective: Doing better this morning. Currently on high flow oxygen. Denies dyspnea at this time. No chest pain or palpitations. Objective Vital Signs and I&Os Vital Signs Date Time Temp Pulse Resp B/P Pulse O2 O2 Flow FiO2 Ox Delivery Rate 09/04 1037 92 Nasal 50% Cannula 09/04 0939 92 147/77 09/04 0856 93 Nasal 60% Cannula 09/04 0856 84 93 09/04 0800 94 BIPAP 50% 09/04 0800 98.9 64 26 144/78 93 BIPAP 50% 09/04 0547 71 92 09/04 0400 92 BIPAP 50% 09/04 0311 63 92 09/04 0023 66 140/71 09/04 0018 73 93 09/04 0000 93 BIPAP 50% 09/04 0000 98.4 88 32 136/60 93 BIPAP 50% 09/03 2230 84 91 09/03 2000 92 BIPAP 50% 09/03 1900 74 90 09/03 1604 78 166/77 09/03 1603 78 166/77 09/03 1600 90 BIPAP 45% 09/03 1600 98.4 70 30 168/80 90 BIPAP 45% 09/03 1600 90 BIPAP 45% 09/03 1600 75 90 09/03 1400 BIPAP 09/03 1347 86 92 09/03 1330 150/76 Intake & Output 09/04 1600 09/04 0800 09/04 0000 09/03 1600 09/03 0800 09/03 0000 Intake Total 720 320 340 240 600 Output Total 250 0 Balance 720 70 340 240 600 Intake, IV 280 Intake, Oral 720 320 60 240 600 Number 0 Bowel Movements Output, Stool 0 Output, Urine 250 Patient 234 lb Weight Physical Exam: General: no apparent distress. Alert. On high flow oxygen. Eyes: No obvious scleral icterus. HEENT: No jugular venous distention or abnormal jugular venous pulsations. Cardiovascular: Normal intensity S1/S2. Regular. Respiratory: Decreased air entry without rales or rhonchi Abdomen: no guarding or rebound tenderness. Musculoskeletal: No clubbing or cyanosis noted, 1+ bilateral lower extremity edema Skin: Warm Neurologic: No gross focal deficits noted. Current Medications: Current Medications Sig/Kacie Start time Last Medication Dose Route Stop Time Status Admin Acetaminophen 325 MG Q6P PRN 08/31 914 AC PO Acetaminophen 1,000 MG Q6P PRN 04/10 0915 AC IV Albuterol Sulfate 3 ML EVERY 4 HRS/AWAKE 09/03 1600 AC 09/04 INH 0826 Albuterol Sulfate 3 ML Q4P PRN 08/31 1415 DC 09/03 INH 0745 Artificial Tears 2 GTT 4 TIMES/DAY PRN 09/04 0800 AC 09/04 OPH 0955 Aspirin Buffered 81 MG DAILY 08/30 2052 AC 09/04 PO 1031 Atorvastatin Calcium 5 MG 1700 08/31 1700 AC 09/03 PO 1604 Ceftazidime 1,000 MG Q12H 09/03 1100 AC 09/04 IV 0010 Diltiazem HCl 180 MG DAILY 08/31 1000 AC 09/04 PO 1032 Enoxaparin Sodium 40 MG DAILY 08/31 1000 AC 09/04 SC 0938 Furosemide 40 MG DAILY 08/31 1000 AC 09/04 PO 1032 Guaifenesin 600 MG Q12 08/31 1000 AC 09/04 PO 0939 Hydralazine HCl 25 MG TID 08/30 2200 AC 09/04 PO 0939 Ibuprofen 400 MG Q6P PRN 08/31 0915 AC 09/04 PO 0658 Insulin Aspart 0 TIDAC 08/31 0800 AC 09/04 SC 0938 Ipratropium [place] 2.5 ML EVERY 4 HRS/AWAKE 09/03 1600 AC 09/04 INH 0826 Lisinopril 40 MG DAILY 08/31 1000 AC 09/04 PO 1032 Methylprednisolone 40 MG Q8 09/03 1400 AC 09/04 IV 0658 Potassium Chloride 20 MEQ ONCE ONE 09/04 0745 DC PO 09/04 0746 Potassium Chloride 20 MEQ DAILY 09/01 1000 AC 09/04 PO 1031 Prednisone 60 MG DAILY 09/01 1000 DC 09/02 PO 0815 Tiotropium [place] 1 PUF DAILY 09/01 1000 AC 09/02 INH 0816 Vancomycin HCl 1,500 MG Q24H 09/03 1100 AC 09/03 Sodium Chloride 250 ML IV 1207 Results Last 48 Hrs of Labs/Mics: Laboratory Tests 09/04/16 0600: Anion Gap 9, Estimated GFR > 60, Glucose 142 H, Calcium 9.4, Phosphorus 3.1, Magnesium 2.0, Total Bilirubin 0.6, AST 16, ALT 49, Albumin 3.1 L, CBC w Diff NO MAN DIFF REQ, RBC 4.34, MCV 87.4, MCH 28.4, RDW 13.8, MPV 8.5, Gran % 95.4 H , Lymphocytes % 2.3 L, Monocytes % 2.3, Eosinophils % 0, Basophils % 0 L, Absolute Granulocytes 14.4 H, Absolute Lymphocytes 0.3 L, Absolute Monocytes 0.3, Absolute Eosinophils 0, Absolute Basophils 0, PUBS MCHC 32.5 L 09/03/16 1810: pH 7.37, pCO2 58 H, pO2 65 L, HCO3 33 H, ABG O2 Sat (Measured) 91.0 L, P-50 (Temp Corrected) N, Carboxyhemoglobin 1.0 L, O2 Concentration % 50%, Temperature 99.0, Respiration Rate 28, O2 Delivery Method FFM, Vent Mode ST, Expiratory Pressure 6, Inspiratory Pressure 22, Phlebotomy Draw Site LEFT RADIAL 09/03/16 1700: Urine Color YEL, Urine Clarity CLEAR, Urine pH 6.0, Ur Specific [place] 1.015, Urine Protein TRACE H, Urine Ketones NEG, Urine Nitrite NEG, Urine Bilirubin NEG, Urine Urobilinogen 0.2, Ur Leukocyte Esterase NEG, Ur Microscopic SEDIMENT EXAMINED, Urine RBC 1-3, Ur Epithelial Cells FEW, Urine Hemoglobin NEG, Urine Glucose NEG 09/03/16 1630: Lactic Acid 0.8, Phosphorus 2.6, Magnesium 1.9 09/03/16 1425: Anion Gap 7, Estimated GFR > 60, BUN/Creatinine Ratio 40.0 H, Troponin I < 0.01 , D-Dimer 766 H 09/03/16 1055: pH 7.36, pCO2 65 *H, pO2 72 L, HCO3 35 H, ABG O2 Sat (Measured) 93.0 L, Carboxyhemoglobin 0.9 L, O2 Concentration % 45%, Respiration Rate 28, O2 Delivery Method BIPAP, Vent Mode ST, Expiratory Pressure 6, Inspiratory Pressure 18, Phlebotomy Draw Site RIGHT RADIAL 09/03/16 0950: CBC w Diff MAN DIFF ORDERED, RBC 4.66, MCV 88.6, MCH 28.2, RDW 13.9, MPV 7.9, Gran % 92.1 H, Lymphocytes % 2.3 L, Monocytes % 5.5, Eosinophils % 0.1, Basophils % 0 L, Absolute Granulocytes 15.7 H, Segmented Neutrophils 76 H, Band Neutrophils 7 H, Absolute Lymphocytes 0.4 L, Lymphocytes 4 L, Monocytes 11 H, Absolute Monocytes 0.9 H, Absolute Eosinophils 0, Absolute Basophils 0, Metamyelocytes 2 H, Platelet Estimate ADEQUATE, Normocytic RBCs VERIFIED, Normochromic RBCs VERIFIED, PUBS MCHC 31.8 L 09/03/16 0855: pH 7.35, pCO2 64 *H, pO2 45 *L, HCO3 34 H, ABG O2 Sat (Measured) 79.0 L, P-50 (Temp Corrected) NO, Carboxyhemoglobin 0.9 L, O2 Concentration % 3.5L, Temperature 98.2, O2 Delivery Method NC, Phlebotomy Draw Site LEFT RADIAL Recent Imaging Studies: Telemetry tracings were personally reviewed and shows sinus rhythm CXR yesterday: 1. Persistent density within the left midlung which may reflect infection or atelectasis given pulmonary hypoinflation. 2. Persistent masslike prominence of the right hilar region, grossly unchanged relative to multiple prior chest x-rays dating back to 2012 and corresponding to previously noted prominence of the pulmonary arterial vasculature in the setting of pulmonary arterial hypertension. However, please note that superimposed adenopathy versus a hilar mass cannot be entirely excluded. Contrast-enhanced chest CT would be helpful in further evaluation. 3. Stable cardiomegaly. Venous Dopplers IMPRESSION: Normal triplex scan without evidence of deep venous thrombosis involving the bilateral lower extremities. Assessment/Plan Assessment/Plan 1. COPD with respiratory insufficiency/hypoxia and possible pneumonia 2. Chronic diastolic congestive heart failure 3. Sleep apnea, not recently using CPAP 4. Hypertension/hyperlipidemia/diabetes mellitus 5. Chronic venous insufficiency/edema 6. History of urinary incontinence, declines increasing her Lasix. 7. Pulmonary HTN by Echo with normal EF 8. Mild aortic stenosis Doing better this morning. Currently on high flow oxygen. Denies any active dyspnea. Currently on IV antibiotics and intravenous steroids. She is currently hemodynamically stable. Continue current Lasix dosing. Currently no evidence of respiratory distress. Kalen Huffman MD [facility] Continue telemetry? No
[2016-09-04 16:00] VITALS: BP 152/72
--- NOTE | 2016-09-04 19:12 | NUR ---
DOCUMENTING ON TEACHING FOR 1600 UNABLE TO DOCUMENT R/T ERROR MESSAGE STATING THIS RN IS SIGNED INTO COMPUTER THAT PATIENT VERBALLY EDUCATED REGARDING MEDS, PROCEDURES, AND TREATMENTS WITH NO LIMITATIONS. PATIENT VERBALLY UNDERSTAND, QUESTIONS, REINFORCED. 100% KNOWLEDGE/CAPABLE OF UNDERSTANDING
[2016-09-05] VITALS: BP 182/82
[2016-09-05 04:49] LABS: ABSOLUTE BASOPHIL COUNT 0 /CUMM (0.0-0.2); ABSOLUTE EOSINOPHIL COUNT 0 /CUMM (0.0-0.7); ABSOLUTE GRANULOCYTE CT 15.7 /CUMM (1.4-6.5); ABSOLUTE LYMPH COUNT 0.4 /CUMM (1.2-3.4); ABSOLUTE MONOCYTE COUNT 0.5 /CUMM (0.10-0.60); BASOPHIL % 0 % (0.0-2.0); EOSINOPHIL % 0 % (0-5); GRANULOCYTE % 94.2 % (42.2-75.2); HEMATOCRIT 39.3 % (37-47); MEAN CORPUSCULAR HGB 28.2 PG (27.0-31.0); MEAN CORPUSCULAR HGB CONC 32.5 G/DL (33.0-37.0); MEAN CORPUSCULAR VOLUME 86.9 FL (81.0-99.0); MEAN PLATELET VOLUME 7.9 FL (7.4-10.4); PLATELET COUNT 327 /CUMM (130-400); RBC DISTRIBUTION WIDTH 13.9 % (11.5-14.5); RED BLOOD CELL CT 4.53 /CUMM (4.20-5.40); WHITE BLOOD CELL COUNT 16.6 /CUMM (4.8-10.8)
--- NOTE | 2016-09-05 07:12 | PN- Resident CRCU ---
Subjective HPI/CRCU Issues: Ms Riggs was seen and examined this morning. She is resting in bed. Patient states that she feels better, denies any dyspnea, shortness breath, chest pain or chest discomfort. Patient does mention some left-sided facial pain. Rated as mild to moderate. Does not request any intervention and is currently comfortable watching this. She does report lower extremity edema however has not received her Lasix yet. She is alert and oriented 3. Objective Vital Signs & I&O Last 8 Hrs of Vitals and I&O: T: 98.1 VA: 72 Pulse Ox: 92% NC, 50% BP 168/89 Exam General Appearance: well developed/nourished, no apparent distress, alert, awake Respiratory: Decreased Breath Sounds Cardiovascular: regular rate/rhythm Gastrointestinal: normal bowel sounds, soft Extremities: normal inspection, normal capillary refill, Venous Stasis and edema Cranial Nerves: normal hearing, normal speech Skin: intact, normal color Current Medications: Current Medications Sig/Kacie Start time Last Medication Dose Route Stop Time Status Admin Acetaminophen 325 MG Q6P PRN 08/31 914 AC PO Acetaminophen 1,000 MG Q6P PRN 08/31 914 AC IV Albuterol Sulfate 3 ML EVERY 4 HRS/AWAKE 09/03 1600 AC 09/05 INH 0842 Artificial Tears 2 GTT 4 TIMES/DAY PRN 09/04 0800 AC 09/04 OPH 2241 Aspirin Buffered 81 MG DAILY 08/30 2052 AC 09/05 PO 0934 Atorvastatin Calcium 5 MG 1700 08/31 1700 AC 09/04 PO 1604 Ceftazidime 1,000 MG Q12H 09/03 1100 AC 09/05 IV 0934 Diltiazem HCl 180 MG DAILY 08/31 1000 AC 09/05 PO 0934 Enoxaparin Sodium 40 MG DAILY 08/31 1000 AC 09/05 SC 0934 Furosemide 40 MG DAILY 08/31 1000 AC 09/05 PO 0934 Guaifenesin 600 MG Q12 08/31 1000 AC 09/05 PO 0934 Hydralazine HCl 25 MG TID 08/30 2200 AC 09/05 PO 0934 Ibuprofen 400 MG Q6P PRN 08/31 0815 AC 09/05 PO 0952 Insulin Aspart 0 TIDAC 08/31 0800 AC 09/05 SC 0746 Ipratropium [place] 2.5 ML EVERY 4 HRS/AWAKE 04/13 1600 AC 09/05 INH 0842 Lisinopril 40 MG DAILY 08/31 1000 AC 09/05 PO 0934 Methylprednisolone 40 MG Q12 09/05 2200 UNVr IV Methylprednisolone 40 MG Q8 09/03 1400 DC 09/05 IV 0642 Potassium Chloride 20 MEQ DAILY 09/01 1000 AC 09/05 PO 0934 Tiotropium [place] 1 PUF DAILY 09/01 1000 AC 09/05 INH 0934 Vancomycin HCl 1,500 MG Q24H 09/03 1100 AC 09/05 Sodium Chloride 250 ML IV 1047 Impression/Plan Impression/Problem List Impression: Ms Riggs is a 76-year-old female with history of morbidly obesity, COPD not on home oxygen, hypertension, heart failure with reduced ejection fraction, BRENNON not compliant with CPAP, chronic hypercapnic respiratory failure, obesity hypoventilation syndorme, hyperlipidemia, diabetes mellitus, history of MRSA infection, depression, osteoarthritis, back pain, chronic lower extremity edema with dyspnea on exertion who presented to the emergency department at [facility] on 08/30/2016 complaining of dyspnea, cough, dyspnea on exertion and worsening LE edema. Problem List: COPD exacerbation with possible HCAP CHF Diabetes History of hypertension History of hyperlipidemia Sleep apnea Headache Respiratory Continue monitoring in intensive care unit. ABG at the time of rapid response showed: PH of 7.36, PCO2 of 65, PO2 of 65 and bicarbonate 35. Repeat ABG: PH of 7.37, PCO2 of 58, PO2 of 65, bicarbonate of 33. Please note should the patient's clinical condition deteriorated over the next 12 hours consider intubation. Owing to an elevation in the d-dimer at 7700 a bilateral lower extremity DVT has been ordered. Patient who does have sleep apnea has been noncompliant on CPAP. ?Broken Machine. Continue IV Solumederol, IV Solumederol: 40 mg Q12 Repeat C-Xray ordered. ID Patient's white cell count was elevated Continue IV ceftazidime. IV vancomycin. WBC: 17.1-->15.1-->16.1 Cardiovascular Initial set of troponins this afternoon were within normal limits. EKG revealed no changes or ST elevations. Cardiology is currently on board. Patient was scheduled to receive IV Lasix however was not administered this medication prior to transfer to the ICU. Echocardiogram done on 09/02/2016: Left ventricular cavity size normal. Left ventricular wall thickness mildly increased. No obvious regional wall motion abnormalities. Left ventricular ejection fraction is estimated at 55 %. Continue Lasix 40 mg by mouth. Continue JELANI inhibitor 40 mg by mouth Continue daily statin. Heme Patient did have an elevated white count morning of 09/03/2016. She has been started on broad-spectrum antibiotics. Repeat CBC on 09/04/2016. White cell count did have Bandemia. WBC: 16.6 H/H Stable Metabolic Lactic acid ordered at 1630 to rule out any hypoperfusion and was within normal limits 0.8. Phosphorus and magnesium 2.6 and 1.9 respectively. D-dimer ordered was elevated at 766. Bilateral DVT Dopplers were negative for DVT. Alimentary Patient has a history of diabetes mellitus. Blood sugars have been trending as follows 181-->214-->185 We'll maintain her on a consistent carbohydrate diet from the a.m. Continue Novolog with SS ordered. If sugars continue to rise, consider Levemir 2 units BID. Neurology Headche, #resolved. Artificial Tears Administered for Symptomatic relief. Other Continue to monitor right lower extremity ulcer. Wound care on board. Diet: Although the patient does have a diet given her mentation she is probably unable to tolerate by mouth intake. Continue to Consistent Carb 2 Diet. DVT ppx ALPS + Enoxaparin Code Full Problem List: 1. COPD exacerbation 2. COPD (chronic obstructive pulmonary disease) 3. Pneumonia 4. CHF (congestive heart failure) 5. Diastolic CHF 6. Diabetes mellitus 7. Hypoxic respiratory failure Pain Ratin Tomorrow's Labs & Rationales: CBC ICU Bundle Plan DVT/Prophylaxis: pharmacological
[2016-09-05 08:00] VITALS: BP 168/89
--- NOTE | 2016-09-05 10:10 | PN- Pulmonary ---
Subjective HPI/Critical Care Issues: She shortness of breath feels markedly improved oxygenation is improved. Much more awake alert Objective Current Medications: Current Medications Sig/Kacie Start time Last Medication Dose Route Stop Time Status Admin Acetaminophen 325 MG Q6P PRN 08/31 914 AC PO Acetaminophen 1,000 MG Q6P PRN 08/31 0815 AC IV Albuterol Sulfate 3 ML EVERY 4 HRS/AWAKE 09/03 1600 AC 09/05 INH 0842 Artificial Tears 2 GTT 4 TIMES/DAY PRN 09/04 0800 AC 09/04 OPH 2241 Aspirin 81 MG .STK-MED ONE 09/04 1024 DC PO 09/04 1025 Aspirin Buffered 81 MG DAILY 08/30 2052 AC 09/05 PO 0934 Atorvastatin Calcium 5 MG 1700 08/31 1700 AC 09/04 PO 1604 Ceftazidime 1,000 MG Q12H 09/03 1100 AC 09/05 IV 0934 Diltiazem HCl 180 MG DAILY 08/31 1000 AC 09/05 PO 0934 Enoxaparin Sodium 40 MG DAILY 08/31 1000 AC 09/05 SC 0934 Furosemide 40 MG DAILY 08/31 1000 AC 09/05 PO 0934 Guaifenesin 600 MG Q12 08/31 1000 AC 09/05 PO 0934 Hydralazine HCl 25 MG TID 08/30 2200 AC 09/05 PO 0934 Ibuprofen 400 MG Q6P PRN 08/31 0915 AC 09/05 PO 0952 Insulin Aspart 0 TIDAC 08/31 0800 AC 09/05 SC 0746 Ipratropium [place] 2.5 ML EVERY 4 HRS/AWAKE 09/03 1600 AC 09/05 INH 0842 Lisinopril 40 MG DAILY 08/31 1000 AC 09/05 PO 0934 Methylprednisolone 40 MG Q8 09/03 1400 AC 09/05 IV 0642 Potassium Chloride 20 MEQ DAILY 09/01 1000 AC 09/05 PO 0934 Tiotropium [place] 1 PUF DAILY 09/01 1000 AC 09/05 INH 0934 Vancomycin HCl 1,500 MG Q24H 09/03 1100 AC 09/04 Sodium Chloride 250 ML IV 1348 Vital Signs & I&O Last 24 Hrs of Vitals and I&O: Vital Signs Date Time Temp Pulse Resp B/P Pulse O2 O2 Flow FiO2 Ox Delivery Rate 09/05 0842 92 Nasal 50% Cannula 09/05 0832 72 95 09/05 0800 93 Nasal 50% Cannula 09/05 0800 98.1 62 18 168/89 93 Nasal 50% Cannula 09/05 0605 61 95 09/05 0430 95 BIPAP 50% 09/05 0330 65 92 09/05 0023 64 95 09/05 0000 95 BIPAP 50% 09/05 0000 99.2 64 20 182/82 95 BIPAP 50% 09/04 2300 78 94 09/04 2240 72 169/73 09/04 2030 92 Nasal 50% Cannula 09/04 1658 92 Nasal 50% Cannula 09/04 1604 79 184/87 09/04 1600 91 Nasal 50% Cannula 09/04 1600 99.1 74 34 152/72 91 Nasal 50% Cannula 09/04 1413 93 Nasal 50% Cannula 09/04 1200 94 Nasal 50% Cannula 09/04 1037 92 Nasal 50% Cannula Intake & Output 09/05 1600 09/05 0800 09/05 0000 Intake Total 400 1080 Output Total Balance 400 1080 Intake, IV 280 Intake, Oral 400 800 Oxygen saturation 50% 96% exam for chest shows diminished breath sounds at the bases there are no wheezes heard cardiac exam shows regular S1 and S2 without murmurs edema is diminished lower extremity wound continues to heal Impression/Plan Impression/Plan Impression/Plan: 76-year-old woman with COPD sleep apnea has improved hypercapnic respiratory failure now on high flow oxygen. X-ray and leukocytosis raise concern for possible healthcare associated pneumonia. Recommendations: Repeat chest x-ray. Obtain sputum C&S. Solu-Medrol can be tapered to every 12 hours Taper FiO2 his saturations allow.
--- NOTE | 2016-09-05 13:54 | RADIOLOGY REPORT ---
EXAMINATION: XR PORTABLE CHEST CLINICAL INFORMATION: Shortness of breath. Elevated WBC. COMPARISON: Several priors including most recent of 09/03/16. CT scan of 12/23/12. TECHNIQUE: Portable AP erect view of the chest was obtained. FINDINGS: There is increasing bibasilar opacity more marked on the right. Without a lateral view, this could represent overlying soft tissues. Developing pneumonia and/or atelectasis are possible. Enlargement of the right hilum is unchanged. Unfolding of the thoracic aorta is stable. Heart size is unremarkable. IMPRESSION: Increasing bibasilar opacity more marked on the right.
--- NOTE | 2016-09-05 14:26 | PN- Cardiology ---
Subjective Subjective: The patient is doing about the same. Her respiratory status is stable. She remains on high flow supplemental oxygen. She denies any new cardiac symptoms. Objective Vital Signs and I&Os Vital Signs Date Time Temp Pulse Resp B/P Pulse O2 O2 Flow FiO2 Ox Delivery Rate 09/05 0842 92 Nasal 50% Cannula 09/05 0832 72 95 09/05 0800 93 Nasal 50% Cannula 09/05 0800 98.1 62 18 168/89 93 Nasal 50% Cannula 09/05 0605 61 95 09/05 0430 95 BIPAP 50% 09/05 0330 65 92 09/05 0023 64 95 09/05 0000 95 BIPAP 50% 09/05 0000 99.2 64 20 182/82 95 BIPAP 50% 09/04 2300 78 94 09/04 2240 72 169/73 09/04 2030 92 Nasal 50% Cannula 09/04 1658 92 Nasal 50% Cannula 09/04 1604 79 184/87 09/04 1600 91 Nasal 50% Cannula 09/04 1600 99.1 74 34 152/72 91 Nasal 50% Cannula Intake & Output 09/05 1600 09/05 0800 09/05 0000 09/04 1600 09/04 0800 09/04 0000 Intake Total 783 987 8746 650 720 320 Output Total 250 Balance 736 095 5278 650 720 70 Intake, IV 250 280 Intake, Oral 500 400 800 650 720 320 Output, Urine 250 Patient 234 lb Weight Physical Exam: General Appearance: well developed/nourished, no apparent distress, alert, awake , overweight Respiratory: Decreased Breath Sounds bilaterally Cardiovascular: regular rate/rhythm, no audible murmurs Gastrointestinal: normal bowel sounds, soft Extremities: No cyanosis or clubbing; bilateral 1+ edema Cranial Nerves: Nonfocal Skin: intact, normal color Current Medications: Current Medications Sig/Kacie Start time Last Medication Dose Route Stop Time Status Admin Acetaminophen 325 MG Q6P PRN 08/31 914 AC PO Acetaminophen 1,000 MG Q6P PRN 08/31 914 AC IV Albuterol Sulfate 3 ML EVERY 4 HRS/AWAKE 09/03 1600 AC 09/05 INH 1221 Artificial Tears 2 GTT 4 TIMES/DAY PRN 09/04 0800 AC 09/04 OPH 2241 Aspirin Buffered 81 MG DAILY 08/31 2051 AC 09/05 PO 0934 Atorvastatin Calcium 5 MG 1700 08/31 1700 AC 09/04 PO 1604 Ceftazidime 1,000 MG Q12H 09/03 1100 AC 09/05 IV 0934 Diltiazem HCl 180 MG DAILY 08/31 1000 AC 09/05 PO 0934 Enoxaparin Sodium 40 MG DAILY 08/31 1000 AC 09/05 SC 0934 Furosemide 40 MG DAILY 08/31 1000 AC 09/05 PO 0934 Guaifenesin 600 MG Q12 08/31 1000 AC 09/05 PO 0934 Hydralazine HCl 25 MG TID 08/30 2200 AC 09/05 PO 0934 Ibuprofen 400 MG Q6P PRN 08/31 0915 AC 09/05 PO 0952 Insulin Aspart 0 TIDAC 08/31 0800 AC 09/05 SC 1251 Ipratropium [place] 2.5 ML EVERY 4 HRS/AWAKE 09/03 1600 AC 09/05 INH 1221 Lisinopril 40 MG DAILY 08/31 1000 AC 09/05 PO 0934 Methylprednisolone 40 MG Q12 09/05 2200 AC IV Methylprednisolone 40 MG Q8 09/03 1400 DC 09/05 IV 0642 Potassium Chloride 20 MEQ DAILY 09/01 1000 AC 09/05 PO 0934 Tiotropium [place] 1 PUF DAILY 09/01 1000 AC 09/05 INH 0934 Vancomycin HCl 1,500 MG Q24H 09/03 1100 AC 09/05 Sodium Chloride 250 ML IV 1047 Results Last 48 Hrs of Labs/Mics: Laboratory Tests 09/05/16 0420: Anion Gap 9, Estimated GFR > 60, Glucose 168 H, Calcium 9.2, Phosphorus 3.1, Magnesium 1.9, Total Bilirubin 0.5, AST 17, ALT 46, Albumin 3.0 L, CBC w Diff MAN DIFF ORDERED, RBC 4.53, MCV 86.9, MCH 28.2, RDW 13.9, MPV 7.9, Gran % 94.2 H, Lymphocytes % 2.5 L, Monocytes % 3.3, Eosinophils % 0, Basophils % 0 L, Absolute Granulocytes 15.7 H, Segmented Neutrophils 90 H, Absolute Lymphocytes 0.4 L, Lymphocytes 9 L, Monocytes 1 L, Absolute Monocytes 0.5, Absolute Eosinophils 0, Absolute Basophils 0, Platelet Estimate ADEQUATE, Polychromasia 1 +, Hypochromic-Microcytic 1+, Poikilocytosis 1+, Ovalocytes 1+, PUBS MCHC 32.5 L, Fld Total RBCs Counted 100 09/04/16 0600: Anion Gap 9, Estimated GFR > 60, Glucose 142 H, Calcium 9.4, Phosphorus 3.1, Magnesium 2.0, Total Bilirubin 0.6, AST 16, ALT 49, Albumin 3.1 L, CBC w Diff NO MAN DIFF REQ, RBC 4.34, MCV 87.4, MCH 28.4, RDW 13.8, MPV 8.5, Gran % 95.4 H , Lymphocytes % 2.3 L, Monocytes % 2.3, Eosinophils % 0, Basophils % 0 L, Absolute Granulocytes 14.4 H, Absolute Lymphocytes 0.3 L, Absolute Monocytes 0.3, Absolute Eosinophils 0, Absolute Basophils 0, PUBS MCHC 32.5 L 09/03/16 1810: pH 7.37, pCO2 58 H, pO2 65 L, HCO3 33 H, ABG O2 Sat (Measured) 91.0 L, P-50 (Temp Corrected) N, Carboxyhemoglobin 1.0 L, O2 Concentration % 50%, Temperature 99.0, Respiration Rate 28, O2 Delivery Method FFM, Vent Mode ST, Expiratory Pressure 6, Inspiratory Pressure 22, Phlebotomy Draw Site LEFT RADIAL 09/03/16 1700: Urine Color YEL, Urine Clarity CLEAR, Urine pH 6.0, Ur Specific [place] 1.015, Urine Protein TRACE H, Urine Ketones NEG, Urine Nitrite NEG, Urine Bilirubin NEG, Urine Urobilinogen 0.2, Ur Leukocyte Esterase NEG, Ur Microscopic SEDIMENT EXAMINED, Urine RBC 1-3, Ur Epithelial Cells FEW, Urine Hemoglobin NEG, Urine Glucose NEG 09/03/16 1630: Lactic Acid 0.8, Phosphorus 2.6, Magnesium 1.9 Microbiology 09/03 170 URINE ROUT: Urine Culture - COMP Assessment/Plan Assessment/Plan Assessment: 1. COPD with respiratory insufficiency/hypoxia and possible pneumonia 2. Chronic diastolic congestive heart failure 3. Sleep apnea, not recently using CPAP 4. Hypertension/hyperlipidemia/diabetes mellitus 5. Chronic venous insufficiency/edema 6. History of urinary incontinence, declines increasing her Lasix. 7. Pulmonary HTN by Echo with normal EF 8. Mild aortic stenosis Recommendations: -The patient's respiratory status appears stable. -Continue as per the ICU/pulmonary team with IV antibiotics and steroids -Supplemental oxygen as outlined -Reassess in 24 hours Continue telemetry? Yes
[2016-09-05 16:00] VITALS: BP 152/74
[2016-09-05 17:44] VITALS: BP 170/100
[2016-09-05 18:29] VITALS: BP 162/80
[2016-09-06 00:51] VITALS: BP 144/60
[2016-09-06 08:02] LABS: ABSOLUTE BASOPHIL COUNT 0 /CUMM (0.0-0.2); ABSOLUTE EOSINOPHIL COUNT 0 /CUMM (0.0-0.7); ABSOLUTE LYMPH COUNT 0.4 /CUMM (1.2-3.4); ABSOLUTE MONOCYTE COUNT 0.6 /CUMM (0.10-0.60); BASOPHIL % 0 % (0.0-2.0); EOSINOPHIL % 0 % (0-5); MEAN CORPUSCULAR HGB 28.4 PG (27.0-31.0); MEAN CORPUSCULAR HGB CONC 32.7 G/DL (33.0-37.0); MEAN PLATELET VOLUME 7.9 FL (7.4-10.4); PLATELET COUNT 351 /CUMM (130-400); RBC DISTRIBUTION WIDTH 13.8 % (11.5-14.5); RED BLOOD CELL CT 4.72 /CUMM (4.20-5.40)
[2016-09-06 08:14] VITALS: BP 162/98
[2016-09-06 08:50] LABS: GRANULOCYTE % 94.4 % (42.2-75.2)
--- NOTE | 2016-09-06 09:28 | PN- Housestaff ---
Subjective Follow-up For: COPD exacerbation Complaints: oral cavity and chin area has eruptions Tele-Events Since Last Visit: Normal sinus rhythm, heart rate 70-82, occasional junctional beats, PACs and PVCs present. Subjective: I followed up and examined the patient today. She is comfortable, not in distress, her only complaint being multiple lesions inside her mouth which extends externally to her chin region as well. She has not had fever, chills, cough, chest pain, worsening of shortness of breath overnight. Vital signs stable, other than the telemetry events noted above. Review of Systems Constitutional: Reports: see HPI. Skin: Reports: see HPI. Objective Last 24 Hrs of Vital Signs/I&O Vital Signs Date Time Temp Pulse Resp B/P Pulse O2 O2 Flow FiO2 Ox Delivery Rate 09/06 1600 943 Nasal 45% Cannula 09/06 1600 99.1 74 22 160/84 94 Nasal 45% Cannula 09/06 1552 92 Nasal 45% Cannula 09/06 0959 93 Nasal 45% Cannula 09/06 0934 72 162/82 09/06 0814 99.3 78 24 162/98 98 CPAP 09/06 0800 BIPAP 09/06 0541 67 90 09/06 0348 71 91 09/06 0107 75 90 09/06 0051 99.7 74 24 144/60 94 CPAP 09/06 0000 96 BIPAP 50% 09/05 2252 74 92 09/05 2112 90 160/80 Intake & Output 09/06 1600 16 0800 16 0000 Intake Total 860 200 200 Output Total Balance 860 200 200 Intake, IV 300 Intake, Oral 560 200 200 Patient 106.05 kg Weight Physical Exam General Appearance: Alert, Oriented X3, Cooperative, No Acute Distress Other Physical Findings: Skin: lower extrimity skin changes (OLD), blister in the rt. LE, covered with clean gauze. HEENT: PERRLA, Mucous Membr. moist/pink-- multiple small yellowish [place] lesions over tongue and buccal mucosa, extending externally up to the skin of chin area Neck: No JVD Cardiovascular: Normal S1, Normal S2 Lungs: decrease air entry B/L, no wheezing noted by me at the time of examination Abdomen: Normal Bowel Sounds, Soft, No Tenderness Extremities: Normal Pulses Current Medications: Current Medications Sig/Kacie Start time Last Medication Dose Route Stop Time Status Admin Acetaminophen 325 MG Q6P PRN 04/10 0915 AC PO Acetaminophen 1,000 MG Q6P PRN 08/31 0915 AC IV Albuterol Sulfate 3 ML EVERY 4 HRS/AWAKE 09/03 1600 AC 09/06 INH 1954 Artificial Tears 2 GTT 4 TIMES/DAY PRN 09/04 0800 AC 09/04 OPH 2241 Aspirin Buffered 81 MG DAILY 08/30 2052 AC 09/06 PO 0934 Atorvastatin Calcium 5 MG 1700 08/31 1700 AC 09/06 PO 1606 Ceftazidime 1,000 MG Q12H 09/03 1100 AC 09/06 IV 1009 Diltiazem HCl 180 MG DAILY 08/31 1000 AC 09/06 PO 0934 Docusate Sodium 100 MG DAILY NEEDED PRN 09/06 1245 AC PO Enoxaparin Sodium 40 MG DAILY 08/31 1000 AC 09/06 SC 1009 Furosemide 40 MG DAILY 08/31 1000 AC 09/06 PO 0934 Guaifenesin 600 MG Q12 08/31 1000 AC 09/06 PO 0934 Hydralazine HCl 25 MG TID 08/30 2200 AC 09/06 PO 1605 Ibuprofen 400 MG .STK-MED ONE 09/06 0934 DC PO 09/06 0935 Ibuprofen 400 MG Q6P PRN 08/31 0915 AC 09/06 PO 1606 Insulin Aspart 0 TIDAC 08/31 0800 AC 09/06 SC 1746 Ipratropium [place] 2.5 ML EVERY 4 HRS/AWAKE 09/03 1600 AC 09/06 INH 1954 Lisinopril 40 MG DAILY 08/31 1000 AC 09/06 PO 0934 Methylprednisolone 40 MG Q12 09/05 2200 DC 09/06 IV 1009 Nystatin 5 ML 4 TIMES/DAY 09/06 1400 AC 09/06 PO 1606 Polyethylene Glycol 17 GM DAILY 09/06 1244 AC 09/06 PO 1338 Potassium Chloride 20 MEQ DAILY 09/01 1000 AC 09/06 PO 0934 Prednisone 40 MG DAILY 09/07 1000 AC PO Senna/Docusate Sodium 1 TAB BID PRN 09/06 1245 AC 09/06 PO 1338 Tiotropium [place] 1 PUF DAILY 09/01 1000 AC 09/06 INH 0935 Vancomycin HCl 1,500 MG Q24H 09/03 1100 AC 09/06 Sodium Chloride 250 ML IV 1015 Last 24 Hrs of Lab/Bernard Results Last 24 Hrs of Labs/Mics: Laboratory Tests 09/06/16 0710: Anion Gap 9, Estimated GFR > 60, Glucose 152 H, Calcium 9.2, Phosphorus 3.6, Magnesium 1.9, Total Bilirubin 0.4, AST 16, ALT 44, Albumin 2.9 L, CBC w Diff NO MAN DIFF REQ, RBC 4.72, MCV 87.0, MCH 28.4, RDW 13.8, MPV 7.9, Gran % 94.4 H , Lymphocytes % 2.1 L, Monocytes % 3.5, Eosinophils % 0, Basophils % 0 L, Absolute Granulocytes 17.0 H, Absolute Lymphocytes 0.4 L, Absolute Monocytes 0.6, Absolute Eosinophils 0, Absolute Basophils 0, PUBS MCHC 32.7 L Microbiology 09/06 1540 LOWER RESP: Respiratory Culture - COLB 09/06 1540 LOWER RESP: Gram Stain - COLB Assessment/Plan Assessment: 76 yo female with obesity, COPD not on home oxygen, HTN, HFrEF (EF>55%), BRENNON non compliant with CPAP, chronic hypercapneic respiratory failure/obesity hypoventilation, T2DM, chronic LE edema, presentd with 1-day h/o worsening DIOR, cough, left sided pleuritic chest pain, worsening LE edema with weight gain. #. Acute on chronic hypercarbic and hypoxemic respiratory failure: Likely related with COPD exacerbation and BRENNON not complaint with CPAP. Today patient is admitted today in terms of respiratory status. Will continue Ceftazedim and vancomycin, will monitor her respiratory status closely. #. COPD exacerbation due to bronchitis: IV solu-medrol discontinued and oral prednisone taper started. Continue TRC nebs, mucinex. Continue INH spiriva. Follow sputum cultures and blood cx. #.Throat pain: Patient has multiple lesions over her tongue, buccal mucosa and her skin externally as well, but likely differential diagnosis being fungal infection, among others. Nystatin susp swish and swallow has been ordered. Will check tomorrow. #. chronic HFpEF: EF > 55% with stage 2 diastolic dysfunction. she is on po lasix 40 daily. Continue strict I/O's, daily weights. c/w lisinopril 40mg daily. #. Wound consult: Wound Care consult is appreciated. Continue Right lower extremity non adherent dressing with xeroform. Continue leg elevation. #. BRENNON non compliant to CPAP/obesity hypoventilation: Her home mask is broken. She needs a proper fitting face mask for the Bipap on discharge. Conitnue biPAP in the hospital. DVT ppx Lovenox. Full code. Problem List: 1. CHF (congestive heart failure) 2. COPD exacerbation 3. Hypoxic respiratory failure 4. Fungal infection Pain Ratin Pain Location: oral cavity Alt Method for Pain Treatment: Backrub Pain Goal: Pain 4 or less Pain Plan: prn Tomorrow's Labs & Rationales: CBC, BEP
--- NOTE | 2016-09-06 09:44 | PN- Pulmonary ---
Subjective HPI/Critical Care Issues: Patient is comfortable on high flow nasal oxygen shortness breath is resolved she's developed an urticarial rash over her face Objective Current Medications: Current Medications Sig/Kacie Start time Last Medication Dose Route Stop Time Status Admin Acetaminophen 325 MG Q6P PRN 08/31 0915 AC PO Acetaminophen 1,000 MG Q6P PRN 08/31 0915 AC IV Albuterol Sulfate 3 ML EVERY 4 HRS/AWAKE 09/03 1600 AC 09/05 INH 2031 Artificial Tears 2 GTT 4 TIMES/DAY PRN 09/04 0800 AC 09/04 OPH 2241 Aspirin Buffered 81 MG DAILY 08/30 2052 AC 09/05 PO 0934 Atorvastatin Calcium 5 MG 1700 08/31 1700 AC 09/05 PO 1639 Ceftazidime 1,000 MG Q12H 09/03 1100 AC 09/05 IV 2333 Diltiazem HCl 180 MG DAILY 08/31 1000 AC 09/05 PO 0934 Enoxaparin Sodium 40 MG DAILY 08/31 1000 AC 09/05 SC 0934 Furosemide 40 MG DAILY 08/31 1000 AC 09/05 PO 0934 Guaifenesin 600 MG Q12 08/31 1000 AC 09/05 PO 2112 Hydralazine HCl 25 MG TID 08/30 2200 AC 09/05 PO 2112 Ibuprofen 400 MG Q6P PRN 08/31 0915 AC 09/05 PO 1552 Insulin Aspart 0 TIDAC 08/31 0800 AC 09/06 SC 0823 Ipratropium [place] 2.5 ML EVERY 4 HRS/AWAKE 09/03 1600 AC 09/05 INH 2031 Lisinopril 40 MG DAILY 08/31 1000 AC 09/05 PO 0934 Methylprednisolone 40 MG Q12 09/05 2200 AC 09/05 IV 2112 Methylprednisolone 40 MG Q8 09/03 1400 DC 09/05 IV 0642 Potassium Chloride 20 MEQ DAILY 09/01 1000 AC 09/05 PO 0934 Tiotropium [place] 1 PUF DAILY 09/01 1000 AC 09/05 INH 0934 Vancomycin HCl 1,500 MG Q24H 09/03 1100 AC 09/05 Sodium Chloride 250 ML IV 1047 Vital Signs & I&O Last 24 Hrs of Vitals and I&O: Vital Signs Date Time Temp Pulse Resp B/P Pulse O2 O2 Flow FiO2 Ox Delivery Rate 09/06 813 99.3 78 24 162/98 98 CPAP 09/06 0541 67 90 09/06 0348 71 91 09/06 0107 75 90 09/06 0051 99.7 74 24 144/60 94 CPAP 09/06 0000 96 BIPAP 50% 09/05 2252 74 92 09/05 2112 90 160/80 09/05 1829 162/80 09/05 1744 99.0 71 20 170/100 95 09/05 1600 95 Nasal 50% Cannula 09/05 1600 97.1 70 18 152/74 95 Nasal 50% Cannula 09/05 1600 94 Nasal 50% Cannula Intake & Output 09/06 1600 09/06 0800 09/06 0000 Intake Total 200 200 Output Total Balance 200 200 Intake, Oral 200 200 Patient 234 lb Weight FiO2 0.590% exam for chest shows absent wheezes or diminished breath sounds cardiac exam shows regular S1 and S2 without murmurs abdomen is soft lower extremity right leg ulcer is 90% healed Impression/Plan Impression/Plan Impression/Plan: 76-year-old woman with COPD sleep apnea has improved hypercapnic respiratory failure now on high flow oxygen. X-ray and leukocytosis raise concern for possible healthcare associated pneumonia. respiratory status is markedly improved Recommendations: . Obtain sputum C&S. DC Solu-Medrol begin oral prednisone taper FiO2 his saturations allow out of bed with physical therapy
[2016-09-06 16:00] VITALS: BP 160/84
--- NOTE | 2016-09-06 19:36 | PN- Cardiology ---
Subjective Subjective: Stable with slow clinical improvement. No new cardiovascular symptoms Objective Vital Signs and I&Os Vital Signs Date Time Temp Pulse Resp B/P Pulse O2 O2 Flow FiO2 Ox Delivery Rate 09/06 1600 943 Nasal 45% Cannula 09/06 1600 99.1 74 22 160/84 94 Nasal 45% Cannula 09/06 1552 92 Nasal 45% Cannula 09/06 0959 93 Nasal 45% Cannula 09/06 0934 72 162/82 09/06 0814 99.3 78 24 162/98 98 CPAP 09/06 0800 BIPAP 09/06 0541 67 90 09/06 0348 71 91 09/06 0107 75 90 09/06 0051 99.7 74 24 144/60 94 CPAP 09/06 0000 96 BIPAP 50% 09/05 2252 74 92 09/05 2112 90 160/80 Intake & Output 09/06 1600 09/06 0800 09/06 0000 09/05 1600 09/05 0800 09/05 0000 Intake Total 860 200 200 857 209 4734 Output Total Balance 860 200 200 602 971 5383 Intake, IV 300 250 280 Intake, Oral 560 200 200 500 400 800 Patient 234 lb Weight Current Medications: Current Medications Sig/Kacie Start time Last Medication Dose Route Stop Time Status Admin Acetaminophen 325 MG Q6P PRN 08/31 0915 AC PO Acetaminophen 1,000 MG Q6P PRN 08/31 0915 AC IV Albuterol Sulfate 3 ML EVERY 4 HRS/AWAKE 09/03 1600 AC 09/06 INH 1548 Artificial Tears 2 GTT 4 TIMES/DAY PRN 09/04 0800 AC 09/04 OPH 2241 Aspirin Buffered 81 MG DAILY 08/30 2052 AC 09/06 PO 0934 Atorvastatin Calcium 5 MG 1700 08/31 1700 AC 09/06 PO 1606 Ceftazidime 1,000 MG Q12H 09/03 1100 AC 09/06 IV 1009 Diltiazem HCl 180 MG DAILY 08/31 1000 AC 09/06 PO 0934 Docusate Sodium 100 MG DAILY NEEDED PRN 09/06 1245 AC PO Enoxaparin Sodium 40 MG DAILY 08/31 1000 AC 09/06 SC 1009 Furosemide 40 MG DAILY 08/31 1000 AC 09/06 PO 0934 Guaifenesin 600 MG Q12 08/31 1000 AC 09/06 PO 0934 Hydralazine HCl 25 MG TID 08/30 2200 AC 09/06 PO 1605 Ibuprofen 400 MG .STK-MED ONE 09/06 0934 DC PO 09/06 0935 Ibuprofen 400 MG Q6P PRN 08/31 0915 AC 09/06 PO 1606 Insulin Aspart 0 TIDAC 08/31 0800 AC 09/06 SC 1746 Ipratropium [place] 2.5 ML EVERY 4 HRS/AWAKE 09/03 1600 AC 09/06 INH 1548 Lisinopril 40 MG DAILY 08/31 1000 AC 09/06 PO 0934 Methylprednisolone 40 MG Q12 09/05 2200 DC 09/06 IV 1009 Nystatin 5 ML 4 TIMES/DAY 09/06 1400 AC 09/06 PO 1606 Polyethylene Glycol 17 GM DAILY 09/06 1244 AC 09/06 PO 1338 Potassium Chloride 20 MEQ DAILY 09/01 1000 AC 09/06 PO 0934 Prednisone 40 MG DAILY 09/07 1000 AC PO Senna/Docusate Sodium 1 TAB BID PRN 09/06 1245 AC 09/06 PO 1338 Tiotropium [place] 1 PUF DAILY 09/01 1000 AC 09/06 INH 0935 Vancomycin HCl 1,500 MG Q24H 09/03 1100 AC 09/06 Sodium Chloride 250 ML IV 1015 Results Last 48 Hrs of Labs/Mics: Laboratory Tests 09/06/16 0710: Anion Gap 9, Estimated GFR > 60, Glucose 152 H, Calcium 9.2, Phosphorus 3.6, Magnesium 1.9, Total Bilirubin 0.4, AST 16, ALT 44, Albumin 2.9 L, CBC w Diff NO MAN DIFF REQ, RBC 4.72, MCV 87.0, MCH 28.4, RDW 13.8, MPV 7.9, Gran % 94.4 H , Lymphocytes % 2.1 L, Monocytes % 3.5, Eosinophils % 0, Basophils % 0 L, Absolute Granulocytes 17.0 H, Absolute Lymphocytes 0.4 L, Absolute Monocytes 0.6, Absolute Eosinophils 0, Absolute Basophils 0, PUBS MCHC 32.7 L 09/05/16 0420: Anion Gap 9, Estimated GFR > 60, Glucose 168 H, Calcium 9.2, Phosphorus 3.1, Magnesium 1.9, Total Bilirubin 0.5, AST 17, ALT 46, Albumin 3.0 L, CBC w Diff MAN DIFF ORDERED, RBC 4.53, MCV 86.9, MCH 28.2, RDW 13.9, MPV 7.9, Gran % 94.2 H, Lymphocytes % 2.5 L, Monocytes % 3.3, Eosinophils % 0, Basophils % 0 L, Absolute Granulocytes 15.7 H, Segmented Neutrophils 90 H, Absolute Lymphocytes 0.4 L, Lymphocytes 9 L, Monocytes 1 L, Absolute Monocytes 0.5, Absolute Eosinophils 0, Absolute Basophils 0, Platelet Estimate ADEQUATE, Polychromasia 1 +, Hypochromic-Microcytic 1+, Poikilocytosis 1+, Ovalocytes 1+, PUBS MCHC 32.5 L, Fld Total RBCs Counted 100 Microbiology 09/05 1425 NASOPHARYN: Influenza Virus A & B Rapid Smear - COMP Assessment/Plan Assessment/Plan Assessment: 1. COPD with respiratory insufficiency/hypoxia and possible pneumonia 2. Chronic diastolic congestive heart failure 3. Sleep apnea, not recently using CPAP 4. Hypertension/hyperlipidemia/diabetes mellitus 5. Chronic venous insufficiency/edema 6. History of urinary incontinence, declines increasing her Lasix. 7. Pulmonary HTN by Echo with normal EF 8. Mild aortic stenosis Recommendations: -The patient's respiratory status appears stable. -Continue as per the pulmonary team with IV antibiotics and steroids -Supplemental oxygen as outlined -Reassess in 24 hours - OOB as tolerated Continue telemetry? Yes
--- NOTE | 2016-09-06 20:22 | NUR ---
REDNESS & SWELLING TO CHIN, LIPS,TONGUE & FACE. PT STATED IT STARTED UPON ARRIVAL. ADVISED [employer] STEWARD WHO CAME AND ASSESSED PT.
[2016-09-06 21:31] VITALS: BP 164/84
[2016-09-07 00:15] VITALS: BP 188/100
[2016-09-07 02:36] VITALS: BP 175/85
--- NOTE | 2016-09-07 07:53 | PN- Pulmonary ---
Subjective HPI/Critical Care Issues: Patient feels well without shortness of breath she continues on FiO2 45% oxygen saturation saturations are improved Objective Current Medications: Current Medications Sig/Kacie Start time Last Medication Dose Route Stop Time Status Admin Acetaminophen 325 MG Q6P PRN 08/31 0915 AC PO Acetaminophen 1,000 MG Q6P PRN 08/31 0915 AC IV Albuterol Sulfate 3 ML EVERY 4 HRS/AWAKE 09/03 1600 AC 09/06 INH 1954 Artificial Tears 2 GTT 4 TIMES/DAY PRN 09/04 0800 AC 09/04 OPH 2241 Aspirin Buffered 81 MG DAILY 08/30 2052 AC 09/06 PO 0934 Atorvastatin Calcium 5 MG 1700 08/31 1700 AC 09/06 PO 1606 Ceftazidime 1,000 MG Q12H 09/03 1100 AC 09/06 IV 2221 Diltiazem HCl 180 MG DAILY 08/31 1000 AC 09/06 PO 0934 Docusate Sodium 100 MG DAILY NEEDED PRN 09/06 1245 AC PO Enoxaparin Sodium 40 MG DAILY 08/31 1000 AC 09/06 SC 1009 Furosemide 40 MG DAILY 08/31 1000 AC 09/06 PO 0934 Guaifenesin 600 MG Q12 08/31 1000 AC 09/06 PO 2115 Hydralazine HCl 25 MG TID 08/30 2200 AC 09/06 PO 2115 Ibuprofen 400 MG .STK-MED ONE 09/06 2220 DC PO 09/06 2221 Ibuprofen 400 MG .STK-MED ONE 09/06 0934 DC PO 09/06 0935 Ibuprofen 400 MG Q6P PRN 08/31 0915 AC 09/07 PO 0636 Insulin Aspart 0 TIDAC 08/31 0800 AC 09/06 SC 1746 Ipratropium [place] 2.5 ML EVERY 4 HRS/AWAKE 09/03 1600 AC 09/06 INH 1954 Lisinopril 40 MG DAILY 08/31 1000 AC 09/06 PO 0934 Methylprednisolone 40 MG Q12 09/05 2200 DC 09/06 IV 1009 Nystatin 5 ML 4 TIMES/DAY 09/06 1400 AC 09/06 PO 2115 Polyethylene Glycol 17 GM DAILY 09/06 1244 AC 09/06 PO 1338 Potassium Chloride 20 MEQ DAILY 09/01 1000 AC 09/06 PO 0934 Prednisone 40 MG DAILY 09/07 1000 AC PO Senna/Docusate Sodium 1 TAB BID PRN 09/06 1245 AC 09/06 PO 1338 Tiotropium [place] 1 PUF DAILY 09/01 1000 AC 09/06 INH 0935 Vancomycin HCl 1,500 MG Q24H 09/03 1100 AC 09/06 Sodium Chloride 250 ML IV 1015 Vital Signs & I&O Last 24 Hrs of Vitals and I&O: Vital Signs Date Time Temp Pulse Resp B/P Pulse O2 O2 Flow FiO2 Ox Delivery Rate 09/07 0607 65 95 09/07 0236 76 175/85 09/07 0115 67 96 09/07 0015 99.0 70 24 188/100 97 BIPAP 09/07 0000 BIPAP 09/06 2235 70 94 09/06 2131 80 164/84 09/06 2115 80 164/84 09/06 1600 943 Nasal 45% Cannula 09/06 1600 99.1 74 22 160/84 94 Nasal 45% Cannula 09/06 1552 92 Nasal 45% Cannula 09/06 0959 93 Nasal 45% Cannula 09/06 0934 72 162/82 09/06 0814 99.3 78 24 162/98 98 CPAP 09/06 0800 BIPAP Intake & Output 09/07 0800 09/07 0000 09/06 1600 Intake Total 50 400 860 Output Total Balance 50 400 860 Intake, IV 300 Intake, Oral 50 400 560 Patient 231 lb Weight Oxygen saturation 45% 9394% exam for chest shows decreased breath sounds cardiac exam shows normal S1 and S2 without murmurs edema is improved right lower extremity venous ulcer is almost healed Impression/Plan Impression/Plan Impression/Plan: 76-year-old woman with COPD sleep apnea has improved hypercapnic respiratory failure now on high flow oxygen. X-ray and leukocytosis raise concern for possible healthcare associated pneumonia. respiratory status is markedly improved. Continued oxygen requirements are of concern would obtain noncontrast CT chest to better evaluate basilar densities Recommendations: . Obtain sputum C&S. DC Solu-Medrol begin oral prednisone taper FiO2 his saturations allow out of bed with physical therapy. Obtain noncontrast CT chest to better understand continued oxygen requirements
[2016-09-07 08:28] LABS: ABSOLUTE BASOPHIL COUNT 0 /CUMM (0.0-0.2); ABSOLUTE EOSINOPHIL COUNT 0 /CUMM (0.0-0.7); ABSOLUTE GRANULOCYTE CT 13.5 /CUMM (1.4-6.5); ABSOLUTE LYMPH COUNT 0.8 /CUMM (1.2-3.4); ABSOLUTE MONOCYTE COUNT 1.2 /CUMM (0.10-0.60); BASOPHIL % 0.1 % (0.0-2.0); EOSINOPHIL % 0.1 % (0-5); GRANULOCYTE % 87.3 % (42.2-75.2); HEMATOCRIT 41.7 % (37-47); MEAN CORPUSCULAR HGB 28.6 PG (27.0-31.0); MEAN CORPUSCULAR HGB CONC 33.2 G/DL (33.0-37.0); MEAN PLATELET VOLUME 8.3 FL (7.4-10.4); PLATELET COUNT 299 /CUMM (130-400); RBC DISTRIBUTION WIDTH 13.9 % (11.5-14.5); RED BLOOD CELL CT 4.84 /CUMM (4.20-5.40); WHITE BLOOD CELL COUNT 15.5 /CUMM (4.8-10.8)
[2016-09-07 08:38] VITALS: BP 172/90
--- NOTE | 2016-09-07 08:41 | PN- Housestaff ---
See Addendum Subjective Follow-up For: HCAP Acute on chronic hypoxemic respiratory failure COPD exacerbation Complaints: She complained of rash on the mouth, lips and around the chin Subjective: Patient seen and examined, laying on the bed with no acute distress, high flow NC on place, she denies any cp, cough, palpitation, fever, chills, no change in urinary habit. No bowel movemwnt in the past 3 days. She complained of pain over the skin eruption around lips, chin and inside the mouth, no itching. Vitals stable. Review of Systems Constitutional: Reports: no symptoms. Cardiovascular: Reports: no symptoms. Respiratory: Reports: see HPI, short of breath. Gastrointestinal: Reports: constipation. Genitourinary: Reports: frequency. Musculoskeletal: Reports: no symptoms. Skin: Reports: rash (in the face). Objective Last 24 Hrs of Vital Signs/I&O Vital Signs Date Time Temp Pulse Resp B/P Pulse O2 O2 Flow FiO2 Ox Delivery Rate 09/07 0838 98.7 64 24 172/90 92 Nasal Cannula 09/07 0802 94 Nasal 50% Cannula 09/07 0607 65 95 09/07 0236 76 175/85 09/07 0115 67 96 09/07 0015 99.0 70 24 188/100 97 BIPAP 09/07 0000 BIPAP 09/06 2235 70 94 09/06 2131 80 164/84 09/06 2115 80 164/84 09/06 1600 943 Nasal 45% Cannula 09/06 1600 99.1 74 22 160/84 94 Nasal 45% Cannula 09/06 1552 92 Nasal 45% Cannula 09/06 0959 93 Nasal 45% Cannula 09/06 0934 72 162/82 Intake & Output 09/07 1600 09/07 0800 09/07 0000 Intake Total 50 400 Output Total Balance 50 400 Intake, Oral 50 400 Patient 231 lb Weight Physical Exam General Appearance: Alert, Oriented X3, Cooperative, No Acute Distress Skin: skin blister on face with yellow crust HEENT: Atraumatic Cardiovascular: Normal S1, Normal S2 Lungs: Clear to Auscultation, Decrease air movement B/L with basal crackles Abdomen: Normal Bowel Sounds, Soft, No Tenderness Extremities: No Edema, Normal Pulses, Right LE wound covered with clean gauze Vascular: Normal Pulses, Pulses Symmetrical Current Medications: Current Medications Sig/Kacie Start time Last Medication Dose Route Stop Time Status Admin Acetaminophen 325 MG Q6P PRN 08/31 0915 AC PO Acetaminophen 1,000 MG Q6P PRN 08/31 0915 AC IV Albuterol Sulfate 3 ML EVERY 4 HRS/AWAKE 09/03 1600 AC 09/07 INH 0757 Artificial Tears 2 GTT 4 TIMES/DAY PRN 09/04 0800 AC 09/04 OPH 2241 Aspirin Buffered 81 MG DAILY 08/30 2052 AC 09/06 PO 0934 Atorvastatin Calcium 5 MG 1700 08/31 1700 AC 09/06 PO 1606 Ceftazidime 1,000 MG Q12H 09/03 1100 AC 09/06 IV 2221 Diltiazem HCl 180 MG DAILY 08/31 1000 AC 09/06 PO 0934 Docusate Sodium 100 MG DAILY NEEDED PRN 09/06 1245 AC PO Enoxaparin Sodium 40 MG DAILY 08/31 1000 AC 09/06 SC 1009 Furosemide 40 MG DAILY 08/31 1000 AC 09/06 PO 0934 Guaifenesin 600 MG Q12 08/31 1000 AC 09/06 PO 2115 Hydralazine HCl 25 MG TID 08/30 2200 AC 09/06 PO 2115 Ibuprofen 400 MG .STK-MED ONE 09/06 2220 DC PO 09/06 2221 Ibuprofen 400 MG .STK-MED ONE 09/06 0934 DC PO 09/06 0935 Ibuprofen 400 MG Q6P PRN 08/31 0915 AC 09/07 PO 0636 Insulin Aspart 0 TIDAC 08/31 0800 AC 09/06 SC 1746 Ipratropium [place] 2.5 ML EVERY 4 HRS/AWAKE 09/03 1600 AC 09/07 INH 0757 Lisinopril 40 MG DAILY 08/31 1000 AC 09/06 PO 0934 Methylprednisolone 40 MG Q12 09/05 2200 DC 09/06 IV 1009 Mupirocin 1 WANDER TID 09/07 1000 AC TOP Nystatin 5 ML 4 TIMES/DAY 09/06 1400 AC 09/06 PO 2115 Polyethylene Glycol 17 GM DAILY 09/06 1244 AC 09/06 PO 1338 Potassium Chloride 20 MEQ DAILY 09/01 1000 AC 09/06 PO 0934 Prednisone 40 MG DAILY 09/07 1000 AC PO Senna/Docusate Sodium 1 TAB BID PRN 09/06 1245 AC 09/06 PO 1338 Tiotropium [place] 1 PUF DAILY 09/01 1000 AC 09/06 INH 0935 Vancomycin HCl 1,500 MG Q24H 09/03 1100 AC 09/06 Sodium Chloride 250 ML IV 1015 Last 24 Hrs of Lab/Bernard Results Last 24 Hrs of Labs/Mics: Laboratory Tests 09/07/16 0620: Anion Gap 9, Estimated GFR > 60, BUN/Creatinine Ratio 51.3 H, CBC w Diff MAN DIFF ORDERED, RBC 4.84, MCV 86.0, MCH 28.6, RDW 13.9, MPV 8.3, Gran % 87.3 H, Lymphocytes % 5.0 L, Monocytes % 7.5, Eosinophils % 0.1, Basophils % 0.1, Absolute Granulocytes 13.5 H, Segmented Neutrophils 71, Band Neutrophils 6 H, Absolute Lymphocytes 0.8 L, Lymphocytes 15 L, Monocytes 5, Absolute Monocytes 1.2 H, Absolute Eosinophils 0, Absolute Basophils 0, Metamyelocytes 3 H, Platelet Estimate ADEQUATE, Poikilocytosis 1+, PUBS MCHC 33.2 Microbiology 09/06 1540 LOWER RESP: Respiratory Culture - COLB 09/06 154 LOWER RESP: Gram Stain - COLB Assessment/Plan Assessment: 76 yo female with obesity, COPD not on home oxygen, HTN, HFrEF (EF>55%), BRENNON non compliant with CPAP, chronic hypercapneic respiratory failure/obesity hypoventilation, T2DM, chronic LE edema, presentd with 1-day h/o worsening DIOR, cough, left sided pleuritic chest pain, worsening LE edema with weight gain. #. Acute on chronic hypercarbic and hypoxemic respiratory failure: Likely related with COPD exacerbation and BRENNON not complaint with CPAP. Today patient is admitted today in terms of respiratory status. Will continue Ceftazedim and vancomycin, will monitor her respiratory status closely. #. COPD exacerbation due to bronchitis:On oral prednisone taper . Continue TRC nebs, mucinex. Continue INH spiriva. Follow sputum cultures and blood cx. #.Throat pain: Patient has skin blister over her tongue, buccal mucosa and her skin externally as well, but likely differential diagnosis being fungal infection, among others. Nystatin susp swish and swallow has been ordered. Will order topical mupirocin and assess tomorrow if no improvement will obtain dermatology consult #. chronic HFpEF: EF > 55% with stage 2 diastolic dysfunction. she is on po lasix 40 daily. Continue strict I/O's, daily weights. c/w lisinopril 40mg daily. #. Wound consult: Wound Care consult is appreciated. Continue Right lower extremity non adherent dressing with xeroform. Continue leg elevation. #. BRENNON non compliant to CPAP/obesity hypoventilation: Her home mask is broken. She needs a proper fitting face mask for the Bipap on discharge. Conitnue biPAP in the hospital. DVT ppx Lovenox. Full code. Problem List: 1. COPD exacerbation 2. Healthcare-associated pneumonia Pain Ratin Pain Location: - Pain Goal: Remain pain free (-) Pain Plan: - Tomorrow's Labs & Rationales: cbc, bep DVT/Prophylaxis: pharmacological
--- NOTE | 2016-09-07 15:13 | PN- Cardiology ---
Subjective Subjective: Remains on high-flow O2 but is denying any active dyspnea. Complaining of some discomfort from the left-sided facial lesions. Objective Vital Signs and I&Os Vital Signs Date Time Temp Pulse Resp B/P Pulse O2 O2 Flow FiO2 Ox Delivery Rate 09/07 1008 64 172/90 09/07 1008 64 172/90 09/07 0838 98.7 64 24 172/90 92 Nasal Cannula 09/07 0802 94 Nasal 50% Cannula 09/07 0607 65 95 09/07 0236 76 175/85 09/07 0115 67 96 09/07 0015 99.0 70 24 188/100 97 BIPAP 09/07 0000 BIPAP 09/06 2235 70 94 09/06 2131 80 164/84 09/06 2115 80 164/84 09/06 1600 943 Nasal 45% Cannula 09/06 1600 99.1 74 22 160/84 94 Nasal 45% Cannula 09/06 1552 92 Nasal 45% Cannula Intake & Output 09/07 1600 09/07 0800 09/07 0000 09/06 1600 09/06 0800 09/06 0000 Intake Total 50 400 860 200 200 Output Total Balance 50 400 860 200 200 Intake, IV 300 Intake, Oral 50 400 560 200 200 Patient 231 lb 234 lb Weight Physical Exam: General: no apparent distress. Alert. On high flow oxygen. Eyes: No obvious scleral icterus. HEENT: No jugular venous distention or abnormal jugular venous pulsations. Cardiovascular: Normal intensity S1/S2. Regular. Respiratory: Decreased air entry without rales or rhonchi Abdomen: no guarding or rebound tenderness. Musculoskeletal: No clubbing or cyanosis noted, 1+ bilateral lower extremity edema Skin: Warm, facial lesions on the left Neurologic: No gross focal deficits noted. Current Medications: Current Medications Sig/Kacie Start time Last Medication Dose Route Stop Time Status Admin Acetaminophen 325 MG Q6P PRN 08/31 914 AC PO Acetaminophen 1,000 MG Q6P PRN 08/31 914 AC IV Albuterol Sulfate 3 ML EVERY 4 HRS/AWAKE 09/03 1600 AC 09/07 INH 1213 Artificial Tears 2 GTT 4 TIMES/DAY PRN 09/04 0800 AC 09/04 OPH 2241 Aspirin Buffered 81 MG DAILY 08/31 2051 AC 09/07 PO 1007 Atorvastatin Calcium 5 MG 1700 08/31 1700 AC 09/06 PO 1606 Ceftazidime 1,000 MG Q12H 09/03 1100 DC 09/07 IV 1006 Diltiazem HCl 180 MG DAILY 08/31 1000 AC 09/07 PO 1007 Docusate Sodium 100 MG DAILY NEEDED PRN 09/06 1245 AC 09/07 PO 1039 Enoxaparin Sodium 40 MG DAILY 08/31 1000 AC 09/07 SC 1010 Furosemide 40 MG DAILY 08/31 1000 AC 09/07 PO 1008 Guaifenesin 600 MG Q12 08/31 1000 AC 09/07 PO 1008 Hydralazine HCl 25 MG TID 08/30 2200 AC 09/07 PO 1008 Ibuprofen 400 MG .STK-MED ONE 09/06 2220 DC PO 09/06 2221 Ibuprofen 400 MG Q6P PRN 08/31 0915 AC 09/07 PO 0636 Insulin Aspart 0 TIDAC 08/31 0800 AC 09/06 SC 1746 Ipratropium [place] 2.5 ML EVERY 4 HRS/AWAKE 09/03 1600 AC 09/07 INH 1213 Lisinopril 40 MG DAILY 08/31 1000 AC 09/07 PO 1008 Methylprednisolone 40 MG Q12 09/05 2200 DC 09/06 IV 1009 Mupirocin 1 WANDER TID 09/07 1000 DC 09/07 TOP 1039 Neomycin/Polymyxin/ 1 WANDER BID 09/07 2200 AC Bacitracin EXT Nystatin 5 ML 4 TIMES/DAY 09/06 1400 AC 09/07 PO 1006 Polyethylene Glycol 17 GM DAILY 09/06 1244 AC 09/07 PO 1009 Potassium Chloride 20 MEQ DAILY 09/01 1000 AC 09/07 PO 1007 Prednisone 40 MG DAILY 09/07 1000 AC 09/07 PO 1007 Senna/Docusate Sodium 1 TAB BID PRN 09/06 1245 AC 09/07 PO 1039 Tiotropium [place] 1 PUF DAILY 09/01 1000 AC 09/07 INH 1007 Vancomycin HCl 1,500 MG Q24H 09/03 1100 DC 09/07 Sodium Chloride 250 ML IV 1006 Results Last 48 Hrs of Labs/Mics: Laboratory Tests 09/07/16 0620: Anion Gap 9, Estimated GFR > 60, BUN/Creatinine Ratio 51.3 H, CBC w Diff MAN DIFF ORDERED, RBC 4.84, MCV 86.0, MCH 28.6, RDW 13.9, MPV 8.3, Gran % 87.3 H, Lymphocytes % 5.0 L, Monocytes % 7.5, Eosinophils % 0.1, Basophils % 0.1, Absolute Granulocytes 13.5 H, Segmented Neutrophils 71, Band Neutrophils 6 H, Absolute Lymphocytes 0.8 L, Lymphocytes 15 L, Monocytes 5, Absolute Monocytes 1.2 H, Absolute Eosinophils 0, Absolute Basophils 0, Metamyelocytes 3 H, Platelet Estimate ADEQUATE, Poikilocytosis 1+, PUBS MCHC 33.2 09/06/16 0710: Anion Gap 9, Estimated GFR > 60, Glucose 152 H, Calcium 9.2, Phosphorus 3.6, Magnesium 1.9, Total Bilirubin 0.4, AST 16, ALT 44, Albumin 2.9 L, CBC w Diff NO MAN DIFF REQ, RBC 4.72, MCV 87.0, MCH 28.4, RDW 13.8, MPV 7.9, Gran % 94.4 H , Lymphocytes % 2.1 L, Monocytes % 3.5, Eosinophils % 0, Basophils % 0 L, Absolute Granulocytes 17.0 H, Absolute Lymphocytes 0.4 L, Absolute Monocytes 0.6, Absolute Eosinophils 0, Absolute Basophils 0, PUBS MCHC 32.7 L Recent Imaging Studies: Telemetry tracings were personally reviewed and shows sinus rhythm Assessment/Plan Assessment/Plan 1. COPD with respiratory insufficiency/hypoxia and possible pneumonia 2. Chronic diastolic congestive heart failure 3. Sleep apnea, not recently using CPAP 4. Hypertension/hyperlipidemia/diabetes mellitus 5. Chronic venous insufficiency/edema 6. History of urinary incontinence, declines increasing her Lasix. 7. Pulmonary HTN by Echo with normal EF 8. Mild aortic stenosis Remains on high-flow O2 but denies active dyspnea. Noncontrast CT is planned. She does have lesions on the left side of her face which are somewhat uncomfortable, management per the medical team. Blood pressure is running above goal, would increase the hydralazine to 50 milligrams p.o. t.i.d. as she may benefit from some increased afterload reduction. Kalen Huffman MD [facility] Continue telemetry? No
--- NOTE | 2016-09-07 15:15 | CT SCAN REPORT ---
EXAMINATION: CT CHEST WITHOUT CONTRAST CLINICAL INFORMATION: Respiratory failure. Evaluate underlying lung pathology. COMPARISON: Chest x-ray dated 09/05/2016 and multiple prior chest x-rays. CT scan of the chest dated 12/23/2012. TECHNIQUE: Multidetector volumetric CT imaging of the chest was obtained noncontrast. Sagittal and coronal reformations were obtained. DLP: 650.08 mGy-cm. FINDINGS: LUNGS: There is prominent volume loss in both lower lobes with dense areas of consolidation seen in the posterior and lateral basal segments with associated air bronchograms. Subjacent small pleural effusions are noted. There are multifocal areas of linear reticular opacities seen in the lung apices bilaterally as well as in the right middle lobe and lingula, likely related to areas of atelectasis. Patchy groundglass opacities are seen throughout the lungs. Findings raise the suspicion of subtle diffuse pneumonitis. There is a 0.6 cm solid noncalcified nodule seen inferiorly in the right middle lobe (series 4, image 292), not seen on prior CT scan from 2012. No other discrete pulmonary nodule or mass is seen. The central airways are patent and mildly thickened. LYMPHOVASCULAR STRUCTURES: Aortic size normal. There is enlargement of the left atrium and left ventricle. No pericardial effusion. There is significant enlargement of the central pulmonary arteries with the right main pulmonary artery measuring 4.0 cm and the left main pulmonary artery 3.7 cm, similar to the previous study, consistent with pulmonary arterial hypertension. No mediastinal, hilar or axillary adenopathy or free fluid collection. THYROID GLAND: Mildly enlarged and nodular with the largest nodule seen in the left lobe, measuring up to 1.3 cm in diameter. Similar findings were seen on the previous CT scan. UPPER ABDOMEN: Nodular hypertrophy of the left more than right adrenal gland is again seen, unchanged. Included portions of the solid organs in the upper abdomen otherwise unremarkable. Slight fullness is seen at the GE junction, possibly due to small hiatal hernia. BONES: Diffuse osteopenia is seen with multilevel moderate vertebral endplate spurring seen throughout the visualized lower cervical and the thoracic spine. No suspicious bone findings. IMPRESSION: 1. Bilateral volume loss and consolidation in the lower lobes is seen with subjacent small pleural effusions. Findings may be related to atelectasis or pneumonia. 2. Patchy subtle groundglass opacities seen throughout the lungs bilaterally, raising the suspicion of pneumonitis. 3. Scattered areas of atelectasis in the lungs bilaterally. 4. Pulmonary arterial hypertension. Enlarged left heart. 5. Stable multinodular thyroid gland. 6. Stable nodular hypertrophy of the adrenal glands.
[2016-09-07 17:37] VITALS: BP 158/88
[2016-09-08 00:55] VITALS: BP 148/76
--- NOTE | 2016-09-08 07:39 | PN- Pulmonary ---
Subjective HPI/Critical Care Issues: Patient is comfortable on BiPAP oxygen saturations are improved however. CT scan reviewed and shows areas of consolidation or atelectasis with small effusions. New concern of patchy groundglass opacities is uncertain and may be areas of residual edema. Objective Current Medications: Current Medications Sig/Kacie Start time Last Medication Dose Route Stop Time Status Admin Acetaminophen 325 MG Q6P PRN 08/31 0915 AC PO Acetaminophen 1,000 MG Q6P PRN 08/31 0915 AC IV Albuterol Sulfate 3 ML EVERY 4 HRS/AWAKE 09/03 1600 AC 09/07 INH 2155 Artificial Tears 2 GTT 4 TIMES/DAY PRN 09/04 0800 AC 09/04 OPH 2241 Aspirin Buffered 81 MG DAILY 08/30 2052 AC 09/07 PO 1007 Atorvastatin Calcium 5 MG 1700 08/31 1700 AC 09/07 PO 1730 Ceftazidime 1,000 MG Q12H 09/03 1100 DC 09/07 IV 1006 Diltiazem HCl 180 MG DAILY 08/31 1000 AC 09/07 PO 1007 Docusate Sodium 100 MG .STK-MED ONE 09/07 1030 DC PO 09/07 1031 Docusate Sodium 100 MG DAILY NEEDED PRN 09/06 1245 AC 09/07 PO 1039 Enoxaparin Sodium 40 MG DAILY 08/31 1000 AC 09/07 SC 1010 Furosemide 40 MG DAILY 08/31 1000 AC 09/07 PO 1008 Guaifenesin 600 MG Q12 08/31 1000 AC 09/07 PO 2124 Hydralazine HCl 50 MG TID 09/07 1600 AC 09/07 PO 2124 Hydralazine HCl 25 MG TID 08/30 2200 DC 09/07 PO 1008 Ibuprofen 400 MG .STK-MED ONE 09/07 1821 DC PO 09/07 1822 Ibuprofen 400 MG Q6P PRN 08/31 0915 AC 09/08 PO 0719 Insulin Aspart 0 TIDAC 08/31 0800 AC 09/07 SC 1820 Ipratropium [place] 2.5 ML EVERY 4 HRS/AWAKE 09/03 1600 AC 09/07 INH 2155 Lisinopril 40 MG DAILY 08/31 1000 AC 09/07 PO 1008 Mupirocin 1 WANDER TID 09/07 1000 DC 09/07 TOP 1039 Neomycin/Polymyxin/ 1 WANDER BID 09/07 2200 AC 09/07 Bacitracin EXT 2125 Nystatin 5 ML 4 TIMES/DAY 09/06 1400 AC 09/07 PO 2124 Polyethylene Glycol 17 GM DAILY 09/06 1244 AC 09/07 PO 1009 Potassium Chloride 20 MEQ DAILY 09/01 1000 AC 09/07 PO 1007 Prednisone 40 MG DAILY 09/07 1000 AC 09/07 PO 1007 Senna/Docusate Sodium 1 TAB BID PRN 09/06 1245 AC 09/07 PO 1039 Tiotropium [place] 1 PUF DAILY 09/01 1000 AC 09/07 INH 1007 Vancomycin HCl 1,500 MG Q24H 09/03 1100 DC 09/07 Sodium Chloride 250 ML IV 1006 Vital Signs & I&O Last 24 Hrs of Vitals and I&O: Vital Signs Date Time Temp Pulse Resp B/P Pulse O2 O2 Flow FiO2 Ox Delivery Rate 09/08 0055 96.9 97 20 148/76 97 Trach Mask 09/08 0032 68 92 09/08 0000 94 BIPAP 45% 09/07 2316 77 97 09/07 2124 73 170/80 09/07 1925 96 Nasal 45% Cannula 09/07 1737 97.1 74 20 158/88 95 Nasal Cannula 09/07 1730 80 160/90 09/07 1725 94 Nasal 45% Cannula 09/07 1600 45% 09/07 1008 64 172/90 09/07 1008 64 172/90 09/07 0838 98.7 64 24 172/90 92 Nasal Cannula 09/07 0802 94 Nasal 50% Cannula 09/07 0800 92 45% Intake & Output 09/08 0800 09/08 0000 09/07 1600 Intake Total 200 500 680 Output Total 300 Balance -100 500 680 Intake, IV 280 Intake, Oral 200 500 400 Number 1 0 Bowel Movements Output, Urine 300 Patient 227 lb Weight Oxygen saturation 45% 97% exam for chest shows basilar crackles are no wheezes cardiac exam shows regular S1 and S2 right lower extremity wound continues to heal Impression/Plan Impression/Plan Impression/Plan: 76-year-old woman with COPD sleep apnea has improved hypercapnic respiratory failure. Blood pressure is being adjusted by cardiology. Recommendations: . Continue prednisone taper Taper FiO2. Complete course of antibiotics. Would evaluate for pulmonary rehabilitation at [place]. Bicarbonate is increasing with continue diuresis can give 1 dose of Diamox 250 mg IV. Maintain potassium within normal limits
--- NOTE | 2016-09-08 07:47 | PN- Housestaff ---
See Addendum Subjective Follow-up For: HCAP Acute on chronic hypoxemic respiratory failure COPD exacerbation Complaints: no complaints Subjective: Patient seen and examined, sitting in the chair with Bipap on , not in acute distress, breathing cornell better today, she still have some cough with no phlegm. She denies any fever. Skin lesion improved. Vitals stable. Review of Systems Constitutional: Reports: no symptoms. Cardiovascular: Reports: no symptoms. Respiratory: Reports: short of breath. Gastrointestinal: Reports: no symptoms. Genitourinary: Reports: no symptoms. Musculoskeletal: Reports: no symptoms. Objective Last 24 Hrs of Vital Signs/I&O Vital Signs Date Time Temp Pulse Resp B/P Pulse O2 O2 Flow FiO2 Ox Delivery Rate 09/08 0055 96.9 97 20 148/76 97 Trach Mask 09/08 0032 68 92 09/08 0000 94 BIPAP 45% 09/07 2316 77 97 09/07 2124 73 170/80 09/07 1925 96 Nasal 45% Cannula 09/07 1737 97.1 74 20 158/88 95 Nasal Cannula 09/07 1730 80 160/90 09/07 1725 94 Nasal 45% Cannula 09/07 1600 45% 09/07 1008 64 172/90 09/07 1008 64 172/90 09/07 0838 98.7 64 24 172/90 92 Nasal Cannula Intake & Output 09/08 1600 09/08 0800 09/08 0000 Intake Total 200 500 Output Total 300 Balance -100 500 Intake, Oral 200 500 Number 1 Bowel Movements Output, Urine 300 Patient 227 lb Weight Physical Exam General Appearance: Alert, Oriented X3, Cooperative, No Acute Distress Skin: skin eruption on the chin improved Cardiovascular: Normal S1, Normal S2 Lungs: Normal Air Movement, scattered wheezing Abdomen: Soft, No Tenderness Extremities: No Edema Vascular: Normal Pulses, Pulses Symmetrical Current Medications: Current Medications Sig/Kacie Start time Last Medication Dose Route Stop Time Status Admin Acetaminophen 325 MG Q6P PRN 08/31 914 AC PO Acetaminophen 1,000 MG Q6P PRN 08/31 0815 AC IV Acetazolamide 250 MG ONCE ONE 09/08 0745 AC Sodium Chloride 50 ML IV 09/08 0814 Albuterol Sulfate 3 ML EVERY 4 HRS/AWAKE 09/03 1600 AC 09/07 INH 2155 Artificial Tears 2 GTT 4 TIMES/DAY PRN 04/14 0800 AC 09/04 OPH 2241 Aspirin Buffered 81 MG DAILY 08/30 2052 AC 09/07 PO 1007 Atorvastatin Calcium 5 MG 1700 08/31 1700 AC 09/07 PO 1730 Ceftazidime 1,000 MG Q12H 09/03 1100 DC 09/07 IV 1006 Diltiazem HCl 180 MG DAILY 08/31 1000 AC 09/07 PO 1007 Docusate Sodium 100 MG .STK-MED ONE 09/07 1030 DC PO 09/07 1031 Docusate Sodium 100 MG DAILY NEEDED PRN 09/06 1245 AC 09/07 PO 1039 Enoxaparin Sodium 40 MG DAILY 08/31 1000 AC 09/07 SC 1010 Furosemide 40 MG DAILY 08/31 1000 AC 09/07 PO 1008 Guaifenesin 600 MG Q12 08/31 1000 AC 09/07 PO 2124 Hydralazine HCl 50 MG TID 09/07 1600 AC 09/07 PO 2124 Hydralazine HCl 25 MG TID 08/30 2200 DC 09/07 PO 1008 Ibuprofen 400 MG .STK-MED ONE 09/07 1821 DC PO 09/07 1822 Ibuprofen 400 MG Q6P PRN 08/31 0915 AC 09/08 PO 0719 Insulin Aspart 0 TIDAC 08/31 0800 AC 09/07 SC 1820 Ipratropium [place] 2.5 ML EVERY 4 HRS/AWAKE 09/03 1600 AC 09/07 INH 2155 Lisinopril 40 MG DAILY 08/31 1000 AC 09/07 PO 1008 Mupirocin 1 WANDER TID 09/07 1000 DC 09/07 TOP 1039 Neomycin/Polymyxin/ 1 WANDER BID 09/07 2200 AC 09/07 Bacitracin EXT 2125 Nystatin 5 ML 4 TIMES/DAY 09/06 1400 AC 09/07 PO 2124 Polyethylene Glycol 17 GM DAILY 09/06 1244 AC 09/07 PO 1009 Potassium Chloride 20 MEQ DAILY 09/01 1000 AC 09/07 PO 1007 Prednisone 40 MG DAILY 09/07 1000 AC 09/07 PO 1007 Senna/Docusate Sodium 1 TAB BID PRN 09/06 1245 AC 09/07 PO 1039 Tiotropium [place] 1 PUF DAILY 09/01 1000 AC 09/07 INH 1007 Vancomycin HCl 1,500 MG Q24H 09/03 1100 DC 09/07 Sodium Chloride 250 ML IV 1006 Last 24 Hrs of Lab/Bernard Results Last 24 Hrs of Labs/Mics: Laboratory Tests 09/08/16 0626: Sodium Pending, Potassium Pending, Chloride Pending, Carbon Dioxide Pending, Anion Gap Pending, BUN Pending, Creatinine Pending, BUN/Creatinine Ratio Pending , CBC w Diff Pending, WBC Pending, RBC Pending, Hgb Pending, Hct Pending, MCV Pending, MCH Pending, RDW Pending, Plt Count Pending, MPV Pending, PUBS MCHC Pending Assessment/Plan Assessment: 76 yo female with obesity, COPD not on home oxygen, HTN, HFrEF (EF>55%), BRENNON non compliant with CPAP, chronic hypercapneic respiratory failure/obesity hypoventilation, T2DM, chronic LE edema, presentd with 1-day h/o worsening DIOR, cough, left sided pleuritic chest pain, worsening LE edema with weight gain. #. Acute on chronic hypercarbic and hypoxemic respiratory failure:2/2 HCAP, COPD exacerbation and BRENNON not complaint with CPAP. Will continue Ceftazedim and vancomycin, will monitor her respiratory status closely. Currently she is on Bipap over night. #. COPD exacerbation due to bronchitis:On oral prednisone taper . Continue TRC nebs, mucinex. Continue INH spiriva. Sputum culture cancelled, blood culture shows no growth. #Blister on the face/skin eruption: extended to buccal mucosa and her skin externally as well, most likely Impetigo or possible fungal infection. Nystatin susp swish and swallow has been ordered. Neosporin ointment ordered yesterday, today looks better, will continue to monitor. #. chronic HFpEF: EF > 55% with stage 2 diastolic dysfunction. she is on po lasix 40 daily. Continue strict I/O's, daily weights. c/w lisinopril 40mg daily. #. Wound consult: Wound Care consult is appreciated. Continue Right lower extremity non adherent dressing with xeroform. Continue leg elevation. #. BRENNON non compliant to CPAP/obesity hypoventilation: Her home mask is broken. She needs a proper fitting face mask for the Bipap on discharge. Conitnue biPAP in the hospital. DVT ppx Lovenox. Full code. Problem List: 1. Healthcare-associated pneumonia 2. COPD exacerbation Pain Ratin Pain Location: - Pain Goal: Remain pain free Pain Plan: - Tomorrow's Labs & Rationales: cbc, bep DVT/Prophylaxis: pharmacological
[2016-09-08 07:52] LABS: ABSOLUTE BASOPHIL COUNT 0 /CUMM (0.0-0.2); ABSOLUTE EOSINOPHIL COUNT 0.1 /CUMM (0.0-0.7); ABSOLUTE GRANULOCYTE CT 14.7 /CUMM (1.4-6.5); ABSOLUTE LYMPH COUNT 0.9 /CUMM (1.2-3.4); ABSOLUTE MONOCYTE COUNT 0.9 /CUMM (0.10-0.60); BASOPHIL % 0.1 % (0.0-2.0); EOSINOPHIL % 0.4 % (0-5); HEMATOCRIT 45.4 % (37-47); MEAN CORPUSCULAR HGB 27.9 PG (27.0-31.0); MEAN CORPUSCULAR VOLUME 87.2 FL (81.0-99.0); MEAN PLATELET VOLUME 8.2 FL (7.4-10.4); PLATELET COUNT 267 /CUMM (130-400); RBC DISTRIBUTION WIDTH 14.2 % (11.5-14.5); RED BLOOD CELL CT 5.21 /CUMM (4.20-5.40); WHITE BLOOD CELL COUNT 16.7 /CUMM (4.8-10.8)
[2016-09-08 09:03] VITALS: BP 132/79
[2016-09-08 10:03] LABS: GRANULOCYTE % 88.3 % (42.2-75.2)
--- NOTE | 2016-09-08 10:28 | PN- Cardiology ---
Subjective Subjective: Patient complains of fatigue. She is now only on nasal cannula. She still has mild shortness of breath. She denies chest pain. Review of Systems: Eyes no blurred or double vision Ears no deafness or ringing Nose and throat no recurrent sinusitis Lungs per history of present illness Heart per history of present illness Abdomen no nausea vomiting Musculoskeletal occasional muscle and joint pains Psych no anxiety or depression Neuro without recurrent headache or seizures Endocrine no heat or cold intolerance Objective Vital Signs and I&Os Vital Signs Date Time Temp Pulse Resp B/P Pulse O2 O2 Flow FiO2 Ox Delivery Rate 09/08 0914 80 132/80 09/08 0913 80 132/80 09/08 0903 98.7 78 24 132/79 98 Nasal 45% Cannula 09/08 0850 93 Nasal 4.0L Cannula 09/08 0813 76 99 09/08 0800 94 Nasal 40% Cannula 09/08 0055 96.9 97 20 148/76 97 Trach Mask 09/08 0032 68 92 09/08 0000 94 BIPAP 45% 09/07 2316 77 97 09/07 2124 73 170/80 09/07 1925 96 Nasal 45% Cannula 09/07 1737 97.1 74 20 158/88 95 Nasal Cannula 09/07 1730 80 160/90 09/07 1725 94 Nasal 45% Cannula 09/07 1600 45% Intake & Output 09/08 1600 09/08 0800 09/08 0000 09/07 1600 09/07 0800 09/07 0000 Intake Total 200 500 680 50 400 Output Total 300 Balance -100 500 680 50 400 Intake, IV 280 Intake, Oral 200 500 400 50 400 Number 1 0 Bowel Movements Output, Urine 300 Patient 227 lb 231 lb Weight Physical Exam: Patient is a well-developed obese female appearing in no acute distress HEENT is unremarkable Neck is supple there is no JVD Lungs decreased air entry bilaterally Heart regular rhythm S1 and S2 are normal no murmurs gallops or rubs Abdomen bowel sounds positive Extremities 1-2+ edema Current Medications: Current Medications Sig/Kacie Start time Last Medication Dose Route Stop Time Status Admin Acetaminophen 325 MG Q6P PRN 08/31 914 AC PO Acetaminophen 1,000 MG Q6P PRN 08/31 914 AC IV Acetazolamide 250 MG ONCE ONE 09/08 0745 DC 09/08 Sodium Chloride 50 ML IV 09/08 813 0912 Albuterol Sulfate 3 ML EVERY 4 HRS/AWAKE 09/03 1600 AC 09/08 INH 0846 Artificial Tears 2 GTT 4 TIMES/DAY PRN 09/04 0800 AC 09/04 OPH 2241 Aspirin Buffered 81 MG DAILY 08/30 2052 AC 09/08 PO 0914 Atorvastatin Calcium 5 MG 1700 08/31 1700 AC 09/07 PO 1730 Ceftazidime 1,000 MG Q12H 09/03 1100 DC 09/07 IV 1006 Diltiazem HCl 180 MG DAILY 08/31 1000 AC 09/08 PO 0913 Docusate Sodium 100 MG .STK-MED ONE 09/07 1030 DC PO 09/07 1031 Docusate Sodium 100 MG DAILY NEEDED PRN 09/06 1245 AC 09/07 PO 1039 Enoxaparin Sodium 40 MG DAILY 08/31 1000 AC 09/08 SC 0911 Furosemide 40 MG DAILY 08/31 1000 AC 09/08 PO 0914 Guaifenesin 600 MG Q12 08/31 1000 AC 09/08 PO 0914 Hydralazine HCl 50 MG TID 09/07 1600 AC 09/08 PO 0913 Hydralazine HCl 25 MG TID 08/30 2200 DC 09/07 PO 1008 Ibuprofen 400 MG .STK-MED ONE 09/07 1821 DC PO 09/07 1822 Ibuprofen 400 MG Q6P PRN 08/31 0915 AC 09/08 PO 0719 Insulin Aspart 0 TIDAC 08/31 0800 AC 09/07 SC 1820 Ipratropium [place] 2.5 ML EVERY 4 HRS/AWAKE 09/03 1600 AC 09/08 INH 0845 Lisinopril 40 MG DAILY 08/31 1000 AC 09/08 PO 0914 Mupirocin 1 WANDER TID 09/07 1000 DC 09/07 TOP 1039 Neomycin/Polymyxin/ 1 WANDER BID 09/07 2200 AC 09/08 Bacitracin EXT 0915 Nystatin 5 ML 4 TIMES/DAY 09/06 1400 AC 09/08 PO 0912 Polyethylene Glycol 17 GM DAILY 09/06 1244 AC 09/08 PO 0911 Potassium Chloride 20 MEQ DAILY 09/01 1000 AC 09/08 PO 0914 Prednisone 40 MG DAILY 09/07 1000 AC 09/08 PO 0914 Senna/Docusate Sodium 1 TAB BID PRN 09/06 1245 AC 09/07 PO 1039 Tiotropium [place] 1 PUF DAILY 09/01 1000 AC 09/08 INH 0912 Vancomycin HCl 1,500 MG Q24H 09/03 1100 DC 09/07 Sodium Chloride 250 ML IV 1006 Results Last 48 Hrs of Labs/Mics: Laboratory Tests 09/08/16 0626: Anion Gap 6, Estimated GFR > 60, BUN/Creatinine Ratio 58.6 H, CBC w Diff NO MAN DIFF REQ, RBC 5.21, MCV 87.2, MCH 27.9, RDW 14.2, MPV 8.2, Gran % 88.3 H, Lymphocytes % 5.6 L, Monocytes % 5.6, Eosinophils % 0.4, Basophils % 0.1, Absolute Granulocytes 14.7 H, Absolute Lymphocytes 0.9 L, Absolute Monocytes 0.9 H, Absolute Eosinophils 0.1, Absolute Basophils 0, PUBS MCHC 32.0 L 09/07/16 0620: Anion Gap 9, Estimated GFR > 60, BUN/Creatinine Ratio 51.3 H, CBC w Diff MAN DIFF ORDERED, RBC 4.84, MCV 86.0, MCH 28.6, RDW 13.9, MPV 8.3, Gran % 87.3 H, Lymphocytes % 5.0 L, Monocytes % 7.5, Eosinophils % 0.1, Basophils % 0.1, Absolute Granulocytes 13.5 H, Segmented Neutrophils 71, Band Neutrophils 6 H, Absolute Lymphocytes 0.8 L, Lymphocytes 15 L, Monocytes 5, Absolute Monocytes 1.2 H, Absolute Eosinophils 0, Absolute Basophils 0, Metamyelocytes 3 H, Platelet Estimate ADEQUATE, Poikilocytosis 1+, PUBS MCHC 33.2 Telemetry personally reviewed sinus rhythm Recent Imaging Studies: CT of the chest IMPRESSION: 1. Bilateral volume loss and consolidation in the lower lobes is seen with subjacent small pleural effusions. Findings may be related to atelectasis or pneumonia. 2. Patchy subtle groundglass opacities seen throughout the lungs bilaterally, raising the suspicion of pneumonitis. 3. Scattered areas of atelectasis in the lungs bilaterally. 4. Pulmonary arterial hypertension. Enlarged left heart. 5. Stable multinodular thyroid gland. 6. Stable nodular hypertrophy of the adrenal glands. DICTATED BY: LEXA SHORT,BROCK [place] Assessment/Plan Assessment/Plan 1. COPD with respiratory insufficiency/hypoxia and possible pneumonia 2. Chronic diastolic congestive heart failure 3. Sleep apnea, not recently using CPAP 4. Hypertension/hyperlipidemia/diabetes mellitus 5. Chronic venous insufficiency/edema 6. History of urinary incontinence, declines increasing her Lasix. 7. Pulmonary HTN by Echo with normal EF 8. Mild aortic stenosis Recommendations 1. Continue current dose of hydralazine since blood pressure is improved 2. Patient to receive Diamox today per Dr. Garcia and will be considered for rehabilitation at [place] Continue telemetry? Yes
[2016-09-08 16:17] VITALS: BP 105/59
--- NOTE | 2016-09-08 16:17 | Cons- Infect Disease ---
General Information and HPI Consulting Request Date of Consult: 09/08/16 Requested By: KIRILL VO MD Reason for Consult: Perioral blisters and then Source of Information: patient, old records History of Present Illness: This is a 76-year-old woman with a history of COPD, not maintained on oxygen, obstructive sleep apnea, noncompliant with CPAP, HFpEF and diabetes, admitted on August 30 with a one-week history of URI symptoms, with subjective fevers and chills, and more acute onset of a nonproductive cough, left chest discomfort and hypoxia. On admission she was afebrile, with an O2 sat in the 80s. Laboratory data revealed a white blood cell count of 16,000, BUN/creatinine 23 and 0.8, with normal liver enzymes, BNP 2310, ABG 7.38/49/62 on 3 L/m. Chest x-ray revealed prominent interstitial markings with prominence within the bilateral hilar regions, right greater than left. She was begun on Azithromycin, Solumedrol and IV Lasix, which was changed to oral Lasix on the next day. On September 03 she became less responsive with shallow respirations and was moved into the ICU. She was changed to Vancomycin and Ceftazidime based on a chest x-ray from the previous day revealing an increased density in the left midlung, which was continued until September 07. On September 05 she was noted to have an intraoral and perioral blistering rash which was uncomfortable, treated with Nystatin and, subsequently, Mupirocin. Her discomfort has improved though the eruption has persisted. She has remained afebrile with a persistent leukocytosis in the 16, 000 range on steroids. She notes overall improvement in her respiratory status with no further left-sided chest pain, minimal cough and with no shortness of breath. Allergies/Medications Allergies: Coded Allergies: codeine (Mild, SENSITIVITY - HEADACHE AND NAUSEA AND MISERABLE 03/01/16) Antihistamines - Alkylamine (DIZZY, HEADACHES, FEELS SICK 03/01/16) Antihistamines - Ethanolamine (DIZZINESS, HEADACHE, FEELS SICK 03/01/16) Antihistamines - Ethylenediamine (DIZZINESS, HEADACHE, FEELS SICK 03/01/16) Antihistamines - Piperazine (DIZZINESS, HEADACHE, FEELS SICK 03/01/16) Antihistamines - Piperidine (DIZZINESS HEADACHE FEELS SICK 03/01/16) Opioids - Morphine Analogues (N/V HEADACHE FEELS MISERABLE 03/01/16) Opioids-Meperidine and Related (N/V HEADACHE, FEELS MISERABLE 03/01/16) Opioids-Methadone and Related (HEADACHE, N/V, FEELS MISERABLE 03/01/16) Home Med List: Albuterol Sulfate 0.63 MG/3 ML VIAL.NEB 1 PUFF INH Q4 HRS NEEDED PRN BREATHING (Reported) Albuterol Sulfate (Proair Hfa) 90 MCG HFA.AER.AD 2 PUF INH Q4-6 PRN PRN shortness of breath Aspirin (Ecotrin) 81 MG TABLET.DR 1 TAB PO DAILY heart (Reported) Azithromycin 250 MG TABLET 250 MG PO DAILY COPD EXACERBATION DILTIAZEM HCL (Cartia Xt) 180 MG CAP.ER.24H 1 TAB PO DAILY heart (Reported) Fish Oil ([place] 3) 1,000 MG SGL 1 SGL PO DAILY supplement (Reported) Furosemide (Lasix) 40 MG TAB 40 MG PO DAILY HEART HEALTH Guaifenesin (Guaifenesin ER) 600 MG TAB.ER.12H 600 MG PO Q12 PRN COUGH Hydralazine HCl 25 MG TABLET 25 MG PO TID HTN Ibuprofen 200 MG CAPSULE 4 CAP PO PRN PAIN (Reported) Ipratropium [place] (Atrovent Hfa) 17 MCG/ACTUATION HFA.AER.AD 2 PUF INH DAILY COPD Metformin HCl (Metformin HCl ER) 500 MG TAB.ER.24H 1 TAB PO D DIABETES ( Reported) Multivitamin2 (Multivitamin) 1 EACH TAB 1 TAB PO DAILY supplement (Reported) Potassium Chloride 10 MEQ TABLET.ER 1 TAB PO DAILY SUPPLEMENT (Reported) Prednisone 20 MG TABLET 2 TAB PO DAILY COPD EXACERBATION Quinapril HCl 40 MG TABLET 1 TAB PO DAILY HTN (Reported) Sertraline HCl 100 MG TABLET 0.5 TAB PO DAILY MENTAL HEALTH (Reported) Simvastatin (Zocor) 10 MG TABLET 1 TAB PO DAILY HLD (Reported) Tiotropium [place] (Spiriva) 18 MCG CAP.W.DEV 1 PUF INH DAILY COPD Past History Travel History Traveled to [place] past 21 day No Medical History Blood Transfusion Hx: No Neurological: NONE EENT: NONE Cardiovascular: hypertension, hyperlipidemia Respiratory: bronchitis, COPD, obstructive sleep apnea, pulmonary hypertension Gastrointestinal: lower GI bleed Hepatic: NONE Renal: NONE Musculoskeletal: NONE Psychiatric: NONE Endocrine: diabetes Blood Disorders: NONE Cancer(s): NONE BONDING MOLDER/Reproductive: NONE History of MRSA: Yes History of VRE: No History of CDIFF: No Isolation History: Contact Pneumonia Vaccine: 02/21/10 Influenza Vaccine: 02/21/11 Surgical History Surgical History: cholecystectomy, hysterectomy, knee replacement (bilateral), status post polypectomy Psychosocial History Where Do You Live? Home Who Do You Live With? spouse Services at Home: None Primary Language: [place] Smoking Status: Never Smoked ETOH Use: occasional use Illicit Drug Use: denies illicit drug use Functional Ability ADLs Independent: dressing, eating, toileting, bathing. Ambulation: independent IADLs Independent: shopping, housework, finances, food prep, telephone, transportation , medication admin. Review of Systems Review of Systems All Other Systems: Reviewed and Negative Exam & Diagnostic Data Last 24 Hrs of Vital Signs/I&O Vital Signs Date Time Temp Pulse Resp B/P Pulse O2 O2 Flow FiO2 Ox Delivery Rate 09/08 1606 Nasal 45% Cannula 09/08 1600 97 Nasal 4.0L Cannula 09/08 0914 80 132/80 09/08 0913 80 132/80 09/08 0903 98.7 78 24 132/79 98 Nasal 45% Cannula 09/08 0850 93 Nasal 4.0L Cannula 09/08 0813 76 99 09/08 0800 94 Nasal 40% Cannula 09/08 0055 96.9 97 20 148/76 97 Trach Mask 09/08 0032 68 92 09/08 0000 94 BIPAP 45% 09/07 2316 77 97 09/07 2124 73 170/80 09/07 1925 96 Nasal 45% Cannula 09/07 1737 97.1 74 20 158/88 95 Nasal Cannula 09/07 1730 80 160/90 09/07 1725 94 Nasal 45% Cannula Intake & Output 09/08 1600 09/08 0800 09/08 0000 Intake Total 640 200 500 Output Total 300 Balance 640 -100 500 Intake, Oral 640 200 500 Number 1 Bowel Movements Output, Urine 300 Patient 227 lb Weight Physical Exam Other Physical Findings: She is awake and alert in no acute distress. She is afebrile on steroids. Skin left perioral crusting lesions, extending to and involving the left ear and up towards the left forehead. HEENT exam left-sided tongue lesions, with no evidence of thrush. Neck is supple with no adenopathy. Lungs crackles at the left base with decreased breath sounds bilaterally. Heart regular rhythm with no murmur. Abdomen is obese, soft, nontender with positive bowel sounds. Back no CVA tenderness. Extremities chronic venous stasis changes both lower extremities, with 1+ edema; ulcer on the anterior tibial aspect of the right leg with no surrounding erythema. Neuro is without focality. Last 24 Hours of Lab Results: Laboratory Tests 09/08 0626 Chemistry Sodium (137 - 145 mmol/L) 140 Potassium (3.5 - 5.1 mmol/L) 4.3 Chloride (98 - 107 mmol/L) 90 L Carbon Dioxide (22 - 30 mmol/L) 44 H Anion Gap (5 - 16) 6 BUN (7 - 17 mg/dL) 41 H Creatinine (0.5 - 1.0 mg/dL) 0.7 Estimated GFR (>60 ml/min) > 60 BUN/Creatinine Ratio (7 - 25 %) 58.6 H Hematology CBC w Diff NO MAN DIFF REQ WBC (4.8 - 10.8 /CUMM) 16.7 H RBC (4.20 - 5.40 /CUMM) 5.21 Hgb (12.0 - 16.0 G/DL) 14.5 Hct (37 - 47 %) 45.4 MCV (81.0 - 99.0 FL) 87.2 MCH (27.0 - 31.0 PG) 27.9 RDW (11.5 - 14.5 %) 14.2 Plt Count (130 - 400 /CUMM) 267 MPV (7.4 - 10.4 FL) 8.2 Gran % (42.2 - 75.2 %) 88.3 H Lymphocytes % (20.5 - 51.1 %) 5.6 L Monocytes % (1.7 - 9.3 %) 5.6 Eosinophils % (0 - 5 %) 0.4 Basophils % (0.0 - 2.0 %) 0.1 Absolute Granulocytes (1.4 - 6.5 /CUMM) 14.7 H Absolute Lymphocytes (1.2 - 3.4 /CUMM) 0.9 L Absolute Monocytes (0.10 - 0.60 /CUMM) 0.9 H Absolute Eosinophils (0.0 - 0.7 /CUMM) 0.1 Absolute Basophils (0.0 - 0.2 /CUMM) 0 PUBS MCHC (33.0 - 37.0 G/DL) 32.0 L Last 24 Hours of Bernard Results: Blood cultures August 30 negative Blood cultures September 03 negative Quick strep negative and throat culture mixed zenaida Urine culture September 03 negative Rapid flu swab September 05 negative Diagnostic Data Recent Imaging Findings: CT of the chest September 07 bilateral volume loss and consolidation in the lower lobes with small pleural effusions; patchy subtle ground glass opacities throughout both lungs with scattered areas of atelectasis bilaterally Dopplers of both lower extremities September 03 negative Assessment/Plan Assessment/Plan Impression: This is a 76-year-old woman with a history of COPD, obstructive sleep apnea, HFpEF and diabetes admitted on August 30 with a cough, left chest pain and hypoxia , treated initially as an exacerbation of COPD with the development of worsening hypoxia 4 days after admission, at which point she was treated for a healthcare associated pneumonia, with the chest x-ray suggesting a left lower lobe pneumonia, and with the development of blistering intraoral and perioral lesions , extending to the left ear and forehead. The lesions are most suggestive of Herpes zoster, with the distribution corresponding to the mandibular division of the trigeminal nerve. These lesions were first noted approximately 3 days ago; therefore antiviral therapy can be administered, though it may not be effective at this point and she appears to be already improving. With regard to antibiotics for her presumed pneumonia she was treated with 4 days of Vancomycin and Ceftazidime, which may not be an adequate course for pneumonia, but, as she is stable, she can be followed off antibiotics at this time. Her densities seen on CT scan may represent fluid and/or atelectasis and/or pneumonia. She does have a persistent leukocytosis, though this could be secondary to steroids, which are likely also masking any potential fevers. Suggestion: 1. Standard precautions for presumed Herpes zoster 2. Would aspirate one of the lesions and submit for Tzanck prep and HSV PCR 3. Steroid taper per Pulmonary 4. Continue to monitor temperatures and white blood cell count closely 5. Begin Valacyclovir 1 gram po every 8 hours Consult Acknowledgment - Thank you for your consult request.
[2016-09-08 16:25] VITALS: BP 114/62
[2016-09-08 23:12] VITALS: BP 118/62
[2016-09-09 07:55] VITALS: BP 104/60
--- NOTE | 2016-09-09 09:03 | PN- Housestaff ---
See Addendum Subjective Follow-up For: HCAP Acute on chronic hypoxemic respiratory failure COPD exacerbation Complaints: no complaints Subjective: Patient seen and examined, sitting in the chair comfortable with no acute distress. She is now on NC, overnight on Bipap. Respiratory status improved, no cough, no phlegm. She denies fever, chills and there is no change in urinary or bowel habits. She report that the rasch on face is better, more dry today, no itching, no discomfort except the one located on the tongue still slightly irritable. No itching. Vitals stable. Review of Systems Constitutional: Reports: no symptoms. EENTM: Reports: no symptoms. Cardiovascular: Reports: no symptoms. Respiratory: Reports: no symptoms. Gastrointestinal: Reports: no symptoms. Genitourinary: Reports: no symptoms. Musculoskeletal: Reports: no symptoms. Skin: Reports: see HPI. Objective Last 24 Hrs of Vital Signs/I&O Vital Signs Date Time Temp Pulse Resp B/P B/P Pulse O2 O2 Flow FiO2 Mean Ox Delivery Rate 09/09 0923 Nasal 45% Cannula 09/09 0800 Nasal 3.5L Cannula 09/09 0755 97.1 84 22 104/60 96 BIPAP 09/09 0732 83 94 09/09 0613 81 93 09/09 0309 84 09/09 0107 80 96 09/09 0000 BIPAP 09/08 2312 98.0 85 22 118/62 94 Nasal Cannula 09/08 2311 95 95 09/08 2133 103 106/56 09/08 1649 82 114/62 09/08 1635 96 Nasal 4.0L Cannula 09/08 1625 98.3 79 22 114/62 93 Nasal 4.0L Cannula 09/08 1606 Nasal 45% Cannula 09/08 1600 97 Nasal 4.0L Cannula Intake & Output 09/09 1600 09/09 0800 09/09 0000 Intake Total 520 Output Total 200 Balance 320 Intake, Oral 520 Number 1 Bowel Movements Output, Urine 200 Patient 227 lb Weight Weight Chair scale Measurement Method Physical Exam General Appearance: Alert, Oriented X3, Cooperative, No Acute Distress Skin: red erythematous/crusting rash over the mandibular nerve dermatome HEENT: Atraumatic, PERRLA Neck: Supple, No JVD Lymphatic: Axillary nl, Cervical nl Cardiovascular: Normal S1, Normal S2 Lungs: Clear to Auscultation, Normal Air Movement Abdomen: Normal Bowel Sounds, Soft, No Tenderness Extremities: Normal Pulses Vascular: Normal Pulses, Pulses Symmetrical Current Medications: Current Medications Sig/Kacie Start time Last Medication Dose Route Stop Time Status Admin Acetaminophen 325 MG Q6P PRN 08/31 914 AC PO Acetaminophen 1,000 MG Q6P PRN 08/31 914 AC IV Acetazolamide 250 MG ONCE ONE 09/09 1000 AC Sodium Chloride 50 ML IV 09/09 1029 Albuterol Sulfate 3 ML EVERY 4 HRS/AWAKE 09/03 1600 AC 09/08 INH 2019 Artificial Tears 2 GTT 4 TIMES/DAY PRN 09/04 0800 AC 09/04 OPH 2241 Aspirin Buffered 81 MG DAILY 08/30 2052 AC 09/08 PO 0914 Atorvastatin Calcium 5 MG 1700 08/31 1700 AC 09/08 PO 1649 Diltiazem HCl 180 MG DAILY 08/31 1000 AC 09/08 PO 0913 Docusate Sodium 100 MG DAILY NEEDED PRN 09/06 1245 AC 09/07 PO 1039 Enoxaparin Sodium 40 MG DAILY 08/31 1000 AC 09/08 SC 0911 Furosemide 40 MG DAILY 08/31 1000 AC 09/08 PO 0914 Guaifenesin 600 MG Q12 08/31 1000 AC 09/08 PO 2133 Hydralazine HCl 50 MG TID 09/07 1600 AC 09/08 PO 2133 Ibuprofen 400 MG Q6P PRN 08/31 0915 AC 09/08 PO 0719 Insulin Aspart 0 TIDAC 08/31 0800 AC 09/08 SC 1758 Ipratropium [place] 2.5 ML EVERY 4 HRS/AWAKE 09/03 1600 AC 09/08 INH 2020 Lisinopril 40 MG DAILY 08/31 1000 AC 09/08 PO 0914 Neomycin/Polymyxin/ 1 WANDER BID 09/07 2200 DC 09/08 Bacitracin EXT 0915 Nystatin 5 ML 4 TIMES/DAY 09/06 1400 AC 09/08 PO 2133 Patient Medication 1 ED .STK-MED ONE 09/08 1437 NV Teaching ED 09/08 1438 Polyethylene Glycol 17 GM DAILY 09/06 1244 AC 09/08 PO 0911 Potassium Chloride 20 MEQ DAILY 09/01 1000 AC 09/08 PO 0914 Prednisone 30 MG DAILY 09/09 1000 AC PO Prednisone 40 MG DAILY 09/07 1000 DC 09/08 PO 0914 Senna/Docusate Sodium 1 TAB BID PRN 09/06 1245 AC 09/07 PO 1039 Tiotropium [place] 1 PUF DAILY 09/01 1000 AC 09/08 INH 0912 Valacyclovir HCl 1,000 MG TID 09/08 1750 AC 09/08 PO 1901 Assessment/Plan Assessment: 76 yo female with obesity, COPD not on home oxygen, HTN, HFrEF (EF>55%), BRENNON non compliant with CPAP, chronic hypercapneic respiratory failure/obesity hypoventilation, T2DM, chronic LE edema, presentd with 1-day h/o worsening DIOR, cough, left sided pleuritic chest pain, worsening LE edema with weight gain. #. Acute on chronic hypercarbic and hypoxemic respiratory failure:2/2 HCAP, COPD exacerbation and BRENNON not complaint with CPAP. Will continue Ceftazedim and vancomycin, will monitor her respiratory status closely. Currently she is on Bipap over night. #. COPD exacerbation due to bronchitis:On oral prednisone taper . Continue TRC nebs, mucinex. Continue INH spiriva. Sputum culture cancelled, blood culture shows no growth. #Shingles on mandibular nerve dermatomes: Yesterday patient was evaluated by ID service , she started on Valacyclovir, we sent Tzanck test and HSV pcr, will f/u #. chronic HFpEF: EF > 55% with stage 2 diastolic dysfunction. she is on po lasix 40 daily. Continue strict I/O's, daily weights. c/w lisinopril 40mg daily. #. Wound consult: Wound Care consult is appreciated. Continue Right lower extremity non adherent dressing with xeroform. Continue leg elevation. #. BRENNON non compliant to CPAP/obesity hypoventilation: Her home mask is broken. She needs a proper fitting face mask for the Bipap on discharge. Conitnue biPAP in the hospital. DVT ppx Lovenox. Full code. Problem List: 1. CHF (congestive heart failure) 2. COPD exacerbation 3. Shingles Pain Ratin Pain Location: - Pain Goal: Remain pain free Pain Plan: - Tomorrow's Labs & Rationales: - DVT/Prophylaxis: pharmacological
--- NOTE | 2016-09-09 09:16 | PN- Pulmonary ---
Subjective HPI/Critical Care Issues: Patient feels well is awake and alert on nasal oxygen therapy for herpes zoster has been started Objective Current Medications: Current Medications Sig/Akcie Start time Last Medication Dose Route Stop Time Status Admin Acetaminophen 325 MG Q6P PRN 08/31 0815 AC PO Acetaminophen 1,000 MG Q6P PRN 08/31 0815 AC IV Albuterol Sulfate 3 ML EVERY 4 HRS/AWAKE 09/03 1600 AC 09/08 INH 2020 Artificial Tears 2 GTT 4 TIMES/DAY PRN 09/04 0800 AC 09/04 OPH 2241 Aspirin Buffered 81 MG DAILY 08/30 2052 AC 09/08 PO 0914 Atorvastatin Calcium 5 MG 1700 08/31 1700 AC 09/08 PO 1649 Diltiazem HCl 180 MG DAILY 08/31 1000 AC 09/08 PO 0913 Docusate Sodium 100 MG DAILY NEEDED PRN 09/06 1245 AC 09/07 PO 1039 Enoxaparin Sodium 40 MG DAILY 08/31 1000 AC 09/08 SC 0911 Furosemide 40 MG DAILY 08/31 1000 AC 09/08 PO 0914 Guaifenesin 600 MG Q12 08/31 1000 AC 09/08 PO 2133 Hydralazine HCl 50 MG TID 09/07 1600 AC 09/08 PO 2133 Ibuprofen 400 MG Q6P PRN 08/31 0915 AC 09/08 PO 0719 Insulin Aspart 0 TIDAC 08/31 0800 AC 09/08 SC 1758 Ipratropium [place] 2.5 ML EVERY 4 HRS/AWAKE 09/03 1600 AC 09/08 INH 2020 Lisinopril 40 MG DAILY 08/31 1000 AC 09/08 PO 0914 Neomycin/Polymyxin/ 1 WANDER BID 09/07 2200 DC 09/08 Bacitracin EXT 0915 Nystatin 5 ML 4 TIMES/DAY 09/06 1400 AC 09/08 PO 2133 Patient Medication 1 ED .STK-MED ONE 09/08 1437 DC Teaching ED 09/08 1438 Polyethylene Glycol 17 GM DAILY 09/06 1244 AC 09/08 PO 0911 Potassium Chloride 20 MEQ DAILY 09/01 1000 AC 09/08 PO 0914 Prednisone 30 MG DAILY 09/09 1000 AC PO Prednisone 40 MG DAILY 09/07 1000 DC 09/08 PO 0914 Senna/Docusate Sodium 1 TAB BID PRN 09/06 1245 AC 09/07 PO 1039 Tiotropium [place] 1 PUF DAILY 09/01 1000 AC 09/08 INH 0912 Valacyclovir HCl 1,000 MG TID 09/08 1750 AC 09/08 PO 1901 Vital Signs & I&O Last 24 Hrs of Vitals and I&O: Vital Signs Date Time Temp Pulse Resp B/P B/P Pulse O2 O2 Flow FiO2 Mean Ox Delivery Rate 09/09 0800 Nasal 3.5L Cannula 09/09 0755 97.1 84 22 104/60 96 BIPAP 09/09 0732 83 94 09/09 0613 81 93 09/09 0309 84 09/09 0107 80 96 09/09 0000 BIPAP 09/08 2312 98.0 85 22 118/62 94 Nasal Cannula 09/08 2311 95 95 09/08 2133 103 106/56 09/08 1649 82 114/62 09/08 1635 96 Nasal 4.0L Cannula 09/08 1625 98.3 79 22 114/62 93 Nasal 4.0L Cannula 09/08 1606 Nasal 45% Cannula 09/08 1600 97 Nasal 4.0L Cannula Intake & Output 09/09 1600 09/09 0800 09/09 0000 Intake Total 520 Output Total 200 Balance 320 Intake, Oral 520 Number 1 Bowel Movements Output, Urine 200 Patient 227 lb Weight Weight Chair scale Measurement Method Since saturation 3.5 L 96% exam for chest shows decreased breath sounds are no wheezes cardiac exam shows regular S1 and S2. Impression/Plan Impression/Plan Impression/Plan: 76-year-old woman with COPD sleep apnea has improved hypercapnic respiratory failure. Blood pressure is being adjusted by cardiology. Recommendations: . Continue prednisone taper Taper FiO2. Complete course of antibiotics. Would evaluate for pulmonary rehabilitation at [place]. Bicarbonate is increasing with continue diuresis can give 1 dose of Diamox 250 mg IV. Maintain potassium within normal limitscarbonate is increasing with continue diuresis can give 1 dose of Diamox 250 mg IV. Maintain potassium within normal limits. No new pulmonary suggestions
--- NOTE | 2016-09-09 11:05 | Discharge Summary ---
Visit Information Visit Dates Admission Date: 08/30/16 Discharge Date: 09/10/2016 Hospital Course Course Attending Physician: KIRILL VO MD Primary Care Physician: Justin SHIN MD Consulting Request: 1 Consulting Specialty: Cardiology Consulting Physician: Consulting Request: 2 Consulting Specialty: Infectious Disease Consulting Physician: [place] [facility] Course: is a 76 yo women with PMHx. of morbidly obesity, COPD not on home oxygen, hypertension, heart failure with reduced ejection fraction, BRENNON not compliant with CPAP, chronic hypercapnic respiratory failure, obesity hypoventilation, hyperlipidemia, diabetes mellitus, history of MRSA infection, depression, osteoarthritis, back pain, chronic lower extremity edema with dyspnea on exertion presented to the hospital with cough, dyspnea on exertion, left-sided pleuritic chest pain, worsening lower extremity edema for 2 days. Vital signs on admission: Temperature 99.4, pulse rate 103, respiratory rate 22, blood pressure 139/80, oxygen saturation 90% on 3 L nasal cannula oxygen. Pertinent lab data: Leukocytosis to 15.8, hemoglobin 13.2, hematocrit 41.4, platelet 254. Sodium 147, potassium 3.5, creatinine 0.8, glucose 85, calcium 9, proBNP 2310, troponin 0.02. Chest x-ray on admission:Pulmonary hypoinflation. Persistent prominence within the bilateral hilar regions, right greater than left, grossly unchanged relative to prior chest x-rays dating back to 2013 and suggestive of underlying pulmonary arterial hypertension. consider correlation with contrast-enhanced chest CT to evaluate for underlying mediastinal adenopathy or mass. EKG on admission: Sinus tachycardia, rate 102, multiple PACs, no ST-T wave abnormalities. QTC 485. Echocardiogram: February 2016, Technically difficult study. Left ventricular cavity size normal. Left ventricular wall thickness mildly increased. No obvious regional wall motion abnormalities. Left ventricular ejection fraction is estimated at > 55 %. Probable "pseudonormal" filling pattern of the left ventricle (stage 2 diastolic dysfunction). Normal right ventricular size and function. Mild right atrial dilatation. Mild to moderate left atrial dilatation. Eild-[id number] tricuspid regurgitation. Right ventricular systolic pressure estimated to be elevated at > 60 mmHg. The patient was admitted to telemetry floor with increased cough, increased shortness of breath, left-sided pleuritic pain, and worsening lower extremity edema. The patient has been undergoing treatment for a COPD exacerbation, possible bronchitis, and chronic diastolic CHF. Cardiology and pulmonology consult was obtained. On 4th day of hospitalization a rapid response was called as the patient was experiencing shallow breathing and was minimally responsive. Her vital signs were stable noting she was 95% on 45% BiPAP. Her blood pressure was 150/76 at the time. She had a chest x-ray one day prior that showed possible evolving pneumonia. An ABG was obtained that showed chronic hypercarbic hypoxemic respiratory failure. The patient's white blood cell count was elevated at 17,000 with 7 bands theat am. The patient was transferred to the critical care unit for closer monitoring. She is remains on BiPAP. She has been started on IV ceftazidime, IV vancomycin and switched back to IV Solu-Medrol. She was given additional Lasix. Chest x-ray showed persistent density within the left mid lung thought to reflect atelectasis. There is also a masslike prominence in the right hilar region unchanged since 2012 although adenopathy or mass could not be excluded. Marianna eid treated her for HCAP, she remains in ICU for 3 days, she transfered back to telemetry floor after she was completely stable, she remains on Bipap over night, she was switch to oral prednisone taper. Her hospitalization also complicated with Shingles over mandibular division of trigeminal nerve. She initially thought to have Impetigo treated with Mupirocin initially, ID service () saw the patient and the diagnosis of shingle was made she switched to Valacyclovir to continue 7 days total course. On discharge day she was stable, she remained on 3.5 NC, fascial rash was dry and crusted. She needs to continue prednisone taper, spirometry and Bipap overnight and f/u with her centerless grinding machine adjuster and ore miner blasting in 1 week after discharge. Complications: Non Allergies: Coded Allergies: codeine (Mild, SENSITIVITY - HEADACHE AND NAUSEA AND MISERABLE 03/01/16) Antihistamines - Alkylamine (DIZZY, HEADACHES, FEELS SICK 03/01/16) Antihistamines - Ethanolamine (DIZZINESS, HEADACHE, FEELS SICK 03/01/16) Antihistamines - Ethylenediamine (DIZZINESS, HEADACHE, FEELS SICK 03/01/16) Antihistamines - Piperazine (DIZZINESS, HEADACHE, FEELS SICK 03/01/16) Antihistamines - Piperidine (DIZZINESS HEADACHE FEELS SICK 03/01/16) Opioids - Morphine Analogues (N/V HEADACHE FEELS MISERABLE 03/01/16) Opioids-Meperidine and Related (N/V HEADACHE, FEELS MISERABLE 03/01/16) Opioids-Methadone and Related (HEADACHE, N/V, FEELS MISERABLE 03/01/16) Disposition Summary Disposition Principal Diagnosis: 1. COPD with respiratory insufficiency/hypoxia and possible pneumonia 2. Chronic diastolic congestive heart failure 3. Sleep apnea, not recently using CPAP 4. Hypertension/hyperlipidemia/diabetes mellitus 5. Chronic venous insufficiency/edema 6. History of urinary incontinence, declines increasing her Lasix. 7. Pulmonary HTN by Echo with normal EF 8. Mild aortic stenosis Additional Diagnosis: As above Discharge Disposition: SNF Discharge Instructions General Discharge Information Code Status: Full Code Patient's Diet: Heart healthy diet Patient's Activity: As tolerated Follow-Up Instructions/Appts: -F/U with your primary care physician -Follow up with your centerless grinding machine adjuster in 1 week after discharge -Follow up with your ore miner blasting in 1 week after discharge -Continue prednisone taper. -Continue valacyclovir for a total of 7 days. Medications at Discharge Discharge Medications: Continue taking these medications: Aspirin (Ecotrin) 81 MG TABLET. 1 Tablet ORAL DAILY Comments: Last Taken 10/31/13 AT 1000 Simvastatin (Zocor) 10 MG TABLET 1 Tablet ORAL DAILY Comments: Last Taken 10/30/13 AT 1800 Multivitamin2 (Multivitamin) 1 EACH TAB 1 Tablet ORAL DAILY Comments: Last Taken 10/31/13 AT 1000 Fish Oil (Virgie 3) 1,000 MG SGL 1 SGL ORAL DAILY Comments: Last Taken 10/31/13 AT 1000 DILTIAZEM HCL (Cartia Xt) 180 MG CAP.ER.24H 1 Tablet ORAL DAILY Comments: Last Taken 10/31/13 AT 1000 Furosemide (Lasix) 40 MG TAB 40 Milligram ORAL DAILY Qty = 30 Metformin HCl (Metformin HCl ER) 500 MG TAB.ER.24H 1 Tablet ORAL Every Day Qty = 180 Comments: INSULIN GIVEN IN HOSPITAL Potassium Chloride (Potassium Chloride) 10 MEQ TABLET.ER 1 Tablet ORAL DAILY Qty = 90 Comments: NOT GIVEN IN HOSPITAL Sertraline HCl (Sertraline HCl) 100 MG TABLET 0.5 Tablet ORAL DAILY Qty = 90 Comments: Last Taken: 03/10/16 Time: 9:30 AM Ibuprofen (Ibuprofen) 200 MG CAPSULE 4 Capsule ORAL as needed for PAIN Comments: NOT GIVEN IN HOSPITAL Hydralazine HCl (Hydralazine HCl) 25 MG TABLET 25 Milligram ORAL THREE TIMES DAILY Days = 28 Comments: Last Taken: 03/10/16 Time: 9 AM Ipratropium [place] (Atrovent Hfa) 17 MCG/ACTUATION HFA.AER.AD 2 Puff Inhale through mouth DAILY Days = 28 Albuterol Sulfate (Proair Hfa) 90 MCG HFA.AER.AD 2 Puff Inhale through mouth EVERY 4-6 HOURS NEEDED as needed for shortness of breath Qty = 1 Comments: NOT GIVEN Albuterol Sulfate (Albuterol Sulfate) 0.63 MG/3 ML VIAL.NEB 1 PUFF Inhale through mouth EVERY 4 HOURS NEEDED as needed for BREATHING Comments: Last Taken: 09/08/16 Time: 820 PM Quinapril HCl (Quinapril HCl) 40 MG TABLET 1 Tablet ORAL DAILY Qty = 90 Start taking the following new medications: Valacyclovir Hydrochloride (Valtrex) 500 MG TABLET 1,000 Milligram ORAL THREE TIMES DAILY Qty = 15 No Refills Prednisone (Prednisone) 10 MG TABLET 1 Tablet ORAL SEE INSTRUCTIONS Qty = 6 No Refills Instructions: Take 2 TABS FOR 2 DAYS THEN TAKE 1 TAB FOR 2 DAY AND THEN STOP Tiotropium [place] (Spiriva) 18 MCG CAP.W.DEV 1 Puff Inhale through mouth DAILY Days = 30 No Refills Guaifenesin (Guaifenesin ER) 600 MG TAB.ER.12H 600 Milligram ORAL EVERY 12 HOURS as needed for COUGH Days = 7 No Refills Copies To: TAVO SHORT,KIRILL; KARINA SHORT,BOO Perez; MICHELLE SHORT,KARLA
--- NOTE | 2016-09-09 12:16 | PN- Cardiology ---
Subjective Subjective: Feels well. Denies shortness of breath. Less discomfort from the zoster rash. Objective Vital Signs and I&Os Vital Signs Date Time Temp Pulse Resp B/P B/P Pulse O2 O2 Flow FiO2 Mean Ox Delivery Rate 09/09 1206 93 Nasal 3.5L Cannula 09/09 0923 Nasal 45% Cannula 09/09 0800 Nasal 3.5L Cannula 09/09 0755 97.1 84 22 104/60 96 BIPAP 09/09 0732 83 94 09/09 0613 81 93 09/09 0309 84 09/09 0107 80 96 09/09 0000 BIPAP 09/08 2312 98.0 85 22 118/62 94 Nasal Cannula 09/08 2311 95 95 09/08 2133 103 106/56 09/08 1649 82 114/62 09/08 1635 96 Nasal 4.0L Cannula 09/08 1625 98.3 79 22 114/62 93 Nasal 4.0L Cannula 09/08 1606 Nasal 45% Cannula 09/08 1600 97 Nasal 4.0L Cannula Intake & Output 09/09 1600 09/09 0800 09/09 0000 09/08 1600 09/08 0800 09/08 0000 Intake Total 520 640 200 500 Output Total 200 300 Balance 320 640 -100 500 Intake, Oral 520 640 200 500 Number 1 1 Bowel Movements Output, Urine 200 300 Patient 227 lb 227 lb Weight Weight Chair scale Measurement Method Physical Exam: General: no apparent distress. Alert. On nasal cannula oxygen. Eyes: No obvious scleral icterus. HEENT: No jugular venous distention or abnormal jugular venous pulsations. Cardiovascular: Normal intensity S1/S2. Regular. Respiratory: Decreased air entry without rales or rhonchi Abdomen: no guarding or rebound tenderness. Musculoskeletal: No clubbing or cyanosis noted, 1+ bilateral lower extremity edema Skin: Warm, facial lesions on the left Neurologic: No gross focal deficits noted. Current Medications: Current Medications Sig/Kacie Start time Last Medication Dose Route Stop Time Status Admin Acetaminophen 325 MG Q6P PRN 08/31 914 AC PO Acetaminophen 1,000 MG Q6P PRN 08/31 914 AC IV Acetazolamide 250 MG ONCE ONE 09/09 1000 DC 09/09 Sodium Chloride 50 ML IV 09/09 1029 1031 Albuterol Sulfate 3 ML EVERY 4 HRS/AWAKE 09/03 1600 AC 09/09 INH 1201 Artificial Tears 2 GTT 4 TIMES/DAY PRN 09/04 0800 AC 09/04 OPH 2241 Aspirin Buffered 81 MG DAILY 08/30 2052 AC 09/09 PO 1028 Atorvastatin Calcium 5 MG 1700 08/31 1700 AC 09/08 PO 1649 Diltiazem HCl 180 MG DAILY 08/31 1000 AC 09/09 PO 1121 Docusate Sodium 100 MG DAILY NEEDED PRN 09/06 1245 AC 09/07 PO 1039 Enoxaparin Sodium 40 MG DAILY 08/31 1000 AC 09/09 SC 1031 Furosemide 40 MG DAILY 08/31 1000 AC 09/08 PO 0914 Guaifenesin 600 MG Q12 08/31 1000 AC 09/09 PO 1029 Hydralazine HCl 50 MG TID 09/07 1600 AC 09/08 PO 2133 Ibuprofen 400 MG Q6P PRN 08/31 0915 AC 09/08 PO 0719 Insulin Aspart 0 TIDAC 08/31 0800 AC 09/09 SC 1156 Ipratropium [place] 2.5 ML EVERY 4 HRS/AWAKE 09/03 1600 AC 09/09 INH 1159 Lisinopril 40 MG DAILY 08/31 1000 AC 09/08 PO 0914 Neomycin/Polymyxin/ 1 WANDER BID 09/07 2200 DC 09/08 Bacitracin EXT 0915 Nystatin 5 ML 4 TIMES/DAY 09/06 1400 AC 09/09 PO 1030 Patient Medication 1 ED .STK-MED ONE 09/08 1437 [place] Teaching ED 09/08 1438 Polyethylene Glycol 17 GM DAILY 09/06 1244 AC 09/08 PO 0911 Potassium Chloride 20 MEQ DAILY 09/01 1000 AC 09/09 PO 1028 Prednisone 30 MG DAILY 09/09 1000 AC 09/09 PO 1121 Prednisone 40 MG DAILY 09/07 1000 DC 09/08 PO 0914 Senna/Docusate Sodium 1 TAB BID PRN 09/06 1245 AC 09/07 PO 1039 Tiotropium [place] 1 PUF DAILY 09/01 1000 AC 09/09 INH 1030 Valacyclovir HCl 1,000 MG TID 09/08 1750 AC 09/09 PO 1030 Results Last 48 Hrs of Labs/Mics: Laboratory Tests 09/08/16 0626: Anion Gap 6, Estimated GFR > 60, BUN/Creatinine Ratio 58.6 H, CBC w Diff NO MAN DIFF REQ, RBC 5.21, MCV 87.2, MCH 27.9, RDW 14.2, MPV 8.2, Gran % 88.3 H, Lymphocytes % 5.6 L, Monocytes % 5.6, Eosinophils % 0.4, Basophils % 0.1, Absolute Granulocytes 14.7 H, Absolute Lymphocytes 0.9 L, Absolute Monocytes 0.9 H, Absolute Eosinophils 0.1, Absolute Basophils 0, PUBS MCHC 32.0 L Recent Imaging Studies: Telemetry tracings were personally reviewed and shows sinus rhythm with a short SVT burst Chest CT: 1. Bilateral volume loss and consolidation in the lower lobes is seen with subjacent small pleural effusions. Findings may be related to atelectasis or pneumonia. 2. Patchy subtle groundglass opacities seen throughout the lungs bilaterally, raising the suspicion of pneumonitis. 3. Scattered areas of atelectasis in the lungs bilaterally. 4. Pulmonary arterial hypertension. Enlarged left heart. 5. Stable multinodular thyroid gland. 6. Stable nodular hypertrophy of the adrenal glands. Assessment/Plan Assessment/Plan 1. COPD with respiratory insufficiency/hypoxia and possible pneumonia 2. Chronic diastolic congestive heart failure 3. Sleep apnea, not recently using CPAP 4. Hypertension/hyperlipidemia/diabetes mellitus 5. Chronic venous insufficiency/edema 6. History of urinary incontinence, declines increasing her Lasix. 7. Pulmonary HTN by Echo with normal EF 8. Mild aortic stenosis Doing well. Currently denies any dyspnea. No longer on high flow O2. Blood pressure improved on the increased hydralazine. Continue oral Lasix. She should follow-up in my office within one week of discharge. Kalen Huffman MD [facility] Continue telemetry? No
--- NOTE | 2016-09-09 14:00 | PN- Infect Dx ---
Subjective Subjective: Afebrile. She notes decreased discomfort in the tongue and facial lesions, though she does note dryness. She reports no shortness of breath. Objective Last 24 Hrs of Vital Signs/I&O Vital Signs Date Time Temp Pulse Resp B/P B/P Pulse O2 O2 Flow FiO2 Mean Ox Delivery Rate 09/09 1206 93 Nasal 3.5L Cannula 09/09 1030 88 90/50 09/09 0923 Nasal 45% Cannula 09/09 0800 Nasal 3.5L Cannula 09/09 0755 97.1 84 22 104/60 96 BIPAP 09/09 0732 83 94 09/09 0613 81 93 09/09 0309 84 09/09 0107 80 96 09/09 0000 BIPAP 09/08 2312 98.0 85 22 118/62 94 Nasal Cannula 09/08 2311 95 95 09/08 2133 103 106/56 09/08 1649 82 114/62 09/08 1635 96 Nasal 4.0L Cannula 09/08 1625 98.3 79 22 114/62 93 Nasal 4.0L Cannula 09/08 1606 Nasal 45% Cannula 09/08 1600 97 Nasal 4.0L Cannula Intake & Output 09/09 1600 09/09 0800 09/09 0000 Intake Total 520 Output Total 200 Balance 320 Intake, Oral 520 Number 1 Bowel Movements Output, Urine 200 Patient 227 lb Weight Weight Chair scale Measurement Method Physical Exam Other Physical Findings: She appears comfortable in no acute distress Skin crusting of the left perioral lesions with decreased erythema of the left face HEENT resolving tongue lesions Lungs crackles at the right base Heart regular rhythm with no murmur Extremities chronic venous stasis changes with 1+ edema both lower extremities Results Last 24 Hours of Lab Results: No labs from today Last 24 Hours of [place] Results: No recent cultures Assessment/Plan Impression: Probable herpes zoster involving the mandibular division of the left trigeminal nerve, with improvement in her tongue and facial lesions on Valacyclovir now Day 1. Her respiratory status has improved with temperatures remaining normal on steroids, which are being tapered. Her white blood cell count yesterday was still elevated, likely secondary to the steroids. Suggestion: 1. Continue to taper steroids per Pulmonary 2. Continue Valacyclovir to complete a 7 day course of treatment
[2016-09-09] MEDS ORDERED: VALTREX500 M1 PO (14:47)
[2016-09-09] MEDS ORDERED: PREDNISONE10 M2 PO (14:49)
[2016-09-09 15:57] VITALS: BP 110/60
[2016-09-10 02:14] VITALS: BP 98/78
--- NOTE | 2016-09-10 06:41 | NUR ---
PT'S IV NOTED TO HAVE FALLEN OUT. THERE IS AN ORDER IN FOR ANTICIPATED DISCHARGE, AND PT IS NOT ON ANY IV MEDICATION. PER DR JESSICA WILKS, NO NEED TO PUT IN NEW IV AT THIS TIME PATIENT MAY DISCHARGE TODAY.
--- NOTE | 2016-09-10 07:52 | PN- Pulmonary ---
Subjective HPI/Critical Care Issues: Patient is awake alert and feels well. Discharged to short-term rehabilitation is pending Objective Current Medications: Current Medications Sig/Kacie Start time Last Medication Dose Route Stop Time Status Admin Acetaminophen 325 MG Q6P PRN 08/31 914 AC PO Acetaminophen 1,000 MG Q6P PRN 08/31 914 AC IV Acetazolamide 250 MG ONCE ONE 09/09 1000 DC 09/09 Sodium Chloride 50 ML IV 09/09 1029 1031 Albuterol Sulfate 3 ML EVERY 4 HRS/AWAKE 09/03 1600 AC 09/09 INH 2034 Artificial Tears 2 GTT 4 TIMES/DAY PRN 09/04 0800 AC 09/04 OPH 2241 Aspirin Buffered 81 MG DAILY 08/30 2052 AC 09/09 PO 1028 Atorvastatin Calcium 5 MG 1700 08/31 1700 AC 09/09 PO 1746 Diltiazem HCl 180 MG DAILY 08/31 1000 AC 09/09 PO 1121 Docusate Sodium 100 MG DAILY NEEDED PRN 09/06 1245 AC 09/07 PO 1039 Enoxaparin Sodium 40 MG DAILY 08/31 1000 AC 09/09 SC 1031 Furosemide 40 MG DAILY 08/31 1000 AC 09/09 PO 1406 Guaifenesin 600 MG Q12 08/31 1000 AC 09/09 PO 2146 Hydralazine HCl 50 MG TID 09/07 1600 AC 09/08 PO 2133 Ibuprofen 400 MG Q6P PRN 08/31 0915 AC 09/08 PO 0719 Insulin Aspart 0 TIDAC 08/31 0800 AC 09/09 SC 1656 Ipratropium [place] 2.5 ML EVERY 4 HRS/AWAKE 09/03 1600 AC 09/09 INH 2034 Lisinopril 40 MG DAILY 08/31 1000 AC 09/08 PO 0914 Nystatin 5 ML 4 TIMES/DAY 09/06 1400 AC 09/09 PO 2146 Polyethylene Glycol 17 GM DAILY 09/06 1244 AC 09/08 PO 0911 Potassium Chloride 20 MEQ DAILY 09/01 1000 AC 09/09 PO 1028 Prednisone 30 MG DAILY 09/09 1000 AC 09/09 PO 1121 Prednisone 40 MG DAILY 09/07 1000 DC 09/08 PO 0914 Senna/Docusate Sodium 1 TAB BID PRN 09/06 1245 AC 09/07 PO 1039 Tiotropium [place] 1 PUF DAILY 09/01 1000 AC 09/09 INH 1030 Valacyclovir HCl 1,000 MG TID 09/08 1750 AC 09/09 PO 2146 Vital Signs & I&O Last 24 Hrs of Vitals and I&O: Vital Signs Date Time Temp Pulse Resp B/P B/P Pulse O2 O2 Flow FiO2 Mean Ox Delivery Rate 09/10 0542 82 98 09/10 0214 99.1 94 20 98/78 95 Room Air 09/10 0037 81 97 09/10 0000 Nasal 3.0L Cannula 09/09 2310 95 09/09 2145 95 98/62 09/09 1700 84 100/48 09/09 1658 95 Nasal 3.5L Cannula 09/09 1600 94 Nasal 4.0L Cannula 09/09 1557 99.6 84 20 110/60 93 09/09 1406 84 106/60 09/09 1206 93 Nasal 3.5L Cannula 09/09 1030 88 90/50 09/09 0923 Nasal 45% Cannula 09/09 0800 Nasal 3.5L Cannula 09/09 0755 97.1 84 22 104/60 96 BIPAP Intake & Output 09/10 0800 09/10 0000 09/09 1600 Intake Total 240 600 635 Output Total 200 400 800 Balance 40 200 -165 Intake, IV 75 Intake, Oral 240 600 560 Number 1 Bowel Movements Output, Urine 200 400 800 Patient 223 lb 227 lb Weight Weight Chair scale Chair scale Measurement Method Oxygen saturation 3 L 98% exam for chest shows diminished breath sounds cardiac exam shows regular S1 and S2 without murmurs lower extremity ulcer is most part healed Impression/Plan Impression/Plan Impression/Plan: 76-year-old woman with COPD sleep apnea has improved hypercapnic respiratory failure. Blood pressure is being adjusted by cardiology. Bicarbonate has again increased to greater than 40 Recommendations: . Continue prednisone taper Taper FiO2. Complete course of antibiotics. Would evaluate for pulmonary rehabilitation at [place]. Bicarbonate is increasing with continue diuresis can give 1 dose of Diamox 250 mg IV. Maintain potassium within normal limitscarbonate is increasing with continue diuresis can give 1 dose of Diamox 250 mg IV. Maintain potassium within normal limits. Repeat Diamox 250 mg IV 1 dose.
[2016-09-10 08:17] VITALS: BP 110/62
--- NOTE | 2016-09-10 08:55 | PN- Housestaff ---
See Addendum Subjective Follow-up For: COPD exacerbation HCAP Shingles Complaints: no complaints Subjective: Patient seen and examind, sitting in the chiar comfortable with no distress, breathing improved, no cough. Fascial rash dry and crusted. Vitals stable Review of Systems Constitutional: Reports: no symptoms. EENTM: Reports: no symptoms. Cardiovascular: Reports: no symptoms. Respiratory: Reports: no symptoms. Gastrointestinal: Reports: no symptoms. Genitourinary: Reports: no symptoms. Musculoskeletal: Reports: no symptoms. Skin: Reports: no symptoms. Objective Last 24 Hrs of Vital Signs/I&O Vital Signs Date Time Temp Pulse Resp B/P B/P Pulse O2 O2 Flow FiO2 Mean Ox Delivery Rate 09/10 0817 98.2 73 20 110/62 97 Nasal 3.5L Cannula 09/10 0542 82 98 09/10 0214 99.1 94 20 98/78 95 Room Air 09/10 0037 81 97 09/10 0000 Nasal 3.0L Cannula 09/09 2310 95 09/09 2145 95 98/62 09/09 1700 84 100/48 09/09 1658 95 Nasal 3.5L Cannula 09/09 1600 94 Nasal 4.0L Cannula 09/09 1557 99.6 84 20 110/60 93 09/09 1406 84 106/60 09/09 1206 93 Nasal 3.5L Cannula 09/09 1030 88 90/50 09/09 0923 Nasal 45% Cannula Intake & Output 09/10 1600 09/10 0800 09/10 0000 Intake Total 240 600 Output Total 200 400 Balance 40 200 Intake, Oral 240 600 Output, Urine 200 400 Patient 223 lb Weight Weight Chair scale Measurement Method Physical Exam General Appearance: Alert, Cooperative, No Acute Distress Skin: Fascial rash dry and crusted HEENT: Atraumatic, PERRLA, EOMI, Mucous Membr. moist/pink Lymphatic: Axillary nl, Cervical nl Cardiovascular: Regular Rate, Normal S1, Normal S2 Lungs: Clear to Auscultation, Normal Air Movement Abdomen: Soft, No Tenderness Extremities: No Edema, Normal Pulses Vascular: Normal Pulses, Pulses Symmetrical Current Medications: Current Medications Sig/Kacie Start time Last Medication Dose Route Stop Time Status Admin Acetaminophen 325 MG Q6P PRN 08/31 914 AC PO Acetaminophen 1,000 MG Q6P PRN 04/10 0915 DC IV Acetazolamide 250 MG ONCE ONE 09/09 1000 DC 09/09 Sodium Chloride 50 ML IV 09/09 1029 1031 Albuterol Sulfate 3 ML EVERY 4 HRS/AWAKE 09/03 1600 AC 09/10 INH 0833 Artificial Tears 2 GTT 4 TIMES/DAY PRN 09/04 0800 AC 09/04 OPH 2241 Aspirin Buffered 81 MG DAILY 08/30 2052 AC 09/09 PO 1028 Atorvastatin Calcium 5 MG 1700 08/31 1700 AC 09/09 PO 1746 Diltiazem HCl 180 MG DAILY 08/31 1000 AC 09/09 PO 1121 Docusate Sodium 100 MG DAILY NEEDED PRN 09/06 1245 AC 09/07 PO 1039 Enoxaparin Sodium 40 MG DAILY 08/31 1000 AC 09/09 SC 1031 Furosemide 40 MG DAILY 08/31 1000 AC 09/09 PO 1406 Guaifenesin 600 MG Q12 08/31 1000 AC 09/09 PO 2146 Hydralazine HCl 50 MG TID 09/07 1600 AC 09/08 PO 2133 Ibuprofen 400 MG Q6P PRN 08/31 0915 AC 09/08 PO 0719 Insulin Aspart 0 TIDAC 08/31 0800 AC 09/09 SC 1656 Ipratropium [place] 2.5 ML EVERY 4 HRS/AWAKE 09/03 1600 AC 09/10 INH 0833 Lisinopril 40 MG DAILY 08/31 1000 AC 09/08 PO 0914 Nystatin 5 ML 4 TIMES/DAY 09/06 1400 AC 09/09 PO 2146 Polyethylene Glycol 17 GM DAILY 09/06 1244 AC 09/08 PO 0911 Potassium Chloride 20 MEQ DAILY 09/01 1000 AC 09/09 PO 1028 Prednisone 30 MG DAILY 09/09 1000 AC 09/09 PO 1121 Prednisone 40 MG DAILY 09/07 1000 DC 09/08 PO 0914 Senna/Docusate Sodium 1 TAB BID PRN 09/06 1245 AC 09/07 PO 1039 Tiotropium [place] 1 PUF DAILY 09/01 1000 AC 09/09 INH 1030 Valacyclovir HCl 1,000 MG TID 09/08 1750 AC 09/09 PO 2146 Assessment/Plan Assessment: 76 yo female with obesity, COPD not on home oxygen, HTN, HFrEF (EF>55%), BRENNON non compliant with CPAP, chronic hypercapneic respiratory failure/obesity hypoventilation, T2DM, chronic LE edema, presentd with 1-day h/o worsening DIOR, cough, left sided pleuritic chest pain, worsening LE edema with weight gain. #. Acute on chronic hypercarbic and hypoxemic respiratory failure:2/2 HCAP, COPD exacerbation and BRENNON not complaint with CPAP. Off antibiotic, Respiratory status improved, vitals stable #. COPD exacerbation due to bronchitis:On oral prednisone taper . Continue TRC nebs, mucinex. Continue INH spiriva. Sputum culture cancelled, blood culture shows no growth. #Shingles on mandibular nerve dermatomes: Will continue Valacyclovir for a totoal of 7 days, we sent Tzanck test and HSV pcr, will f/u #. chronic HFpEF: EF > 55% with stage 2 diastolic dysfunction. she is on po lasix 40 daily. Continue strict I/O's, daily weights. c/w lisinopril 40mg daily. #. Wound consult: Wound Care consult is appreciated. Continue Right lower extremity non adherent dressing with xeroform. Continue leg elevation. #. BRENNON non compliant to CPAP/obesity hypoventilation: Her home mask is broken. She needs a proper fitting face mask for the Bipap on discharge. Conitnue biPAP in the hospital. DVT ppx Lovenox. Full code. Problem List: 1. COPD exacerbation 2. Shingles Pain Ratin Pain Location: - Pain Goal: Remain pain free Pain Plan: - Tomorrow's Labs & Rationales: - DVT/Prophylaxis: pharmacological
[2016-09-10 09:51] VITALS: BP 94/50
== END 2016-09-10 15:51 | DRG 190 ==
LOC: CANRESERV → ENRESERVTM → ENRESERVDT → ERH 15:27 → 1NO 18:40 → CRI 18:40 → ERHI 18:40 → EDBEDREQ 20:44 → 1NO 22:07 → CRI 09-03 13:49 → 1NO 09-05 17:41 → ENPENDDIS 09-10 14:22 → 1NO 09-10 15:51
PROVIDERS: Internal Medicine; Physician Assistant; Student in an Organized Health Care Education/Training Program; ADMIT Student in an Organized Health Care Education/Training Program
PROC: 5A09357 Assistance with Respiratory Ventilation, Less than 24 Consecutive Hours, Continuous Positive Airway Pressure (ICD-10-PCS; principal; 2016-08-30)
DX: J44.1 Chronic obstructive pulmonary disease with (acute) exacerbation (principal); J96.21 Acute and chronic respiratory failure with hypoxia; I11.0 Hypertensive heart disease with heart failure; J18.9 Pneumonia, unspecified organism; I27.2 Other secondary pulmonary hypertension; L97.919 Non-pressure chronic ulcer of unspecified part of right lower leg with unspecified severity; B02.8 Zoster with other complications; I50.32 Chronic diastolic (congestive) heart failure; E66.2 Morbid (severe) obesity with alveolar hypoventilation; J96.22 Acute and chronic respiratory failure with hypercapnia; I35.0 Nonrheumatic aortic (valve) stenosis; E11.9 Type 2 diabetes mellitus without complications; J44.0 Chronic obstructive pulmonary disease with (acute) lower respiratory infection; J20.9 Acute bronchitis, unspecified; I87.2 Venous insufficiency (chronic) (peripheral); Z68.37 Body mass index [BMI] 37.0-37.9, adult; Z79.84 Long term (current) use of oral hypoglycemic drugs; E78.5 Hyperlipidemia, unspecified; F32.9 Major depressive disorder, single episode, unspecified
CPT/HCPCS: 1NP; 1NSP; CCU; 36415; 81001; 82436; 87040; 87070; 87086; 87804; 87804-59; 93005; 93010; 93306; 93970; 96374; 96375; 97110-GO; 97116-GO; 97161-GP; 97530-GO; J0131; J0456; J0713; J1120; J1650; J1940; J2920; J2930; J3370; J3490; J7040; J7512

== ENCOUNTER 2016-10-26 23:00 | Inpatient (IN) | payer OTHER, MEDICARE ==
[~2016-10-26] VITALS: Ht 167.6 cm; Wt 107.0 kg
[~2016-10-26 23:00] MED LIST changes: +ALBUTEROL0.63 MG/1 INH; +AZITHROMYCIN250 M1 PO; +GUAIFENESIN ER600 MG PO; +PREDNISONE20 M1 PO; +QUINAPRIL HCL40 M1 PO; +SPIRIVA18 MCG INH; +VALTREX500 M1 PO
--- NOTE | 2016-10-26 23:55 | NUR ---
PER EMS BACK SPASMS X 2 WEEKS ALSO COPD PMD AWARE PT ON BASELINE O2 AT 2LITERS NC. PT CO OF DIFF BREATHING WITH SPASMS.
--- NOTE | 2016-10-27 00:07 | NUR ---
TO ROOM 6, PT REPORTS HERE BECAUSE O2 IS LOW, PT TO BE ON 2 LITERS BUT SAT WAS 88-89% PT ALSO CO OF BACK SPASMS INCREASED EDEMA AND REPORTS THAT DR GONZALES IS SETTING HER UP TO GO TO THE [facility]F [facility]
--- NOTE | 2016-10-27 00:10 | ED DYSPNEA/ASTHMA COMPLAINT ---
History of Present Illness General Chief Complaint: Dyspnea (COPD, CHF, Other) Stated Complaint: BACK SPASAMS, SOB Source: patient, family, old records Exam Limitations: no limitations Vital Signs & Intake/Output Vital Signs & Intake/Output Vital Signs Date Time Temp Pulse Resp B/P B/P Pulse O2 O2 Flow FiO2 Mean Ox Delivery Rate 10/27 0409 65 18 140/82 96 Nasal 4.0L Cannula 10/27 0400 94 Nasal 4.0L Cannula 10/27 0332 97.8 74 22 140/70 96 Nasal 4.0L Cannula 10/27 0122 96.9 71 20 136/65 96 Nasal 4.0L Cannula 10/27 0018 97.7 88 22 148/65 94 Nasal 4.0L Cannula Allergies Coded Allergies: codeine (Mild, SENSITIVITY - HEADACHE AND NAUSEA AND MISERABLE 03/01/16) Antihistamines - Alkylamine (DIZZY, HEADACHES, FEELS SICK 03/01/16) Antihistamines - Ethanolamine (DIZZINESS, HEADACHE, FEELS SICK 03/01/16) Antihistamines - Ethylenediamine (DIZZINESS, HEADACHE, FEELS SICK 03/01/16) Antihistamines - Piperazine (DIZZINESS, HEADACHE, FEELS SICK 03/01/16) Antihistamines - Piperidine (DIZZINESS HEADACHE FEELS SICK 03/01/16) Opioids - Morphine Analogues (N/V HEADACHE FEELS MISERABLE 03/01/16) Opioids-Meperidine and Related (N/V HEADACHE, FEELS MISERABLE 03/01/16) Opioids-Methadone and Related (HEADACHE, N/V, FEELS MISERABLE 03/01/16) Reconcile Medications Albuterol Sulfate 0.63 MG/3 ML VIAL.NEB 1 PUFF INH Q4 HRS NEEDED PRN BREATHING (Reported) Albuterol Sulfate (Proair Hfa) 90 MCG HFA.AER.AD 2 PUF INH Q4-6 PRN PRN shortness of breath Aspirin (Ecotrin*) 81 MG TABLET.DR 1 TAB PO DAILY CAD (Reported) Diltiazem HCl (Diltiazem 24HR ER) 180 MG CAP.ER.24H 1 CAP PO DAILY IRREGULAR HEART RATE (Reported) Furosemide 40 MG TABLET 1 TAB PO DAILY CHF (Reported) Guaifenesin (Guaifenesin ER) 600 MG TAB.ER.12H 600 MG PO Q12 PRN COUGH Hydralazine HCl 25 MG TABLET 25 MG PO TID HTN Ibuprofen 200 MG CAPSULE 4 CAP PO PRN PAIN (Reported) Ipratropium [place] (Atrovent Hfa) 17 MCG/ACTUATION HFA.AER.AD 2 PUF INH DAILY COPD Metformin HCl (Metformin HCl ER) 500 MG TAB.ER.24H 1 TAB PO D DIABETES ( Reported) Multivitamin (Daily Multiple Vitamin) 1 EACH TABLET 1 TAB PO DAILY SUPPLEMENT (Reported) [place]-3/Dha/Epa/Fish Oil (Fish Oil 1,000 MG Softgel) 1,000 MG (120 MG-180 MG) CAPSULE 1 TAB PO DAILY CAD (Reported) Potassium Chloride 10 MEQ TABLET.ER 1 TAB PO DAILY SUPPLEMENT (Reported) Quinapril HCl 40 MG TABLET 1 TAB PO DAILY HTN (Reported) Sertraline HCl 100 MG TABLET 0.5 TAB PO DAILY MENTAL HEALTH (Reported) Simvastatin (Simvastatin*) 10 MG TABLET 1 TAB PO QPM CHOLESTEROL (Reported) Tiotropium [place] (Spiriva) 18 MCG CAP.W.DEV 1 PUF INH DAILY COPD Triage Note: PER EMS BACK SPASMS X 2 WEEKS ALSO COPD PMD AWARE PT ON BASELINE O2 AT 2LITERS NC. PT CO OF DIFF BREATHING WITH SPASMS. Triage Nurses Notes Reviewed? yes HPI: Patient presents with 2 complaints. First complaint is his back spasms that have been occurring over the past 2 weeks. The pain is episodic. The patient goes across her mid back. There is no radiation outside of her mid back. There are no aggravating or mitigating factors. The symptoms last a few minutes and go away. There is no weakness. No loss of sensation. There is no incontinence of bowel or bladder. Patient doesn't complaint is increasing dyspnea on exertion. Patient usually is only on nocturnal oxygen however her oxygen level was 85% on room air earlier so she's had to go on oxygen. Patient has had increasing shortness of breath and dyspnea on exertion. This evening she was laying down and then felt that she could not breathe. This prompted her to come in for evaluation. Patient denies any chest pain or palpitations. Past History Travel History Traveled to [place] past 21 day No Medical History Any Pertinent Medical History? see below for history Neurological: NONE EENT: NONE Cardiovascular: hypertension Respiratory: bronchitis, COPD, pneumonia Gastrointestinal: NONE Hepatic: NONE Renal: NONE Musculoskeletal: NONE Psychiatric: NONE Endocrine: diabetes Blood Disorders: NONE Cancer(s): NONE [employer]/Reproductive: NONE History of MRSA: Yes History of VRE: No History of CDIFF: No Influenza Vaccine: 02/21/11 Surgical History Surgical History: cholecystectomy, hysterectomy, knee replacement (bilateral), status post polypectomy Psychosocial History Who do you live with Spouse Services at Home None What is your primary language [place] Tobacco Use: Quit >30 days ago ETOH Use: denies use Illicit Drug Use: denies illicit drug use Family History Hx Contributory? No Review of Systems Review of Systems Constitutional: Reports: no symptoms. EENTM: Reports: no symptoms. Respiratory: Reports: see HPI, orthopnea, short of breath. Cardiovascular: Reports: no symptoms. GI: Reports: no symptoms. Genitourinary: Reports: no symptoms. Musculoskeletal: Reports: see HPI, back pain. Skin: Reports: no symptoms. Neurological/Psychological: Reports: no symptoms. Hematologic/Endocrine: Reports: no symptoms. Immunologic/Allergic: Reports: no symptoms. All Other Systems: Reviewed and Negative Physical Exam Physical Exam General Appearance: well developed/nourished, alert, awake, anxious, mild distress Head: atraumatic, normal appearance Eyes: Bilateral: PERRL, EOMI. Ears, Nose, Throat: normal pharynx, normal ENT inspection Neck: normal inspection, supple, full range of motion Respiratory: chest non-tender, no respiratory distress, rales Cardiovascular: regular rate/rhythm, normal peripheral pulses Gastrointestinal: normal bowel sounds, soft, non-tender Extremities: normal inspection, normal capillary refill, normal range of motion, pedal edema Neurologic/Psych: no motor/sensory deficits, awake, alert, oriented x 3, normal mood/affect Skin: intact, normal color, warm/dry Lymphatic: no anterior cervical maira Core Measures ACS in differential dx? Yes Severe Sepsis Present: No Septic Shock Present: No Progress Differential Diagnosis: AMI, bronchitis, CHF, COPD, pulmonary embolism, pneumonia, pneumothorax Plan of Care: Orders Procedure Date/time Status EKG 10/28 UNK Active Consistent Carbohydrate 3 10/27 B Active TROPONIN LEVEL 10/27 599 Active CBC WITHOUT DIFFERENTIAL 10/27 599 Active BASIC ELECTROLYTES PLUS BUN&CR 10/27 599 Active EKG 10/27 599 Active Wound Care/Dressing 10/27 424 Active Turn and Reposition 10/27 422 Active Skin Integrity Protocol 10/27 422 Active Skin/Pressure Ulcer Assess (Sk 10/27 042 Active NUTRITIONAL CONSULT 10/27 422 Active Teach/Educate 10/28 411 Active Pain Treatment and Response 10/28 411 Active Nutritional Intake, Monitor 10/28 411 Active Isolation 10/28 411 Active Patient Care Conference 10/28 411 Active Activity/Ambulation 10/27 041 Active Pathway - chart 10/27 025 Active Pathway - chart 10/27 023 Active House Staff 10/27 023 Active Code Status 10/27 0233 Active EKG 10/27 0211 Active Patient Data 10/27 0210 Active Intake & Output 10/27 0149 Active Admit to inpatient 10/27 0139 Active Telemetry/Medical Oncologist 10/27 000 Active TROPONIN LEVEL 10/27 000 Complete COMPREHENSIVE METABOLIC PANEL 10/27 000 Complete CBC WITHOUT DIFFERENTIAL 10/27 8 Complete B-TYPE NATRIURETIC PEP (BNP) 10/27 000 Complete TRC EVALUATION (GEN) 10/27 UNK Active CHF Core Measures 10/27 UNK Active Weight 10/27 UNK Active Vital Signs 10/27 UNK Active Precautions 10/27 UNK Active Intake & Output 10/27 UNK Complete Heat/Cold Therapy 10/27 UNK Active FingerStick- Glucose 10/27 UNK Active CASE MANAGEMENT CONSULT 10/27 UNK Active EKG 10/26 2301 Active Current Medications Sig/Kacie Start time Last Medication Dose Stop Time Status Admin Atorvastatin Calcium 10 MG AT BEDTIME 10/27 2200 AC (Lipitor) Aspirin Buffered 81 MG DAILY 10/27 1000 AC (Ecotrin) Diltiazem HCl 180 MG DAILY 10/27 1000 AC (Cardizem CD) Fish Oil 1,050 MG DAILY 10/27 1000 AC ([place]-3) Furosemide 40 MG DAILY 10/27 1000 AC (Lasix) Lidocaine 1 PAT DAILY 10/27 1000 AC (Lidoderm) Multivitamins 1 TAB DAILY 10/27 1000 AC Therapeutic (Theragran-M Vitamins Tabs) Potassium Chloride 10 MEQ DAILY 10/27 1000 AC (K-Dur) Sertraline HCl 50 MG DAILY 10/27 1000 AC (Zoloft) Tiotropium [place] 1 PUF DAILY 10/27 1000 AC (Spiriva) Heparin Sodium 5,000 UNIT Q8 10/27 0600 AC (Porcine) Acetaminophen 1,000 MG Q6P PRN 10/27 0300 AC (Ofirmev) Guaifenesin 600 MG Q12P PRN 10/27 0300 AC (Mucinex) Ibuprofen 600 MG Q6P PRN 10/27 0300 AC 10/27 (Motrin) 0400 Insulin Aspart 0 TIDAC 10/27 030 AC (NovoLOG) Senna 374 MG AT BEDTIME NEED.. 10/27 0230 AC (Senokot) Laboratory Tests 10/27/16 0020: Anion Gap 7, Estimated GFR > 60, BUN/Creatinine Ratio 35.6 H, Glucose 114 H, Calcium 9.0, Total Bilirubin 0.3, AST 13 L, ALT 32, Alkaline Phosphatase 74, Troponin I < 0.01, Kht-P-Urzwievptpl Pept 587 H, Total Protein 6.0 L, Albumin 3.2 L, Globulin 2.8, Albumin/Globulin Ratio 1.1, CBC w Diff NO MAN DIFF REQ, RBC 3.72 L, MCV 87.7, MCH 28.7, RDW 18.2 H, MPV 7.7, Gran % 79.6 H, Lymphocytes % 9.4 L, Monocytes % 6.5, Eosinophils % 4.2, Basophils % 0.3, Absolute Granulocytes 9.0 H, Absolute Lymphocytes 1.1 L, Absolute Monocytes 0.7 H, Absolute Eosinophils 0.5, Absolute Basophils 0, PUBS MCHC 32.8 L Diagnostic Imaging: Viewed by Me: Radiology Read. Discussed w/RAD: Radiology Read. CXR Impression: PATIENT: KATLYN LUGO PRESENT AGE: 76 PATIENT ACCOUNT NO: [id number] : 40 LOCATION: [facility] ORDERING PHYSICIAN: SADA HIGGINS MD SERVICE DATE: 10/27/16 EXAM TYPE: RAD - XRY- PORTABLE CHEST XRAY EXAMINATION: XR PORTABLE CHEST CLINICAL INFORMATION: Shortness of breath. Orthopnea. COMPARISON: 09/05/2016 TECHNIQUE: Portable frontal view of the chest was obtained. FINDINGS: The lungs are well expanded. Prominent interstitial markings are seen bilaterally. Central vascular prominence remains. No pleural effusion. No pneumothorax. No dense consolidation. The cardiomediastinal silhouette remains prominent with a calcified aorta. IMPRESSION: Central vascular prominence with mild interstitial prominence suggestive of mild fluid overload. DICTATED BY: ARGENIS SHORT,DANIELA DATE/TIME DICTATED:10/27/1652 POLICE DETENTION ATTENDANT:MISHA DATE/TIME TRANSCRIBED:10/27/1652 CONFIDENTIAL, DO NOT COPY WITHOUT APPROPRIATE AUTHORIZATION. <Electronically signed in Other Vendor System> SIGNED BY: ARGENIS SHORT,DANIELA 10/27/1656 Initial ED EKG: NSR, nonspecific ST T wave chg Prior EKG: unchanged Departure Departure Disposition: STILL A PATIENT Condition: Stable Clinical Impression Primary Impression: Pulmonary edema Qualifiers: Chronicity: acute Qualified Code: J81.0 - Acute pulmonary edema Referrals: Justin SHIN MD (PCP/Family) Departure Forms: Customer Survey General Discharge Information Admission Note Spoke With: RADHA CHATTERJEE MD Documentation of Exam: Documentation of any treatments & extenuating circumstances including Concerns Regarding Discharge (functional status, medication knowledge or non-compliance, living conditions, etc.) that warrant an admission rather than observation: [IV DIURESIS, TELE MONITORING, CARDIOLOGY CONSULTATION, O2] Critical Care Note Critical Care Note Critical Care Time: mins: (45 MIN)
--- NOTE | 2016-10-27 00:40 | NUR ---
LABS DRAWN AND SENT, PT TALKATIVE WITH NO SOB NOTED,
[2016-10-27 00:48] LABS: ABSOLUTE BASOPHIL COUNT 0 /CUMM (0.0-0.2); ABSOLUTE EOSINOPHIL COUNT 0.5 /CUMM (0.0-0.7); ABSOLUTE LYMPH COUNT 1.1 /CUMM (1.2-3.4); ABSOLUTE MONOCYTE COUNT 0.7 /CUMM (0.10-0.60); BASOPHIL % 0.3 % (0.0-2.0); EOSINOPHIL % 4.2 % (0-5); GRANULOCYTE % 79.6 % (42.2-75.2); HEMATOCRIT 32.6 % (37-47); MEAN CORPUSCULAR HGB 28.7 PG (27.0-31.0); MEAN CORPUSCULAR HGB CONC 32.8 G/DL (33.0-37.0); MEAN CORPUSCULAR VOLUME 87.7 FL (81.0-99.0); MEAN PLATELET VOLUME 7.7 FL (7.4-10.4); PLATELET COUNT 313 /CUMM (130-400); RBC DISTRIBUTION WIDTH 18.2 % (11.5-14.5); RED BLOOD CELL CT 3.72 /CUMM (4.20-5.40); WHITE BLOOD CELL COUNT 11.3 /CUMM (4.8-10.8)
--- NOTE | 2016-10-27 00:57 | RADIOLOGY REPORT ---
EXAMINATION: XR PORTABLE CHEST CLINICAL INFORMATION: Shortness of breath. Orthopnea. COMPARISON: 09/05/2016 TECHNIQUE: Portable frontal view of the chest was obtained. FINDINGS: The lungs are well expanded. Prominent interstitial markings are seen bilaterally. Central vascular prominence remains. No pleural effusion. No pneumothorax. No dense consolidation. The cardiomediastinal silhouette remains prominent with a calcified aorta. IMPRESSION: Central vascular prominence with mild interstitial prominence suggestive of mild fluid overload.
--- NOTE | 2016-10-27 01:49 | NUR ---
HOUSESTAFF AT BEDSIDE. WELL RESIDENTS.
--- NOTE | 2016-10-27 02:42 | NUR ---
[facility] ASSIGNMENT [phone]
[2016-10-27] MEDS ORDERED: FUROSEMIDE40 M1 PO (02:44)
[2016-10-27] MEDS ORDERED: ASPIRIN EC81 M1 PO (02:44)
[2016-10-27] MEDS ORDERED: DILTIAZEM 24HR180 MG PO (02:45)
[2016-10-27] MEDS ORDERED: FISH OIL 1,001000 MG PO (02:46)
[2016-10-27] MEDS ORDERED: SIMVASTATIN10 M1 PO (02:47)
[2016-10-27] MEDS ORDERED: DAILY MULTIPLE1 EACH PO (02:48)
--- NOTE | 2016-10-27 03:14 | History & Physical ---
SHRUTHI SHORT,AMINA 10/27/16 0307: General Information and HPI MD Statement: I have seen and personally examined KATLYN LUGO and documented this H&P. The patient is a 76 year old F who presented with a patient stated chief complaint of [sob]. Source of Information: patient, old records Exam Limitations: no limitations History of Present Illness: This is a 76-year-old female with past medical history significant for hypertension, morbid obesity COPD, diabetes, diastolic heart failure, BRENNON non- compliant with CPAP, hyperlipidemia, depression, osteoarthritis, back pain, chronic lower extremity edema who comes in for chief complaint of worsening dyspnea and shortness of breath. Patient states that normally she is off oxygen, but today her VNA suggested, based on saturations, to go back on the O2. Earlier this morning she was satting around 90 RA, subsequently as the day progressed, on 2 L nasal cannula she started saturating around 88%. In addition, patient states that she's gained about 9 pounds over the past week. She also endorses worsening lower extremity edema and swelling. She had appt with Dr. Garcia today who wrapped her legs and suggested she follow-up with a CHF clinic. She has been taking 40mg Lasix daily but states that her urine output has decreased recently. Denies any headache, nausea, vomiting, diarrhea, chest pain. No recent illness, sick contacts, recent travel, worsening cough or sputum. She does endorse weight gain, SOB, DIOR, post-herpetic neuralgia in her l.side of face and back pain. Back pain started 2-3 weeks ago. She describes the pain as a squeezing spasm in the middle of her back, it hampers her breathing. She states pain feels musculoskeletal in etiology. She does have a history of herniated disc with "ablations" but this pain feels different from prior. She states pain is better with ibuprofen and cold packs. The pain started about a week after she suffered a slip. Patient states she did not fall but rather she slid down to the floor. Was not able to get back up. Subsequently, she spent the night sleeping on the floor and was able to get up the next day with assistance. Immediately after that episode, patient had no pain. But a week later she states the spasms started. Note the patient had admission in [facility], and was treated for COPD/ CHF. During that admission she required ICU level care, put on BiPAP, and was treated for shingles. She was discharged to [facility] [place] for rehabilitation. Patient states that she was while she was [place] some kind of sleep test was performed, and that she no longer needed CPAP. Allergies/Medications Allergies: Coded Allergies: codeine (Mild, SENSITIVITY - HEADACHE AND NAUSEA AND MISERABLE 03/01/16) Antihistamines - Alkylamine (DIZZY, HEADACHES, FEELS SICK 03/01/16) Antihistamines - Ethanolamine (DIZZINESS, HEADACHE, FEELS SICK 03/01/16) Antihistamines - Ethylenediamine (DIZZINESS, HEADACHE, FEELS SICK 03/01/16) Antihistamines - Piperazine (DIZZINESS, HEADACHE, FEELS SICK 03/01/16) Antihistamines - Piperidine (DIZZINESS HEADACHE FEELS SICK 03/01/16) Opioids - Morphine Analogues (N/V HEADACHE FEELS MISERABLE 03/01/16) Opioids-Meperidine and Related (N/V HEADACHE, FEELS MISERABLE 03/01/16) Opioids-Methadone and Related (HEADACHE, N/V, FEELS MISERABLE 03/01/16) Home Med list Albuterol Sulfate 0.63 MG/3 ML VIAL.NEB 1 PUFF INH Q4 HRS NEEDED PRN BREATHING (Reported) Albuterol Sulfate (Proair Hfa) 90 MCG HFA.AER.AD 2 PUF INH Q4-6 PRN PRN shortness of breath Aspirin (Ecotrin*) 81 MG TABLET.DR 1 TAB PO DAILY CAD (Reported) Cyclobenzaprine HCl 5 MG TABLET 1 TAB PO BID PRN muscle spasm . Diltiazem HCl (Diltiazem 24HR ER) 180 MG CAP.ER.24H 1 CAP PO DAILY IRREGULAR HEART RATE (Reported) Furosemide (Lasix) 20 MG TABLET 3 TAB PO DAILY CHF . Gabapentin 300 MG CAPSULE 1 CAP PO TID Neuropathy (Reported) Guaifenesin (Guaifenesin ER) 600 MG TAB.ER.12H 600 MG PO Q12 PRN COUGH Ibuprofen 200 MG CAPSULE 4 CAP PO PRN PAIN (Reported) Ipratropium [place] (Atrovent Hfa) 17 MCG/ACTUATION HFA.AER.AD 2 PUF INH DAILY COPD Lisinopril 20 MG TABLET 1 TAB PO DAILY BLOOD PRESSURE . Multivitamin (Daily Multiple Vitamin) 1 EACH TABLET 1 TAB PO DAILY SUPPLEMENT (Reported) [place]-3/Dha/Epa/Fish Oil (Fish Oil 1,000 MG Softgel) 1,000 MG (120 MG-180 MG) CAPSULE 1 TAB PO DAILY CAD (Reported) Potassium Chloride 10 MEQ TABLET.ER 1 TAB PO DAILY SUPPLEMENT (Reported) Sertraline HCl 100 MG TABLET 0.5 TAB PO DAILY MENTAL HEALTH (Reported) Simvastatin (Simvastatin*) 10 MG TABLET 1 TAB PO QPM CHOLESTEROL (Reported) Tiotropium [place] (Spiriva) 18 MCG CAP.W.DEV 1 PUF INH DAILY COPD Past History Travel History Traveled to [place] past 21 day No Medical History Neurological: NONE EENT: NONE Cardiovascular: hypertension Respiratory: bronchitis, COPD, pneumonia, CHF, COPD Gastrointestinal: NONE Hepatic: NONE Renal: NONE Musculoskeletal: NONE Psychiatric: NONE Endocrine: diabetes Blood Disorders: NONE Cancer(s): NONE NUTRITION INSTRUCTOR/Reproductive: NONE History of MRSA: Yes History of VRE: No History of CDIFF: No Influenza Vaccine: 02/21/11 Surgical History Surgical History: cholecystectomy, hysterectomy, knee replacement (bilateral), status post polypectomy Past Family/Social History Psychosocial History Who Do You Live With? spouse Services at Home: None Primary Language: Polish Functional Ability ADLs Independent: dressing, eating, toileting, bathing. Ambulation: independent IADLs Independent: shopping, housework, finances, food prep, telephone, transportation , medication admin. Review of Systems Review of Systems Constitutional: Reports: see HPI. Exam & Diagnostic Data Last 24 Hrs of Vital Signs/I&O Vital Signs Date Time Temp Pulse Resp B/P B/P Pulse O2 O2 Flow FiO2 Mean Ox Delivery Rate 10/27 0122 96.9 71 20 136/65 96 Nasal 4.0L Cannula 10/27 0018 97.7 88 22 148/65 94 Nasal 4.0L Cannula Intake & Output 10/27 0800 06/06 0000 10/26 1600 Intake Total Output Total 1650 Balance -1650 Output, Urine 1650 Patient 111.584 kg Weight Physical Exam General Appearance Alert, Oriented X3, Cooperative, No Acute Distress Skin No Significant Lesion HEENT Atraumatic, PERRLA, EOMI, Mucous Membr. moist/pink Neck Supple, hypersensitivity reaction to her jewelry apparent on neck Cardiovascular irregularly irregular Lungs crackels present bilat. Some mild wheeze. Abdomen Soft, No Tenderness Neurological Normal Speech, Cranial Nerves 3-12 NL Extremities 3+bilat LE edema. Both legs wrapped in zach bandage up to knees Last 24 Hrs of Labs/Bernard: Laboratory Tests 10/27/16 0020: Anion Gap 7, Estimated GFR > 60, BUN/Creatinine Ratio 35.6 H, Glucose 114 H, Calcium 9.0, Total Bilirubin 0.3, AST 13 L, ALT 32, Alkaline Phosphatase 74, Troponin I < 0.01, Qht-N-Eelxhdgxfzw Pept 587 H, Total Protein 6.0 L, Albumin 3.2 L, Globulin 2.8, Albumin/Globulin Ratio 1.1, CBC w Diff NO MAN DIFF REQ, RBC 3.72 L, MCV 87.7, MCH 28.7, RDW 18.2 H, MPV 7.7, Gran % 79.6 H, Lymphocytes % 9.4 L, Monocytes % 6.5, Eosinophils % 4.2, Basophils % 0.3, Absolute Granulocytes 9.0 H, Absolute Lymphocytes 1.1 L, Absolute Monocytes 0.7 H, Absolute Eosinophils 0.5, Absolute Basophils 0, PUBS MCHC 32.8 L Assessment/Plan Assessment: This is a 76 yo female with PMH of hypertension, morbid obesity COPD, diabetes, diastolic heart failure, BRENNON non-compliant with CPAP, hyperlipidemia, depression , osteoarthritis, back pain, chronic lower extremity edema who comes in for chief complaint of worsening dyspnea and shortness of breath. Given worsening LE edema, cxr with evidence of fluid overload and worsening SOB, we will admit pt to telemetry for management of heart failure. In ED pt was iven 40 mg IV Lasix Work up in ED shows: Vitals: 97.7, 88, 22, 140/65, 94 CBC: White count 11.3, hemoglobin 10.7, hematocrit 32.6, platelet 313 BEP: BUN 32, creatinine 0.9. CXR IMPRESSION: Central vascular prominence with mild interstitial prominence suggestive of mild fluid overload. 08/2016 Echocardiogram: EF estimated at 55% with no obvious regional wall motion abnormality, mild right ventricular dilatation, mild right atrial dilatation, right ventricular systolic pressure elevated greater than 50 mmHg PFT in December 2010: Probable mild obstructive lung disease with a reversible component and exercise induced desaturation EKG: Rate 74, QTc 457, normal sinus PLAN Heart failure: Pt has hx HF with EF 50. She has had decreasing urine output, increasing LE edema, SOB and cxr with vascular congestion. Likely this is CHF exacerbation. * Potassium chloride 10 mEq by mouth daily * Lasix 40 mg by mouth ON HOLD will start IV Lasix 40mg daily in hospital and titrate down * CHF diet * Reconcile meds shows Lisinopril 20 mg but pt is unsure if she is taking med...call pharmacy to verify COPD: Chronic and stable * Albuterol * Spiriva * NEBS in hospital CAD: Chronic and stable * Simvastatin 10 mg daily * Baby aspirin * Fish oil * Cardizem 180 mg by mouth daily-Unsure why pt is on this medication. She states for irregualr heart rate. Denies hx of a.fib. ?? Depression: Chronic and stable * Sertraline 50 mg by mouth daily HTN: Chronic and stable * Hydralazine 25 mg by mouth 3 times a day Diabetes: Chronic and stable * HOLD Metformin 500 mg by mouth daily * RISS * FS FULL CODE CHEMICAL DVT PPX CHF DIET As Ranked By This Provider Problem List: 1. Pulmonary edema Qualifiers Chronicity: acute Qualified Code: J81.0 - Acute pulmonary edema 2. Depression 3. CHF (congestive heart failure) Core Measures/Miscellaneous Acute Coronary Syndrome ACS Diagnosis: No Cerebrovascular Accident CVA/TIA Diagnosis: No Congestive Heart Failure CHF Diagnosis: Yes Date of most recent Echo: 08/25/16 Last Known EF %: 50 Venous Thromboembolism VTE Risk Factors: Acute medical illness, Age > 40 [facility] prophylaxis d/t: No contraindications No VTE Pharm Prophylaxis d/t: No contraindications VTE Diagnosis: No VTE Type: NONE VTE Confirmed by (Test): NONE Severe Sepsis Severe Sepsis Present: No Septic Shock Septic Shock Present: No Miscellaneous Documentation Attending Case Discussed With: RADHA CHATTERJEE MD Primary Care Physician: Justin SHIN MD Patient sees these Specialists Dr. Huffman Level of Patient Care: Telemetry BETH SHORT,[facility] 10/27/16 0541: Resident Review Statement Resident Statement: examined this patient, discussed with internet sales director, agreed with internet sales director, reviewed EMR data (avail) Other Findings: 76-year-old female with past medical h/o of COPD with recurrent bronchitis, pneumonia, chronic diastolic congestive heart failure,, pulmonary HTN, hypertension, type 2 diabetes, BRENNON not compliant with CPAP as patient stated that she recently had a sleep study and was told she does not have BRENNON, chronic hypercapnic respiratory failure,history of MRSA infection, depression,obesity and osteoarthritis. Vitals in emergency department patient afebrile, no tachypnea, no tachycardia, systolic blood pressure 148/65 and oxygen saturation of 94% on 4 L of nasal cannula On examination patient, alert and oriented to time person place and mild distress lying on the bed. Irregular rhythm, S1 and S2 audible without any murmurs, bilateral crackles at the lung bases, benign abdominal examination, grossly intact neurological examination. To 3+ bilateral lower extremity edema both legs By bandage. Current labs include leukocytosis white count of 11.3, hemoglobin and hematocrit 10.7 and 32.6, normal MCV, platelet count of 313, no significant electrolyte abnormality other than carbon dioxide 35 which is chronic, proBNP 587 and troponin less than 0.01 Chest x-ray showed, Central vascular prominence with mild interstitial prominence suggestive of mild fluid overload. Recent echocardiogram on 2016 showed ejection fraction of 55%. Right ventricular systolic pressure estimated to be elevated at > 50 mmHg. pulmonary function tests in 2010 showed Probable mild obstructive lung disease with a reversible component and exercise induced desaturation. Patient received IV Lasix 40 mg in emergency department Patient is admitted on telemetry floor for the management of following problems Acute on chronic congestive heart failure -Most likely acute CHF exacerbation vs rule out WI vs non compliance with medications - Patient was started on Quinapril 40 mg on discharge during her last admission in August 2016 but patient is unsure whether she is taking that medication or not and she recently filled a prescription of lisinopril 20 mg but that was also not included in her patient medication list. -No acute EKG ST changes and negative troponin. - Hemodynamically stable, 2-3+ve B/L Lowr extremity edema - CXR shows signs of fluid overload. - Admit to telemetry - Vitals q Shift - Monitor I/O - Daily weight - Cardio consult - Last Echo was done in 2016 and showed ejection fraction of 55% with right ventricle systolic pressure estimated to be greater than 50 - Consider restarting Lisinopril 20mg - Give Furosemide 40mg IV BID - Continue Cardizem 180 PO Daily - Lipid panel was checked recently - Continue ASA 81 mg Po daily. History of diabetes mellitus on metformin Continue Accu-Cheks Hold metformin Patient is on low-dose insulin sliding scale Patient is full code Patient is on pain management Patient is on heparin for DVT prophylaxis Patient is on diabetic diet SHENA SHORT, [facility] 10/27/16 0618: Attending MD Review Statement Attending Statement Attending MD Statement: examined this patient, discuss w/resident/PA/GROUNDSKEEPING MAINTENANCE, agreed w/resident/PA/GROUNDSKEEPING MAINTENANCE Attending Assessment/Plan: 76 yo morbidly obese F with h/o COPD (on PRN oxygen), HTN, chronic HFpEF, BRENNON non compliant with CPAP, chronic hypercapneic respiratory failure/obesity hypoventilation, T2DM, MRSA, chronic LE edema, was recently admitted to [place] (August 2016) for COPDE/ pneumonia requiring Bipap use course c/b 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 She noted 9 lb weight gain over past 1 week with worsening LE edema. She saw Dr. Roland and was advised to follow up with the CHF/wellness clinic for IV lasix. C/o dyspnea and chronic orthopnea. Compliant with lasix but reports reduced urinary output. Her visiting nurse noted she was hypoxic to low 90's and placed her on O2 supplementation. Of note, she reports low back spams that is ongoing for 2 weeks after she sustained a fall (slid down to the floor). She has been treating it with cold packs and Ibuprofen with some relief. Vitals stable except for sats 94% on 4L. Exam: JVD+, Chest bibasilar crackles+, few nohemi wheeze+, B/l 3+ pitting edema, wrapped. Labs: WBC 11.3, bicarb 35, BUN 32, trop neg, proBNP 587. CXR: Central vascular prominence with mild interstitial prominence suggestive of mild fluid overload. EKG: SR, no acute changes. Echo (August 2016): EF 55%, pulmonary hypertension. 1. Acute on chronic hypoxic respiratory failure 2/2 acute on chronic HfpEF. No pneumonia or COPDE. Tele admit, TRC nebs, daily weights, strict I/Os, IV lasix 40 mg daily. Rule out ACS, Cardio consult. Pulm consult (Dr. Roland). Case management consult for referral to CHF Wellness clinic. She does not use CPAP machine as she reports having a sleep study while at [place] and was told she does not need to use it anymore. Please confirm this with Dr. Roland. 2. Low back pain seems muscular. Obtain lumbar spine xray to rule out acute abnormalities. Pain management with lidoderm patch and NSAIDs. Add valium low dose or flexeril for muscle spasms. DVT ppx Hep SC. Full code.
--- NOTE | 2016-10-27 03:32 | NUR ---
REPORT TO JAYDA THAYER
[2016-10-27 04:09] VITALS: BP 140/82
--- NOTE | 2016-10-27 05:35 | Admission Certification ---
Admission Certification Certification Statement - As attending physician, I certify that at the time of - admission, based on clinical presentation, severity of - symptoms, need for further diagnostic testing and - therapeutic interventions, and risk of adverse outcomes - without in-hospital treatment, in my clinical assessment, - this patient requires an acute hospital stay for a minimum - of two nights or longer. I have also considered psychsocial - factors such as support system, advanced age, financial - issues, cognitive issues, and failed out-patient treatments, - past re-admission history, safety of patient, and lack of - compliance as applicable. Specific rationale supporting this admission is: Acute on chronic hypoxic respiratory failure, acute on chronic HFrEF.
[2016-10-27 07:49] LABS: ABSOLUTE BASOPHIL COUNT 0 /CUMM (0.0-0.2); ABSOLUTE EOSINOPHIL COUNT 0.5 /CUMM (0.0-0.7); ABSOLUTE GRANULOCYTE CT 8.4 /CUMM (1.4-6.5); ABSOLUTE LYMPH COUNT 0.9 /CUMM (1.2-3.4); ABSOLUTE MONOCYTE COUNT 0.7 /CUMM (0.10-0.60); BASOPHIL % 0.4 % (0.0-2.0); EOSINOPHIL % 5.1 % (0-5); GRANULOCYTE % 79.8 % (42.2-75.2); HEMATOCRIT 31.1 % (37-47); MEAN CORPUSCULAR HGB 29.1 PG (27.0-31.0); MEAN CORPUSCULAR VOLUME 88.1 FL (81.0-99.0); MEAN PLATELET VOLUME 8.1 FL (7.4-10.4); PLATELET COUNT 280 /CUMM (130-400); RBC DISTRIBUTION WIDTH 18.8 % (11.5-14.5); RED BLOOD CELL CT 3.53 /CUMM (4.20-5.40); WHITE BLOOD CELL COUNT 10.5 /CUMM (4.8-10.8)
[2016-10-27 08:00] VITALS: BP 136/80
--- NOTE | 2016-10-27 08:11 | PN- Wound Care ---
Subjective Subjective: Patient is 76-year-old with congestive heart failure, venous insufficiency who is seen in the wound center yesterday and found to have a 9 pound weight gain. Her commercial review appraiser was contacted and arrangements were to have been made for intravenous Lasix in the CHF clinic. She had no open wounds but significant edema and she was placed in an Unna boot compression. Last night she had increasing shortness of breath and chest x-ray showed evidence of mild congestive heart failure. She subsequently diuresed approximately 3 L. She was recently discharged from [place] where patient reported having had a sleep study which did not document sleep apnea Objective Vital Signs and I&Os Vital Signs Result Date Time Pulse Ox 96 10/27 408 B/P 140/82 10/27 0409 O2 Delivery Nasal Cannula 10/27 408 O2 Flow Rate 4.0L 10/27 408 Pulse 65 10/27 0409 Resp 18 10/27 0409 Temp 97.8 10/27 0332 Since saturation 4 L 96% exam for chest shows diminished breath sounds are no wheezes cardiac exam shows regular S1 and S2 there is marked decrease in edema status post diuresis and bedrest Impression/Plan Impression/Plan Impression/Plan: 76-year-old woman with preserved ejection fraction congestive heart failure and lower extremity edema admitted with increased shortness of breath and recurrent congestive heart failure. Her lower extremity edema is markedly removed and Unna boots can be removed as she is now at bedrest. Patient's reluctance with Lasix and CHF clinic is related to urinary incontinence. Suggest consider urology evaluation as this may improve compliance. Continue negative fluid balance. Leg elevation and Unna boots can be removed.
--- NOTE | 2016-10-27 11:01 | Cons- Cardiology ---
General Information and HPI Consulting Request Date of Consult: 10/27/16 Requested By: SHENA SHORT,RADHA Reason for Consult: Congestive heart failure Source of Information: patient, old records Exam Limitations: no limitations History of Present Illness: This is a 76-year-old female with a past medical history of COPD, chronic diastolic congestive heart failure, sleep apnea, diabetes, hypertension, hyperlipidemia, venous insufficiency, pulmonary HTN, and urinary incontinence. She presented to [facility] with a chief complaint increasing shortness of breath, weight gain, edema, and hypoxia 2 saturation of 88% at home. She has noted increasing shortness of breath for the past few weeks. When she noticed hypoxia she became increasingly concerned and presented to the emergency room for evaluation. She does have a long history of noncompliance with her Lasix due to urinary incontinence but states that she has been compliant with it recently. She denies chest pain. There is no fever or chills. She has chronic edema and sees Dr. Sarkar for wound care Patient was recently admitted in August and treated for pneumonia and acute on chronic diastolic heart failure. Allergies/Medications Allergies: Coded Allergies: codeine (Mild, SENSITIVITY - HEADACHE AND NAUSEA AND MISERABLE 03/01/16) Antihistamines - Alkylamine (DIZZY, HEADACHES, FEELS SICK 03/01/16) Antihistamines - Ethanolamine (DIZZINESS, HEADACHE, FEELS SICK 03/01/16) Antihistamines - Ethylenediamine (DIZZINESS, HEADACHE, FEELS SICK 03/01/16) Antihistamines - Piperazine (DIZZINESS, HEADACHE, FEELS SICK 03/01/16) Antihistamines - Piperidine (DIZZINESS HEADACHE FEELS SICK 03/01/16) Opioids - Morphine Analogues (N/V HEADACHE FEELS MISERABLE 03/01/16) Opioids-Meperidine and Related (N/V HEADACHE, FEELS MISERABLE 03/01/16) Opioids-Methadone and Related (HEADACHE, N/V, FEELS MISERABLE 03/01/16) Home Med List: Albuterol Sulfate 0.63 MG/3 ML VIAL.NEB 1 PUFF INH Q4 HRS NEEDED PRN BREATHING (Reported) Albuterol Sulfate (Proair Hfa) 90 MCG HFA.AER.AD 2 PUF INH Q4-6 PRN PRN shortness of breath Aspirin (Ecotrin*) 81 MG TABLET.DR 1 TAB PO DAILY CAD (Reported) Diltiazem HCl (Diltiazem 24HR ER) 180 MG CAP.ER.24H 1 CAP PO DAILY IRREGULAR HEART RATE (Reported) Furosemide 40 MG TABLET 1 TAB PO DAILY CHF (Reported) Guaifenesin (Guaifenesin ER) 600 MG TAB.ER.12H 600 MG PO Q12 PRN COUGH Hydralazine HCl 25 MG TABLET 25 MG PO TID HTN Ibuprofen 200 MG CAPSULE 4 CAP PO PRN PAIN (Reported) Ipratropium [place] (Atrovent Hfa) 17 MCG/ACTUATION HFA.AER.AD 2 PUF INH DAILY COPD Metformin HCl (Metformin HCl ER) 500 MG TAB.ER.24H 1 TAB PO D DIABETES ( Reported) Multivitamin (Daily Multiple Vitamin) 1 EACH TABLET 1 TAB PO DAILY SUPPLEMENT (Reported) [place]-3/Dha/Epa/Fish Oil (Fish Oil 1,000 MG Softgel) 1,000 MG (120 MG-180 MG) CAPSULE 1 TAB PO DAILY CAD (Reported) Potassium Chloride 10 MEQ TABLET.ER 1 TAB PO DAILY SUPPLEMENT (Reported) Quinapril HCl 40 MG TABLET 1 TAB PO DAILY HTN (Reported) Sertraline HCl 100 MG TABLET 0.5 TAB PO DAILY MENTAL HEALTH (Reported) Simvastatin (Simvastatin*) 10 MG TABLET 1 TAB PO QPM CHOLESTEROL (Reported) Tiotropium [place] (Spiriva) 18 MCG CAP.W.DEV 1 PUF INH DAILY COPD Current Medications: Current Medications Sig/Kacie Start time Last Medication Dose Route Stop Time Status Admin Acetaminophen 1,000 MG Q6P PRN 10/27 0300 AC 10/27 IV 0748 Aspirin Buffered 81 MG DAILY 10/27 1000 AC 10/27 PO 1019 Atorvastatin Calcium 10 MG AT BEDTIME 10/27 2200 AC PO Cyclobenzaprine HCl 5 MG BID 10/27 1000 AC 10/27 PO 1019 Diltiazem HCl 180 MG DAILY 10/27 1000 AC 10/27 PO 1019 Fish Oil 1,050 MG DAILY 10/27 1000 AC 10/27 PO 1018 Furosemide 40 MG DAILY 10/27 1000 AC 10/27 IV 1019 Furosemide 0 .STK-MED ONE 10/27 0110 DC IV Furosemide 40 MG ONCE ONE 10/27 0015 DC 10/27 IV 10/27 0016 0106 Guaifenesin 600 MG Q12P PRN 10/27 0300 AC PO Heparin Sodium 5,000 UNIT Q8 10/27 0600 AC 10/27 (Porcine) SC 0612 Ibuprofen 600 MG Q6P PRN 10/27 0300 AC 10/27 PO 0400 Insulin Aspart 0 TIDAC 10/27 0300 AC SC Lidocaine 1 PAT DAILY 10/27 1000 AC 10/27 EXT 1020 Lisinopril 20 MG DAILY 10/27 1000 AC 10/27 PO 1018 Multivitamins 1 TAB DAILY 10/27 1000 AC 10/27 Therapeutic PO 1018 Potassium Chloride 10 MEQ DAILY 10/27 1000 AC 10/27 PO 1019 Potassium Chloride 40 MEQ ONCE ONE 10/27 0945 DC 10/27 PO 10/27 0946 1019 Senna 374 MG AT BEDTIME NEED.. 10/27 0230 AC PO Sertraline HCl 50 MG DAILY 10/27 1000 AC 10/27 PO 1018 Tiotropium [place] 1 PUF DAILY 10/27 1000 AC 10/27 INH 1020 Review of Systems Review of Systems: Eyes no blurred or double vision Ears no deafness or ringing Nose and throat no recurrent sinusitis Lungs per history of present illness Heart per history of present illness Abdomen no nausea vomiting Musculoskeletal occasional muscle and joint pains Psych no anxiety or depression Neuro without recurrent headache or seizures Endocrine no heat or cold intolerance Past History Travel History Traveled to [place] past 21 day No Medical History Neurological: NONE EENT: NONE Cardiovascular: hypertension Respiratory: bronchitis, COPD, pneumonia, CHF, COPD Gastrointestinal: NONE Hepatic: NONE Renal: NONE Musculoskeletal: NONE Psychiatric: NONE Endocrine: diabetes Blood Disorders: NONE Cancer(s): NONE SURVEY WORKER/Reproductive: NONE Surgical History Surgical History: cholecystectomy, hysterectomy, knee replacement (bilateral), status post polypectomy Psychosocial History Where Do You Live? Home Who Do You Live With? spouse Services at Home: None Primary Language: American Smoking Status: Former Smoker ETOH Use: denies use Illicit Drug Use: denies illicit drug use Functional Ability ADLs Independent: dressing, eating, toileting, bathing. Ambulation: independent IADLs Independent: shopping, housework, finances, food prep, telephone, transportation , medication admin. Exam & Diagnostic Data Vital Signs and I&O Vital Signs Date Time Temp Pulse Resp B/P B/P Pulse O2 O2 Flow FiO2 Mean Ox Delivery Rate 10/27 1018 98 136/80 10/27 0902 Nasal 3.0L Cannula 10/27 0800 93 Nasal 3.0L Cannula 10/27 0800 98.6 95 20 136/80 93 Nasal 4.0L Cannula 10/27 0409 65 18 140/82 96 Nasal 4.0L Cannula 10/27 0400 94 Nasal 4.0L Cannula 10/27 0332 97.8 74 22 140/70 96 Nasal 4.0L Cannula 10/27 0122 96.9 71 20 136/65 96 Nasal 4.0L Cannula 10/27 0018 97.7 88 22 148/65 94 Nasal 4.0L Cannula Intake & Output 10/27 1600 10/27 0800 10/27 0000 10/26 1600 10/26 0800 10/26 0000 Intake Total 100 Output Total 2250 Balance -2150 Intake, Oral 100 Output, Urine 2250 Patient 238 lb Weight Weight Chair scale Measurement Method Physical Exam: Patient is a well-developed well-nourished female appearing in no acute distress HEENT is unremarkable Neck is supple there is no JVD Lungs bibasilar rales Heart regular rhythm S1 and S2 are normal no murmurs gallops or rubs Abdomen bowel sounds positive Extremities 3+ edema with erythema bilaterally Labs/Bernard Results: Laboratory Tests 10/27 10/27 0605 0020 Chemistry Sodium (137 - 145 mmol/L) 143 144 Potassium (3.5 - 5.1 mmol/L) 3.4 L 3.9 Chloride (98 - 107 mmol/L) 98 101 Carbon Dioxide (22 - 30 mmol/L) 37 H 35 H Anion Gap (5 - 16) 8 7 BUN (7 - 17 mg/dL) 27 H 32 H Creatinine (0.5 - 1.0 mg/dL) 0.8 0.9 Estimated GFR (>60 ml/min) > 60 > 60 BUN/Creatinine Ratio (7 - 25 %) 33.8 H 35.6 H Glucose (65 - 99 mg/dL) 114 H Calcium (8.4 - 10.2 mg/dL) 9.0 Total Bilirubin (0.2 - 1.3 mg/dL) 0.3 AST (14 - 36 U/L) 13 L ALT (9 - 52 U/L) 32 Alkaline Phosphatase (<127 U/L) 74 Troponin I (< 0.11 ng/ml) < 0.01 < 0.01 Smg-V-[id number] Pept (<125 pg/mL) 587 H Total Protein (6.3 - 8.2 g/dL) 6.0 L Albumin (3.5 - 5.0 g/dL) 3.2 L Globulin (1.9 - 4.2 gm/dL) 2.8 Albumin/Globulin Ratio (1.1 - 2.2 %) 1.1 Hematology CBC w Diff NO MAN DIFF REQ NO MAN DIFF REQ WBC (4.8 - 10.8 /CUMM) 10.5 11.3 H RBC (4.20 - 5.40 /CUMM) 3.53 L 3.72 L Hgb (12.0 - 16.0 G/DL) 10.3 L 10.7 L Hct (37 - 47 %) 31.1 L 32.6 L MCV (81.0 - 99.0 FL) 88.1 87.7 MCH (27.0 - 31.0 PG) 29.1 28.7 RDW (11.5 - 14.5 %) 18.8 H 18.2 H Plt Count (130 - 400 /CUMM) 280 313 MPV (7.4 - 10.4 FL) 8.1 7.7 Gran % (42.2 - 75.2 %) 79.8 H 79.6 H Lymphocytes % (20.5 - 51.1 %) 8.3 L 9.4 L Monocytes % (1.7 - 9.3 %) 6.4 6.5 Eosinophils % (0 - 5 %) 5.1 H 4.2 Basophils % (0.0 - 2.0 %) 0.4 0.3 Absolute Granulocytes (1.4 - 6.5 /CUMM) 8.4 H 9.0 H Absolute Lymphocytes (1.2 - 3.4 /CUMM) 0.9 L 1.1 L Absolute Monocytes (0.10 - 0.60 /CUMM) 0.7 H 0.7 H Absolute Eosinophils (0.0 - 0.7 /CUMM) 0.5 0.5 Absolute Basophils (0.0 - 0.2 /CUMM) 0 0 PUBS MCHC (33.0 - 37.0 G/DL) 33.0 32.8 L Diagnostic Data CXR Results IMPRESSION: Central vascular prominence with mild interstitial prominence suggestive of mild fluid overload. Assessment/Plan Assessment/Plan 1. Acute on chronic diastolic heart failure with volume overload EF 55% BNP 587 2. COPD by history 3. Sleep apnea by history 4. Hypertension stable on medications 5. Chronic venous insufficiency followed by Dr. Sarkar 6. History of urinary incontinence 7. Pulmonary hypertension by echocardiogram Recommendations 1. Continue to diurese monitoring renal function closely. 2. Elevate legs when seated 3. Continue to monitor on telemetry 4. Continue lisinopril and diltiazem. Due to COPD would not use beta blockers Thank you for allowing [facility] to participate in the care of your patient. Consult Acknowledgment - Thank you for your consult request.
--- NOTE | 2016-10-27 11:43 | RADIOLOGY REPORT ---
EXAMINATION: XR LUMBOSACRAL SPINE CLINICAL INFORMATION: Back pain. Evaluate for acute pathology. COMPARISON: 06/09/2011 TECHNIQUE: Lumbosacral spine, 3 views FINDINGS: Chronic, moderate to severe multilevel facet osteoarthritis and disc degenerative change of the lumbar spine. Degenerative disc disease of L2-L3 has progressed compared to 06/09/2016 and there is increased dextroscoliosis of the visualized lower thoracic and lumbar spine compared to 06/09/2011, with apex of curvature at the L2 level. Spinous processes are hypertrophied and abutting, which may predispose to Ba[place]rup disease. There are no acute fractures within the chronically degenerated spine. The lateral radiograph shows chronic, mild retrolisthesis at L2-L3 and L3-L4 and chronic, mild anterolisthesis at L4-L5 and L5-S1. No acute vertebral compression fracture or spondylolysis. Osteoarthritis of the sacroiliac joints. Surgical clips are present in the right upper quadrant of the abdomen. IMPRESSION: 1. No acute fractures within the chronically degenerated lumbar spine. 2. Multilevel degenerative disc disease and facet osteoarthritis. Degenerative disc disease of L2-L3 has progressed compared to 06/09/2011. Lumbar dextroscoliosis is worse compared to 06/09/2011. 3. Chronic, mild malalignment of the lumbar vertebra with retrolisthesis observed at L2-L3 and L3-L4 and anterolisthesis at L4-L5 and L5-S1.
--- NOTE | 2016-10-27 15:18 | PN- Att Addend ---
Attending Addendum Attending Brief Note Patient seen and examined. Sitting down comfortably and not in any acute distress. She reports feeling better after diuresis starting in the ER yesterday. There were no issues overnight and no events on telemetry monitoring. She reports compliance with her diuretic therapy at home. Vital Signs Date Time Temp Pulse Resp B/P B/P Pulse O2 O2 Flow FiO2 Mean Ox Delivery Rate 10/27 1258 94 Nasal 3.0L Cannula 10/27 1018 98 136/80 10/27 0902 Nasal 3.0L Cannula 10/27 0800 93 Nasal 3.0L Cannula 10/27 0800 98.6 95 20 136/80 93 Nasal 4.0L Cannula 10/27 0409 65 18 140/82 96 Nasal 4.0L Cannula 10/27 0400 94 Nasal 4.0L Cannula 10/27 0332 97.8 74 22 140/70 96 Nasal 4.0L Cannula 10/27 0122 96.9 71 20 136/65 96 Nasal 4.0L Cannula 10/27 0018 97.7 88 22 148/65 94 Nasal 4.0L Cannula Gen. appearance: Not in acute distress Heart: S1-S2 regular. Lungs: Fair entry bilaterally with mild bibasilar rales. Abdomen: Soft, nontender with normal bowel sounds Extremities: 2-3+ pedal edema bilaterally. Laboratory Tests 10/27/16 0605: Anion Gap 8, Estimated GFR > 60, BUN/Creatinine Ratio 33.8 H, Troponin I < 0.01 , CBC w Diff NO MAN DIFF REQ, RBC 3.53 L, MCV 88.1, MCH 29.1, RDW 18.8 H, MPV 8.1, Gran % 79.8 H, Lymphocytes % 8.3 L, Monocytes % 6.4, Eosinophils % 5.1 H , Basophils % 0.4, Absolute Granulocytes 8.4 H, Absolute Lymphocytes 0.9 L, Absolute Monocytes 0.7 H, Absolute Eosinophils 0.5, Absolute Basophils 0, PUBS MCHC 33.0 10/27/16 0020: Anion Gap 7, Estimated GFR > 60, BUN/Creatinine Ratio 35.6 H, Glucose 114 H, Calcium 9.0, Total Bilirubin 0.3, AST 13 L, ALT 32, Alkaline Phosphatase 74, Troponin I < 0.01, Tuo-T-Vmozspbzuht Pept 587 H, Total Protein 6.0 L, Albumin 3.2 L, Globulin 2.8, Albumin/Globulin Ratio 1.1, CBC w Diff NO MAN DIFF REQ, RBC 3.72 L, MCV 87.7, MCH 28.7, RDW 18.2 H, MPV 7.7, Gran % 79.6 H, Lymphocytes % 9.4 L, Monocytes % 6.5, Eosinophils % 4.2, Basophils % 0.3, Absolute Granulocytes 9.0 H, Absolute Lymphocytes 1.1 L, Absolute Monocytes 0.7 H, Absolute Eosinophils 0.5, Absolute Basophils 0, PUBS MCHC 32.8 L Problems: 1. Acute on chronic diastolic heart failure 2. COPD/obstructive sleep apnea 3. Hypertension 4. Bilateral lower extremity swelling secondary to Chronic venous insufficiency. 5. Pulmonary hypertension 6. Diabetes mellitus 7. Low back pain. Plan: -Continue diuresis with Lasix 40 mg IV daily. Monitor input output closely as well as daily weight. -Upon discharge will follow-up with cardiology service with regards to increasing her home Lasix dose. -Continue antihypertensive regimen with lisinopril and diltiazem. -Telemetry monitoring as recommended by the cardiology service. -Leg elevation while at rest. Mobilize patient. -Continue to hold her oral diabetic regimen. Monitor blood glucose levels with insulin sliding scale coverage. -Imaging shows no evidence of acute fracture. He does show evidence of extensive degenerative joint disease that is worsening. She reports feeling better with Lidoderm patch and Flexeril.
[2016-10-27 15:30] VITALS: BP 132/74
[2016-10-27] MEDS ORDERED: GABAPENTIN300 M2 PO (15:30)
[2016-10-27 23:53] VITALS: BP 144/80
[2016-10-28 07:44] LABS: ABSOLUTE BASOPHIL COUNT 0 /CUMM (0.0-0.2); ABSOLUTE EOSINOPHIL COUNT 0.5 /CUMM (0.0-0.7); ABSOLUTE GRANULOCYTE CT 7.3 /CUMM (1.4-6.5); ABSOLUTE LYMPH COUNT 0.9 /CUMM (1.2-3.4); ABSOLUTE MONOCYTE COUNT 0.7 /CUMM (0.10-0.60); BASOPHIL % 0.4 % (0.0-2.0); EOSINOPHIL % 5.6 % (0-5); HEMATOCRIT 33.1 % (37-47); MEAN CORPUSCULAR HGB 28.8 PG (27.0-31.0); MEAN CORPUSCULAR HGB CONC 32.5 G/DL (33.0-37.0); MEAN CORPUSCULAR VOLUME 88.7 FL (81.0-99.0); MEAN PLATELET VOLUME 8.2 FL (7.4-10.4); PLATELET COUNT 283 /CUMM (130-400); RBC DISTRIBUTION WIDTH 18.9 % (11.5-14.5); RED BLOOD CELL CT 3.74 /CUMM (4.20-5.40); WHITE BLOOD CELL COUNT 9.5 /CUMM (4.8-10.8)
[2016-10-28 08:05] VITALS: BP 146/80
--- NOTE | 2016-10-28 08:16 | PN- Wound Care ---
Subjective Subjective: Patient feels improved after significant diuresis lower extremity edema has resolved lower extremity ulcers are healed Objective Vital Signs and I&Os Vital Signs Result Date Time Pulse Ox 92 10/28 804 B/P 146/80 10/28 804 O2 Delivery Nasal Cannula 10/28 804 O2 Flow Rate 3.0L 10/28 804 Temp 99.0 10/28 804 Pulse 80 10/28 08 Resp 18 10/28 804 Intake & Output 10/28 0000 10/27 1600 10/27 0800 Intake Total 440 320 100 Output Total 500 1500 2250 Balance -60 -1180 -2150 Intake, Oral 440 320 100 Number 1 Bowel Movements Output, Urine 500 1500 2250 Patient 238 lb Weight Weight Chair scale Measurement Method Lower extremity edema has resolved with diuresis and leg elevation there are no open wounds. Note her bicarbonate has increased to 39. Impression/Plan Impression/Plan Impression/Plan: 76-year-old woman with preserved ejection fraction congestive heart failure and lower extremity edema admitted with increased shortness of breath and recurrent congestive heart failure. Her lower extremity edema is markedly removed and Unna boots can be removed as she is now at bedrest. Patient's reluctance with Lasix and CHF clinic is related to urinary incontinence. Suggest consider urology evaluation as this may improve compliance. Continue negative fluid balance. Leg elevation and Unna boots can be removed. Edema and lower extremity ulcers have improved. Maintain normal potassium and consider when necessary Diamox with worsening contraction alkalosis
--- NOTE | 2016-10-28 08:58 | PN- Housestaff ---
Subjective Follow-up For: Acute on chronic diastolic congestive heart failure Back pain Complaints: no complaints Tele-Events Since Last Visit: Sinus rhythm occasional PVCs Subjective: Patient feels much better today. She did not have any overnight complaints. She feels that she has urinated a lot with IV Lasix. Review of Systems Constitutional: Denies: chills, fever. EENTM: Denies: visual changes. Cardiovascular: Denies: chest pain, palpitations. Respiratory: Denies: cough, short of breath. Gastrointestinal: Denies: abdominal pain, nausea, vomiting. Genitourinary: Denies: dysuria. Musculoskeletal: Denies: joint pain. Objective Last 24 Hrs of Vital Signs/I&O Vital Signs Date Time Temp Pulse Resp B/P B/P Pulse O2 O2 Flow FiO2 Mean Ox Delivery Rate 10/28 0955 80 146/80 10/28 0805 99.0 80 18 146/80 92 Nasal 3.0L Cannula 10/28 0800 92 Nasal 3.0L Cannula 10/28 0000 Nasal 3.0L Cannula 10/27 2353 98.3 70 16 144/80 92 Nasal 3.0L Cannula 10/27 2118 94 Nasal 3.0L Cannula 10/27 1600 95 Nasal 3.0L Cannula 10/27 1530 98.3 69 16 132/74 93 Nasal 3.0L Cannula Intake & Output 10/28 1600 10/28 0800 10/28 0000 Intake Total 240 440 Output Total 600 250 500 Balance -360 -250 -60 Intake, Oral 240 440 Output, Urine 600 250 500 Patient 236 lb 236 lb Weight Weight Chair scale Measurement Method Physical Exam General Appearance: Alert, Oriented X3, Cooperative, No Acute Distress HEENT: Atraumatic Neck: No JVD Cardiovascular: Regular Rate, Normal S1, Normal S2 Lungs: Clear to Auscultation, decreased entry at the lung bases Abdomen: Normal Bowel Sounds, Soft, No Tenderness Neurological: Normal Gait, Normal Speech, Normal Tone, Sensation Intact Extremities: 1+ bilateral lower extremity edema Vascular: Normal Pulses Current Medications: Current Medications Sig/Kacie Start time Last Medication Dose Route Stop Time Status Admin Acetaminophen 1,000 MG Q6P PRN 10/27 0300 AC 10/27 IV 0748 Aspirin Buffered 81 MG DAILY 10/27 1000 AC / PO 0954 Atorvastatin Calcium 10 MG AT BEDTIME 10/27 2200 AC 10/27 PO 2124 Cyclobenzaprine HCl 5 MG BID 10/27 1000 AC 10/28 PO 0954 Diltiazem HCl 180 MG DAILY 10/27 1000 AC 10/28 PO 0954 Fish Oil 1,050 MG DAILY 10/27 1000 AC 10/28 PO 0955 Furosemide 40 MG DAILY 10/27 1000 AC 10/28 IV 1002 Gabapentin 300 MG TID 10/27 1600 AC 10/28 PO 0955 Gabapentin 100 MG Q8 10/27 1400 DC 10/27 PO 1430 Guaifenesin 600 MG Q12P PRN 10/27 0300 AC PO Heparin Sodium 5,000 UNIT Q8 10/27 0600 AC 10/28 (Porcine) SC 0525 Ibuprofen 600 MG Q6P PRN 10/27 0300 AC 10/28 PO 1244 Insulin Aspart 0 TIDAC 10/27 0300 AC SC Lidocaine 1 PAT DAILY 10/27 1000 AC 10/28 EXT 1002 Lisinopril 20 MG DAILY 10/27 1000 AC 10/28 PO 0955 Multivitamins 1 TAB DAILY 10/27 1000 AC 10/28 Therapeutic PO 0955 Patient Medication 1 ED .STK-MED ONE 10/27 1345 RI Teaching ED 10/27 1346 Potassium Chloride 10 MEQ DAILY 10/27 1000 AC 10/28 PO 0954 Senna 374 MG AT BEDTIME NEED.. 10/27 0230 AC PO Sertraline HCl 50 MG DAILY 10/27 1000 AC 10/28 PO 0955 Tiotropium [place] 1 PUF DAILY 10/27 1000 AC 10/28 INH 0954 Last 24 Hrs of Lab/Bernard Results Last 24 Hrs of Labs/Mics: Laboratory Tests 10/28/16 0605: Anion Gap 6, Estimated GFR > 60, BUN/Creatinine Ratio 26.7 H, CBC w Diff NO MAN DIFF REQ, RBC 3.74 L, MCV 88.7, MCH 28.8, RDW 18.9 H, MPV 8.2, Gran % 77.0 H, Lymphocytes % 9.5 L, Monocytes % 7.5, Eosinophils % 5.6 H, Basophils % 0.4, Absolute Granulocytes 7.3 H, Absolute Lymphocytes 0.9 L, Absolute Monocytes 0.7 H, Absolute Eosinophils 0.5, Absolute Basophils 0, PUBS MCHC 32.5 L Lines/Diet/Fluids Lines: peripheral lines Restraints: none Assessment/Plan Assessment: 76-year-old female with past medical h/o of COPD with recurrent bronchitis, pneumonia, chronic diastolic congestive heart failure,, pulmonary HTN, hypertension, type 2 diabetes, BRENNON not compliant with CPAP as patient stated that she recently had a sleep study and was told she does not have BRENNON, chronic hypercapnic respiratory failure,history of MRSA infection, depression,obesity and osteoarthritis presenting with bilateral lower extremity swelling and 9 pound weight gain. Acute on chronic congestive heart failure - Monitor I/O, negative balance of 3390 - Daily weight shows significant weight loss with IV diuresis - Cardiology on board - Last Echo was done in 2017 and showed ejection fraction of 55% with right ventricle systolic pressure estimated to be greater than 50 - Continue Lisinopril 20mg - Continue Furosemide 40mg daily, cardiology recommended optimizing the dose of by mouth Lasix on discharge - Continue Cardizem 180 PO Daily - Continue ASA 81 mg Po daily Back pain Likely muscular spasm Patient feels much better with pain management and muscle relaxants History of diabetes mellitus on metformin Continue Accu-Cheks, recent Accu-Cheks and 120s Hold metformin Patient is on low-dose insulin sliding scale Patient is full code Patient is on pain management Patient is on heparin for DVT prophylaxis Patient is on diabetic diet Problem List: 1. Diastolic CHF 2. CHF (congestive heart failure) Pain Ratin Pain Location: Back Pain Goal: Pain 4 or less Pain Plan: Continue pain management pathway Tomorrow's Labs & Rationales: BEP after diuresis DVT/Prophylaxis: pharmacological
--- NOTE | 2016-10-28 11:09 | PN- Cardiology ---
Subjective Subjective: Patient feels she is improving although bothered by the back spasms. Objective Vital Signs and I&Os Vital Signs Date Time Temp Pulse Resp B/P B/P Pulse O2 O2 Flow FiO2 Mean Ox Delivery Rate 10/28 0955 80 146/80 10/28 0805 99.0 80 18 146/80 92 Nasal 3.0L Cannula 10/28 0000 Nasal 3.0L Cannula 10/27 2353 98.3 70 16 144/80 92 Nasal 3.0L Cannula 10/27 2118 94 Nasal 3.0L Cannula 10/27 1600 95 Nasal 3.0L Cannula 10/27 1530 98.3 69 16 132/74 93 Nasal 3.0L Cannula 10/27 1258 94 Nasal 3.0L Cannula Intake & Output 10/28 0800 10/28 0000 10/27 0800 10/27 0000 Intake Total 440 320 100 Output Total 650 610 8462 2250 Balance - -2150 Intake, Oral 440 320 100 Number 1 Bowel Movements Output, Urine 263 961 6184 2250 Patient 236 lb 238 lb Weight Weight Chair scale Chair scale Measurement Method Physical Exam: General: no apparent distress. Alert. On nasal cannula oxygen. Obese Eyes: No obvious scleral icterus. HEENT: No jugular venous distention or abnormal jugular venous pulsations. Cardiovascular: Normal intensity S1/S2. Regular. Respiratory: Decreased air entry without rales or rhonchi Abdomen: no guarding or rebound tenderness. Musculoskeletal: No clubbing or cyanosis noted, 1+ bilateral lower extremity edema Skin: Warm Neurologic: No gross focal deficits noted. Current Medications: Current Medications Sig/Kacie Start time Last Medication Dose Route Stop Time Status Admin Acetaminophen 1,000 MG Q6P PRN 10/27 0300 AC 10/27 IV 0748 Aspirin Buffered 81 MG DAILY 10/27 999 AC 10/28 PO 0954 Atorvastatin Calcium 10 MG AT BEDTIME 10/27 2200 AC 10/27 PO 2124 Cyclobenzaprine HCl 5 MG BID 10/27 999 AC 10/28 PO 0954 Diltiazem HCl 180 MG DAILY 10/27 1000 AC 10/28 PO 0954 Fish Oil 1,050 MG DAILY 10/27 1000 AC 10/28 PO 0955 Furosemide 40 MG DAILY 10/27 999 AC 10/28 IV 1002 Gabapentin 300 MG TID 10/27 1600 AC 10/28 PO 0955 Gabapentin 100 MG Q8 10/27 1400 DC 10/27 PO 1430 Guaifenesin 600 MG Q12P PRN 10/27 0300 AC PO Heparin Sodium 5,000 UNIT Q8 10/27 0600 AC 10/28 (Porcine) SC 0525 Ibuprofen 600 MG Q6P PRN 10/27 0300 AC 10/28 PO 0615 Insulin Aspart 0 TIDAC 10/27 0300 AC SC Lidocaine 1 PAT DAILY 10/27 1000 AC 10/28 EXT 1002 Lisinopril 20 MG DAILY 10/27 1000 AC 10/28 PO 0955 Multivitamins 1 TAB DAILY 10/27 1000 AC 10/28 Therapeutic PO 0955 Patient Medication 1 ED .STK-MED ONE 10/27 1345 [facility] 10/27 1346 Potassium Chloride 10 MEQ DAILY 10/27 1000 AC 10/28 PO 0954 Senna 374 MG AT BEDTIME NEED.. 10/27 0230 AC PO Sertraline HCl 50 MG DAILY 10/27 1000 AC 10/28 PO 0955 Tiotropium [place] 1 PUF DAILY 10/27 1000 AC 10/28 INH 0954 Results Last 48 Hrs of Labs/Mics: Laboratory Tests 10/28/16604: Anion Gap 6, Estimated GFR > 60, BUN/Creatinine Ratio 26.7 H, CBC w Diff NO MAN DIFF REQ, RBC 3.74 L, MCV 88.7, MCH 28.8, RDW 18.9 H, MPV 8.2, Gran % 77.0 H, Lymphocytes % 9.5 L, Monocytes % 7.5, Eosinophils % 5.6 H, Basophils % 0.4, Absolute Granulocytes 7.3 H, Absolute Lymphocytes 0.9 L, Absolute Monocytes 0.7 H, Absolute Eosinophils 0.5, Absolute Basophils 0, PUBS MCHC 32.5 L 10/27/16604: Anion Gap 8, Estimated GFR > 60, BUN/Creatinine Ratio 33.8 H, Troponin I < 0.01 , CBC w Diff NO MAN DIFF REQ, RBC 3.53 L, MCV 88.1, MCH 29.1, RDW 18.8 H, MPV 8.1, Gran % 79.8 H, Lymphocytes % 8.3 L, Monocytes % 6.4, Eosinophils % 5.1 H , Basophils % 0.4, Absolute Granulocytes 8.4 H, Absolute Lymphocytes 0.9 L, Absolute Monocytes 0.7 H, Absolute Eosinophils 0.5, Absolute Basophils 0, PUBS MCHC 33.0 10/27/16 0020: Anion Gap 7, Estimated GFR > 60, BUN/Creatinine Ratio 35.6 H, Glucose 114 H, Calcium 9.0, Total Bilirubin 0.3, AST 13 L, ALT 32, Alkaline Phosphatase 74, Troponin I < 0.01, [id number] Pept 587 H, Total Protein 6.0 L, Albumin 3.2 L, Globulin 2.8, Albumin/Globulin Ratio 1.1, CBC w Diff NO MAN DIFF REQ, RBC 3.72 L, MCV 87.7, MCH 28.7, RDW 18.2 H, MPV 7.7, Gran % 79.6 H, Lymphocytes % 9.4 L, Monocytes % 6.5, Eosinophils % 4.2, Basophils % 0.3, Absolute Granulocytes 9.0 H, Absolute Lymphocytes 1.1 L, Absolute Monocytes 0.7 H, Absolute Eosinophils 0.5, Absolute Basophils 0, PUBS MCHC 32.8 L Recent Imaging Studies: Telemetry tracings were personally reviewed and shows sinus rhythm with PACs Assessment/Plan Assessment/Plan 1. Acute on chronic diastolic heart failure with volume overload EF 55% BNP 587 2. COPD by history 3. Sleep apnea by history 4. Hypertension stable on medications 5. Chronic venous insufficiency followed by Dr. Sarkar 6. History of urinary incontinence 7. Pulmonary hypertension by echocardiogram Volume status appears to be improving. Remains on nasal cannula. Continue on IV Lasix for now. Monitor strict in's and O's and daily weights. I discussed with the patient at length and she is now willing to consider higher doses of baseline diuretics and will consider IV Lasix infusions in CHF clinic in the future as well. Kalen Huffman MD [facility] Continue telemetry? Yes
--- NOTE | 2016-10-28 13:26 | PN- Att Addend ---
Attending Addendum Attending Brief Note Patient seen and examined. Resting comfortably and not in any distress. She reports feeling better. She diuresis significantly yesterday until was negative balance over 3 L. She has lost about 4 pounds since admission. On examination she has slight improvement of her lower extremity edema. She has fair air entry bilaterally with no added sounds. Case was discussed in detail with her silk finisher. One care consult also appreciated. Apparently patient is reluctant to take high dose of Lasix due to urinary incontinence. She is willing to try a higher dose upon discharge and is willing to follow-up with the CHF clinic when discharged. Recommendations: -Continue IV Lasix today. -She continues to tolerate this and blood pressure is stable tomorrow, she may be discharged on Lasix 60 mg orally daily. -She is to follow-up in the CHF clinic upon discharge and with the cardiology service as an outpatient. -Continue lower extremity care as directed by the wound care service. -Patient now reports that she was taken off Lasix while at [facility] due to episodes of low blood pressure. Her blood pressure has been tolerating this medication as well as a higher dose of Lasix. Continue lisinopril for now with monitoring of her blood pressure. -No need for CBCs tomorrow.
[2016-10-28 16:11] VITALS: BP 120/70
--- NOTE | 2016-10-28 17:32 | Event Note ---
Event Note Event Note: Situation: graphic technician informed house staff of new tracings. Background: 76 year year old woman with multiple medical problems significant for Diastolic heart failure, COPD, BRENNON, and morbid obesity seen in the ED for evaluation for worsening shortness of breath and subsequently admitted to telemetry for an acute CHF exacberation. Assessment: Telemetry readings demonstrate variable heart rates between 50's-90's with supraventricular bigeminy. Patient seen and examined, chart reviewed. She is seen sitting upright in her chair at bedside maintained on supplemental oxygen via nasal cannula resting comfortable while enjoying her dinner. She appears to be in no acute distress. She reports feeling well and denies any new subjective complaints. Additionally she denies any lightheadedness/dizziness, headache, fever, chills, chest pain/discomfort, worsening shortness of breath. Vitals: Physical Exam: -General: well developed, well nourished moribidly obese elderly woman in no acute distress -HEENT: NCAT, PERRL, EOMI, anicteric sclera, moist mucous membranes, nasal cannula in place CVS: S1 S2 with fixed regular pause, no murmur Resp: CTA bilaterally Ext: 1+ bilateral lower extremity edema with chronic skin changes, no cyanosis, intact pulses Patient appears to be in no acute distress and does not endorse any new complaints. Physical examination demonstrates a normal S1, S2 with a fixed pause. EKG demostrated new QTc prolongation with supraventricular bigeminy as previously demonstrated in the telemetry tracings. No ST segment changes appreciated. Labs from this morning are within normal limits. Patient did however received intravenous lasix therapy today. Patient is only on extended duration cardizem without any beta blockers. Recommendations: -Repeat serum chemistries with magnesium, replete as necessary -Closely monitor patient and telemetry for symptoms of new rhythm -Contact cardiology should patient become symptomatic or develop new rhythm
[2016-10-29 00:21] VITALS: BP 124/66
--- NOTE | 2016-10-29 08:07 | PN- Cardiology ---
Subjective Subjective: Patient claims to feel better and is ready to go home. Telemetry reviewed reviewed sinus with premature atrial contractions. Objective Vital Signs and I&Os Vital Signs Date Time Temp Pulse Resp B/P B/P Pulse O2 O2 Flow FiO2 Mean Ox Delivery Rate 10/29 0021 98.4 82 20 124/66 93 Nasal 3.0L Cannula 10/29 0000 94 Nasal 3.0L Cannula 10/28 1937 90 Nasal 3.0L Cannula 10/28 1611 98.5 75 20 120/70 90 10/28 1600 91 Nasal 3.0L Cannula 10/28 1436 95 Nasal 3.0L Cannula 10/28 0955 80 146/80 10/28 0805 99.0 80 18 146/80 92 Nasal 3.0L Cannula 10/28 0800 92 Nasal 3.0L Cannula Intake & Output 10/29 0800 / 0000 / 1600 10/28 0800 10/28 0000 10/27 1600 Intake Total 100 220 480 440 320 Output Total 400 600 498 650 6789 Balance -300 220 -120 - Intake, IV 20 Intake, Oral 100 200 480 440 320 Number 1 Bowel Movements Output, Urine 400 600 470 622 6658 Patient 236 lb 236 lb 236 lb Weight Weight Chair scale Chair scale Measurement Method Physical Exam: Gen. exam patient comfortable Head normocephalic atraumatic Eyes sclera anicteric conjunctiva showed no pallor extraocular muscles were normal Neck no definitive jugular venous distention no carotid bruits no palpable nodes no thyroid masses Chest lungs were essentially clear bilaterally Heart regular rhythm with PACs 1 to 2/6 systolic murmur Abdomen protuberant soft nontender, no organomegaly Extremities bilateral chronic venous stasis and there 1-2+ edema. Neurologic no gross motor or sensory deficits Current Medications: Current Medications Sig/Kacie Start time Last Medication Dose Route Stop Time Status Admin Acetaminophen 1,000 MG Q6P PRN 10/27 0300 AC 10/27 IV 0748 Aspirin Buffered 81 MG DAILY 10/27 999 AC 10/28 PO 0954 Atorvastatin Calcium 10 MG AT BEDTIME 10/27 220 AC 10/28 PO 2208 Cyclobenzaprine HCl 5 MG BID 10/27 999 AC 10/28 PO 220 Diltiazem HCl 180 MG DAILY 10/27 999 AC 10/28 PO 0954 Fish Oil 1,050 MG DAILY 10/27 999 AC 10/28 PO 0955 Furosemide 40 MG DAILY 10/27 1000 AC 10/28 IV 1002 Gabapentin 300 MG TID 10/27 1600 AC 10/28 PO 2209 Guaifenesin 600 MG Q12P PRN 10/27 0300 AC PO Heparin Sodium 5,000 UNIT Q8 10/27 0600 AC 10/29 (Porcine) SC 0529 Ibuprofen 600 MG .STK-MED ONE 10/28 1236 DC PO 10/28 1237 Ibuprofen 600 MG Q6P PRN 10/27 0300 AC 10/29 PO 0730 Insulin Aspart 0 TIDAC 10/27 0300 AC SC Ketorolac 30 MG ONCE ONE 10/28 1515 DC 10/28 Tromethamine IV 10/28 1516 1616 Lidocaine 1 PAT DAILY 10/27 1000 AC 10/28 EXT 1002 Lisinopril 20 MG DAILY 10/27 1000 AC 10/28 PO 0955 Multivitamins 1 TAB DAILY 10/27 1000 AC 10/28 Therapeutic PO 0955 Potassium Chloride 10 MEQ DAILY 10/27 1000 AC 10/28 PO 0954 Senna 374 MG AT BEDTIME NEED.. 10/27 0230 AC PO Sertraline HCl 50 MG DAILY 10/27 1000 AC 10/28 PO 0955 Tiotropium [place] 1 PUF DAILY 10/27 1000 AC 10/28 INH 0954 Results Last 48 Hrs of Labs/Mics: Laboratory Tests 10/29/16 0610: Sodium Pending, Potassium Pending, Chloride Pending, Carbon Dioxide Pending, Anion Gap Pending, BUN Pending, Creatinine Pending, BUN/Creatinine Ratio Pending 10/28/16 1730: Anion Gap 6, Estimated GFR 54 L, BUN/Creatinine Ratio 27.0 H, Magnesium 1.7 10/28/16 0605: Anion Gap 6, Estimated GFR > 60, BUN/Creatinine Ratio 26.7 H, Phosphorus 4.3, Magnesium 1.8, CBC w Diff NO MAN DIFF REQ, RBC 3.74 L, MCV 88.7, MCH 28.8, RDW 18.9 H, MPV 8.2, Gran % 77.0 H, Lymphocytes % 9.5 L, Monocytes % 7.5, Eosinophils % 5.6 H, Basophils % 0.4, Absolute Granulocytes 7.3 H, Absolute Lymphocytes 0.9 L, Absolute Monocytes 0.7 H, Absolute Eosinophils 0.5, Absolute Basophils 0, PUBS MCHC 32.5 L Assessment/Plan Assessment/Plan Summary this 76-year-old female has the following problems 1. Acute on chronic diastolic heart failure with volume overload EF 55% BNP 587 2. COPD by history 3. Sleep apnea by history 4. Hypertension stable on medications 5. Chronic venous insufficiency followed by Dr. Sarkar 6. History of urinary incontinence 7. Pulmonary hypertension by echocardiogram Clinically she feels better. She still on intravenous Lasix. She was on home oxygen at 2 L/m. I would change her to oral Lasix 60 mg a day, obtain a chest x -ray and see if we can decrease oxygen requirements to 2 L her baseline. She appears clinically stable to perhaps be transitioned to outpatient care either through the CHF clinic. Continue telemetry? No
--- NOTE | 2016-10-29 08:13 | PN- Housestaff ---
ZEV CAMPOS MD,ZHOU 10/29/16 0813: Subjective Follow-up For: Acute on chronic diastolic congestive heart failure Back pain Complaints: no complaints Tele-Events Since Last Visit: Sinus rhythm, first-degree heart block and occasional PVCs and trigeminy heart rate ranging 70-80 Subjective: Patient feels great. According to her she has lost 70-80% of the fluid that was accumulated in her legs. Review of Systems Constitutional: Denies: chills, fever. Cardiovascular: Denies: chest pain, palpitations. Respiratory: Denies: cough, short of breath. Musculoskeletal: Reports: back pain. Objective Last 24 Hrs of Vital Signs/I&O Vital Signs Date Time Temp Pulse Resp B/P B/P Pulse O2 O2 Flow FiO2 Mean Ox Delivery Rate 10/29 0841 98.9 68 20 142/76 93 Nasal 3.0L Cannula 10/29 0021 98.4 82 20 124/66 93 Nasal 3.0L Cannula 10/29 0000 94 Nasal 3.0L Cannula 10/28 1937 90 Nasal 3.0L Cannula 10/28 1611 98.5 75 20 120/70 90 / 1600 91 Nasal 3.0L Cannula 10/28 1436 95 Nasal 3.0L Cannula 10/28 0955 80 146/80 Intake & Output 10/29 1600 /08 0800 06/08 0000 Intake Total 100 220 Output Total 400 Balance -300 220 Intake, IV 20 Intake, Oral 100 200 Output, Urine 400 Patient 236 lb Weight Weight Chair scale Measurement Method Physical Exam General Appearance: Alert, Oriented X3, Cooperative, No Acute Distress HEENT: Atraumatic Neck: No JVD Cardiovascular: Regular Rate, Normal S1, systolic murmur Lungs: Clear to Auscultation Abdomen: Normal Bowel Sounds, Soft, No Tenderness Neurological: Normal Gait, Normal Speech, Normal Tone, Sensation Intact Extremities: No Cyanosis, Decreased b/l lower extremity edema Vascular: Normal Pulses Current Medications: Current Medications Sig/Kacie Start time Last Medication Dose Route Stop Time Status Admin Acetaminophen 1,000 MG Q6P PRN 10/27 0300 AC 10/27 IV 0748 Aspirin Buffered 81 MG DAILY 10/27 1000 AC 10/28 PO 0954 Atorvastatin Calcium 10 MG AT BEDTIME 10/27 2200 AC 10/28 PO 220 Cyclobenzaprine HCl 5 MG BID 10/27 1000 AC 10/28 PO 2209 Diltiazem HCl 180 MG DAILY 10/27 1000 AC 10/28 PO 0954 Fish Oil 1,050 MG DAILY 10/27 1000 AC 10/28 PO 0955 Furosemide 40 MG DAILY 10/27 1000 AC 10/28 IV 1002 Gabapentin 300 MG TID 10/27 1600 AC 10/28 PO 2209 Guaifenesin 600 MG Q12P PRN 10/27 0300 AC PO Heparin Sodium 5,000 UNIT Q8 10/27 0600 AC 10/29 (Porcine) SC 0529 Ibuprofen 600 MG .STK-MED ONE 10/29 0038 DC PO 10/29 0039 Ibuprofen 600 MG .STK-MED ONE 10/28 1236 DC PO 10/28 1237 Ibuprofen 600 MG Q6P PRN 10/27 0300 AC 10/29 PO 0730 Insulin Aspart 0 TIDAC 10/27 0300 AC SC Ketorolac 30 MG ONCE ONE 10/28 1515 DC 10/28 Tromethamine IV 10/28 1516 1616 Lidocaine 1 PAT DAILY 10/27 1000 AC 10/28 EXT 1002 Lisinopril 20 MG DAILY 10/27 1000 AC 10/28 PO 0955 Multivitamins 1 TAB DAILY 10/27 1000 AC 10/28 Therapeutic PO 0955 Potassium Chloride 10 MEQ DAILY 10/27 1000 AC 10/28 PO 0954 Senna 374 MG AT BEDTIME NEED.. 10/27 0230 AC PO Sertraline HCl 50 MG DAILY 10/27 1000 AC 10/28 PO 0955 Tiotropium [place] 1 PUF DAILY 10/27 1000 AC 10/28 INH 0954 Last 24 Hrs of Lab/Bernard Results Last 24 Hrs of Labs/Mics: Laboratory Tests 10/29/16 0610: Anion Gap 8, Estimated GFR 54 L, BUN/Creatinine Ratio 32.0 H 10/28/16 1730: Anion Gap 6, Estimated GFR 54 L, BUN/Creatinine Ratio 27.0 H, Magnesium 1.7 Lines/Diet/Fluids Lines: peripheral lines Restraints: none Assessment/Plan Assessment: 76-year-old female with past medical h/o of COPD with recurrent bronchitis, pneumonia, chronic diastolic congestive heart failure,, pulmonary HTN, hypertension, type 2 diabetes, BRENNON not compliant with CPAP as patient stated that she recently had a sleep study and was told she does not have BRENNON, chronic hypercapnic respiratory failure,history of MRSA infection, depression,obesity and osteoarthritis presenting with bilateral lower extremity swelling and 9 pound weight gain. Acute on chronic congestive heart failure - Monitor I/O, negative balance of 300 - Daily weight shows significant weight loss with IV diuresis - Cardiology on board - Last Echo was done in 2017 and showed ejection fraction of 55% with right ventricle systolic pressure estimated to be greater than 50 - Continue Lisinopril 20mg - Continue Furosemide 40mg daily, cardiology recommended optimizing the dose of by mouth Lasix on discharge - Continue Cardizem 180 PO Daily - Continue ASA 81 mg Po daily Back pain Likely muscular spasm Patient feels much better with pain management and muscle relaxants History of diabetes mellitus on metformin Continue Accu-Cheks, recent Accu-Cheks and 100s Hold metformin Patient is on low-dose insulin sliding scale Patient is full code Patient is on pain management Patient is on heparin for DVT prophylaxis Patient is on diabetic diet Problem List: 1. COPD (chronic obstructive pulmonary disease) 2. Diastolic CHF Pain Ratin Pain Location: back Pain Goal: Pain 4 or less Pain Plan: Pain pathway medication Tomorrow's Labs & Rationales: no DVT/Prophylaxis: pharmacological BOOM SHORT,KESHAV 10/29/16 1101: Attending MD Review Statement Attending Statement Attending MD Statement: examined this patient, discuss w/resident/PA/AUTOMOTIVE MANUFACTURER, agreed w/resident/PA/AUTOMOTIVE MANUFACTURER, reviewed EMR data (avail), discussed with nursing, discussed with case mgmt, amended to note Attending Assessment/Plan: Patient seen and examined. Resting comfortably not in any acute distress. No issues overnight. Occasional ventricular ectopy on telemetry overnight. She reports feeling much better. She denies chest pain or shortness of breath at rest. She has been ambulating freely around the room. On examination lungs are clear bilaterally. She continues to have peripheral edema but significantly improved compared to admission. Her bilateral lower extremities are mildly erythematous however history of present chronic changes. She shows no systemic evidence of infection. She is medically stable for discharge today. Her Lasix dose will be increased on discharge. To follow-up with the cardiology service as an outpatient. She does complain of urinary incontinence. She has an appointment with Dr. Gonzalez as an outpatient will be following up upon discharge.
[2016-10-29 08:41] VITALS: BP 142/76
--- NOTE | 2016-10-29 08:46 | PN- Wound Care ---
Subjective Subjective: Feels well lower extremity edema has resolved her wounds are healed Objective Vital Signs and I&Os Vital Signs Result Date Time Pulse Ox 93 10/29 840 B/P 142/76 10/29 840 O2 Delivery Nasal Cannula 10/29 840 O2 Flow Rate 3.0L 10/29 840 Temp 98.9 10/29 840 Pulse 68 10/29 840 Resp 20 10/29 840 Intake & Output 10/29 0000 10/28 1600 10/28 0800 Intake Total 220 480 Output Total 600 250 Balance 220 -120 -250 Intake, IV 20 Intake, Oral 200 480 Output, Urine 600 250 Patient 236 lb 236 lb Weight Weight Chair scale Measurement Method Bilateral lower extremity edema has resolved there are no open venous stasis ulcers Impression/Plan Impression/Plan Impression/Plan: 76-year-old woman with preserved ejection fraction congestive heart failure and lower extremity edema which has resolved. Patient will be seen in the wound care center tomorrow for measurement for redi wraps
[2016-10-29 08:53] VITALS: BP 142/76
--- NOTE | 2016-10-29 09:28 | Patient Discharge Instructions ---
Discharge Instructions General Discharge Information You were seen/treated for: Congestive heart failure Special Instructions: Follow-up with primary care doctor in a week after discharge. Follow-up with air brakes inspector in a week after discharge. Follow-up with congestive heart failure clinic on a regular basis. Diet Continue normal diet: No Recommended Diet: Diabetic Activity Full Activity/No Limits: Yes Acute Coronary Syndrome Inclusion Criteria At DC or during hospital stay patient has or had the following: ACS DIAGNOSIS No Discharge Core Measures Meds if any: Prescribed or Continued at Discharge Meds if any: NOT Prescribed or Continued at Discharge Congestive Heart Failure Inclusion Criteria At DC or during hospital stay patient has or had the following: CHF DIAGNOSIS Yes Discharge Core Measures Meds if any: Prescribed or Continued at Discharge JELANI/ARB for EF <40% Yes Meds if any: NOT Prescribed or Continued at Discharge Cerebrovascular accident Inclusion Criteria At DC or during hospital stay patient has or had the following: CVA/TIA Diagnosis No Discharge Core Measures Meds if any: Prescribed or Continued at Discharge Meds if any: NOT Prescribed or Continued at Discharge Venous thromboembolism Inclusion Criteria VTE Diagnosis No VTE Type NONE VTE Confirmed by (Test) NONE Discharge Core Measures - Per Current guidelines, there needs to be overlap - treatment for the first 5 days of Warfarin therapy. - If discharged on Warfarin prior to 5 days of - overlap therapy, the patient will need to be - assessed for post discharge needs including - *Post discharge parental anticoagulation - *Warfarin and/or parental anticoagulation education - *Follow up date to check INR post discharge At least 5 days overlap therapy as Inpatient No Meds if any: Prescribed or Continued at Discharge Note: Overlap Therapy is Warfarin and Anticoagulant Meds if any: NOT Prescribed or Continued at Discharge
[2016-10-29] MEDS ORDERED: LASIX20 M1 PO ×2 (09:41→10:43)
[2016-10-29] MEDS ORDERED: CYCLOBENZAPRINE5 M2 PO ×2 (09:41→10:43)
[2016-10-29] MEDS ORDERED: LISINOPRIL20 M1 PO ×2 (10:15→10:43)
--- NOTE | 2016-10-29 14:18 | Discharge Summary ---
Visit Information Visit Dates Admission Date: 10/27/16 Discharge Date: 10/29/16 Hospital Course Course Attending Physician: Dr. Mcmahan Primary Care Physician: Justin SHIN MD Consulting Request: Consulting Specialty: Cardiology Hospital Course: 76-year-old female with past medical h/o of COPD with recurrent bronchitis, pneumonia, chronic diastolic congestive heart failure,, pulmonary HTN, hypertension, type 2 diabetes, BRENNON not compliant with CPAP as patient stated that she recently had a sleep study and was told she does not have BRENNON, chronic hypercapnic respiratory failure,history of MRSA infection, depression,obesity and osteoarthritis presenting with bilateral lower extremity swelling and 9 pound weight gain. Vitals in emergency department patient afebrile, no tachypnea, no tachycardia, systolic blood pressure 148/65 and oxygen saturation of 94% on 4 L of nasal cannula On examination patient, alert and oriented to time person place and mild distress lying on the bed. Irregular rhythm, S1 and S2 audible without any murmurs, bilateral crackles at the lung bases, benign abdominal examination, grossly intact neurological examination. To 3+ bilateral lower extremity edema both legs By bandage. Labs on admission include leukocytosis white count of 11.3, hemoglobin and hematocrit 10.7 and 32.6, normal MCV, platelet count of 313, no significant electrolyte abnormality other than carbon dioxide 35 which is chronic, proBNP 587 and troponin less than 0.01. EKG showed sinus rhythm with no acute ST changes. Chest x-ray showed, Central vascular prominence with mild interstitial prominence suggestive of mild fluid overload. Recent echocardiogram on 2016 showed ejection fraction of 55%. Right ventricular systolic pressure estimated to be elevated at > 50 mmHg. pulmonary function tests in 2010 showed Probable mild obstructive lung disease with a reversible component and exercise induced desaturation. Patient received IV Lasix 40 mg in emergency department Patient is admitted on telemetry floor for the management of following problems Acute on chronic diastolic congestive heart failure Most likely acute CHF exacerbation secondary to medication noncompliance. In the past patient has been told multiple times to follow-up with CHF clinic patient was reluctant to do that. Patient was started on Quinapril 40 mg on discharge during her last admission in August 2016 but patient is unsure whether she is taking that medication or not and she recently filled a prescription of lisinopril 20 mg but that was also not included in her patient medication list. ACS ruled out with no acute ST changes and 2 sets of negative troponins. Patient was maintained on IV diuresis with 40 mg of IV Lasix. She was maintained in negative balance and lost 10 pounds of weight during admission. Cardiology consult was obtained during the hospital admission. Lisinopril 20 mg was restarted, Cardizem 180 continued along with aspirin. Hydralazine was held during the hospital course and also on discharge. Lasix was also increased from 40-60 mg daily on discharge. Patient was told to follow-up with cardiology on discharge and heart failure clinic. Back pain/muscle spasm Likely a muscular spasm. Lumbosacral spine x-ray was obtained which showed no acute fractures, but multilevel degenerative disc disease was present on imaging. Patient was given Flexeril and pain management and felt a lot better on discharge. History of diabetes mellitus on metformin patient's metformin was held during the hospital admission. Patient was an insulin sliding scale. Patient was full code Patient was on pain management Patient was on heparin for DVT prophylaxis Patient was on diabetic diet Allergies: Coded Allergies: codeine (Mild, SENSITIVITY - HEADACHE AND NAUSEA AND MISERABLE 03/01/16) Antihistamines - Alkylamine (DIZZY, HEADACHES, FEELS SICK 03/01/16) Antihistamines - Ethanolamine (DIZZINESS, HEADACHE, FEELS SICK 03/01/16) Antihistamines - Ethylenediamine (DIZZINESS, HEADACHE, FEELS SICK 03/01/16) Antihistamines - Piperazine (DIZZINESS, HEADACHE, FEELS SICK 03/01/16) Antihistamines - Piperidine (DIZZINESS HEADACHE FEELS SICK 03/01/16) Opioids - Morphine Analogues (N/V HEADACHE FEELS MISERABLE 03/01/16) Opioids-Meperidine and Related (N/V HEADACHE, FEELS MISERABLE 03/01/16) Opioids-Methadone and Related (HEADACHE, N/V, FEELS MISERABLE 03/01/16) Disposition Summary Disposition Principal Diagnosis: Acute on chronic diastolic congestive heart failure Back pain secondary to muscle spasm Additional Diagnosis: History of diabetes mellitus History of recurrent bronchitis, History of pulmonary HTN Discharge Disposition: home or self care Discharge Instructions General Discharge Information Code Status: Full Code Patient's Diet: Diabetic diet with 2 g sodium Patient's Activity: As tolerated Fall precautions Follow-Up Instructions/Appts: Follow-up with primary care doctor in a week after discharge Follow-up with [facility] in a week after discharge Follow-up with wound care clinic Medications at Discharge Discharge Medications: Stop taking the following medications: Hydralazine HCl (Hydralazine HCl) 25 MG TABLET ORAL THREE TIMES DAILY Days = 28 Quinapril HCl (Quinapril HCl) 40 MG TABLET ORAL DAILY Qty = 90 Furosemide (Furosemide) 40 MG TABLET ORAL DAILY Qty = 90 Continue taking these medications: Potassium Chloride (Potassium Chloride) 10 MEQ TABLET.ER 1 Tablet ORAL DAILY Qty = 90 Comments: Last Taken: 10/27/16 Time: 10:30 AM Sertraline HCl (Sertraline HCl) 100 MG TABLET 0.5 Tablet ORAL DAILY Qty = 90 Comments: Last Taken: 10/29/16 Time: 9 AM Ibuprofen (Ibuprofen) 200 MG CAPSULE 4 Capsule ORAL as needed for PAIN Comments: Last Taken: 10/29/16 Time: 7:30 AM Ipratropium Jones (Atrovent Hfa) 17 MCG/ACTUATION HFA.AER.AD 2 Puff Inhale through mouth DAILY Days = 28 Comments: NOT GIVEN IN HOSPITAL Albuterol Sulfate (Proair Hfa) 90 MCG HFA.AER.AD 2 Puff Inhale through mouth EVERY 4-6 HOURS NEEDED as needed for shortness of breath Qty = 1 Comments: NOT GIVEN IN HOSPITAL Albuterol Sulfate (Albuterol Sulfate) 0.63 MG/3 ML VIAL.NEB 1 PUFF Inhale through mouth EVERY 4 HOURS NEEDED as needed for BREATHING Comments: NOT GIVEN IN HOSPITAL Tiotropium Jones (Spiriva) 18 MCG CAP.W.DEV 1 Puff Inhale through mouth DAILY Days = 30 Comments: Last Taken: 10/29/16 Time: 9 AM Guaifenesin (Guaifenesin ER) 600 MG TAB.ER.12H 600 Milligram ORAL EVERY 12 HOURS as needed for COUGH Days = 7 Comments: NOT GIVEN IN HOSPITAL Aspirin (Ecotrin*) 81 MG TABLET.DR 1 Tablet ORAL DAILY Comments: Last Taken: 10/29/16 Time: 9 AM Diltiazem HCl (Diltiazem 24HR ER) 180 MG CAP.ER.24H 1 Capsule ORAL DAILY Qty = 30 Comments: Last Taken: 10/29/16 Time: 9 AM Hancock-3/Dha/Epa/Fish Oil (Fish Oil 1,000 MG Softgel) 1,000 MG (120 MG-180 MG) CAPSULE 1 Tablet ORAL DAILY Qty = 30 Comments: Last Taken: 10/29/16 Time: 9 AM Simvastatin (Simvastatin*) 10 MG TABLET 1 Tablet ORAL Every night Qty = 90 Comments: Last Taken: 10/28/16 Time: 10 PM Multivitamin (Daily Multiple Vitamin) 1 EACH TABLET 1 Tablet ORAL DAILY Qty = 30 Comments: Last Taken: 10/29/16 Time: 9 AM Gabapentin (Gabapentin) 300 MG CAPSULE 1 Capsule ORAL THREE TIMES DAILY Comments: Last Taken: 10/29/16 Time: 9 AM Start taking the following new medications: Cyclobenzaprine HCl (Cyclobenzaprine HCl) 5 MG TABLET 1 Tablet ORAL TWICE DAILY as needed for muscle spasm Qty = 10 No Refills Instructions: . Comments: Last Taken: 10/29/16 Time: 9 AM Lisinopril (Lisinopril) 20 MG TABLET 1 Tablet ORAL DAILY Qty = 90 No Refills Instructions: . Comments: Last Taken: 10/29/16 Time: 9 AM Furosemide (Lasix) 20 MG TABLET 3 Tablet ORAL DAILY Qty = 90 No Refills Instructions: . Comments: Last Taken: 10/29/16 Time: 9 AM Copies To: KESHAV MCMAHAN M.D
== END 2016-10-29 13:30 | disposition home health service (06) | DRG 291 ==
LOC: ERH 23:00 → 1NO 10-27 01:39 → ERHI 10-27 01:39 → ENRESERV 10-27 02:40 → 1NO 10-27 03:39 → ENPENDDIS 10-29 10:43 → 1NO 10-29 13:30
PROVIDERS: Emergency Medicine; Internal Medicine Hematology & Oncology; Student in an Organized Health Care Education/Training Program; ADMIT Student in an Organized Health Care Education/Training Program
DX: I11.0 Hypertensive heart disease with heart failure (principal); J96.21 Acute and chronic respiratory failure with hypoxia; I27.2 Other secondary pulmonary hypertension; Z99.81 Dependence on supplemental oxygen; J44.9 Chronic obstructive pulmonary disease, unspecified; Z68.41 Body mass index [BMI] 40.0-44.9, adult; E66.01 Morbid (severe) obesity due to excess calories; E11.9 Type 2 diabetes mellitus without complications; I50.33 Acute on chronic diastolic (congestive) heart failure; I87.2 Venous insufficiency (chronic) (peripheral); R60.0 Localized edema; Z87.891 Personal history of nicotine dependence; G47.33 Obstructive sleep apnea (adult) (pediatric); Z79.84 Long term (current) use of oral hypoglycemic drugs; M62.830 Muscle spasm of back
CPT/HCPCS: 1NP; 36415; 72100; 82436; 93005; 93010; 96374; 99291; J1644; J1885; J1940